=== PATIENT | female | born 1965 | race African-American/Black ===

== ENCOUNTER 2016-07-24 10:32 | Emergency (ER) | payer MEDICARE ==
[~2016-07-24] VITALS: Ht 175.3 cm; Wt 87.1 kg
[2016-07-24] MEDS ORDERED: FAMOTIDINE 20 MG/2 ML VIAL IVP ONE (11:15)
[2016-07-24] MEDS ORDERED: DEXAMETHASONE SOD PHOS 20 MG/5 ML VIAL. IV ONE (11:15)
[2016-07-24] MEDS ORDERED: DIPHENHYDRAMINE 50 MG/ML VIAL IVP ONE (11:15)
--- NOTE | 2016-07-24 13:06 | PHYS DOC ---
Past Medical History Past Medical History: CVA, Diabetes-Type II, High Cholesterol, Hypertension Additional Past Medical Histor: DKA Past Surgical History: Oophorectomy Additional Past Surgical Histo: stents to kidneys Alcohol Use: None Drug Use: None Adult General Chief Complaint Chief Complaint: ALLERGIC REACTION HPI HPI Patient a 50 year old female with history of CVA, hypertension, diabetes type II, high cholesterol, who presents today complaining of an allergic reaction. Patient states she has lip swelling and a rash that began after she drank bottled water she purchased at the store but she states had sulfa which she is allergic to. Patient denies any difficulty swallowing, denies any throat or tongue swelling. She states her symptoms have improved since last night. Review of Systems Review of Systems Constitutional: Denies fever or chills [] Eyes: Denies change in visual acuity, redness, or eye pain [] HENT: Lip swelling Respiratory: Denies cough or shortness of breath [] Cardiovascular: No additional information not addressed in HPI [] GI: Denies abdominal pain, nausea, vomiting, bloody stools or diarrhea [] : Denies dysuria or hematuria [] Musculoskeletal: Denies back pain or joint pain [] Integument: rash Neurologic: Denies headache, focal weakness or sensory changes [] Endocrine: Denies polyuria or polydipsia [] Current Medications Current Medications Current Medications Medications (Trade) Dose Ordered Sig/Leanen Start Time Stop Time Status Last Admin Dose Admin Dexamethasone Sodium Phosphate (Decadron) 10 mg 1X ONCE 07/24/16 11:15 07/24/16 11:16 DC 07/24/16 11:38 10 MG Diphenhydramine HCl (Benadryl) 50 mg 1X ONCE 07/24/16 11:15 07/24/16 11:16 DC 07/24/16 11:37 50 MG Famotidine (Pepcid) 20 mg 1X ONCE 07/24/16 11:15 07/24/16 11:16 DC 07/24/16 11:37 20 MG Allergies Allergies Allergies Coded Allergies Type Severity Reaction Last Updated Verified Sulfa (Sulfonamide Antibiotics) Allergy Severe Anaphylaxis 07/24/16 Yes Penicillins Allergy Intermediate 07/24/16 Yes Physical Exam Physical Exam Constitutional: Well developed, well nourished, no acute distress, non-toxic appearance. [] HENT: Normocephalic, atraumatic, bilateral external ears normal, oropharynx moist, no oral exudates, nose normal. [] No swelling noted on exam. Eyes: PERRLA, EOMI, conjunctiva normal, no discharge. [] Neck: Normal range of motion, no tenderness, supple, no stridor. [] Cardiovascular:Heart rate regular rhythm, no murmur [] Lungs & Thorax: Bilateral breath sounds clear to auscultation [] Abdomen: Bowel sounds normal, soft, no tenderness, no masses, no pulsatile masses. [] Skin: no rash noted on exam Back: No tenderness, no CVA tenderness. [] Extremities: No tenderness, no cyanosis, no clubbing, ROM intact, no edema. [] Neurologic: Alert and oriented X 3, normal motor function, normal sensory function, no focal deficits noted. [] Psychologic: Affect normal, judgement normal, mood normal. [] Current Patient Data Vital Signs Vital Signs Date Time Temp Pulse Resp B/P Pulse Ox O2 Delivery O2 Flow Rate FiO2 07/24/16 12:15 96 160/84 98 Room Air 07/24/16 10:37 99.0 20 99.0 EKG EKG [] Radiology/Procedures Radiology/Procedures [] Course & Med Decision Making Course & Med Decision Making Pertinent Labs and Imaging studies reviewed. (See chart for details) Patient is in the ED complaining of lip swelling and a rash that began after she drank bottled water she bought at the store that had sulfa. On physical exam patient does not have any lip swelling. She has no throat or tongue swelling. Patient was given Benadryl, Decadron and Pepcid and discharged on the same. She is to follow-up with her PCP in 1-3. She was provided return precautions and discharged in stable condition. Dragon Disclaimer Dragon Disclaimer This electronic medical record was generated, in whole or in part, using a voice recognition dictation system. Departure Departure Impression: Primary Impression: Allergic reaction Additional Impression: Angioedema Disposition: HOME, SELF-CARE Condition: STABLE Referrals: NO PCP (PCP) Follow-up with your own doctor in 1-3 days Patient Instructions: Angioedema, Rash Additional Instructions: You were seen for an allergic reaction to bottled water. Please take the prescribed medicines as ordered. Come back to the ED at any point symptoms reoccur. Scripts Famotidine (Pepcid)20 Mg [id number] Mg PO DAILY #7 TAB Prov:CARMEN COOLEY APRN 07/24/16 Prednisone 50 Mg Tablet1 Tab PO DAILY #4 TAB Prov:CARMEN COOLEY APRN 07/24/16 Diphenhydramine Hcl (Benadryl)25 Mg Capsule1 Cap PO Q4HRS PRN RASH #30 CAP Ref 1 Prov:CARMEN COOLEY APRN 07/24/16 Problem Qualifiers Primary Impression: Allergic reaction Encounter type: initial encounter Qualified Code: T78.40XA - Allergy, unspecified, initial encounter Additional Impression: Angioedema Encounter type: initial encounter Qualified Code: T78.3XXA - Angioneurotic edema, initial encounter CARMEN COOLEY APRN Jul 24, 2016 13:06
[2016-07-24] MEDS ORDERED: FAMO-63 PO (13:20)
[2016-07-24] MEDS ORDERED: PRED50TA PO (13:20)
[2016-07-24] MEDS ORDERED: DIPH25CA58 PO (13:20)
[2016-07-24 13:40] VITALS: BP 170/90
== END 2016-07-24 13:40 | disposition home or self-care (01) ==
LOC: ER 10:32
DX: T78.40XA Allergy, unspecified, initial encounter (principal); T78.3XXA Angioneurotic edema, initial encounter; E11.9 Type 2 diabetes mellitus without complications; E78.00 Pure hypercholesterolemia, unspecified; I10 Essential (primary) hypertension; Z90.722 Acquired absence of ovaries, bilateral; Z86.73 Personal history of transient ischemic attack (TIA), and cerebral infarction without residual deficits; Z88.0 Allergy status to penicillin; Z88.2 Allergy status to sulfonamides
CPT/HCPCS: 96374; 96375; 99284; J1100; J1200; S0028

== ENCOUNTER 2017-04-17 17:56 | Emergency (ER) | payer MEDICARE ==
[~2017-04-17] VITALS: Ht 175.3 cm; Wt 88.5 kg
[~2017-04-17 17:56] MED LIST: DIPH25CA58 PO; FAMO-63 PO; PRED50TA PO
[2017-04-17 18:29] VITALS: BP 192/119
--- NOTE | 2017-04-17 18:43 | PHYS DOC ---
Past Medical History Past Medical History: CVA, Diabetes-Type II, High Cholesterol, Hypertension Additional Past Medical Histor: DKA Past Surgical History: Oophorectomy Additional Past Surgical Histo: stents to kidneys Alcohol Use: None Drug Use: None Adult General Chief Complaint Chief Complaint: MECHANICAL FALL HPI HPI Patient is a 51 year old female presents to the emergency department stating that she has having right thumb pain and discomfort. Patient is right-hand dominant. Patient has had problems this on the left and is unable to use the left arm. She states that she went to get up out of the chair and fell and injured the thumb area on Friday. She states that she has been placing ice packs on the area to help with the swelling and discomfort. Patient states the swelling has decreased. She has not taken anything for pain and discomfort. She denies any numbness or tingling into the thumb she does have full range of motion of the thumb however she does have increased pain and discomfort with movement. Review of Systems Review of Systems Constitutional: Denies fever or chills [] Eyes: Denies change in visual acuity, redness, or eye pain [] HENT: Denies nasal congestion or sore throat [] Respiratory: Denies cough or shortness of breath [] Cardiovascular: No additional information not addressed in HPI [] GI: Denies abdominal pain, nausea, vomiting, bloody stools or diarrhea [] : Denies dysuria or hematuria [] Musculoskeletal: Denies back pain. Right thumb pain Integument: Denies rash or skin lesions [] Neurologic: Denies headache, focal weakness or sensory changes [] Endocrine: Denies polyuria or polydipsia [] All other systems were reviewed and found to be within normal limits, except as documented in this note. Allergies Allergies Allergies Coded Allergies Type Severity Reaction Last Updated Verified Sulfa (Sulfonamide Antibiotics) Allergy Severe Anaphylaxis 07/24/16 Yes Penicillins Allergy Intermediate 07/24/16 Yes Physical Exam Physical Exam Constitutional: Well developed, well nourished, no acute distress, non-toxic appearance. [] HENT: Normocephalic, atraumatic, bilateral external ears normal, oropharynx moist, no oral exudates, nose normal. [] Eyes: PERRLA, EOMI, conjunctiva normal, no discharge. [] Neck: Normal range of motion, no tenderness, supple, no stridor. [] Cardiovascular:Heart rate regular rhythm, no murmur [] Lungs & Thorax: Bilateral breath sounds clear to auscultation [] Skin: Warm, dry, no erythema, no rash. [] Extremities: Right thumb tenderness noted at the MIP joint, no cyanosis, no clubbing, ROM intact, no edema. Patient with minimal swelling noted Refill brisk less than 2 seconds. Patient does have full range of motion however increased pain is noted with movement. Neurologic: Alert and oriented X 3, normal motor function, normal sensory function, no focal deficits noted. [] Psychologic: Affect normal, judgement normal, mood normal. [] Current Patient Data Vital Signs Vital Signs Date Time Temp Pulse Resp B/P (MAP) Pulse Ox O2 Delivery O2 Flow Rate FiO2 04/17/17 18:29 98.2 82 20 99 Room Air 98.2 EKG EKG [] Radiology/Procedures Radiology/Procedures [] Course & Med Decision Making Course & Med Decision Making Pertinent Labs and Imaging studies reviewed. (See chart for details) Thumb x-rays were negative for any bony abnormalities per Dr. Urban. Patient was placed in a thumb spica splint with recommendations to follow-up with orthopedic within the next week. She was provided with orthopedic name and number. She was also instructed to use ibuprofen 800 mg every 8 hours with food stopped taking he developed upset stomach. Recommended ice packs on 20 minutes off 20 minutes several times a day elevation as much as possible. She is provided with splint care. Patient was provided with discharge instructions óscar regimens and follow-up recommendations. She was provided with signs and symptoms return back to the emergency department. Patient agrees with the instructions mentioned. She'll be discharged home in stable condition. [] Dragon Disclaimer Dragon Disclaimer This electronic medical record was generated, in whole or in part, using a voice recognition dictation system. Departure Departure Impression: Primary Impression: Strain of right thumb Disposition: HOME, SELF-CARE Condition: STABLE Referrals: NO PCP (PCP) SERGIO VELEZ II, MD Patient Instructions: Splint Care, [id number], Thumb Sprain Additional Instructions: Activity as tolerated. Ibuprofen 800 mg every 8 hours with food stopped taking he developed upset stomach. Keep the splint in place and keep it clean and dry. Do not remove the splint a follow-up with orthopedic. Ice packs on 20 minutes off 20 minutes several times a day. Elevation as much as possible. Follow-up with orthopedic within the next week. Return back to the emergency department as needed for signs and symptoms that become worse. ANU FERGUSON APRN Apr 17, 2017 18:43
--- NOTE | 2017-04-18 07:24 | RAD ---
Indication: Fall with pain in the first digit. Time of exam 1813 hours. Multiple views of the right thumb were obtained. The alignment is normal. The phalanges and first metacarpal are intact. No fractures are seen. Impression: No acute bony abnormality is detected.
== END 2017-04-17 19:05 | disposition home or self-care (01) ==
LOC: ER 17:56
DX: S63.601A Unspecified sprain of right thumb, initial encounter (principal); E11.10 Type 2 diabetes mellitus with ketoacidosis without coma; E78.00 Pure hypercholesterolemia, unspecified; I10 Essential (primary) hypertension; Z86.73 Personal history of transient ischemic attack (TIA), and cerebral infarction without residual deficits; Z88.0 Allergy status to penicillin; Z88.2 Allergy status to sulfonamides; W18.39XA Other fall on same level, initial encounter; Y93.89 Activity, other specified; Y99.8 Other external cause status; Y92.89 Other specified places as the place of occurrence of the external cause
CPT/HCPCS: 29125; 73140; 99284-25

== ENCOUNTER → 2017-05-01 | Outpatient (CLI) | payer MEDICARE | END | disposition home or self-care (01) | LOC: KCIC MRI 09:00 | DX: S53.31XD Traumatic rupture of right ulnar collateral ligament, subsequent encounter (principal); S69.91XD Unspecified injury of right wrist, hand and finger(s), subsequent encounter; X58.XXXD Exposure to other specified factors, subsequent encounter | CPT/HCPCS: 73218 ==

== ENCOUNTER 2018-09-30 16:33 | Emergency (ER) | payer MEDICARE ==
[~2018-09-30] VITALS: Ht 175.3 cm; Wt 86.2 kg
--- NOTE | 2018-09-30 17:02 | PHYS DOC ---
Past Medical History Past Medical History: CVA, Diabetes-Type II, High Cholesterol, Hypertension Additional Past Medical Histor: DKA Past Surgical History: Oophorectomy Additional Past Surgical Histo: stents to kidneys Alcohol Use: None Drug Use: None Adult General Chief Complaint Chief Complaint: MECHANICAL FALL HPI HPI Patient is a 52-year-old female who presents to the emergency department for evaluation. She states that she has had a stroke in the past, and was ambulating with the use of her cane. She states that she normally wears a left leg brace to help stabilize her leg due to weakness from the stroke, but she was not wearing it at the time, and she lost her balance and fell to the ground. She states that this was not an unusual occurrence for her, as if she puts too much weight on her left leg, she will fall when the leg kylee. She injured her left ankle, but denies any other pain in her extremities, or any other injuries. She is noted to be extremely hypertensive. She states that she has not taken any medication in several months, she states she had been on lisinopril for her blood pressure, as well as other medications that she is not sure. She had also been taking insulin which she states that she has not been taking. She states that she does occasionally check her blood pressure at home and he was routinely above 200 systolic. She denies any new headache, no vision changes, new numbness or weakness, other than her chronic residual weakness on the left side from her old stroke. She denies any chest pain or shortness of breath. There are no alleviating, or exacerbating factors to her symptoms otherwise. Review of Systems Review of Systems Constitutional: Denies fever or chills [] Eyes: Denies change in visual acuity, redness, or eye pain [] HENT: Denies nasal congestion or sore throat [] Respiratory: Denies cough or shortness of breath [] Cardiovascular: The patient denies any shortness of breath, chest pain, palpitations, or orthopnea [] GI: Denies abdominal pain, nausea, vomiting, bloody stools or diarrhea [] : Denies dysuria or hematuria [] Musculoskeletal: Denies back pain or joint pain , except as noted in the history of present illness.[] Integument: Denies rash or skin lesions [] Neurologic: Denies headache, new focal weakness or sensory changes [] Endocrine: Denies polyuria or polydipsia [] All other systems were reviewed and found to be within normal limits, except as documented in this note. Current Medications Current Medications Current Medications Medications (Trade) Dose Ordered Sig/Leanne Start Time Stop Time Status Last Admin Dose Admin Clonidine HCl (Catapres) 0.2 mg 1X ONCE 09/30/18 17:15 09/30/18 17:16 DC 09/30/18 17:41 0.2 MG Insulin Human Regular (HumuLIN R VIAL) 10 unit 1X ONCE 09/30/18 17:30 09/30/18 17:31 DC 09/30/18 17:54 10 UNIT Morphine Sulfate (Morphine Sulfate) 4 mg 1X ONCE 09/30/18 18:00 09/30/18 18:01 DC 09/30/18 18:08 4 MG Sodium Chloride 1,000 ml @ 1,000 mls/hr 1X ONCE 09/30/18 18:00 09/30/18 18:59 Allergies Allergies Allergies Coded Allergies Type Severity Reaction Last Updated Verified Sulfa (Sulfonamide Antibiotics) Allergy Severe Anaphylaxis 07/24/16 Yes Penicillins Allergy Intermediate 07/24/16 Yes Physical Exam Physical Exam PHYSICAL EXAM: CONSTITUTIONAL: Well developed, well nourished HEAD: normocephalic, atraumatic EENT: PERRL, EOMI. Conjunctivae normal color, sclerae non-icteric; moist mucous membranes. NECK: Supple, non-tender; no meningismus. LUNGS: Lungs CTA, breathing even and unlabored. Normal air movement. HEART: Regular rate and rhythm, no murmur CHEST: No deformity; non-tender ABDOMEN: The abdomen is soft, and non-tender, no masses or bruits. EXTREM: Normal ROM; no deformity, no calf tenderness. Normal pulses palpable in all extremities. There is trace bilateral pedal edema. There is tenderness to palpation to the left ankle, with some swelling along the medial malleolus. There is also mild tenderness to palpation along the fibular head on the left. The remainder of the extremities are atraumatic and nontender. SKIN: No rash; no diaphoresis NEURO: Alert; normal speech and cognition; CN's grossly intact; there is chronic weakness of the left upper and lower extremity from an old stroke, otherwise strength grossly intact without focal deficit. BACK: No CVA TTP. Current Patient Data Vital Signs Vital Signs Date Time Temp Pulse Resp B/P (MAP) Pulse Ox O2 Delivery O2 Flow Rate FiO2 09/30/18 17:41 88 218/110 Lab Values Laboratory Tests Test 09/30/18 16:58 09/30/18 17:20 Glucose (Fingerstick) 455 mg/dL (70-99) H White Blood Count 7.8 x10^3/uL (4.0-11.0) Red Blood Count 4.34 x10^6/uL (3.50-5.40) Hemoglobin 12.4 g/dL (12.0-15.5) Hematocrit 36.9 % (36.0-47.0) Mean Corpuscular Volume 85 fL (79-100) Mean Corpuscular Hemoglobin 29 pg (25-35) Mean Corpuscular Hemoglobin Concent 34 g/dL (31-37) Red Cell Distribution Width 14.4 % (11.5-14.5) Platelet Count 316 x10^3/uL (140-400) Neutrophils (%) (Auto) 75 % (31-73) H Lymphocytes (%) (Auto) 16 % (24-48) L Monocytes (%) (Auto) 7 % (0-9) Eosinophils (%) (Auto) 1 % (0-3) Basophils (%) (Auto) 1 % (0-3) Neutrophils # (Auto) 5.9 x10^3uL (1.8-7.7) Lymphocytes # (Auto) 1.2 x10^3/uL (1.0-4.8) Monocytes # (Auto) 0.5 x10^3/uL (0.0-1.1) Eosinophils # (Auto) 0.1 x10^3/uL (0.0-0.7) Basophils # (Auto) 0.1 x10^3/uL (0.0-0.2) Sodium Level 136 mmol/L (136-145) Potassium Level 4.4 mmol/L (3.5-5.1) Chloride Level 97 mmol/L (98-107) L Carbon Dioxide Level 26 mmol/L (21-32) Anion Gap 13 (6-14) Blood Urea Nitrogen 13 mg/dL (7-20) Creatinine 1.1 mg/dL (0.6-1.0) H Estimated GFR (Cockcroft-Gault) 62.9 Glucose Level 462 mg/dL (70-99) H Calcium Level 9.3 mg/dL (8.5-10.1) Acetone Level Neg (NEG) Laboratory Tests 09/30/18 17:20 Laboratory Tests 09/30/18 17:20 EKG EKG Normal sinus rhythm with a normal rate, normal axis, normal intervals, there are no acute ischemic ST/T changes. Changes suggestive of left ventricular hypertrophy are present.[] Radiology/Procedures Radiology/Procedures [PROCEDURE: TIBIA FIBULA LEFT EXAM: Left tibia and fibula, 2 views; left ankle, 3 views. HISTORY: Fall. COMPARISON: None. FINDINGS: 2 views of the tibia and fibula and 3 views of the ankle are obtained. There is mild medial compartment joint space narrowing and spurring involving the left knee. There is benign sclerosis within the proximal tibial metaphysis. There is a minimally displaced oblique fracture of the distal fibular diaphysis. There is also a minimally displaced fracture of the inferior medial malleolus. No clear posterior malleolar fracture is seen. There is a small plantar spur. There is enthesopathy at the Achilles tendon insertion. There is a small benign osseous excrescence along the anterior talus. There is diffuse ankle soft tissue swelling. There are vascular calcifications. IMPRESSION: 1. Minimally displaced distal fibular metadiaphyseal and inferior medial malleolar fractures. 2. Mild medial compartment predominant osteoarthritis of the left knee. 3. Small plantar spur. ] Course & Med Decision Making Course & Med Decision Making Pertinent Labs and Imaging studies reviewed. (See chart for details) []5:55 PM: The patient's condition remains stable. She is uncertain of the medications that she has been taking. I did review the x-ray and discussed management with Dr. No, orthopedics. He felt that the patient would likely be treated nonoperatively and we agreed that placing the patient in a splint, with limited weightbearing, although weightbearing as needed for balance, was appropriate. The patient states she has plenty of help at home, has access to a wheelchair, and feels that she can get around adequately with the help an assistive devices that she has at home, although she is not a good candidate to use a walker due to paresis of her left upper extremity. She does ambulate with a cane. I discussed the importance of obtaining a PCP, and the patient be given a list of local physicians, and restarted on her blood pressure medication. I also discussed importance of taking her insulin as previously prescribed, and return precautions were discussed in detail. Currently, the patient's blood sugar remains elevated as is her blood pressure. I do believe that she has chronically elevated significant hypertension, untreated, and she is uncertain which medications that she is supposed be taking. I believe it would be more harm than good and acutely lower her blood pressure I will start her on an outpatient regimen of antihypertensive medication. I discussed the importance of close follow-up for this. I will also try and get her blood sugar down and I instructed her to resume taking her insulin, which she can obtain at the pharmacy, at her previously scheduled dose. Care will be turned over to Dr. Montero, pending recheck of the patient's blood pressure and blood sugar, prior to discharge. SPLINT APPLICATION NOTE: A posterior short leg splint was placed on the left lower extremity, with a stirrup, PMS intact post-placed in. ER staff place a splint and inspected post placement. Dragon Disclaimer Dragon Disclaimer This electronic medical record was generated, in whole or in part, using a voice recognition dictation system. Departure Departure Impression: Primary Impression: Ankle fracture Additional Impressions: Hypertension Hyperglycemia Referrals: SERGIO VELEZ II, MD Patient Instructions: Ankle Fracture, Bromocriptine oral tablets (diabetes), Diets for Diabetes, Food Labeling, Hyperglycemia, Hypertension, Type 2 Diabetes Mellitus, Adult Additional Instructions: It is important that you obtain a primary care physician for further management of your blood pressure and diabetes. Please call, using the scheduled resources, to schedule an appointment for further follow-up. Scripts Lisinopril/Hydrochlorothiazide (LISINOPRIL-HCTZ 20-25 MG TAB) 1 Each Tablet 1 TAB PO DAILY, #30 TAB 0 Refills Prov: SEAN JHA MD 09/30/18 Hydrocodone/Apap 5-325 (NORCO 5-325 TABLET) 1 Each Tablet 1 TAB PO Q4-6HRS PRN for PAIN, #15 TAB Prov: SEAN JHA MD 09/30/18 Problem Qualifiers SEAN JHA MD Sep 30, 2018 17:02
[2018-09-30] MEDS ORDERED: cloNIDine HCL 0.1 MG TABLET PO ONE (17:15)
[2018-09-30] MEDS ORDERED: MORPHINE SULFATE 4 MG/ML VIAL. IV ONE ×2 (17:15→18:00)
--- NOTE | 2018-09-30 17:25 | RAD ---
EXAM: Left tibia and fibula, 2 views; left ankle, 3 views. HISTORY: Fall. COMPARISON: None. FINDINGS: 2 views of the tibia and fibula and 3 views of the ankle are obtained. There is mild medial compartment joint space narrowing and spurring involving the left knee. There is benign sclerosis within the proximal tibial metaphysis. There is a minimally displaced oblique fracture of the distal fibular diaphysis. There is also a minimally displaced fracture of the inferior medial malleolus. No clear posterior malleolar fracture is seen. There is a small plantar spur. There is enthesopathy at the Achilles tendon insertion. There is a small benign osseous excrescence along the anterior talus. There is diffuse ankle soft tissue swelling. There are vascular calcifications. IMPRESSION: 1. Minimally displaced distal fibular metadiaphyseal and inferior medial malleolar fractures. 2. Mild medial compartment predominant osteoarthritis of the left knee. 3. Small plantar spur. Electronically signed by: Jana Sandy MD (09/30/2018 5:22 PM) [facility]
[2018-09-30 17:30] LABS: BASO # 0.1 x10^3/uL (0.0-0.2); BASO % 1 % (0-3); EOS # 0.1 x10^3/uL (0.0-0.7); EOS % 1 % (0-3); HEMATOCRIT 36.9 % (36.0-47.0); HEMOGLOBIN 12.4 g/dL (12.0-15.5); LYMPH # 1.2 x10^3/uL (1.0-4.8); LYMPH % 16 % (24-48); MEAN CORPUSCULAR HEMOGLOBIN 29 pg (25-35); MEAN CORPUSCULAR HGB CONC 34 g/dL (31-37); MEAN CORPUSCULAR VOLUME 85 fL (79-100); MONO # 0.5 x10^3/uL (0.0-1.1); MONO % 7 % (0-9); NEUT # 5.9 x10^3uL (1.8-7.7); NEUT % 75 % (31-73); PLATELET COUNT 316 x10^3/uL (140-400); RED BLOOD COUNT 4.34 x10^6/uL (3.50-5.40); RED CELL DISTRIBUTION WIDTH 14.4 % (11.5-14.5); WHITE BLOOD COUNT 7.8 x10^3/uL (4.0-11.0)
[2018-09-30] MEDS ORDERED: INSULIN REGULAR 100 UNIT/ML 3ML VIAL. IV ONE (17:30)
[2018-09-30] MEDS ORDERED: IV NORMAL SALINE 1000ML BAG 1,000 ML IV ONE ×2 (17:30→18:00)
[2018-09-30 17:42] LABS: CALCIUM 9.3 mg/dL (8.5-10.1); CREATININE 1.1 mg/dL (0.6-1.0); GFR 62.9; POTASSIUM 4.4 mmol/L (3.5-5.1)
[2018-09-30] MEDS ORDERED: HYDR-3164 PO (18:14)
[2018-09-30] MEDS ORDERED: LISI1TAB7 PO (18:14)
[2018-09-30 19:30] VITALS: BP 189/93
--- NOTE | 2018-10-01 07:17 | EKG ---
[facility] [address] [place] [address] Test Date: 2018-09-30 Test Time: 17:16:57 Pat Name: CHAZ CAMPBELL Department: Room: Gender: F [employer]: : 1965 Requested By: SEAN JHA Order Number: [id number] Reading MD: Measurements Intervals [place] Rate: 91 P: -5 SC: 140 QRS: 26 QRSD: 80 T: 30 QT: 342 QTc: 422 Interpretive Statements SINUS RHYTHM LEFT ATRIAL ABNORMALITY ABNORMAL ECG RI6.01 No previous ECG available for comparison
== END 2018-09-30 19:43 | disposition home or self-care (01) ==
LOC: ER 16:33
DX: S89.392A Other physeal fracture of lower end of left fibula, initial encounter for closed fracture (principal); S82.52XA Displaced fracture of medial malleolus of left tibia, initial encounter for closed fracture; E11.65 Type 2 diabetes mellitus with hyperglycemia; I10 Essential (primary) hypertension; M17.12 Unilateral primary osteoarthritis, left knee; E78.00 Pure hypercholesterolemia, unspecified; M77.32 Calcaneal spur, left foot; Z79.4 Long term (current) use of insulin; Z86.73 Personal history of transient ischemic attack (TIA), and cerebral infarction without residual deficits; Z88.0 Allergy status to penicillin; Z88.2 Allergy status to sulfonamides; W18.39XA Other fall on same level, initial encounter; Y93.89 Activity, other specified; Y92.89 Other specified places as the place of occurrence of the external cause; Y99.8 Other external cause status
CPT/HCPCS: 29515; 36415; 73590; 73610; 80048; 82010; 82962; 85025; 93005; 96361; 96374; 96375; 99285; J1815; J2270; J7030

== ENCOUNTER 2018-11-12 14:40 | Emergency (ER) | payer MEDICARE ==
[~2018-11-12] VITALS: Ht 175.3 cm; Wt 86.2 kg
[~2018-11-12 14:40] MED LIST changes: +HYDR-3164 PO; +LISI1TAB7 PO
[2018-11-12 14:56] VITALS: BP 225/110
--- NOTE | 2018-11-12 15:27 | PHYS DOC ---
Past Medical History Past Medical History: CVA, Diabetes-Type II, High Cholesterol, Hypertension Additional Past Medical Histor: DKA Past Surgical History: Oophorectomy Additional Past Surgical Histo: stents to kidneys Alcohol Use: None Drug Use: None Adult General Chief Complaint Chief Complaint: ANKLE PROBLEM HPI HPI Patient is a 53 year old female with history of CVA with left-sided weakness, hypertension, high cholesterol, who presents to the ED today complaining of discoloration on the left foot and ankle since she had the temporally cast removed from the left lower extremity. Patient states she fractured her left ankle on September 30, 2018. She states she had a temporary cast on. She was seen at orthopedic doctor on November 16, 2018 and was put on orthopedic boot. She states she has noted increased in discoloration of her foot and ankle. She likely checked. She states her next appointment with orthopedic doctor is in 2 weeks. Patient denies any new injuries. Review of Systems Review of Systems Constitutional: Denies fever or chills [] Musculoskeletal: Reports discoloration on the left ankle and left foot Integument: Denies rash or skin lesions [] Neurologic: Denies headache, focal weakness or sensory changes [] All other systems were reviewed and found to be within normal limits, except as documented in this note. Allergies Allergies Allergies Coded Allergies Type Severity Reaction Last Updated Verified Sulfa (Sulfonamide Antibiotics) Allergy Severe Anaphylaxis 07/24/16 Yes Penicillins Allergy Intermediate 07/24/16 Yes Physical Exam Physical Exam Constitutional: Well developed, well nourished, no acute distress, non-toxic appearance. [] Skin: Warm, dry, no erythema, no rash. [] Back: No tenderness, no CVA tenderness. [] Extremities: Left upper and left lower extremity appeared deformed consistent with history of CVA. Please +2 edema noted on the left foot. There is blackish discoloration on the left medial ankle and the top of the left foot with no open wound. +1 left pedal pulse. Cap refill less than 2 seconds the left toes. Sensation intact to the left lower extremity. Neurologic: Alert and oriented X 3, normal motor function, normal sensory function, no focal deficits noted. [] Psychologic: Affect normal, judgement normal, mood normal. [] Current Patient Data Vital Signs Vital Signs Date Time Temp Pulse Resp B/P (MAP) Pulse Ox O2 Delivery O2 Flow Rate FiO2 7/18/19 14:56 99.0 99 18 225/110 (148) 99 Room Air 99.0 EKG EKG [] Radiology/Procedures Radiology/Procedures []PROCEDURE: VENOUS LOWER EXTREMITY LEFT Ultrasound venous Doppler INDICATION:Left lower extremity swelling and discoloration. Fracture of the ankle one month ago. TECHNIQUE: Grayscale, color Doppler and spectral waveform ultrasound images of the left lower extremity deep veins obtained. COMPARISON: None FINDINGS: The interrogated deep veins are compressible and demonstrate evidence of blood flow with normal respiratory variation and response to augmentation. Suboptimal visualization of calf veins due to edema. Enlarged left groin lymph node measuring 2.3 x 2.0 x 0.7 cm likely reactive. IMPRESSION: No sonographic evidence of acute DVT of the left lower extremity deep veins. Electronically signed by: Cristopher Morrow DO (11/12/2018 3:56 PM) [facility] DICTATED and SIGNED BY: CRISTOPHER MORROW DO DATE: 11/12/18 1556 Course & Med Decision Making Course & Med Decision Making Pertinent Labs and Imaging studies reviewed. (See chart for details) This is a 53-year-old female patient presented to the ED today complaining of left foot and left medial ankle discoloration, patient fractured her left ankle September 30 2018, was in a temporary splint which was removed October 17 and she started wearing the orthopedic shoe. She states that discoloration begun when she was in the temporary splint. She just wants it checked out because her next appointment with orthopedic doctor will be in 2 weeks. She has no new injuries. Venous Doppler of the left lower extremity is negative for any acute findings. The discolored area does not appear infected, there is no open wound, I recommended padding the orthopedic shoe to avoid putting pressure on the affected areas. Patient to be discharged to home. Encouraged to ice and elevate the extremity. Follow-up with orthopedic doctor in 2 weeks as scheduled. Dragon Disclaimer Dragon Disclaimer This electronic medical record was generated, in whole or in part, using a voice recognition dictation system. Departure Departure Impression: Primary Impression: Edema, lower extremity Disposition: HOME, SELF-CARE Condition: STABLE Referrals: NO PCP (PCP) Follow-up with orthopedic doctor in 1-2 Patient Instructions: Edema, [id number] Additional Instructions: You were evaluated in the emergency room for left foot and left ankle discoloration. Try to ice and elevate the extremity whenever you can. You can a lso wear compression stockings which will help reduce swelling on you feet. Your can pad your orthopedic shoe to avoid putting pressure on the affected areas. Follow-up with your orthopedic doctor in the course of next week or the following week as scheduled. CARMEN COOLEY APRN Nov 12, 2018 15:27
--- NOTE | 2018-11-12 15:59 | RAD ---
Ultrasound venous Doppler INDICATION:Left lower extremity swelling and discoloration. Fracture of the ankle one month ago. TECHNIQUE: Grayscale, color Doppler and spectral waveform ultrasound images of the left lower extremity deep veins obtained. COMPARISON: None FINDINGS: The interrogated deep veins are compressible and demonstrate evidence of blood flow with normal respiratory variation and response to augmentation. Suboptimal visualization of calf veins due to edema. Enlarged left groin lymph node measuring 2.3 x 2.0 x 0.7 cm likely reactive. IMPRESSION: No sonographic evidence of acute DVT of the left lower extremity deep veins. Electronically signed by: Cristopher Welsh DO (11/12/2018 3:56 PM) [facility]
== END 2018-11-12 16:27 | disposition home or self-care (01) ==
LOC: ER 14:40
DX: R60.0 Localized edema (principal); I10 Essential (primary) hypertension; E78.00 Pure hypercholesterolemia, unspecified; E11.9 Type 2 diabetes mellitus without complications; Z86.73 Personal history of transient ischemic attack (TIA), and cerebral infarction without residual deficits; Z88.0 Allergy status to penicillin; Z88.2 Allergy status to sulfonamides
CPT/HCPCS: 93971; 99284-25

== ENCOUNTER 2019-01-03 12:15 | Emergency (ER) | payer MEDICARE ==
[~2019-01-03] VITALS: Ht 175.3 cm; Wt 86.2 kg
[~2019-01-03 12:15] MED LIST changes: +LISI1TAB20 PO; -LISI1TAB7 PO
--- NOTE | 2019-01-03 12:43 | PHYS DOC ---
Past Medical History Past Medical History: CVA, Diabetes-Type II, High Cholesterol, Hypertension Additional Past Medical Histor: DKA Past Surgical History: Oophorectomy Additional Past Surgical Histo: stents to kidneys Alcohol Use: None Drug Use: None Adult General Chief Complaint Chief Complaint: LOWEREXTREMITY INJURY HPI HPI patient is a 53-year-old female, with a past history of hypertension, diabetes, stroke with resultant left hemiparesis, and gait difficulty uses a cane to ambulate, who presents to the emergency department for evaluation. She states that she fell about 2 weeks ago, and injured her left ribs. She states that she fell again last night, and injured her left leg, in the posterior calf area. She is having pain in this area. She states that her left knee seems to give out at times, due to weakness from the stroke. She is unable to use a walker secondary to paresis of her left arm. She denies any headache or neck pain, head injury, shortness of breath, chest pain other than her rib pain, abdominal pain, dizziness or lightheadedness. Movement and palpation of the affected area seems to worsen the patient's symptoms. There are no alleviating factors to her symptoms. Review of Systems Review of Systems Constitutional: Denies fever or chills [] Eyes: Denies change in visual acuity, redness, or eye pain [] HENT: Denies nasal congestion or sore throat [] Respiratory: Denies cough or shortness of breath [] Cardiovascular: The patient denies any shortness of breath, chest pain, palpitations, or orthopnea [] GI: Denies abdominal pain, nausea, vomiting, bloody stools or diarrhea [] : Denies dysuria or hematuria [] Musculoskeletal: Denies back pain or joint pain [] Integument: Denies rash or skin lesions [] Neurologic: Denies headache, new focal weakness or sensory changes [] Endocrine: Denies polyuria or polydipsia [] All other systems were reviewed and found to be within normal limits, except as documented in this note. Current Medications Current Medications Current Medications Medications (Trade) Dose Ordered Sig/Leanne Start Time Stop Time Status Last Admin Dose Admin Acetaminophen/ Codeine Phosphate (Tylenol #3) 1 tab 1X ONCE 01/03/19 12:45 01/03/19 12:46 DC 01/03/19 12:52 1 TAB Clonidine HCl (Catapres) 0.1 mg 1X ONCE 01/03/19 12:45 01/03/19 12:46 DC 01/03/19 12:52 0.1 MG Allergies Allergies Allergies Coded Allergies Type Severity Reaction Last Updated Verified Sulfa (Sulfonamide Antibiotics) Allergy Severe Anaphylaxis 07/24/16 Yes Penicillins Allergy Intermediate 07/24/16 Yes Physical Exam Physical Exam PHYSICAL EXAM: CONSTITUTIONAL: Well developed, well nourished HEAD: normocephalic, atraumaticThere is full, painless range of motion of the cervical spine, without any focal bony midline tenderness to palpation. EENT: PERRL, EOMI. Conjunctivae normal color, sclerae non-icteric; moist mucous membranes. NECK: Supple, non-tender; no meningismus. LUNGS: Lungs CTA, breathing even and unlabored. Normal air movement. HEART: Regular rate and rhythm, no murmur CHEST: No deformity; there is mild left-sided chest wall tenderness to palpation, the remainder of the chest is non-tender ABDOMEN: The abdomen is soft, and non-tender, no masses or bruits. EXTREM: There are contractures of the left upper and lower extremity, otherwise the extremities exhibit Normal ROM; no deformity, there is mild left-sided calf tenderness. Normal pulses palpable in all extremities. There is mild left-sided pedal edema. SKIN: No rash; no diaphoresis NEURO: Alert; normal speech and cognition; CN's grossly intact; there is left- sided hemiparesis, otherwise strength grossly intact without focal deficit. BACK: No CVA TTP. Current Patient Data Vital Signs Vital Signs Date Time Temp Pulse Resp B/P (MAP) Pulse Ox O2 Delivery O2 Flow Rate FiO2 01/03/19 12:52 94 213/110 01/03/19 12:52 16 01/03/19 12:21 97.8 96 Room Air 97.8 EKG EKG [] Radiology/Procedures Radiology/Procedures [PROCEDURE: VENOUS LOWER EXTREMITY LEFT Left lower extremity venous duplex study January 03, 2019 Clinical History: Left leg swelling. Technique: Using a combination of real time ultrasound imaging and color-flow and pulse Doppler imaging techniques along with graded compression and augmentation, duplex evaluation of the deep venous system of the the left lower extremity was performed. Multiple images were obtained. Findings: There is no sonographic evidence of deep venous thrombosis involving the visualized deep venous structures of the left lower extremity. Impression: Negative study. ] PROCEDURE: RIBS LEFT AND PA CHEST Left rib series to include an AP chest radiograph 01/03/2019 CLINICAL HISTORY: Fall with left rib pain. An AP digital radiograph of the chest was obtained. 2 AP and 2 oblique digital radiographs of the left ribs were obtained. The cardiac silhouette is mildly enlarged. Atherosclerotic calcification of the thoracic aorta is seen. The thoracic aorta is mildly tortuous. No acute pulmonary infiltrate is seen. No pleural effusion or pneumothorax is noted. Degenerative changes are seen involving the thoracic spine and both shoulders. The osseous structures are grossly intact. No left-sided rib fracture is seen. IMPRESSION: No left-sided rib fracture is seen. PROCEDURE: TIBIA FIBULA LEFT AP and lateral left tibia and fibula radiographs 01/03/2019 CLINICAL HISTORY: Fall with left lower leg pain. AP and lateral digital radiographs left tibia and fibula were obtained. Comparison study is dated 09/30/2018. Old fractures of the distal diaphysis of the left fibula and medial malleolus of the left ankle are again seen. There is evidence of callus formation surrounding the distal left fibular fracture consistent with interval healing. No acute fracture or dislocation of the left tibia or fibula is seen. IMPRESSION: No acute fracture or dislocation is seen. PROCEDURE: ANKLE LEFT 3V Three-view left ankle radiographs 01/03/2019 CLINICAL HISTORY: Fall with injury to the left ankle. AP, lateral and oblique digital radiographs left ankle were obtained. A healing fracture of the distal diaphysis of the left fibula is seen near the lateral malleolus of left ankle. A fracture of the inferior aspect of the medial malleolus is again noted. No acute fracture is seen. Soft tissue swelling surrounds the medial and lateral malleolus of left ankle. Moderate enthesophyte formation seen involving the posterior left calcaneus. IMPRESSION: No acute fracture is seen. Course & Med Decision Making Course & Med Decision Making Pertinent Imaging studies reviewed. (See chart for details) []3:00 PM:Patient remains stable. I discussed test results, the need for close follow-up, and return precautions. Discussed fall precautions at home. Dragon Disclaimer Dragon Disclaimer This electronic medical record was generated, in whole or in part, using a voice recognition dictation system. Departure Departure Impression: Primary Impression: Contusion of rib on left side Additional Impression: Contusion of left leg Disposition: HOME, SELF-CARE Condition: STABLE Patient Instructions: Contusion, Fall Prevention and Home Safety Additional Instructions: Follow-up with primary care provider, using the resources provided. Return to medical care for any new or worsening symptoms, development of increasing pain, dizziness, or lightheadedness. Always use your cane, and use additional family assistance to help with ambulation if needed. Problem Qualifiers SEAN JHA MD Jan 03, 2019 12:43
[2019-01-03] MEDS ORDERED: cloNIDine HCL 0.1 MG TABLET PO ONE (12:45)
[2019-01-03] MEDS ORDERED: ACETAMINOPHEN/CODEINE 300/30MG TABLET. PO ONE (12:45)
--- NOTE | 2019-01-03 14:26 | RAD ---
Three-view left ankle radiographs 01/03/2019 CLINICAL HISTORY: Fall with injury to the left ankle. AP, lateral and oblique digital radiographs left ankle were obtained. A healing fracture of the distal diaphysis of the left fibula is seen near the lateral malleolus of left ankle. A fracture of the inferior aspect of the medial malleolus is again noted. No acute fracture is seen. Soft tissue swelling surrounds the medial and lateral malleolus of left ankle. Moderate enthesophyte formation seen involving the posterior left calcaneus. IMPRESSION: No acute fracture is seen. Electronically signed by: Rigo Kirkpatrick MD (01/03/2019 2:23 PM) [facility]
--- NOTE | 2019-01-03 14:27 | RAD ---
Left lower extremity venous duplex study January 03, 2019 Clinical History: Left leg swelling. Technique: Using a combination of real time ultrasound imaging and color-flow and pulse Doppler imaging techniques along with graded compression and augmentation, duplex evaluation of the deep venous system of the the left lower extremity was performed. Multiple images were obtained. Findings: There is no sonographic evidence of deep venous thrombosis involving the visualized deep venous structures of the left lower extremity. Impression: Negative study. Electronically signed by: Rigo Kirkpatrick MD (01/03/2019 2:24 PM) [facility]
--- NOTE | 2019-01-03 14:32 | RAD ---
Left rib series to include an AP chest radiograph 01/03/2019 CLINICAL HISTORY: Fall with left rib pain. An AP digital radiograph of the chest was obtained. 2 AP and 2 oblique digital radiographs of the left ribs were obtained. The cardiac silhouette is mildly enlarged. Atherosclerotic calcification of the thoracic aorta is seen. The thoracic aorta is mildly tortuous. No acute pulmonary infiltrate is seen. No pleural effusion or pneumothorax is noted. Degenerative changes are seen involving the thoracic spine and both shoulders. The osseous structures are grossly intact. No left-sided rib fracture is seen. IMPRESSION: No left-sided rib fracture is seen. Electronically signed by: Rigo Kirkpatrick MD (01/03/2019 2:29 PM) [facility]
--- NOTE | 2019-01-03 14:33 | RAD ---
AP and lateral left tibia and fibula radiographs 01/03/2019 CLINICAL HISTORY: Fall with left lower leg pain. AP and lateral digital radiographs left tibia and fibula were obtained. Comparison study is dated 09/30/2018. Old fractures of the distal diaphysis of the left fibula and medial malleolus of the left ankle are again seen. There is evidence of callus formation surrounding the distal left fibular fracture consistent with interval healing. No acute fracture or dislocation of the left tibia or fibula is seen. IMPRESSION: No acute fracture or dislocation is seen. Electronically signed by: Rigo Kirkpatrick MD (01/03/2019 2:30 PM) [facility]
[2019-01-03 15:15] VITALS: BP 182/95
== END 2019-01-03 15:25 | disposition home or self-care (01) ==
LOC: ER 12:15
DX: S20.212A Contusion of left front wall of thorax, initial encounter (principal); S80.12XA Contusion of left lower leg, initial encounter; R42 Dizziness and giddiness; R10.9 Unspecified abdominal pain; E11.9 Type 2 diabetes mellitus without complications; E78.00 Pure hypercholesterolemia, unspecified; I10 Essential (primary) hypertension; Z86.73 Personal history of transient ischemic attack (TIA), and cerebral infarction without residual deficits; Z88.0 Allergy status to penicillin; Z88.2 Allergy status to sulfonamides; W18.39XA Other fall on same level, initial encounter; Y93.89 Activity, other specified; Y92.89 Other specified places as the place of occurrence of the external cause; Y99.8 Other external cause status
CPT/HCPCS: 71101; 73590; 73610; 93971; 99284

== ENCOUNTER 2019-04-26 11:58 | Inpatient (IN) | payer MEDICARE ==
[~2019-04-26] VITALS: Ht 175.3 cm; Wt 86.2 kg
[2019-04-26] MEDS ORDERED: MORPHINE SULFATE 4 MG/ML VIAL. IV/SQ PRN (13:45)
[2019-04-26] MEDS ORDERED: VANCOMYCIN 2 GM in IV NORMAL SALINE 500ML BAG 500 ML IV ONE (13:45)
[2019-04-26] MEDS ORDERED: LABETALOL 20 MG/4 ML DISP.SYRIN. IVP ONE (13:45)
[2019-04-26] MEDS ORDERED: VANCOMYCIN PER PHARMACY MC ONE (13:45)
[2019-04-26] MEDS ORDERED: DIPHTH,PERTUSS(ACELL),TET TOX 0.5 ML DISP.SYRIN. VAX IM ONE (13:45)
[2019-04-26 14:08] LABS: BILIRUBIN,URINE NEGATIVE (NEG); CLARITY,URINE CLEAR; COLOR,URINE YELLOW; NITRITE,URINE NEGATIVE (NEG); PH,URINE 7.5; PROTEIN,URINE >=300 mg/dL (NEG-TRACE)
[2019-04-26] MEDS: IV NORMAL SALINE 1000ML BAG 1,000 ML IV SCH (14:08)
[2019-04-26 14:21] LABS: BACTERIA,URINE FEW /HPF (0-FEW); HYALINE CASTS, URINE OCCASIONAL /HPF; SQUAMOUS EPITHELIAL CELL,UR MANY /LPF
[2019-04-26 14:26] LABS: BASO % 0 % (0-3); EOS # 0.1 x10^3/uL (0.0-0.7); EOS % 2 % (0-3); HEMOGLOBIN 11.5 g/dL (12.0-15.5); LYMPH # 2.3 x10^3/uL (1.0-4.8); LYMPH % 28 % (24-48); MEAN CORPUSCULAR HEMOGLOBIN 28 pg (25-35); MEAN CORPUSCULAR HGB CONC 34 g/dL (31-37); MEAN CORPUSCULAR VOLUME 84 fL (79-100); MONO # 0.6 x10^3/uL (0.0-1.1); MONO % 7 % (0-9); NEUT # 5.2 x10^3/uL (1.8-7.7); NEUT % 64 % (31-73); PLATELET COUNT 436 x10^3/uL (140-400); RED BLOOD COUNT 4.04 x10^6/uL (3.50-5.40); RED CELL DISTRIBUTION WIDTH 14.5 % (11.5-14.5); WHITE BLOOD COUNT 8.2 x10^3/uL (4.0-11.0)
[2019-04-26 14:36] LABS: PROTHROMBIN TIME PATIENT 12.2 SEC (11.7-14.0)
[2019-04-26 14:46] LABS: CALCIUM 9.5 mg/dL (8.5-10.1); CREATININE 1.1 mg/dL (0.6-1.0); GFR 62.6
[2019-04-26 14:52] LABS: ALBUMIN 3.2 g/dL (3.4-5.0); ALBUMIN/GLOBULIN RATIO 0.7 (1.0-1.7); TOTAL BILIRUBIN 0.4 mg/dL (0.2-1.0)
[2019-04-26] MEDS ORDERED: ONDANSETRON PF 4 MG/2 ML VIAL. IV PRN (17:15)
[2019-04-26] MEDS ORDERED: MORPHINE SULFATE 2 MG/ML VIAL. IV PRN (17:15)
[2019-04-26] MEDS ORDERED: HUM100VI4 SUBCUT (17:47)
[2019-04-26] MEDS ORDERED: LISI40TA2 PO (17:47)
[2019-04-26] MEDS ORDERED: HUM100VI4 SQ (17:47)
--- NOTE | 2019-04-26 18:48 | PHYS DOC ---
Past Medical History Past Medical History: CVA, Diabetes-Type II, High Cholesterol, Hypertension Additional Past Medical Histor: DKA (CARMEN COOLEY APRN) Past Surgical History: Oophorectomy Additional Past Surgical Histo: stents to kidneys (CARMEN COOLEY APRN) Alcohol Use: None Drug Use: None (CARMEN COOLEY APRN) Adult General Chief Complaint Chief Complaint: ABSCESS HPI HPI Patient is a 53 year old female with hx of CVA, HTN, DMII, high cholesterol who presents with with complaints of an abscess on the left inner thigh that she's had for 2 weeks but opened up and started draining greenish discharge yesterday. Patient denies any fever. Patient is also complaining of dizziness, she states she has history of hypertension and has not taken her blood pressure medications for 3 days because she has been caring for this Abscess. (CARMEN COOELY APRN) Review of Systems Review of Systems Constitutional: Denies fever or chills [] Eyes: Denies change in visual acuity, redness, or eye pain [] HENT: Denies nasal congestion or sore throat [] Respiratory: Denies cough or shortness of breath [] Cardiovascular: No additional information not addressed in HPI [] GI: Denies abdominal pain, nausea, vomiting, bloody stools or diarrhea [] : Denies dysuria or hematuria [] Musculoskeletal: Denies back pain or joint pain [] Integument: reports left inner leg abscess Neurologic: reports dizziness.Denies headache, focal weakness or sensory changes [] All other systems were reviewed and found to be within normal limits, except as documented in this note. (CARMEN COOLEY APRN) Current Medications Current Medications Current Medications Medications (Trade) Dose Ordered Sig/Leanne Start Time Stop Time Status Last Admin Dose Admin Diphtheria/ Tetanus/Acell Pertussis (Boostrix) 0.5 ml ONCE ONCE 04/26/19 13:45 04/26/19 13:46 DC 04/26/19 13:45 0.5 ML Labetalol HCl (Normodyne Iv Push) 10 mg 1X ONCE 04/26/19 13:45 04/26/19 13:46 DC 04/26/19 14:06 10 MG Levofloxacin/ Dextrose 100 ml @ 100 mls/hr 1X ONCE 04/26/19 13:45 04/26/19 14:44 DC 04/26/19 13:45 100 MLS/HR Morphine Sulfate (Morphine Sulfate) 4 mg PRN Q15MIN PRN 04/26/19 13:45 04/27/19 13:44 Sodium Chloride 1,000 ml @ 1,920 mls/hr Q32M 04/26/19 13:36 04/26/19 14:36 DC 04/26/19 14:08 1,920 MLS/HR Vancomycin HCl (Vanco Per Pharmacy) 1 each 1X ONCE 04/26/19 13:45 04/26/19 13:46 DC Vancomycin HCl 2 gm/Sodium Chloride 500 ml @ 250 mls/hr 1X ONCE 04/26/19 13:45 04/26/19 15:44 DC 04/26/19 14:08 250 MLS/HR (MADIHA MONTILLA DO) Allergies Allergies Allergies Coded Allergies Type Severity Reaction Last Updated Verified Sulfa (Sulfonamide Antibiotics) Allergy Severe Anaphylaxis 07/24/16 Yes Penicillins Allergy Intermediate 07/24/16 Yes (MADIHA MONTILLA DO) Physical Exam Physical Exam Constitutional: Well developed, well nourished, no acute distress, non-toxic appearance. [] HENT: Normocephalic, atraumatic, bilateral external ears normal, oropharynx moist, no oral exudates, nose normal. [] Eyes: PERRLA, EOMI, conjunctiva normal, no discharge. [] Neck: Normal range of motion, no tenderness, supple, no stridor. [] Cardiovascular:Heart rate regular rhythm, no murmur [] Lungs & Thorax: Bilateral breath sounds clear to auscultation [] Abdomen: Bowel sounds normal, soft, no tenderness, no masses, no pulsatile masses. [] Skin: left inner thigh with an open wound approximately 6 x 3 cm, the wound has yellowish drainage. There is surrounding trace cellulitis. Back: No tenderness, no CVA tenderness. [] Extremities: No tenderness, no cyanosis, no clubbing, ROM intact, no edema. [] Neurologic: Alert and oriented X 3, normal motor function, normal sensory function, no focal deficits noted. cranial nerves II through XII intact Psychologic: Affect normal, judgement normal, mood normal. [] (CARMEN COOLEY APRN) Current Patient Data Vital Signs Vital Signs Date Time Temp Pulse Resp B/P (MAP) Pulse Ox O2 Delivery O2 Flow Rate FiO2 04/26/19 15:06 80 17 237/98 (144) 98 Room Air 04/26/19 13:04 98.0 98.0 (MADIHA MONTILLA DO) Lab Values Laboratory Tests Test 04/26/19 13:05 04/26/19 14:10 Urine Collection Type Void Urine Color Yellow Urine Clarity Clear Urine pH 7.5 Urine Specific [place] 1.015 Urine Protein >=300 mg/dL (NEG-TRACE) Urine Glucose (UA) >=1000 mg/dL (NEG) Urine Ketones (Stick) Negative mg/dL (NEG) Urine Blood Small (NEG) Urine Nitrite Negative (NEG) Urine Bilirubin Negative (NEG) Urine Urobilinogen Dipstick 1.0 mg/dL (0.2 mg/dL) Urine Leukocyte Esterase Trace (NEG) Urine RBC 3-5 /HPF (0-2) Urine WBC 11-20 /HPF (0-4) Urine Squamous Epithelial Cells Many /LPF Urine Bacteria Few /HPF (0-FEW) Urine Hyaline Casts Occasional /HPF White Blood Count 8.2 x10^3/uL (4.0-11.0) Red Blood Count 4.04 x10^6/uL (3.50-5.40) Hemoglobin 11.5 g/dL (12.0-15.5) L Hematocrit 34.0 % (36.0-47.0) L Mean Corpuscular Volume 84 fL (79-100) Mean Corpuscular Hemoglobin 28 pg (25-35) Mean Corpuscular Hemoglobin Concent 34 g/dL (31-37) Red Cell Distribution Width 14.5 % (11.5-14.5) Platelet Count 436 x10^3/uL (140-400) H Neutrophils (%) (Auto) 64 % (31-73) Lymphocytes (%) (Auto) 28 % (24-48) Monocytes (%) (Auto) 7 % (0-9) Eosinophils (%) (Auto) 2 % (0-3) Basophils (%) (Auto) 0 % (0-3) Neutrophils # (Auto) 5.2 x10^3/uL (1.8-7.7) Lymphocytes # (Auto) 2.3 x10^3/uL (1.0-4.8) Monocytes # (Auto) 0.6 x10^3/uL (0.0-1.1) Eosinophils # (Auto) 0.1 x10^3/uL (0.0-0.7) Basophils # (Auto) 0.0 x10^3/uL (0.0-0.2) Erythrocyte Sedimentation Rate 90 (0-25) H Prothrombin Time 12.2 SEC (11.7-14.0) Prothrombin Time INR 0.9 (0.8-1.1) Activated Partial Thromboplast Time 27 SEC (24-38) Sodium Level 140 mmol/L (136-145) Potassium Level 4.0 mmol/L (3.5-5.1) Chloride Level 101 mmol/L (98-107) Carbon Dioxide Level 31 mmol/L (21-32) Anion Gap 8 (6-14) Blood Urea Nitrogen 15 mg/dL (7-20) Creatinine 1.1 mg/dL (0.6-1.0) H Estimated GFR (Cockcroft-Gault) 62.6 BUN/Creatinine Ratio 14 (6-20) Glucose Level 305 mg/dL (70-99) H Lactic Acid Level 1.0 mmol/L (0.4-2.0) Calcium Level 9.5 mg/dL (8.5-10.1) Total Bilirubin 0.4 mg/dL (0.2-1.0) Aspartate Amino Transferase (AST) 13 U/L (15-37) L Alanine Aminotransferase (ALT) 13 U/L (14-59) L Alkaline Phosphatase 83 U/L (46-116) C-Reactive Protein, Quantitative 25.2 mg/L (0-3.3) H Total Protein 8.0 g/dL (6.4-8.2) Albumin 3.2 g/dL (3.4-5.0) L Albumin/Globulin Ratio 0.7 (1.0-1.7) L Laboratory Tests 04/26/19 14:10 Laboratory Tests 04/26/19 14:10 (MADIHA MONTILLA DO) EKG EKG [] (CARMEN COOLEY APRN) Radiology/Procedures Radiology/Procedures [] (CARMEN COOLEY APRN) Course & Med Decision Making Course & Med Decision Making Pertinent Labs and Imaging studies reviewed. (See chart for details) This is a 53-year-old female patient presenting to the ED today with an abscess with cellulitis on the left inner thigh, the abscess was opened up and is draining. Patient is also complaining of high blood pressure and dizziness. She has not taken her blood pressure medicines for 3 days. Vitals on arrival to the ED temperature 98.0, heart rate 95, blood pressure 249/120. Given labetalol IV. CBC with normal WBC, CMP with glucose of 305, anion gap is normal sedimentation rate is 90, CRP is 25.2. Patient was started on IV antibiotics in the ED, wound care consult was also done. BP prior to admission was 180/104. Consulted with Dr. Flood who accepted patient for admission (CARMEN COOLEY APRN) Dragon Disclaimer Dragon Disclaimer This electronic medical record was generated, in whole or in part, using a voice recognition dictation system. (CARMEN COOLEY APRN) Departure Departure Impression: Primary Impression: Cellulitis and abscess of lower extremity Additional Impression: Accelerated hypertension Disposition: ADMITTED INPATIENT Condition: STABLE Referrals: NO PCP (PCP) Attending Signature Attending Signature I have reviewed the PA/HEAD START DIRECTOR's note and plan of care. I was available for consultation as needed during the patient's visit in the emergency department. I agree with the clinical impression, plan, and disposition. (MADIHA MONTILLA DO) Problem Qualifiers CARMEN COOLEY APRN Apr 26, 2019 18:48 MADIHA MONTILLA DO Apr 27, 2019 06:28
--- NOTE | 2019-04-26 19:03 | PDOC1 ---
History and Physical Date of Admission: Date of Admission DATE: 04/26/19 TIME: 19:00 Chief Complaint: Problems: (1) Angioedema (2) Allergic reaction (3) Strain of right thumb (4) Edema, lower extremity (5) Accelerated hypertension (6) Cellulitis and abscess of lower extremity Chief Complain: Leg abscess History of Present Illness: HPI: Patient is a 53 year old female with hx of CVA, HTN, DMII, high cholesterol who presents with with complaints of an abscess on the left inner thigh that she's had for 2 weeks but opened up and started draining greenish discharge yesterday. Patient denies any fever. Patient is also complaining of dizziness, she states she has history of hypertension and has not taken her blood pressure medications for 3 days because she has been caring for this Abscess. She rates her pain at 7 out of 10 She has associated anxiety about this I discussed case with ER physician We are going to admit the patient and Consult infectious disease and general surgery Past Medical/Surgical History: PMH/PSH: Past Medical History: CVA, Diabetes-Type II, High Cholesterol, Hypertension Additional Past Medical Histor: DKA Past Surgical History: Oophorectomy Additional Past Surgical Histo: stents to kidneys Alcohol Use: None Drug Use: None Allergies: Allergies: Coded Allergies: Sulfa (Sulfonamide Antibiotics) (Verified Allergy, Severe, Anaphylaxis, 07/24/16) Penicillins (Verified Allergy, Intermediate, 07/24/16) Family History: Family History: Hypertension Social History: Social Hisoty: She does not drink smoke or take drugs Current Medications: Current Medications Current Medications Sodium Chloride 1,000 ml @ 1,920 mls/hr Q32M IV Last administered on 04/26/19at 14:08; Start 04/26/19 at 13:36; Stop 04/26/19 at 14:36; Status DC Vancomycin HCl (Vanco Per Pharmacy) 1 each 1X ONCE [facility] ; Start 04/26/19 at 13:45; Stop 04/26/19 at 13:46; Status DC Morphine Sulfate (Morphine Sulfate) 4 mg PRN Q15MIN PRN IV/SQ PAIN GREATER THAN 3/10; Start 04/26/19 at 13:45; Stop 04/27/19 at 13:44 Levofloxacin/ Dextrose 100 ml @ 100 mls/hr 1X ONCE IV Last administered on 04/26/19at 13:45; Start 04/26/19 at 13:45; Stop 04/26/19 at 14:44; Status DC Diphtheria/ Tetanus/Acell Pertussis (Boostrix) 0.5 ml ONCE ONCE VAX IM Last administered on 04/26/19at 13:45; Start 04/26/19 at 13:45; Stop 04/26/19 at 13:46; Status DC Labetalol HCl (Normodyne Iv Push) 10 mg 1X ONCE IVP Last administered on 04/26/19at 14:06; Start 04/26/19 at 13:45; Stop 04/26/19 at 13:46; Status DC Vancomycin HCl 2 gm/Sodium Chloride 500 ml @ 250 mls/hr 1X ONCE IV Last administered on 04/26/19at 14:08; Start 04/26/19 at 13:45; Stop 04/26/19 at 15:44; Status DC Ondansetron HCl (Zofran) 4 mg PRN Q8HRS PRN IV NAUSEA/VOMITING; Start 04/26/19 at 17:15; Stop 04/27/19 at 17:14 Morphine Sulfate (Morphine Sulfate) 2 mg PRN Q2HR PRN IV PAIN; Start 04/26/19 at 17:15; Stop 04/27/19 at 17:14 Hydralazine HCl (Apresoline Inj) 10 mg PRN Q4HRS PRN IVP HYPERTENSION; Start 04/26/19 at 17:15 Active Scripts Active Reported Lisinopril 40 Mg Tablet 40 Mg PO DAILY Relion Novolin 70-30 Vial (Hum Insulin Nph/Reg Insulin Hm) 100 Unit/1 Ml Vial 3 Unit SQ [id number] Relion Novolin 70-30 Vial (Hum Insulin Nph/Reg Insulin Hm) 100 Unit/1 Ml Vial 8 Unit SUBCUT [id number] ROS: Review of Systems Review of System REVIEW OF SYSTEMS: GENERAL: Denies weakness SKIN: No bruising, hair changes or rashes. EYES: No blurred, double or loss of vision. NOSE AND THROAT: No history of nosebleeds, hoarseness or sore throat. HEART: No history of palpitations, chest pain or shortness of breath on exertion. LUNGS: Denies cough, hemoptysis, wheezing or shortness of breath. GASTROINTESTINAL: Denies changes in appetite, nausea, vomiting, diarrhea or constipation. GENITOURINARY: Complains of some perineal pain from her leg abscess NEUROLOGIC: Denies history of numbness, tingling, tremor or weakness. PSYCHIATRIC: No history of panic, anxiety or depression. ENDOCRINE: No history of heat or cold intolerance, polyuria or polydipsia. EXTREMITIES: Complains of leg abscess Physical Exam: Vital Signs: Vital Signs Date Time Temp Pulse Resp B/P (MAP) Pulse Ox O2 Delivery O2 Flow Rate FiO2 04/26/19 18:17 Room Air 04/26/19 17:07 76 18 185/104 (131) 99 04/26/19 13:04 98.0 98.0 Physcial Exam: GEN: No apparent distress. Alert and oriented HEENT: Normal cephalic, atraumatic, external auditory canals are patent EYES: Extraocular muscles are intact, pupil are equally round and reactive to light and accommodation MUSCULOSKELETAL: Well developed , well nourished, good range of motion ENDOCRINE: Ny thyromegaly was palpated LYMPHATICS: No cervical chain or axillary nodes were noted HEMATOPOIETIC: No bruising NECK: Supple, no JVD, no thyromegaly was noted LUNGS: Clear to auscultation in all lung mejia without rhonchi or wheezing HEART: RRR, S!, S2 present. Peripheral pulses intact, no obvious murmurs noted ABDOMEN: Soft, nontender. Positive bowel sounds, no organomegaly, normal bowel sounds EXTREMITIES: She has a leg abscess please see the pictures NEUROLOGIC: Normal speech and tone. A&O x 3, moves all extremities, no obvious focal deficits PSYCHIATRIC: Normal affect, normal mood. Stable SKIN: No ulcerations or rashes, good skin turgor, no jaundice VASCULAR: Good capillary refill, neurovascular bundle appears to be intact Labs: Labs: Laboratory Tests Test 04/26/19 13:05 04/26/19 14:10 Urine Collection Type Void Urine Color Yellow Urine Clarity Clear Urine pH 7.5 Urine Specific [place] 1.015 Urine Protein >=300 mg/dL (NEG-TRACE) Urine Glucose (UA) >=1000 mg/dL (NEG) Urine Ketones (Stick) Negative mg/dL (NEG) Urine Blood Small (NEG) Urine Nitrite Negative (NEG) Urine Bilirubin Negative (NEG) Urine Urobilinogen Dipstick 1.0 mg/dL (0.2 mg/dL) Urine Leukocyte Esterase Trace (NEG) Urine RBC 3-5 /HPF (0-2) Urine WBC 11-20 /HPF (0-4) Urine Squamous Epithelial Cells Many /LPF Urine Bacteria Few /HPF (0-FEW) Urine Hyaline Casts Occasional /HPF White Blood Count 8.2 x10^3/uL (4.0-11.0) Red Blood Count 4.04 x10^6/uL (3.50-5.40) Hemoglobin 11.5 g/dL (12.0-15.5) Hematocrit 34.0 % (36.0-47.0) Mean Corpuscular Volume 84 fL (79-100) Mean Corpuscular Hemoglobin 28 pg (25-35) Mean Corpuscular Hemoglobin Concent 34 g/dL (31-37) Red Cell Distribution Width 14.5 % (11.5-14.5) Platelet Count 436 x10^3/uL (140-400) Neutrophils (%) (Auto) 64 % (31-73) Lymphocytes (%) (Auto) 28 % (24-48) Monocytes (%) (Auto) 7 % (0-9) Eosinophils (%) (Auto) 2 % (0-3) Basophils (%) (Auto) 0 % (0-3) Neutrophils # (Auto) 5.2 x10^3/uL (1.8-7.7) Lymphocytes # (Auto) 2.3 x10^3/uL (1.0-4.8) Monocytes # (Auto) 0.6 x10^3/uL (0.0-1.1) Eosinophils # (Auto) 0.1 x10^3/uL (0.0-0.7) Basophils # (Auto) 0.0 x10^3/uL (0.0-0.2) Erythrocyte Sedimentation Rate 90 (0-25) Prothrombin Time 12.2 SEC (11.7-14.0) Prothromb Time International Ratio 0.9 (0.8-1.1) Activated Partial Thromboplast Time 27 SEC (24-38) Sodium Level 140 mmol/L (136-145) Potassium Level 4.0 mmol/L (3.5-5.1) Chloride Level 101 mmol/L (98-107) Carbon Dioxide Level 31 mmol/L (21-32) Anion Gap 8 (6-14) Blood Urea Nitrogen 15 mg/dL (7-20) Creatinine 1.1 mg/dL (0.6-1.0) Estimated GFR (Cockcroft-Gault) 62.6 BUN/Creatinine Ratio 14 (6-20) Glucose Level 305 mg/dL (70-99) Lactic Acid Level 1.0 mmol/L (0.4-2.0) Calcium Level 9.5 mg/dL (8.5-10.1) Total Bilirubin 0.4 mg/dL (0.2-1.0) Aspartate Amino Transf (AST/SGOT) 13 U/L (15-37) Alanine Aminotransferase (ALT/SGPT) 13 U/L (14-59) Alkaline Phosphatase 83 U/L (46-116) C-Reactive Protein, Quantitative 25.2 mg/L (0-3.3) Total Protein 8.0 g/dL (6.4-8.2) Albumin 3.2 g/dL (3.4-5.0) Albumin/Globulin Ratio 0.7 (1.0-1.7) Laboratory Tests Test 04/26/19 13:05 04/26/19 14:10 Urine Collection Type Void Urine Color Yellow Urine Clarity Clear Urine pH 7.5 Urine Specific [place] 1.015 Urine Protein >=300 mg/dL (NEG-TRACE) Urine Glucose (UA) >=1000 mg/dL (NEG) Urine Ketones (Stick) Negative mg/dL (NEG) Urine Blood Small (NEG) Urine Nitrite Negative (NEG) Urine Bilirubin Negative (NEG) Urine Urobilinogen Dipstick 1.0 mg/dL (0.2 mg/dL) Urine Leukocyte Esterase Trace (NEG) Urine RBC 3-5 /HPF (0-2) Urine WBC 11-20 /HPF (0-4) Urine Squamous Epithelial Cells Many /LPF Urine Bacteria Few /HPF (0-FEW) Urine Hyaline Casts Occasional /HPF White Blood Count 8.2 x10^3/uL (4.0-11.0) Red Blood Count 4.04 x10^6/uL (3.50-5.40) Hemoglobin 11.5 g/dL (12.0-15.5) Hematocrit 34.0 % (36.0-47.0) Mean Corpuscular Volume 84 fL (79-100) Mean Corpuscular Hemoglobin 28 pg (25-35) Mean Corpuscular Hemoglobin Concent 34 g/dL (31-37) Red Cell Distribution Width 14.5 % (11.5-14.5) Platelet Count 436 x10^3/uL (140-400) Neutrophils (%) (Auto) 64 % (31-73) Lymphocytes (%) (Auto) 28 % (24-48) Monocytes (%) (Auto) 7 % (0-9) Eosinophils (%) (Auto) 2 % (0-3) Basophils (%) (Auto) 0 % (0-3) Neutrophils # (Auto) 5.2 x10^3/uL (1.8-7.7) Lymphocytes # (Auto) 2.3 x10^3/uL (1.0-4.8) Monocytes # (Auto) 0.6 x10^3/uL (0.0-1.1) Eosinophils # (Auto) 0.1 x10^3/uL (0.0-0.7) Basophils # (Auto) 0.0 x10^3/uL (0.0-0.2) Erythrocyte Sedimentation Rate 90 (0-25) Prothrombin Time 12.2 SEC (11.7-14.0) Prothromb Time International Ratio 0.9 (0.8-1.1) Activated Partial Thromboplast Time 27 SEC (24-38) Sodium Level 140 mmol/L (136-145) Potassium Level 4.0 mmol/L (3.5-5.1) Chloride Level 101 mmol/L (98-107) Carbon Dioxide Level 31 mmol/L (21-32) Anion Gap 8 (6-14) Blood Urea Nitrogen 15 mg/dL (7-20) Creatinine 1.1 mg/dL (0.6-1.0) Estimated GFR (Cockcroft-Gault) 62.6 BUN/Creatinine Ratio 14 (6-20) Glucose Level 305 mg/dL (70-99) Lactic Acid Level 1.0 mmol/L (0.4-2.0) Calcium Level 9.5 mg/dL (8.5-10.1) Total Bilirubin 0.4 mg/dL (0.2-1.0) Aspartate Amino Transf (AST/SGOT) 13 U/L (15-37) Alanine Aminotransferase (ALT/SGPT) 13 U/L (14-59) Alkaline Phosphatase 83 U/L (46-116) C-Reactive Protein, Quantitative 25.2 mg/L (0-3.3) Total Protein 8.0 g/dL (6.4-8.2) Albumin 3.2 g/dL (3.4-5.0) Albumin/Globulin Ratio 0.7 (1.0-1.7) Assessment/Plan Assessment/Plan Leg/thigh abscess Plan IV antibiotics Consult infectious disease Consult wound skilled nursing meds PT OT DVT prophylaxis Full code JARRETT CARRION III DO Apr 26, 2019 19:03
[2019-04-26 19:35] VITALS: BP 207/92
[2019-04-26] MEDS: hydrALAZINE 20 MG/ML VIAL. IVP PRN ×2 (19:45→23:04)
[2019-04-26 23:43] VITALS: BP 161/98
[2019-04-27 03:57] VITALS: BP 153/102
[2019-04-27 04:40] LABS: BASO % 1 % (0-3); EOS # 0.1 x10^3/uL (0.0-0.7); EOS % 2 % (0-3); HEMATOCRIT 29.5 % (36.0-47.0); LYMPH # 1.4 x10^3/uL (1.0-4.8); LYMPH % 22 % (24-48); MEAN CORPUSCULAR HEMOGLOBIN 29 pg (25-35); MEAN CORPUSCULAR HGB CONC 34 g/dL (31-37); MEAN CORPUSCULAR VOLUME 84 fL (79-100); MONO # 0.6 x10^3/uL (0.0-1.1); MONO % 9 % (0-9); NEUT # 4.4 x10^3/uL (1.8-7.7); NEUT % 67 % (31-73); PLATELET COUNT 361 x10^3/uL (140-400); RED BLOOD COUNT 3.52 x10^6/uL (3.50-5.40); RED CELL DISTRIBUTION WIDTH 14.8 % (11.5-14.5); WHITE BLOOD COUNT 6.6 x10^3/uL (4.0-11.0)
[2019-04-27 05:02] LABS: CALCIUM 8.6 mg/dL (8.5-10.1); CREATININE 1.1 mg/dL (0.6-1.0); GFR 62.6; POTASSIUM 3.6 mmol/L (3.5-5.1)
[2019-04-27 07:00] VITALS: BP 183/111
[2019-04-27] MEDS: INSULIN NPH/REG INSULIN 70/30 300 UNITS/3 ML INSULN.PEN. SQ SCH ×2 (08:22→17:14)
[2019-04-27] MEDS: LISINOPRIL 20 MG TABLET PO SCH (08:40)
--- NOTE | 2019-04-27 09:21 | PDOC2 ---
FLAKITA OLVERA MANAGING EDITOR 04/27/19 0921: CONSULT Date of Consult Date of Consult DATE: 04/27/19 TIME: 09:17 Reason for Consult Reason for Consult: abscess Referring Physician Referring Physician: ER Identification/Chief Complaint Chief Complaint thigh abscess Source Source: Chart review, Patient History of Present Illness Reason for Visit: A week of thigh abscess, reports had drainage but has since stopped. No skin i ssues in past. She does have a DM history Past Medical History Cardiovascular: HTN, Hyperlipidemia Endocrine: Diabetes Past Surgical History Past Surgical History: No pertinent history Family History Family History: Other (noncontributory to current illness ) Social History No ALCOHOL: none Drugs: None Lives: with Family Current Problem List Problem List Problems Medical Problems: (1) Accelerated hypertension Status: Acute (2) Cellulitis and abscess of lower extremity Status: Acute Current Medications Current Medications Current Medications Sodium Chloride 1,000 ml @ 1,920 mls/hr Q32M IV Last administered on 04/26/19at 14:08; Start 04/26/19 at 13:36; Stop 04/26/19 at 14:36; Status DC Vancomycin HCl (Vanco Per Pharmacy) 1 each 1X ONCE MC ; Start 04/26/19 at 13:45; Stop 04/26/19 at 13:46; Status DC Morphine Sulfate (Morphine Sulfate) 4 mg PRN Q15MIN PRN IV/SQ PAIN GREATER THAN 3/10; Start 04/26/19 at 13:45; Stop 04/27/19 at 13:44 Levofloxacin/ Dextrose 100 ml @ 100 mls/hr 1X ONCE IV Last administered on 04/26/19at 13:45; Start 04/26/19 at 13:45; Stop 04/26/19 at 14:44; Status DC Diphtheria/ Tetanus/Acell Pertussis (Boostrix) 0.5 ml ONCE ONCE VAX IM Last administered on 04/26/19at 13:45; Start 04/26/19 at 13:45; Stop 04/26/19 at 13:46; Status DC Labetalol HCl (Normodyne Iv Push) 10 mg 1X ONCE IVP Last administered on 04/26/19at 14:06; Start 04/26/19 at 13:45; Stop 04/26/19 at 13:46; Status DC Vancomycin HCl 2 gm/Sodium Chloride 500 ml @ 250 mls/hr 1X ONCE IV Last administered on 04/26/19at 14:08; Start 04/26/19 at 13:45; Stop 04/26/19 at 15:44; Status DC Ondansetron HCl (Zofran) 4 mg PRN Q8HRS PRN IV NAUSEA/VOMITING; Start 04/26/19 at 17:15; Stop 04/27/19 at 17:14 Morphine Sulfate (Morphine Sulfate) 2 mg PRN Q2HR PRN IV PAIN; Start 04/26/19 at 17:15; Stop 04/27/19 at 17:14 Hydralazine HCl (Apresoline Inj) 10 mg PRN Q4HRS PRN IVP HYPERTENSION Last administered on 04/26/19at 23:04; Start 04/26/19 at 17:15 Insulin Human Isoph/Insulin Regular (HumuLIN 70/30) 3 units DAILYWSUP SQ ; Start 04/27/19 at 17:00; Stop 04/27/19 at 07:00; Status DC Insulin Human Isoph/Insulin Regular (HumuLIN 70/30) 8 units DAILYWBKFT SQ Last administered on 04/27/19at 08:22; Start 04/27/19 at 08:00 Lisinopril (Prinivil) 40 mg DAILY PO Last administered on 04/27/19at 08:40; Start 04/27/19 at 09:00 Insulin Human Isoph/Insulin Regular (HumuLIN 70/30) 4 units DAILYWSUP SQ ; Start 04/27/19 at 17:00 Active Scripts Active Reported Lisinopril 40 Mg Tablet 40 Mg PO DAILY Relion Novolin 70-30 Vial (Hum Insulin Nph/Reg Insulin Hm) 100 Unit/1 Ml Vial 4 Unit SQ DAILYWSUP Relion Novolin 70-30 Vial (Hum Insulin Nph/Reg Insulin Hm) 100 Unit/1 Ml Vial 8 Unit SUBCUT DAILYWBKFT Allergies Allergies: Coded Allergies: Sulfa (Sulfonamide Antibiotics) (Verified Allergy, Severe, Anaphylaxis, ) Penicillins (Verified Allergy, Intermediate, 07/24/16) ROS General: No: Chills, Other (fevers ) PSYCHOLOGICAL ROS: No: Anxiety, Depression Eyes: No Blurry vision, No Double vision HEENT: No: Heacaches, Sore Throat Hematological and Lymphatic: No: Bleeding Problems, Blood Clots Respiratory: No: Cough, Shortness of breath Cardiovascular: No Chest Pain, No Palpitations Gastrointestinal: No Nausea, No Abdominal Pain Genitourinary: No Dysuria, No Hematuria Musculoskeletal: No Joint Pain, No Muscle Pain Neurological: No Impaired Coord/balance, No Numbness/Tingling Skin: Yes Other (see hpi) Physical Exam General: Alert, Oriented X3, Cooperative, No acute distress HEENT: Atraumatic, PERRLA Lungs: Clear to auscultation, Normal air movement Heart: Regular rate, Normal S1, Normal S2 Abdomen: Soft, No tenderness Extremities: No clubbing, No cyanosis Skin: Other (left perineal area--no induration, no erythema, open wound with sloughing tissue) Neuro: Normal gait, Normal speech Psych/Mental Status: Mental status NL, Mood NL MUSCULOSKELETAL: No deformity, No swelling Vitals VITALS Vital Signs Date Time Temp Pulse Resp B/P (MAP) Pulse Ox O2 Delivery O2 Flow Rate FiO2 04/27/19 08:40 82 183/111 04/27/19 08:00 Room Air 04/27/19 07:00 98.5 20 97 98.5 Labs Labs Laboratory Tests Test 04/26/19 13:05 04/26/19 14:10 04/26/19 20:41 04/27/19 03:50 Urine Collection Type Void Urine Color Yellow Urine Clarity Clear Urine pH 7.5 Urine Specific [place] 1.015 Urine Protein >=300 mg/dL (NEG-TRACE) Urine Glucose (UA) >=1000 mg/dL (NEG) Urine Ketones (Stick) Negative mg/dL (NEG) Urine Blood Small (NEG) Urine Nitrite Negative (NEG) Urine Bilirubin Negative (NEG) Urine Urobilinogen Dipstick 1.0 mg/dL (0.2 mg/dL) Urine Leukocyte Esterase Trace (NEG) Urine RBC 3-5 /HPF (0-2) Urine WBC 11-20 /HPF (0-4) Urine Squamous Epithelial Cells Many /LPF Urine Bacteria Few /HPF (0-FEW) Urine Hyaline Casts Occasional /HPF White Blood Count 8.2 x10^3/uL (4.0-11.0) 6.6 x10^3/uL (4.0-11.0) Red Blood Count 4.04 x10^6/uL (3.50-5.40) 3.52 x10^6/uL (3.50-5.40) Hemoglobin 11.5 g/dL (12.0-15.5) 10.0 g/dL (12.0-15.5) Hematocrit 34.0 % (36.0-47.0) 29.5 % (36.0-47.0) Mean Corpuscular Volume 84 fL (79-100) 84 fL (79-100) Mean Corpuscular Hemoglobin 28 pg (25-35) 29 pg (25-35) Mean Corpuscular Hemoglobin Concent 34 g/dL (31-37) 34 g/dL (31-37) Red Cell Distribution Width 14.5 % (11.5-14.5) 14.8 % (11.5-14.5) Platelet Count 436 x10^3/uL (140-400) 361 x10^3/uL (140-400) Neutrophils (%) (Auto) 64 % (31-73) 67 % (31-73) Lymphocytes (%) (Auto) 28 % (24-48) 22 % (24-48) Monocytes (%) (Auto) 7 % (0-9) 9 % (0-9) Eosinophils (%) (Auto) 2 % (0-3) 2 % (0-3) Basophils (%) (Auto) 0 % (0-3) 1 % (0-3) Neutrophils # (Auto) 5.2 x10^3/uL (1.8-7.7) 4.4 x10^3/uL (1.8-7.7) Lymphocytes # (Auto) 2.3 x10^3/uL (1.0-4.8) 1.4 x10^3/uL (1.0-4.8) Monocytes # (Auto) 0.6 x10^3/uL (0.0-1.1) 0.6 x10^3/uL (0.0-1.1) Eosinophils # (Auto) 0.1 x10^3/uL (0.0-0.7) 0.1 x10^3/uL (0.0-0.7) Basophils # (Auto) 0.0 x10^3/uL (0.0-0.2) 0.0 x10^3/uL (0.0-0.2) Erythrocyte Sedimentation Rate 90 (0-25) Prothrombin Time 12.2 SEC (11.7-14.0) Prothromb Time International Ratio 0.9 (0.8-1.1) Activated Partial Thromboplast Time 27 SEC (24-38) Sodium Level 140 mmol/L (136-145) 142 mmol/L (136-145) Potassium Level 4.0 mmol/L (3.5-5.1) 3.6 mmol/L (3.5-5.1) Chloride Level 101 mmol/L (98-107) 106 mmol/L (98-107) Carbon Dioxide Level 31 mmol/L (21-32) 26 mmol/L (21-32) Anion Gap 8 (6-14) 10 (6-14) Blood Urea Nitrogen 15 mg/dL (7-20) 11 mg/dL (7-20) Creatinine 1.1 mg/dL (0.6-1.0) 1.1 mg/dL (0.6-1.0) Estimated GFR (Cockcroft-Gault) 62.6 62.6 BUN/Creatinine Ratio 14 (6-20) Glucose Level 305 mg/dL (70-99) 287 mg/dL (70-99) Lactic Acid Level 1.0 mmol/L (0.4-2.0) Calcium Level 9.5 mg/dL (8.5-10.1) 8.6 mg/dL (8.5-10.1) Total Bilirubin 0.4 mg/dL (0.2-1.0) Aspartate Amino Transf (AST/SGOT) 13 U/L (15-37) Alanine Aminotransferase (ALT/SGPT) 13 U/L (14-59) Alkaline Phosphatase 83 U/L (46-116) C-Reactive Protein, Quantitative 25.2 mg/L (0-3.3) Total Protein 8.0 g/dL (6.4-8.2) Albumin 3.2 g/dL (3.4-5.0) Albumin/Globulin Ratio 0.7 (1.0-1.7) Glucose (Fingerstick) 216 mg/dL (70-99) Test 04/27/19 07:31 Glucose (Fingerstick) 204 mg/dL (70-99) Laboratory Tests Test 04/26/19 13:05 04/26/19 14:10 04/26/19 20:41 04/27/19 03:50 Urine Collection Type Void Urine Color Yellow Urine Clarity Clear Urine pH 7.5 Urine Specific [place] 1.015 Urine Protein >=300 mg/dL (NEG-TRACE) Urine Glucose (UA) >=1000 mg/dL (NEG) Urine Ketones (Stick) Negative mg/dL (NEG) Urine Blood Small (NEG) Urine Nitrite Negative (NEG) Urine Bilirubin Negative (NEG) Urine Urobilinogen Dipstick 1.0 mg/dL (0.2 mg/dL) Urine Leukocyte Esterase Trace (NEG) Urine RBC 3-5 /HPF (0-2) Urine WBC 11-20 /HPF (0-4) Urine Squamous Epithelial Cells Many /LPF Urine Bacteria Few /HPF (0-FEW) Urine Hyaline Casts Occasional /HPF White Blood Count 8.2 x10^3/uL (4.0-11.0) 6.6 x10^3/uL (4.0-11.0) Red Blood Count 4.04 x10^6/uL (3.50-5.40) 3.52 x10^6/uL (3.50-5.40) Hemoglobin 11.5 g/dL (12.0-15.5) 10.0 g/dL (12.0-15.5) Hematocrit 34.0 % (36.0-47.0) 29.5 % (36.0-47.0) Mean Corpuscular Volume 84 fL (79-100) 84 fL (79-100) Mean Corpuscular Hemoglobin 28 pg (25-35) 29 pg (25-35) Mean Corpuscular Hemoglobin Concent 34 g/dL (31-37) 34 g/dL (31-37) Red Cell Distribution Width 14.5 % (11.5-14.5) 14.8 % (11.5-14.5) Platelet Count 436 x10^3/uL (140-400) 361 x10^3/uL (140-400) Neutrophils (%) (Auto) 64 % (31-73) 67 % (31-73) Lymphocytes (%) (Auto) 28 % (24-48) 22 % (24-48) Monocytes (%) (Auto) 7 % (0-9) 9 % (0-9) Eosinophils (%) (Auto) 2 % (0-3) 2 % (0-3) Basophils (%) (Auto) 0 % (0-3) 1 % (0-3) Neutrophils # (Auto) 5.2 x10^3/uL (1.8-7.7) 4.4 x10^3/uL (1.8-7.7) Lymphocytes # (Auto) 2.3 x10^3/uL (1.0-4.8) 1.4 x10^3/uL (1.0-4.8) Monocytes # (Auto) 0.6 x10^3/uL (0.0-1.1) 0.6 x10^3/uL (0.0-1.1) Eosinophils # (Auto) 0.1 x10^3/uL (0.0-0.7) 0.1 x10^3/uL (0.0-0.7) Basophils # (Auto) 0.0 x10^3/uL (0.0-0.2) 0.0 x10^3/uL (0.0-0.2) Erythrocyte Sedimentation Rate 90 (0-25) Prothrombin Time 12.2 SEC (11.7-14.0) Prothromb Time International Ratio 0.9 (0.8-1.1) Activated Partial Thromboplast Time 27 SEC (24-38) Sodium Level 140 mmol/L (136-145) 142 mmol/L (136-145) Potassium Level 4.0 mmol/L (3.5-5.1) 3.6 mmol/L (3.5-5.1) Chloride Level 101 mmol/L (98-107) 106 mmol/L (98-107) Carbon Dioxide Level 31 mmol/L (21-32) 26 mmol/L (21-32) Anion Gap 8 (6-14) 10 (6-14) Blood Urea Nitrogen 15 mg/dL (7-20) 11 mg/dL (7-20) Creatinine 1.1 mg/dL (0.6-1.0) 1.1 mg/dL (0.6-1.0) Estimated GFR (Cockcroft-Gault) 62.6 62.6 BUN/Creatinine Ratio 14 (6-20) Glucose Level 305 mg/dL (70-99) 287 mg/dL (70-99) Lactic Acid Level 1.0 mmol/L (0.4-2.0) Calcium Level 9.5 mg/dL (8.5-10.1) 8.6 mg/dL (8.5-10.1) Total Bilirubin 0.4 mg/dL (0.2-1.0) Aspartate Amino Transf (AST/SGOT) 13 U/L (15-37) Alanine Aminotransferase (ALT/SGPT) 13 U/L (14-59) Alkaline Phosphatase 83 U/L (46-116) C-Reactive Protein, Quantitative 25.2 mg/L (0-3.3) Total Protein 8.0 g/dL (6.4-8.2) Albumin 3.2 g/dL (3.4-5.0) Albumin/Globulin Ratio 0.7 (1.0-1.7) Glucose (Fingerstick) 216 mg/dL (70-99) Test 04/27/19 07:31 Glucose (Fingerstick) 204 mg/dL (70-99) Assessment/Plan Assessment/Plan open wound perineal area--no fluctuance, however no imaging will review with Dr Harvey wound care HARRISON Camilo MD 04/27/19 1050: CONSULT Assessment/Plan Assessment/Plan pt seen, interviewed and examined with her RN present wound with some superficial necrotic tissue, no fluctuance will ask C RN to assess may need surgical debridement at some point will follow Thank you for consult FLAKITA OLVERA APRN Apr 27, 2019 09:21 HARRISON HARVEY MD Apr 27, 2019 10:50
[2019-04-27] MEDS: amLODIPine BESYLATE 10 MG TABLET PO SCH (10:16)
[2019-04-27] MEDS ORDERED: FUROSEMIDE 40 MG TABLET. PO ONE (10:30)
[2019-04-27 11:00] VITALS: BP 164/83
[2019-04-27] MEDS ORDERED: FUROSEMIDE 40 MG/4 ML VIAL. IVP ONE (11:00)
--- NOTE | 2019-04-27 13:08 | NUR ---
Wound Care: Patient seen per wound care consult. See wound assessment. Patient has abscess to the left inner thigh. Wound cleansed and assessed. Dr. Moran to possibly take patient to surgery within the next day or two. Recommendations for honey alginate to help debride the wound until surgery, cover with ABD pad and tape. No other wounds noted upon complete head to toe assessment. Dressing change instructions left in room as well as extra honey alginate. Will follow patient regarding wound care. Bed lowered and call light in reach.
--- NOTE | 2019-04-27 13:30 | PDOC ---
[employer] PROGRESS NOTE Chief Complaint Chief Complaint Left Thigh Abscess HTN, uncontrolled CVA Diabetes-Type II High Cholesterol DKA History of Present Illness History of Present Illness 04/27/19 Pt seen and examined Pt was walking with PT DW pt WILSON RN Reviewed pt's chart Vitals/I&O Vitals/I&O: Vital Signs Date Time Temp Pulse Resp B/P (MAP) Pulse Ox O2 Delivery O2 Flow Rate FiO2 04/27/19 11:00 98.6 92 16 164/83 (110) 97 Room Air 98.6 I & O 04/26/19 04/26/19 04/27/19 15:00 23:00 07:00 Intake Total 2420 ml 0 ml 240 ml Balance 2420 ml 0 ml 240 ml Physical Exam General: Alert, Oriented X3, Cooperative, No acute distress Heart: Regular rate, Normal S1, Normal S2 Lungs: Clear Abdomen: Soft, No tenderness Extremities: No clubbing, No cyanosis Skin: Other (left perineal area--no induration, no erythema, open wound with sl oughing tissue) Labs Labs: Laboratory Tests Test 04/26/19 14:10 04/26/19 20:41 04/27/19 03:50 04/27/19 07:31 White Blood Count 8.2 x10^3/uL (4.0-11.0) 6.6 x10^3/uL (4.0-11.0) Red Blood Count 4.04 x10^6/uL (3.50-5.40) 3.52 x10^6/uL (3.50-5.40) Hemoglobin 11.5 g/dL (12.0-15.5) 10.0 g/dL (12.0-15.5) Hematocrit 34.0 % (36.0-47.0) 29.5 % (36.0-47.0) Mean Corpuscular Volume 84 fL (79-100) 84 fL (79-100) Mean Corpuscular Hemoglobin 28 pg (25-35) 29 pg (25-35) Mean Corpuscular Hemoglobin Concent 34 g/dL (31-37) 34 g/dL (31-37) Red Cell Distribution Width 14.5 % (11.5-14.5) 14.8 % (11.5-14.5) Platelet Count 436 x10^3/uL (140-400) 361 x10^3/uL (140-400) Neutrophils (%) (Auto) 64 % (31-73) 67 % (31-73) Lymphocytes (%) (Auto) 28 % (24-48) 22 % (24-48) Monocytes (%) (Auto) 7 % (0-9) 9 % (0-9) Eosinophils (%) (Auto) 2 % (0-3) 2 % (0-3) Basophils (%) (Auto) 0 % (0-3) 1 % (0-3) Neutrophils # (Auto) 5.2 x10^3/uL (1.8-7.7) 4.4 x10^3/uL (1.8-7.7) Lymphocytes # (Auto) 2.3 x10^3/uL (1.0-4.8) 1.4 x10^3/uL (1.0-4.8) Monocytes # (Auto) 0.6 x10^3/uL (0.0-1.1) 0.6 x10^3/uL (0.0-1.1) Eosinophils # (Auto) 0.1 x10^3/uL (0.0-0.7) 0.1 x10^3/uL (0.0-0.7) Basophils # (Auto) 0.0 x10^3/uL (0.0-0.2) 0.0 x10^3/uL (0.0-0.2) Erythrocyte Sedimentation Rate 90 (0-25) Prothrombin Time 12.2 SEC (11.7-14.0) Prothromb Time International Ratio 0.9 (0.8-1.1) Activated Partial Thromboplast Time 27 SEC (24-38) Sodium Level 140 mmol/L (136-145) 142 mmol/L (136-145) Potassium Level 4.0 mmol/L (3.5-5.1) 3.6 mmol/L (3.5-5.1) Chloride Level 101 mmol/L (98-107) 106 mmol/L (98-107) Carbon Dioxide Level 31 mmol/L (21-32) 26 mmol/L (21-32) Anion Gap 8 (6-14) 10 (6-14) Blood Urea Nitrogen 15 mg/dL (7-20) 11 mg/dL (7-20) Creatinine 1.1 mg/dL (0.6-1.0) 1.1 mg/dL (0.6-1.0) Estimated GFR (Cockcroft-Gault) 62.6 62.6 BUN/Creatinine Ratio 14 (6-20) Glucose Level 305 mg/dL (70-99) 287 mg/dL (70-99) Lactic Acid Level 1.0 mmol/L (0.4-2.0) Calcium Level 9.5 mg/dL (8.5-10.1) 8.6 mg/dL (8.5-10.1) Total Bilirubin 0.4 mg/dL (0.2-1.0) Aspartate Amino Transf (AST/SGOT) 13 U/L (15-37) Alanine Aminotransferase (ALT/SGPT) 13 U/L (14-59) Alkaline Phosphatase 83 U/L (46-116) C-Reactive Protein, Quantitative 25.2 mg/L (0-3.3) Total Protein 8.0 g/dL (6.4-8.2) Albumin 3.2 g/dL (3.4-5.0) Albumin/Globulin Ratio 0.7 (1.0-1.7) Glucose (Fingerstick) 216 mg/dL (70-99) 204 mg/dL (70-99) Test 04/27/19 11:20 Glucose (Fingerstick) 149 mg/dL (70-99) Review of Systems Review of Systems: No c/o headaches No c/o CP Assessment and Plan Assessmemt and Plan Problems Medical Problems: (1) Accelerated hypertension Status: Acute (2) Cellulitis and abscess of lower extremity Status: Acute Assessment Left Thigh Abscess HTN, uncontrolled CVA Diabetes-Type II High Cholesterol DKA Plan Monitor and control BP Wound Care IV Abx DVT Prophylaxis PT/OT Labs Home meds Full code Await surgical input Comment Review of Relevant I have reviewed the following items hortencia (where applicable) has been applied. Medications: Current Medications Medications (Trade) Dose Ordered Sig/Leanne Route PRN Reason Start Time Stop Time Status Last Admin Dose Admin Sodium Chloride 1,000 ml @ 1,920 mls/hr Q32M IV 04/26/19 13:36 04/26/19 14:36 DC 04/26/19 14:08 Levofloxacin/ Dextrose 100 ml @ 100 mls/hr 1X ONCE IV 04/26/19 13:45 04/26/19 14:44 DC 04/26/19 13:45 Diphtheria/ Tetanus/Acell Pertussis (Boostrix) 0.5 ml ONCE ONCE VAX IM 04/26/19 13:45 04/26/19 13:46 DC 04/26/19 13:45 Labetalol HCl (Normodyne Iv Push) 10 mg 1X ONCE IVP 04/26/19 13:45 04/26/19 13:46 DC 04/26/19 14:06 Vancomycin HCl 2 gm/Sodium Chloride 500 ml @ 250 mls/hr 1X ONCE IV 04/26/19 13:45 04/26/19 15:44 DC 04/26/19 14:08 Hydralazine HCl (Apresoline Inj) 10 mg PRN Q4HRS PRN IVP HYPERTENSION 04/26/19 17:15 04/26/19 23:04 Insulin Human Isoph/Insulin Regular (HumuLIN 70/30) 8 units DAILYWBKFT SQ 04/27/19 08:00 04/27/19 08:22 Lisinopril (Prinivil) 40 mg DAILY PO 04/27/19 09:00 04/27/19 08:40 Amlodipine Besylate (Norvasc) 10 mg DAILY PO 04/27/19 10:00 04/27/19 10:16 Furosemide (Lasix) 40 mg 1X ONCE IVP 04/27/19 11:00 04/27/19 11:01 DC 04/27/19 10:53 JARRETT CARRION III DO Apr 27, 2019 13:30
[2019-04-27] MEDS: LINEZOLID 600 MG TABLET PO SCH ×2 (14:21→20:28)
[2019-04-27] MEDS: MEROPENEM 500 MG in IV NORMAL SALINE 50ML 50 ML IV SCH ×2 (14:21→22:19)
[2019-04-27 15:00] VITALS: BP 184/91
[2019-04-27] MEDS: hydrALAZINE 20 MG/ML VIAL. IVP PRN (15:18)
[2019-04-27] MEDS ORDERED: INSULIN NPH/REG INSULIN 70/30 300 UNITS/3 ML INSULN.PEN. SQ SCH (17:00)
[2019-04-27 19:45] VITALS: BP 152/73
[2019-04-27] MEDS ORDERED: ONDANSETRON PF 4 MG/2 ML VIAL. IVP PRN (20:00)
[2019-04-27] MEDS: LACTOBACILLUS RHAMNOSUS GG 1 CAPSULE. PO SCH (20:28)
[2019-04-27 23:26] VITALS: BP 145/78
--- NOTE | 2019-04-28 01:40 | CONS ---
DATE OF CONSULTATION: 04/27/2019 REFERRING PHYSICIAN: Dr. Flood. REASON FOR CONSULTATION: Perineal abscess. HISTORY OF PRESENT ILLNESS: A 53-year-old female with history of diabetes, poorly controlled; history of CVA with left-sided weakness, hypertension and hyperlipidemia, presented with complaints of swelling in the left inner thigh, which started on 04/19/2019. She subsequently had it with yellowish green drainage on the . She denied any fevers. She has poorly-controlled diabetes. She is noncompliant with taking her medication. She does not have a primary care physician. She usually goes to , but does not follow up with her regular PCP there. She was given a dose of vancomycin and clindamycin. She did not undergo any imaging. ID consult has been requested for antibiotic management. Today, the patient continues to have drainage from the left perineal lesion and also has pain. She denies any fevers, chills, nausea, vomiting, diarrhea, abdominal pain. PAST MEDICAL HISTORY: Diabetes, history of CVA with left-sided weakness, hypertension, hyperlipidemia, noncompliance. PAST SURGICAL HISTORY: Oophorectomy, stent to the kidneys. SOCIAL HISTORY: Denies smoking, ETOH, or illicit drug use. ALLERGIES: PENICILLIN CAUSING HIVES; HAS TAKEN AMOXICILLIN; SULFA WITH HIVES. FAMILY HISTORY: As per HPI. CURRENT MEDICATIONS: Vancomycin and clindamycin. Other medications reviewed in medication list. REVIEW OF SYSTEMS: Negative except for above in HPI. PHYSICAL EXAMINATION: VITAL SIGNS: Temperature 98.6, pulse 92, respiratory rate 16, blood pressure 164/83, oxygen saturation 97% on room air. GENERAL: Alert and oriented x 3, ambulant female, uses a cane in no acute distress. HEENT: Anicteric, no thrush. Oral mucosa moist. NECK: Supple, no JVD. LUNGS: Clear bilaterally. HEART: S1, S2. No gallops or murmurs. ABDOMEN: Soft, nontender, no rebound, no guarding. EXTREMITIES: No edema, no cyanosis. CENTRAL NERVOUS SYSTEMS: Contracture of the left upper extremity with weakness; right-sided, no decrease in range of motion. GROIN: Left perineal wound present with some drainage. No fluctuance, tenderness present. No surrounding erythema or redness noted. No induration noted. It appears that there may have been a couple of lesions, which have dehisced together. PSYCHIATRIC: Cooperative, appropriate mood and affect. LABORATORY DATA: WBC 6.6, hemoglobin 10.0, hematocrit 29.5, platelets 361. Sodium 142, potassium 3.6, chloride 106, bicarbonate 26, BUN 11, creatinine 1.1. Sugars: Glucose 287. C-reactive protein 25.2. ESR 90. UA: Greater than 1000 glucose, trace leukocyte esterase, wbc's 11-20. IMAGING: None. IMPRESSION: 1. Left perineal abscess, 2. DM poorly controlled 3. Pyuria. 4. History of cerebrovascular accident. 5. HISTORY OF ALLERGIES TO PENICILLIN, HAS TOLERATED AMOXICILLIN. RECOMMENDATIONS: 1. We will start the patient on meropenem and linezolid. 2. Monitor closely. 3. Follow up cultures and lab. 4. Continue wound management per wound team. 5. Continue supportive care. 6. Optimal diabetes control. Thank you for consulting Infectious Disease to participate in this patient's care. If you have any questions, do not hesitate to contact me. ADELINA ROJAS MD DR: LEO/braden JOB#: [id number] / [id number] HELADIO
[2019-04-28 03:42] VITALS: BP 167/81
[2019-04-28] MEDS: MEROPENEM 500 MG in IV NORMAL SALINE 50ML 50 ML IV SCH ×3 (06:12→21:25)
[2019-04-28 07:00] VITALS: BP 163/104
--- NOTE | 2019-04-28 07:35 | PDOC ---
SURGICAL PROGRESS NOTE Subjective no new complaints [facility] RN came by yesterday Vital Signs Vital Signs Date Time Temp Pulse Resp B/P (MAP) Pulse Ox O2 Delivery O2 Flow Rate FiO2 04/28/19 03:42 98.8 76 18 167/81 (109) 97 Room Air 98.8 I&O Intake and Output 04/28/19 07:00 Intake Total 1380 ml Balance 1380 ml Intake Oral 1280 ml IV Total 100 ml # Voids 5 PATIENT HAS A ROJAS: No General: Alert, No acute distress Labs Laboratory Tests Test 04/26/19 13:05 04/26/19 14:10 04/26/19 20:41 04/27/19 03:50 Urine Collection Type Void Urine Color Yellow Urine Clarity Clear Urine pH 7.5 Urine Specific [place] 1.015 Urine Protein >=300 mg/dL (NEG-TRACE) Urine Glucose (UA) >=1000 mg/dL (NEG) Urine Ketones (Stick) Negative mg/dL (NEG) Urine Blood Small (NEG) Urine Nitrite Negative (NEG) Urine Bilirubin Negative (NEG) Urine Urobilinogen Dipstick 1.0 mg/dL (0.2 mg/dL) Urine Leukocyte Esterase Trace (NEG) Urine RBC 3-5 /HPF (0-2) Urine WBC 11-20 /HPF (0-4) Urine Squamous Epithelial Cells Many /LPF Urine Bacteria Few /HPF (0-FEW) Urine Hyaline Casts Occasional /HPF White Blood Count 8.2 x10^3/uL (4.0-11.0) 6.6 x10^3/uL (4.0-11.0) Red Blood Count 4.04 x10^6/uL (3.50-5.40) 3.52 x10^6/uL (3.50-5.40) Hemoglobin 11.5 g/dL (12.0-15.5) 10.0 g/dL (12.0-15.5) Hematocrit 34.0 % (36.0-47.0) 29.5 % (36.0-47.0) Mean Corpuscular Volume 84 fL (79-100) 84 fL (79-100) Mean Corpuscular Hemoglobin 28 pg (25-35) 29 pg (25-35) Mean Corpuscular Hemoglobin Concent 34 g/dL (31-37) 34 g/dL (31-37) Red Cell Distribution Width 14.5 % (11.5-14.5) 14.8 % (11.5-14.5) Platelet Count 436 x10^3/uL (140-400) 361 x10^3/uL (140-400) Neutrophils (%) (Auto) 64 % (31-73) 67 % (31-73) Lymphocytes (%) (Auto) 28 % (24-48) 22 % (24-48) Monocytes (%) (Auto) 7 % (0-9) 9 % (0-9) Eosinophils (%) (Auto) 2 % (0-3) 2 % (0-3) Basophils (%) (Auto) 0 % (0-3) 1 % (0-3) Neutrophils # (Auto) 5.2 x10^3/uL (1.8-7.7) 4.4 x10^3/uL (1.8-7.7) Lymphocytes # (Auto) 2.3 x10^3/uL (1.0-4.8) 1.4 x10^3/uL (1.0-4.8) Monocytes # (Auto) 0.6 x10^3/uL (0.0-1.1) 0.6 x10^3/uL (0.0-1.1) Eosinophils # (Auto) 0.1 x10^3/uL (0.0-0.7) 0.1 x10^3/uL (0.0-0.7) Basophils # (Auto) 0.0 x10^3/uL (0.0-0.2) 0.0 x10^3/uL (0.0-0.2) Erythrocyte Sedimentation Rate 90 (0-25) Prothrombin Time 12.2 SEC (11.7-14.0) Prothromb Time International Ratio 0.9 (0.8-1.1) Activated Partial Thromboplast Time 27 SEC (24-38) Sodium Level 140 mmol/L (136-145) 142 mmol/L (136-145) Potassium Level 4.0 mmol/L (3.5-5.1) 3.6 mmol/L (3.5-5.1) Chloride Level 101 mmol/L (98-107) 106 mmol/L (98-107) Carbon Dioxide Level 31 mmol/L (21-32) 26 mmol/L (21-32) Anion Gap 8 (6-14) 10 (6-14) Blood Urea Nitrogen 15 mg/dL (7-20) 11 mg/dL (7-20) Creatinine 1.1 mg/dL (0.6-1.0) 1.1 mg/dL (0.6-1.0) Estimated GFR (Cockcroft-Gault) 62.6 62.6 BUN/Creatinine Ratio 14 (6-20) Glucose Level 305 mg/dL (70-99) 287 mg/dL (70-99) Lactic Acid Level 1.0 mmol/L (0.4-2.0) Calcium Level 9.5 mg/dL (8.5-10.1) 8.6 mg/dL (8.5-10.1) Total Bilirubin 0.4 mg/dL (0.2-1.0) Aspartate Amino Transf (AST/SGOT) 13 U/L (15-37) Alanine Aminotransferase (ALT/SGPT) 13 U/L (14-59) Alkaline Phosphatase 83 U/L (46-116) C-Reactive Protein, Quantitative 25.2 mg/L (0-3.3) Total Protein 8.0 g/dL (6.4-8.2) Albumin 3.2 g/dL (3.4-5.0) Albumin/Globulin Ratio 0.7 (1.0-1.7) Glucose (Fingerstick) 216 mg/dL (70-99) CA 125 Antigen 11.8 U/mL (0.0-38.1) Test 04/27/19 07:31 04/27/19 11:20 04/27/19 16:24 04/27/19 20:33 Glucose (Fingerstick) 204 mg/dL (70-99) 149 mg/dL (70-99) 166 mg/dL (70-99) 146 mg/dL (70-99) Laboratory Tests Test 04/27/19 11:20 04/27/19 16:24 04/27/19 20:33 Glucose (Fingerstick) 149 mg/dL (70-99) 166 mg/dL (70-99) 146 mg/dL (70-99) Problem List Problems Medical Problems: (1) Accelerated hypertension Status: Acute (2) Cellulitis and abscess of lower extremity Status: Acute Assessment/Plan ulcerated lesion left perineum wound care follow for possible debridement, biopsy HARRISON HARVEY MD Apr 28, 2019 07:35
[2019-04-28 08:37] LABS: CALCIUM 9.4 mg/dL (8.5-10.1); CREATININE 1.1 mg/dL (0.6-1.0); GFR 62.6; POTASSIUM 3.9 mmol/L (3.5-5.1)
[2019-04-28] MEDS: amLODIPine BESYLATE 10 MG TABLET PO SCH (08:59)
[2019-04-28] MEDS: LACTOBACILLUS RHAMNOSUS GG 1 CAPSULE. PO SCH ×2 (08:59→19:50)
[2019-04-28] MEDS: LINEZOLID 600 MG TABLET PO SCH ×2 (08:59→19:50)
[2019-04-28] MEDS: LISINOPRIL 20 MG TABLET PO SCH (09:00)
[2019-04-28] MEDS: INSULIN NPH/REG INSULIN 70/30 300 UNITS/3 ML INSULN.PEN. SQ SCH ×2 (09:08→17:23)
[2019-04-28 11:00] VITALS: BP 115/79
--- NOTE | 2019-04-28 11:48 | PDOC ---
[employer] PROGRESS NOTE Chief Complaint Chief Complaint Left Thigh Abscess HTN, uncontrolled CVA Diabetes-Type II High Cholesterol DKA History of Present Illness History of Present Illness 04/28/19 Pt seen and examined Pt was sitting up in her chair DW pt Reviewed pt's chart 04/27/19 Pt seen and examined Pt was walking with PT DW pt WILSON RN Reviewed pt's chart Vitals/I&O Vitals/I&O: Vital Signs Date Time Temp Pulse Resp B/P (MAP) Pulse Ox O2 Delivery O2 Flow Rate FiO2 04/28/19 11:00 98.4 88 18 115/79 (91) 98 Room Air 98.4 I & O 04/27/19 04/27/19 04/28/19 15:00 23:00 07:00 Intake Total 480 ml 700 ml 200 ml Balance 480 ml 700 ml 200 ml Physical Exam General: Alert, No acute distress Heart: Regular rate, Normal S1, Normal S2 Lungs: Clear Abdomen: Soft, No tenderness Extremities: No clubbing, No cyanosis Skin: Other (left perineal area--no induration, no erythema, open wound with sloughing tissue) Labs Labs: Laboratory Tests Test 04/27/19 16:24 04/27/19 20:33 04/28/19 07:45 04/28/19 08:10 Glucose (Fingerstick) 166 mg/dL (70-99) 146 mg/dL (70-99) 133 mg/dL (70-99) Sodium Level 143 mmol/L (136-145) Potassium Level 3.9 mmol/L (3.5-5.1) Chloride Level 104 mmol/L (98-107) Carbon Dioxide Level 27 mmol/L (21-32) Anion Gap 12 (6-14) Blood Urea Nitrogen 11 mg/dL (7-20) Creatinine 1.1 mg/dL (0.6-1.0) Estimated GFR (Cockcroft-Gault) 62.6 Glucose Level 133 mg/dL (70-99) Calcium Level 9.4 mg/dL (8.5-10.1) Test 04/28/19 11:38 Glucose (Fingerstick) 178 mg/dL (70-99) Review of Systems Review of Systems: No c/o dizziness No c/o CP Assessment and Plan Assessmemt and Plan Problems Medical Problems: (1) Accelerated hypertension Status: Acute (2) Cellulitis and abscess of lower extremity Status: Acute Assessment Left Thigh Abscess HTN, uncontrolled CVA Diabetes-Type II High Cholesterol DKA Plan Monitor and control BP Wound Care IV Abx DVT Prophylaxis PT/OT Labs Home meds Full code Await possible debridement and biopsy Comment Review of Relevant I have reviewed the following items hortencia (where applicable) has been applied. Medications: Current Medications Medications (Trade) Dose Ordered Sig/Leanne Route PRN Reason Start Time Stop Time Status Last Admin Dose Admin Insulin Human Isoph/Insulin Regular (HumuLIN 70/30) 4 units DAILYWSUP SQ 04/27/19 17:00 04/27/19 17:14 Meropenem 500 mg/ Sodium Chloride 50 ml @ 100 mls/hr Q8HRS IV 04/27/19 15:00 04/28/19 06:12 Linezolid (Zyvox) 600 mg BID PO 04/27/19 15:00 04/28/19 08:59 Lactobacillus Rhamnosus (Culturelle) 1 cap BID PO 04/27/19 21:00 04/28/19 08:59 JARRETT CARRION III DO Apr 28, 2019 11:48
--- NOTE | 2019-04-28 13:42 | PDOC ---
Infectious Disease Note Subjective: Subjective pt says feels little better dressing does not stay in place Vital Signs: Vital Signs Vital Signs Date Time Temp Pulse Resp B/P (MAP) Pulse Ox O2 Delivery O2 Flow Rate FiO2 04/28/19 11:00 98.4 88 18 115/79 (91) 98 Room Air 98.4 Physical Exam: PHYSICAL EXAM GENERAL: Alert and oriented x 3, ambulant female, uses a cane in no acute distress. HEENT: Anicteric, no thrush. Oral mucosa moist. NECK: Supple, no JVD. LUNGS: Clear bilaterally. HEART: S1, S2. No gallops or murmurs. ABDOMEN: Soft, nontender, no rebound, no guarding. EXTREMITIES: No edema, no cyanosis. CENTRAL NERVOUS SYSTEMS: Contracture of the left upper extremity with weakness; right-sided, no decrease in range of motion. GROIN: Left perineal wound present with some drainage. No fluctuance, tenderness present. No surrounding erythema or redness noted. No induration noted. It appears that there may have been a couple of lesions, which have dehisced together. PSYCHIATRIC: Cooperative, appropriate mood and affect. Medications: Inpatient Meds: Current Medications Medications (Trade) Dose Ordered Sig/Leanne Start Time Stop Time Status Last Admin Dose Admin Amlodipine Besylate (Norvasc) 10 mg DAILY 04/27/19 10:00 04/28/19 08:59 10 MG Diphtheria/ Tetanus/Acell Pertussis (Boostrix) 0.5 ml ONCE ONCE 04/26/19 13:45 04/26/19 13:46 DC 04/26/19 13:45 0.5 ML Furosemide (Lasix) 40 mg 1X ONCE 04/27/19 11:00 04/27/19 11:01 DC 04/27/19 10:53 40 MG Hydralazine HCl (Apresoline Inj) 10 mg PRN Q4HRS PRN 04/26/19 17:15 04/27/19 15:18 10 MG Insulin Human Isoph/Insulin Regular (HumuLIN 70/30) 4 units DAILYWSUP 04/27/19 17:00 04/27/19 17:14 4 UNITS Labetalol HCl (Normodyne Iv Push) 10 mg 1X ONCE 04/26/19 13:45 04/26/19 13:46 DC 04/26/19 14:06 10 MG Lactobacillus Rhamnosus (Culturelle) 1 cap BID 04/27/19 21:00 04/28/19 08:59 1 CAP Levofloxacin/ Dextrose 100 ml @ 100 mls/hr 1X ONCE 04/26/19 13:45 04/26/19 14:44 DC 04/26/19 13:45 100 MLS/HR Linezolid (Zyvox) 600 mg BID 04/27/19 15:00 04/28/19 08:59 600 MG Lisinopril (Prinivil) 40 mg DAILY 04/27/19 09:00 04/28/19 09:00 40 MG Meropenem 500 mg/ Sodium Chloride 50 ml @ 100 mls/hr Q8HRS 04/27/19 15:00 04/28/19 06:12 100 MLS/HR Morphine Sulfate (Morphine Sulfate) 2 mg PRN Q2HR PRN 04/26/19 17:15 04/27/19 17:14 DC Ondansetron HCl (Zofran) 4 mg PRN Q6HRS PRN 04/27/19 20:00 Sodium Chloride 1,000 ml @ 1,920 mls/hr Q32M 04/26/19 13:36 04/26/19 14:36 DC 04/26/19 14:08 1,920 MLS/HR Vancomycin HCl (Vanco Per Pharmacy) 1 each 1X ONCE 04/26/19 13:45 04/26/19 13:46 DC Vancomycin HCl 2 gm/Sodium Chloride 500 ml @ 250 mls/hr 1X ONCE 04/26/19 13:45 04/26/19 15:44 DC 04/26/19 14:08 250 MLS/HR Labs: Lab Laboratory Tests Test 04/27/19 16:24 04/27/19 20:33 04/28/19 07:45 04/28/19 08:10 Glucose (Fingerstick) 166 mg/dL (70-99) 146 mg/dL (70-99) 133 mg/dL (70-99) Sodium Level 143 mmol/L (136-145) Potassium Level 3.9 mmol/L (3.5-5.1) Chloride Level 104 mmol/L (98-107) Carbon Dioxide Level 27 mmol/L (21-32) Anion Gap 12 (6-14) Blood Urea Nitrogen 11 mg/dL (7-20) Creatinine 1.1 mg/dL (0.6-1.0) Estimated GFR (Cockcroft-Gault) 62.6 Glucose Level 133 mg/dL (70-99) Calcium Level 9.4 mg/dL (8.5-10.1) Test 04/28/19 11:38 Glucose (Fingerstick) 178 mg/dL (70-99) Objective: Assessment: 1. Left perineal abscess, 2. DM poorly controlled 3. Pyuria. 4. History of cerebrovascular accident. 5. HISTORY OF ALLERGIES TO PENICILLIN, HAS TOLERATED AMOXICILLIN. Plan: Plan of Care cont meropenem and linezolid.tolerating it well Follow up cultures and lab. Continue wound management per wound team. Optimal diabetes control. D/W ADELINA CHEN MD Apr 28, 2019 13:42
[2019-04-28 15:00] VITALS: BP 126/70
[2019-04-28 19:42] VITALS: BP 130/71
[2019-04-28 23:55] VITALS: BP 153/79
[2019-04-29 03:25] VITALS: BP 171/70
[2019-04-29] MEDS: MEROPENEM 500 MG in IV NORMAL SALINE 50ML 50 ML IV SCH ×2 (04:53→14:00)
[2019-04-29] MEDS: hydrALAZINE 20 MG/ML VIAL. IVP PRN (05:00)
[2019-04-29 07:00] VITALS: BP 170/77
[2019-04-29] MEDS: INSULIN NPH/REG INSULIN 70/30 300 UNITS/3 ML INSULN.PEN. SQ SCH (08:00)
--- NOTE | 2019-04-29 08:56 | PDOC ---
FLAKITA OLVERA [employer] 04/29/19 0856: SURGICAL PROGRESS NOTE Subjective asking about going home wound feels better Vital Signs Vital Signs Date Time Temp Pulse Resp B/P (MAP) Pulse Ox O2 Delivery O2 Flow Rate FiO2 04/29/19 05:00 78 171/79 04/29/19 03:25 98.9 18 96 Room Air 98.9 I&O Intake and Output 04/29/19 07:00 Intake Total 950 ml Balance 950 ml Intake Oral 950 ml # Voids 4 General: Alert, Cooperative Extremities: Other (still with necrotic tissue over wound, appears to be sluffing off some) Labs Laboratory Tests Test 04/27/19 11:20 04/27/19 16:24 04/27/19 20:33 04/28/19 07:45 Glucose (Fingerstick) 149 mg/dL (70-99) 166 mg/dL (70-99) 146 mg/dL (70-99) Sodium Level 143 mmol/L (136-145) Potassium Level 3.9 mmol/L (3.5-5.1) Chloride Level 104 mmol/L (98-107) Carbon Dioxide Level 27 mmol/L (21-32) Anion Gap 12 (6-14) Blood Urea Nitrogen 11 mg/dL (7-20) Creatinine 1.1 mg/dL (0.6-1.0) Estimated GFR (Cockcroft-Gault) 62.6 Glucose Level 133 mg/dL (70-99) Calcium Level 9.4 mg/dL (8.5-10.1) Test 04/28/19 08:10 04/28/19 11:38 04/28/19 17:12 04/28/19 20:44 Glucose (Fingerstick) 133 mg/dL (70-99) 178 mg/dL (70-99) 242 mg/dL (70-99) 287 mg/dL (70-99) Test 04/29/19 08:04 Glucose (Fingerstick) 170 mg/dL (70-99) Laboratory Tests Test 04/28/19 11:38 04/28/19 17:12 04/28/19 20:44 04/29/19 08:04 Glucose (Fingerstick) 178 mg/dL (70-99) 242 mg/dL (70-99) 287 mg/dL (70-99) 170 mg/dL (70-99) Problem List Problems Medical Problems: (1) Accelerated hypertension Status: Acute (2) Cellulitis and abscess of lower extremity Status: Acute Assessment/Plan continue wound care some sluffing of tissue on wound HARRISON HARVEY MD 04/29/19 1231: SURGICAL PROGRESS NOTE Assessment/Plan pt seen ID present agree with plan for dismissal and wound care Ms Polo can f/u with our office if needed Thank you FLAKITA OLVERA APRN Apr 29, 2019 08:56 HARRISON HARVEY MD Apr 29, 2019 12:31
--- NOTE | 2019-04-29 09:21 | NUR ---
SW following pt for dc planning. Chart reviewed. Pt lives at home, PT/OT recommends home with assistance, Cane. ID following. SW will be available as needed.
[2019-04-29] MEDS: amLODIPine BESYLATE 10 MG TABLET PO SCH (09:40)
[2019-04-29] MEDS: LACTOBACILLUS RHAMNOSUS GG 1 CAPSULE. PO SCH (09:40)
[2019-04-29] MEDS: LINEZOLID 600 MG TABLET PO SCH (09:40)
[2019-04-29] MEDS: LISINOPRIL 20 MG TABLET PO SCH (09:41)
[2019-04-29 11:00] VITALS: BP 146/80
--- NOTE | 2019-04-29 11:50 | PDOC ---
Infectious Disease Note Subjective: Subjective pt says feels better wants to go home no f/c/n/v/d/abdo pain/gu symptoms Vital Signs: Vital Signs Vital Signs Date Time Temp Pulse Resp B/P (MAP) Pulse Ox O2 Delivery O2 Flow Rate FiO2 04/29/19 11:00 98.7 79 12 146/80 (102) 98 Room Air 98.7 Physical Exam: PHYSICAL EXAM GENERAL: Alert and oriented x 3, ambulant female, uses a cane in no acute distress. HEENT: Anicteric, no thrush. Oral mucosa moist. NECK: Supple, no JVD. LUNGS: Clear bilaterally. HEART: S1, S2. No gallops or murmurs. ABDOMEN: Soft, nontender, no rebound, no guarding. EXTREMITIES: No edema, no cyanosis. CENTRAL NERVOUS SYSTEMS: Contracture of the left upper extremity with weakness; right-sided, no decrease in range of motion. GROIN: Left perineal wound improved, no drainage, No fluctuance/ tenderness . No surrounding erythema or redness noted. No induration noted. It appears that there may have been a couple of lesions, which have dehisced together. PSYCHIATRIC: Cooperative, appropriate mood and affect. Medications: Inpatient Meds: Current Medications Medications (Trade) Dose Ordered Sig/Leanne Start Time Stop Time Status Last Admin Dose Admin Amlodipine Besylate (Norvasc) 10 mg DAILY 04/27/19 10:00 04/29/19 09:40 10 MG Diphtheria/ Tetanus/Acell Pertussis (Boostrix) 0.5 ml ONCE ONCE 04/26/19 13:45 04/26/19 13:46 DC 04/26/19 13:45 0.5 ML Furosemide (Lasix) 40 mg 1X ONCE 04/27/19 11:00 04/27/19 11:01 DC 04/27/19 10:53 40 MG Hydralazine HCl (Apresoline Inj) 10 mg PRN Q4HRS PRN 04/26/19 17:15 04/29/19 05:00 10 MG Insulin Human Isoph/Insulin Regular (HumuLIN 70/30) 4 units DAILYWSUP 04/27/19 17:00 04/28/19 17:23 4 UNITS Labetalol HCl (Normodyne Iv Push) 10 mg 1X ONCE 04/26/19 13:45 04/26/19 13:46 DC 04/26/19 14:06 10 MG Lactobacillus Rhamnosus (Culturelle) 1 cap BID 04/27/19 21:00 04/29/19 09:40 1 CAP Levofloxacin/ Dextrose 100 ml @ 100 mls/hr 1X ONCE 04/26/19 13:45 04/26/19 14:44 DC 04/26/19 13:45 100 MLS/HR Linezolid (Zyvox) 600 mg BID 04/27/19 15:00 04/29/19 09:40 600 MG Lisinopril (Prinivil) 40 mg DAILY 04/27/19 09:00 04/29/19 09:41 40 MG Meropenem 500 mg/ Sodium Chloride 50 ml @ 100 mls/hr Q8HRS 04/27/19 15:00 04/29/19 04:53 100 MLS/HR Morphine Sulfate (Morphine Sulfate) 2 mg PRN Q2HR PRN 04/26/19 17:15 04/27/19 17:14 DC Ondansetron HCl (Zofran) 4 mg PRN Q6HRS PRN 04/27/19 20:00 Sodium Chloride 1,000 ml @ 1,920 mls/hr Q32M 04/26/19 13:36 04/26/19 14:36 DC 04/26/19 14:08 1,920 MLS/HR Vancomycin HCl (Vanco Per Pharmacy) 1 each 1X ONCE 04/26/19 13:45 04/26/19 13:46 DC Vancomycin HCl 2 gm/Sodium Chloride 500 ml @ 250 mls/hr 1X ONCE 04/26/19 13:45 04/26/19 15:44 DC 04/26/19 14:08 250 MLS/HR Labs: Lab Laboratory Tests Test 04/28/19 17:12 04/28/19 20:44 04/29/19 08:04 04/29/19 11:09 Glucose (Fingerstick) 242 mg/dL (70-99) 287 mg/dL (70-99) 170 mg/dL (70-99) 193 mg/dL (70-99) Objective: Assessment: 1. Left perineal abscess, 2. DM poorly controlled 3. Pyuria. 4. History of cerebrovascular accident. 5. HISTORY OF ALLERGIES TO PENICILLIN, HAS TOLERATED AMOXICILLIN. Plan: Plan of Care pt is eager for dc home today dc meropenem and linezolid. will send on linezolid and cefdinir Continue wound management per wound team. Optimal diabetes control. D/W ADELINA CHEN MD Apr 29, 2019 11:50
--- NOTE | 2019-04-29 12:28 | PDOC ---
[employer] PROGRESS NOTE Chief Complaint Chief Complaint Left Thigh Abscess, resolving HTN, uncontrolled CVA Diabetes-Type II High Cholesterol DKA History of Present Illness History of Present Illness 04/29/19 Pt seen and examined Pt was sitting in her chair Pt expressed desire to go home DW RN Reviewed pt's chart 04/28/19 Pt seen and examined Pt was sitting up in her chair DW pt Reviewed pt's chart 04/27/19 Pt seen and examined Pt was walking with PT WILSON pt WILSON RN Reviewed pt's chart Vitals/I&O Vitals/I&O: Vital Signs Date Time Temp Pulse Resp B/P (MAP) Pulse Ox O2 Delivery O2 Flow Rate FiO2 04/29/19 11:00 98.7 79 12 146/80 (102) 98 Room Air 98.7 I & O 04/28/19 04/28/19 04/29/19 15:00 23:00 07:00 Intake Total 400 ml 500 ml 50 ml Balance 400 ml 500 ml 50 ml Physical Exam Physical Exam: General: Alert, Cooperative Heart: Regular rate, Normal S1, Normal S2 Lungs: Clear Abdomen: Soft, No tenderness Extremities: Other (still with necrotic tissue over wound, appears to be sluffing off some) Skin: Other (left perineal area--no induration, no erythema, open wound with sloughing tissue) Labs Labs: Laboratory Tests Test 04/28/19 17:12 04/28/19 20:44 04/29/19 08:04 04/29/19 11:09 Glucose (Fingerstick) 242 mg/dL (70-99) 287 mg/dL (70-99) 170 mg/dL (70-99) 193 mg/dL (70-99) Review of Systems Review of Systems: No c/o headache No c/o N/V/D Assessment and Plan Assessmemt and Plan Problems Medical Problems: (1) Accelerated hypertension Status: Acute (2) Cellulitis and abscess of lower extremity Status: Acute Assessment Left Thigh Abscess, resolving HTN, uncontrolled CVA Diabetes-Type II High Cholesterol DKA Plan Monitor and control BP Wound Care IV Abx DVT Prophylaxis PT/OT Labs Home meds Full code Probable d/c home on Abx Continue wound care as outpt Comment Review of Relevant I have reviewed the following items hortencia (where applicable) has been applied. JARRETT CARRION III DO Apr 29, 2019 12:27
[2019-04-29] MEDS ORDERED: CEFD300C PO (12:39)
[2019-04-29] MEDS ORDERED: LINE600T12 PO (12:41)
--- NOTE | 2019-04-29 15:50 | NUR ---
Pt discharged home with family. Discharge teaching completed. Pt verbalized understanding.
== END 2019-04-29 15:50 | disposition home or self-care (01) | DRG 602 ==
LOC: ER 11:58 → 6 SOUTH 16:00
PROVIDERS: ADMIT Internal Medicine; ATTEND Internal Medicine
DX: L02.215 Cutaneous abscess of perineum (principal); E11.10 Type 2 diabetes mellitus with ketoacidosis without coma; I69.354 Hemiplegia and hemiparesis following cerebral infarction affecting left non-dominant side; L02.416 Cutaneous abscess of left lower limb; L03.119 Cellulitis of unspecified part of limb; E78.00 Pure hypercholesterolemia, unspecified; E78.5 Hyperlipidemia, unspecified; F41.9 Anxiety disorder, unspecified; I10 Essential (primary) hypertension; Z82.49 Family history of ischemic heart disease and other diseases of the circulatory system; Z88.0 Allergy status to penicillin; Z91.19 Patient's noncompliance with other medical treatment and regimen; Y92.89 Other specified places as the place of occurrence of the external cause; Z88.2 Allergy status to sulfonamides
CPT/HCPCS: 36415; 80048; 80053; 81001; 82962; 83605; 84145; 85025; 85610; 85651; 85730; 86140; 86304; 87040; 90471; 90715; J0360; J1815; J1940; J1956; J2185; J3370; J3490; J7030; J7040; 97530; 97535; G0378

== ENCOUNTER 2019-09-27 16:54 | Inpatient (IN) | payer MEDICARE ==
[~2019-09-27] VITALS: Ht 175.3 cm; Wt 95.8 kg
[~2019-09-27 16:54] MED LIST changes: +CEFD300C PO; +HUM100VI4 SQ; +HUM100VI4 SUBCUT; +LINE600T12 PO; +LISI40TA2 PO
[2019-09-27] MEDS ORDERED: ACETAMINOPHEN 500 MG TABLET PO ONE (18:30)
[2019-09-27] MEDS ORDERED: IV NORMAL SALINE 1000ML BAG 1,000 ML IV ONE (18:30)
[2019-09-27 18:33] LABS: BASO % 0 % (0-3); EOS % 0 % (0-3); HEMATOCRIT 30.6 % (36.0-47.0); HEMOGLOBIN 10.3 g/dL (12.0-15.5); LYMPH # 1.9 x10^3/uL (1.0-4.8); LYMPH % 15 % (24-48); MEAN CORPUSCULAR HEMOGLOBIN 28 pg (25-35); MEAN CORPUSCULAR HGB CONC 34 g/dL (31-37); MEAN CORPUSCULAR VOLUME 83 fL (79-100); MONO # 0.9 x10^3/uL (0.0-1.1); MONO % 7 % (0-9); NEUT % 78 % (31-73); PLATELET COUNT 468 x10^3/uL (140-400); RED CELL DISTRIBUTION WIDTH 14.3 % (11.5-14.5); WHITE BLOOD COUNT 12.8 x10^3/uL (4.0-11.0)
[2019-09-27 18:41] LABS: CALCIUM 9.2 mg/dL (8.5-10.1); CREATININE 1.6 mg/dL (0.6-1.0); GFR 40.6; POTASSIUM 3.5 mmol/L (3.5-5.1)
[2019-09-27 18:45] LABS: PROTHROMBIN TIME PATIENT 13.5 SEC (11.7-14.0)
[2019-09-27] MEDS ORDERED: cloNIDine HCL 0.1 MG TABLET PO ONE (18:45)
[2019-09-27 18:47] LABS: ALBUMIN 2.8 g/dL (3.4-5.0); ALBUMIN/GLOBULIN RATIO 0.6 (1.0-1.7); TOTAL BILIRUBIN 0.7 mg/dL (0.2-1.0); TOTAL PROTEIN 7.8 g/dL (6.4-8.2)
--- NOTE | 2019-09-27 18:52 | PHYS DOC ---
Past Medical History Past Medical History: CVA, Diabetes-Type II, High Cholesterol, Hypertension Additional Past Medical Histor: DKA Past Surgical History: Oophorectomy Additional Past Surgical Histo: stents to kidneys Smoking Status: Never Smoker Alcohol Use: None Drug Use: None General Adult EDM: Chief Complaint: OTHER COMPLAINTS HPI: HPI: Patient is a 53 year old female who presents with states 2 weeks she noticed a sore on the bottom of the fourth toe and she stated that it hurt but did not really bother her. She states now the toe has turned black and she is having swelling and some pain in the foot. She states she does have neuropathy in her feet bilaterally from her diabetes. She denies injury. Patient is febrile upon arrival. She has a left fourth toe that is black in color with a purulent drainage sore to the inner part bottom of the toe and bottom part of the toe. There is no ulceration. Review of Systems: Review of Systems: Constitutional: fever or chills. [] Integument: Denies rash. Left foot wound, left toe black [] Heart Score: Risk Factors: Risk Factors: DM, Current or recent (<one month) smoker, HTN, HLP, family history of CAD, obesity. Risk Scores: Score 0 - 3: 2.5% MACE over next 6 weeks - Discharge Home Score 4 - 6: 20.3% MACE over next 6 weeks - Admit for Clinical Observation Score 7 - 10: 72.7% MACE over next 6 weeks - Early Invasive Strategies Current Medications: Current Medications Medications (Trade) Dose Ordered Sig/[facility] Start Time Stop Time Status Last Admin Dose Admin Acetaminophen (Tylenol) 1,000 mg 1X ONCE 09/27/19 18:30 09/27/19 18:37 DC Clonidine HCl (Catapres) 0.1 mg 1X ONCE 09/27/19 18:45 09/27/19 18:46 Sodium Chloride 1,000 ml @ 1,000 mls/hr 1X ONCE 09/27/19 18:30 09/27/19 19:29 Allergies: Allergies: Allergies Coded Allergies Type Severity Reaction Last Updated Verified Sulfa (Sulfonamide Antibiotics) Allergy Severe Anaphylaxis 07/24/16 Yes Penicillins Allergy Intermediate 07/24/16 Yes Physical Exam: PE: Constitutional: Well developed, well nourished, no acute distress, non-toxic appearance. [] HENT: Normocephalic, atraumatic, bilateral external ears normal, oropharynx moist, no oral exudates, nose normal. [] Eyes: PERRLA, EOMI, conjunctiva normal, no discharge. [] Neck: Normal range of motion, no tenderness, supple, no stridor. [] Cardiovascular:Heart rate regular rhythm, no murmur [] Lungs & Thorax: Bilateral breath sounds clear to auscultation [] Abdomen: Bowel sounds normal, soft, no tenderness, no masses, no pulsatile masses. [] Skin: Warm, dry, no erythema, no rash. Left fourth toe black with wound draining purulent fluid [] Back: No tenderness, no CVA tenderness. [] Extremities: No tenderness, no cyanosis, no clubbing, ROM intact, no edema. [] Neurologic: Alert and oriented X 3, normal motor function, normal sensory function, no focal deficits noted. [] Psychologic: Affect normal, judgement normal, mood normal. [] Current Patient Data: Labs: Laboratory Tests Test 09/27/19 17:37 White Blood Count 12.8 x10^3/uL (4.0-11.0) H Red Blood Count 3.70 x10^6/uL (3.50-5.40) Hemoglobin 10.3 g/dL (12.0-15.5) L Hematocrit 30.6 % (36.0-47.0) L Mean Corpuscular Volume 83 fL (79-100) Mean Corpuscular Hemoglobin 28 pg (25-35) Mean Corpuscular Hemoglobin Concent 34 g/dL (31-37) Red Cell Distribution Width 14.3 % (11.5-14.5) Platelet Count 468 x10^3/uL (140-400) H Neutrophils (%) (Auto) 78 % (31-73) H Lymphocytes (%) (Auto) 15 % (24-48) L Monocytes (%) (Auto) 7 % (0-9) Eosinophils (%) (Auto) 0 % (0-3) Basophils (%) (Auto) 0 % (0-3) Neutrophils # (Auto) 10.0 x10^3/uL (1.8-7.7) H Lymphocytes # (Auto) 1.9 x10^3/uL (1.0-4.8) Monocytes # (Auto) 0.9 x10^3/uL (0.0-1.1) Eosinophils # (Auto) 0.0 x10^3/uL (0.0-0.7) Basophils # (Auto) 0.0 x10^3/uL (0.0-0.2) Sodium Level 137 mmol/L (136-145) Potassium Level 3.5 mmol/L (3.5-5.1) Chloride Level 99 mmol/L (98-107) Carbon Dioxide Level 27 mmol/L (21-32) Anion Gap 11 (6-14) Blood Urea Nitrogen 15 mg/dL (7-20) Creatinine 1.6 mg/dL (0.6-1.0) H Estimated GFR (Cockcroft-Gault) 40.6 BUN/Creatinine Ratio 9 (6-20) Glucose Level 241 mg/dL (70-99) H Calcium Level 9.2 mg/dL (8.5-10.1) Total Bilirubin Pending Aspartate Amino Transferase (AST) Pending Alanine Aminotransferase (ALT) Pending Alkaline Phosphatase Pending Total Protein Pending Albumin Pending Albumin/Globulin Ratio Pending Laboratory Tests 09/27/19 17:37 Laboratory Tests 09/27/19 17:37 Vital Signs: Vital Signs Date Time Temp Pulse Resp B/P (MAP) Pulse Ox O2 Delivery O2 Flow Rate FiO2 09/27/19 17:12 101.5 97 12 226/101 (142) 99 Room Air 101.5 EKG: EKG: [] Radiology/Procedures: Radiology/Procedures: [] Impression: [facility] [address] [place], [place] [id number] IMAGING REPORT Signed PATIENT: CHAZ CAMPBELL ACCOUNT: [id number] : 1965 LOCATION: ER AGE: 53 SEX: F EXAM STATUS: REG ER ORD. PHYSICIAN: ANU CARRILLO APRN REASON: SWELLING PROCEDURE: VENOUS LOWER EXTREMITY LEFT Left Lower Extremity Venous Doppler Ultrasound History: Reason: SWELLING / Spl. Instructions: / History: Comparison: None Procedure: Color flow, duplex, spectral analysis and 2D images are obtained with and without compression in the area of the common femoral vein, superficial femoral vein - femoral vein junction, main femoral vein (superficial femoral vein) and popliteal vein. Veins of the proximal calf are also imaged. Findings: There is normal duplex flow, color flow and compressibility of all visualized vein segments. No evidence of deep venous thrombus is present. There is soft tissue edema seen in the lower leg. There are reactive lymph nodes seen in the left groin. Impression: No evidence of DVT. Electronically signed by: James Bianchi III, MD (09/27/2019 7:19 PM) [id number] DICTATED and SIGNED BY: JAMES BIANCHI III, MD DATE: 09/27/191918 [address] [address] IMAGING REPORT Signed PATIENT: CHAZ CAMPBELL ACCOUNT: [id number] : 1965 LOCATION: ER AGE: 53 SEX: F EXAM STATUS: REG ER ORD. PHYSICIAN: ANU CARRILLO APRN REASON: FEVER PROCEDURE: PORTABLE CHEST 1V Exam: Chest one view INDICATION: Fever TECHNIQUE: Frontal view of the chest Comparisons: None FINDINGS: The cardiomediastinal silhouette and pulmonary vessels are within normal limits. The lung and pleural spaces are clear. IMPRESSION: No acute cardiopulmonary process. Electronically signed by: Mady Keyes MD (09/27/2019 8:29 PM) [id number] DICTATED and SIGNED BY: MADY KEYES MD DATE: 09/27/192028 [address] [address] IMAGING REPORT Signed PATIENT: CHAZ CAMPBELL ACCOUNT: [id number] : 1965 LOCATION: ER AGE: 53 SEX: F EXAM STATUS: REG ER ORD. PHYSICIAN: ANU CARRILLO APRN REASON: WOUND, SWELLING PROCEDURE: FOOT LEFT 3V Exam: Left foot 3 views INDICATION: Wound TECHNIQUE: Frontal, lateral and oblique views of the left foot Comparisons: None FINDINGS: Soft tissue swelling overlying the dorsum of the midfoot. Diffuse osteopenia. No acute fractures. Joint spaces are well-maintained. IMPRESSION: Soft tissue swelling overlying the dorsum of the midfoot without underlying osseous abnormality or radiopaque foreign body identified. Electronically signed by: Mady Keyes MD (09/27/2019 8:34 PM) [id number] DICTATED and SIGNED BY: MADY KEYES MD DATE: 09/27/192033 Course & Med Decision Making: Course & Med Decision Making Pertinent Labs and Imaging studies reviewed. (See chart for details) I have sent a culture of the area that is draining purulent fluid. Pedal pulses present. The foot has 2+ pitting edema. Skin is pink warm and dry. Patient denies the extremity going cold or changing colors. When patient is up and walking she has pain but currently when she is sitting in bed she rates her pain at a 0 out of 10. Patient has a history of high cholesterol, hypertension, CVA, diabetes type 2, DKA, kidney stents. I have spoken to Dr. Martinez concerning this patient and admission. I have ordered vancomycin. Ultrasound shows no DVT. White blood cell count is 12.8. [] Dragon Disclaimer: Sanju Disclaimer: This electronic medical record was generated, in whole or in part, using a voice recognition dictation system. Departure Departure Impression: Primary Impression: Diabetic foot infection Disposition: ADMITTED INPATIENT Admitting Physician: BO Condition: STABLE Referrals: NO PCP (PCP) ANU CARRILLO APRN Sep 27, 2019 18:52
--- NOTE | 2019-09-27 19:22 | RAD ---
Left Lower Extremity Venous Doppler Ultrasound History: Reason: SWELLING / Spl. Instructions: / History: Comparison: None Procedure: Color flow, duplex, spectral analysis and 2D images are obtained with and without compression in the area of the common femoral vein, superficial femoral vein - femoral vein junction, main femoral vein (superficial femoral vein) and popliteal vein. Veins of the proximal calf are also imaged. Findings: There is normal duplex flow, color flow and compressibility of all visualized vein segments. No evidence of deep venous thrombus is present. There is soft tissue edema seen in the lower leg. There are reactive lymph nodes seen in the left groin. Impression: No evidence of DVT. Electronically signed by: Ilya Beard III, MD (09/27/2019 7:19 PM) [id number]
[2019-09-27] MEDS ORDERED: VANCOMYCIN 1GM IVPB FOR OMNI 250 ML IV ONE (20:30)
--- NOTE | 2019-09-27 20:31 | RAD ---
Exam: Chest one view INDICATION: Fever TECHNIQUE: Frontal view of the chest Comparisons: None FINDINGS: The cardiomediastinal silhouette and pulmonary vessels are within normal limits. The lung and pleural spaces are clear. IMPRESSION: No acute cardiopulmonary process. Electronically signed by: Mady Hernandez MD (09/27/2019 8:29 PM) [id number]
[2019-09-27 20:32] LABS: BILIRUBIN,URINE NEGATIVE (NEG); CLARITY,URINE TURBID; COLOR,URINE AMBER; NITRITE,URINE NEGATIVE (NEG); PH,URINE 5.5 (<5.0-8.0); PROTEIN,URINE >=300 mg/dL (NEG-TRACE)
--- NOTE | 2019-09-27 20:37 | RAD ---
Exam: Left foot 3 views INDICATION: Wound TECHNIQUE: Frontal, lateral and oblique views of the left foot Comparisons: None FINDINGS: Soft tissue swelling overlying the dorsum of the midfoot. Diffuse osteopenia. No acute fractures. Joint spaces are well-maintained. IMPRESSION: Soft tissue swelling overlying the dorsum of the midfoot without underlying osseous abnormality or radiopaque foreign body identified. Electronically signed by: Mady Hernandez MD (09/27/2019 8:34 PM) [id number]
[2019-09-27 20:38] LABS: BACTERIA,URINE MODERATE /HPF (0-FEW); RBC,URINE OCC /HPF (0-2); SQUAMOUS EPITHELIAL CELL,UR MOD /LPF; WBC,URINE TNTC /HPF (0-4)
[2019-09-27 20:39] LABS: GRANULAR CASTS,URINE FEW /HPF; HYALINE CASTS, URINE MODERATE /HPF; WAXY CASTS,URINE OCCASIONAL /HPF
[2019-09-27] MEDS ORDERED: fentaNYL PF VIAL 100 MCG/2 ML VIAL IV PRN (20:45)
[2019-09-27] MEDS ORDERED: ONDANSETRON PF 4 MG/2 ML VIAL. IV PRN (20:45)
[2019-09-27] MEDS ORDERED: ACETAMINOPHEN 325 MG TABLET. PO PRN (20:45)
[2019-09-27 22:25] VITALS: BP 176/66
--- NOTE | 2019-09-27 22:30 | NUR ---
pt admitted from ER via bed with admission diagnosis of diabetic foot infection patient alert and oriented left foot swollen 4th toes black pedal pulses palpable denies pain at this time patient home meds stated stop taking it prior to covid situation
[2019-09-28] VITALS (11 sets, daily range): BP systolic 154–285; BP diastolic 77–141
--- NOTE | 2019-09-28 00:10 | NUR ---
Dr Martinez returned paged read patient home meds with order to continue the following meds lisinopril 40 mg po daily can give dose now, Relion,Novolin 70/30 unit 8 unit sub q daily with breakfast ,relion,Novolin 70/30 4 unit at supper informed of patient Bp as 176/66 and Blood sugar as 174
[2019-09-28] MEDS: LISINOPRIL 20 MG TABLET PO SCH ×2 (00:53→08:07)
[2019-09-28] MEDS: INSULIN NPH/REG INSULIN 70/30 300 UNITS/3 ML INSULN.PEN. SQ SCH ×2 (08:00→17:00)
--- NOTE | 2019-09-28 09:43 | PDOC ---
Infectious Disease Note Vital Sign Vital Signs Vital Signs Date Time Temp Pulse Resp B/P (MAP) Pulse Ox O2 Delivery O2 Flow Rate FiO2 09/28/19 08:07 79 205/93 09/28/19 07:00 98.5 16 94 Room Air 98.5 Labs Lab Laboratory Tests Test 09/27/19 17:37 09/27/19 17:39 09/27/19 20:26 09/27/19 23:00 White Blood Count 12.8 x10^3/uL (4.0-11.0) Red Blood Count 3.70 x10^6/uL (3.50-5.40) Hemoglobin 10.3 g/dL (12.0-15.5) Hematocrit 30.6 % (36.0-47.0) Mean Corpuscular Volume 83 fL (79-100) Mean Corpuscular Hemoglobin 28 pg (25-35) Mean Corpuscular Hemoglobin Concent 34 g/dL (31-37) Red Cell Distribution Width 14.3 % (11.5-14.5) Platelet Count 468 x10^3/uL (140-400) Neutrophils (%) (Auto) 78 % (31-73) Lymphocytes (%) (Auto) 15 % (24-48) Monocytes (%) (Auto) 7 % (0-9) Eosinophils (%) (Auto) 0 % (0-3) Basophils (%) (Auto) 0 % (0-3) Neutrophils # (Auto) 10.0 x10^3/uL (1.8-7.7) Lymphocytes # (Auto) 1.9 x10^3/uL (1.0-4.8) Monocytes # (Auto) 0.9 x10^3/uL (0.0-1.1) Eosinophils # (Auto) 0.0 x10^3/uL (0.0-0.7) Basophils # (Auto) 0.0 x10^3/uL (0.0-0.2) Prothrombin Time 13.5 SEC (11.7-14.0) Prothromb Time International Ratio 1.1 (0.8-1.1) Sodium Level 137 mmol/L (136-145) Potassium Level 3.5 mmol/L (3.5-5.1) Chloride Level 99 mmol/L (98-107) Carbon Dioxide Level 27 mmol/L (21-32) Anion Gap 11 (6-14) Blood Urea Nitrogen 15 mg/dL (7-20) Creatinine 1.6 mg/dL (0.6-1.0) Estimated GFR (Cockcroft-Gault) 40.6 BUN/Creatinine Ratio 9 (6-20) Glucose Level 241 mg/dL (70-99) Calcium Level 9.2 mg/dL (8.5-10.1) Total Bilirubin 0.7 mg/dL (0.2-1.0) Aspartate Amino Transf (AST/SGOT) 12 U/L (15-37) Alanine Aminotransferase (ALT/SGPT) 11 U/L (14-59) Alkaline Phosphatase 82 U/L (46-116) Total Protein 7.8 g/dL (6.4-8.2) Albumin 2.8 g/dL (3.4-5.0) Albumin/Globulin Ratio 0.6 (1.0-1.7) Lactic Acid Level 1.0 mmol/L (0.4-2.0) Urine Collection Type Unknown Urine Color Dayna Urine Clarity Turbid Urine pH 5.5 (<5.0-8.0) Urine Specific [place] 1.025 (1.000-1.030) Urine Protein >=300 mg/dL (NEG-TRACE) Urine Glucose (UA) 100 mg/dL (NEG) Urine Ketones (Stick) Negative mg/dL (NEG) Urine Blood Negative (NEG) Urine Nitrite Negative (NEG) Urine Bilirubin Negative (NEG) Urine Urobilinogen Dipstick 1.0 mg/dL (0.2 mg/dL) Urine Leukocyte Esterase Moderate (NEG) Urine RBC Occ /HPF (0-2) Urine WBC Tntc /HPF (0-4) Urine Squamous Epithelial Cells Mod /LPF Urine Transitional Epithelial Cells Few /LPF Urine Renal Epithelial Cells Few /LPF Urine Bacteria Moderate /HPF (0-FEW) Urine Hyaline Casts Moderate /HPF Urine Granular Casts Few /HPF Urine Waxy Casts Occasional /HPF Urine Mucus Mod /LPF Glucose (Fingerstick) 174 mg/dL (70-99) Test 09/28/19 07:17 Glucose (Fingerstick) 174 mg/dL (70-99) Objective Assessment pt seen, consult dictated Plan Plan of Care / STEFF ROJAS MD Sep 28, 2019 09:43
--- NOTE | 2019-09-28 10:10 | NUR ---
SW following. Discussed with RN and Dr. Sweeney. Pt from home with family, room air. Dr. Sweeney consulting vascular as believes pt will need toe amputation. SW will continue to follow.
--- NOTE | 2019-09-28 10:20 | CONS ---
DATE OF CONSULTATION: 09/28/2019 REQUESTING PHYSICIAN: Dr. Martinez. REASON FOR CONSULTATION: Diabetic foot infection. HISTORY OF PRESENT ILLNESS: This is a 53-year-old -[place] female with diabetes, hypertension and CVA in the past, who presented with about 3 or 4 weeks history of left foot and fourth toe infection and she says she started having some nausea, vomiting, chills and then 2 days ago, the toe turned black. The patient has been otherwise feeling okay. Denies any abdominal pain, chest pain, shortness of breath, headache or visual symptoms. PAST MEDICAL HISTORY: Positive for diabetes mellitus, history of CVA, left-sided weakness, hypertension, hyperlipidemia. She has had oophorectomy and stenting in the kidney done. SOCIAL HISTORY: Negative for smoking, alcohol or illicit drug use. ALLERGIES: PENICILLIN CAUSING HIVES AND SULFA CAUSES THROAT SWELLING SHE SAYS. CURRENT MEDICATIONS: The patient is on vancomycin. REVIEW OF SYSTEMS: As per HPI, all other systems reviewed and are negative. PHYSICAL EXAMINATION: GENERAL: Alert and oriented female, not in any distress. VITAL SIGNS: Stable. She did have 101.5 T-max. HEENT: Both pupils are round and reacting. No conjunctival lesion. No lesion in the mouth. NECK: Supple, no JVP, no lymphadenopathy. LUNGS: Clear. HEART: S1, S2 regular. ABDOMEN: Benign. EXTREMITIES: Right lower extremity is unremarkable. Left lower extremity has gangrene of the left fourth toe and so there is maceration and drainage from the web between the 3rd and the 4th and 4th and the 5th toes. There is also redness and induration of the proximal dorsal foot and the plantar area has an infection. NEUROLOGIC: The patient is alert, oriented. No focal neurologic deficit. Because of the swelling dorsalis pedis in that foot is not able to palpate LABORATORY DATA: White count is 12.8. BUN and creatinine is 15 and 1.6. Liver functions are normal. Lactic acid is normal. IMAGING STUDIES: Chest x-ray unremarkable. Foot x-ray unremarkable for any osseous changes. IMPRESSION: 1. Left fourth toe gangrene. 2. Left fourth toe and diabetic foot infection. 3. Fever. 4. Leukocytosis. 5. History of cerebrovascular accident. 6. Hypertension. RECOMMENDATIONS: We will discontinue vancomycin secondary to the higher creatinine. We will use daptomycin and add meropenem. Supportive care. The patient unfortunately is going to lose fourth toe for sure. Thank you very much, Dr. Martinez, for giving me the opportunity to participate in this patient's care. STEFF ROJAS MD DR: AUNDREA/braden JOB#: [id number] / [id number]
--- NOTE | 2019-09-28 10:43 | PDOC1 ---
History and Physical Date of Admission Date of Admission DATE: 09/28/19 TIME: 10:43 Identification/Chief Complaint Chief Complaint seen in ER WITH Gangrene of left 4th toe, fever53 year old female who presents with states 2 weeks she noticed a sore on the bottom of the fourth toe and she stated that it hurt but did not bother her. now the toe has turned black and she is having swelling and some pain in the foot. /// does have neuropathy in her feet bilaterally from her diabetes. She has a left fourth toe that is black in color with a purulent drainage Past Medical History Past Medical History Past Medical History Past Medical History Past Medical History: CVA, Diabetes-Type II, High Cholesterol, Hypertension Additional Past Medical Histor: DKA Past Surgical History: Oophorectomy Additional Past Surgical Histo: stents to kidneys Smoking Status: Never Smoker Alcohol Use: None Drug Use: None PAST MEDICAL HISTORY: Positive for diabetes mellitus, history of CVA, left-sided weakness, hypertension, hyperlipidemia. She has had oophorectomy and stenting in the kidney done. SOCIAL HISTORY: Negative for smoking, alcohol or illicit drug use. ALLERGIES: PENICILLIN CAUSING HIVES AND SULFA CAUSES THROAT SWELLING FHX HTN Cardiovascular: HTN, Hyperlipidemia Infectious disease: No pertinent hx Endocrine: Diabetes Past Surgical History Past Surgical History: No pertinent history Family History Family History: Hypertension, Other Social History Smoke: No ALCOHOL: none Drugs: None Current Problem List Problem List Problems Medical Problems: (1) Diabetic foot infection Status: Acute Current Medications Current Medications Current Medications Sodium Chloride 1,000 ml @ 1,000 mls/hr 1X ONCE IV Last administered on 09/27/19at 19:25; Start 09/27/19 at 18:30; Stop 09/27/19 at 19:29; Status DC Acetaminophen (Tylenol) 1,000 mg 1X ONCE PO Last administered on 09/27/19at 19:25; Start 09/27/19 at 18:30; Stop 09/27/19 at 18:37; Status DC Clonidine HCl (Catapres) 0.1 mg 1X ONCE PO Last administered on 09/27/19at 1 9:26; Start 09/27/19 at 18:45; Stop 09/27/19 at 18:46; Status DC Vancomycin HCl 250 ml @ 250 mls/hr 1X ONCE IV Last administered on 09/27/19at 20:56; Start 09/27/19 at 20:30; Stop 09/27/19 at 21:29; Status DC Ondansetron HCl (Zofran) 4 mg PRN Q8HRS PRN IV NAUSEA/VOMITING; Start 09/27/19 at 20:45; Stop 09/28/19 at 20:44 Fentanyl Citrate (Fentanyl 2ml Vial) 50 mcg PRN Q1HR PRN IV PAIN; Start 09/27/19 at 20:45; Stop 09/28/19 at 20:44 Acetaminophen (Tylenol) 650 mg PRN Q4HRS PRN PO FEVER > 100.3'F; Start 09/27/19 at 20:45; Stop 09/28/19 at 20:44 Lisinopril (Prinivil) 40 mg DAILY PO Last administered on 09/28/19at 08:07; Start 09/28/19 at 00:30 Insulin Human Isoph/Insulin Regular (HumuLIN 70/30) 4 units DAILYWSUP SQ ; Start 09/28/19 at 17:00 Insulin Human Isoph/Insulin Regular (HumuLIN 70/30) 8 units DAILYWBKFT SQ ; Start 09/28/19 at 08:00 Daptomycin 490 mg/ Sodium Chloride 50 ml @ 100 mls/hr Q24H IV ; Start 09/28/19 at 11:00 Meropenem 500 mg/ Sodium Chloride 50 ml @ 100 mls/hr Q8HRS IV ; Start 09/28/19 at 11:00 Active Scripts Active Reported Zyvox (Linezolid) 600 Mg Tablet 600 Mg PO BID 7 Days Cefdinir 300 Mg Capsule 1 Cap PO BID 7 Days Lisinopril 40 Mg Tablet 40 Mg PO DAILY Relion Novolin 70-30 Vial (Hum Insulin Nph/Reg Insulin Hm) 100 Unit/1 Ml Vial 4 Unit SQ DAILYWSUP Relion Novolin 70-30 Vial (Hum Insulin Nph/Reg Insulin Hm) 100 Unit/1 Ml Vial 8 Unit SUBCUT DAILYWBKFT Allergies Allergies: Coded Allergies: Sulfa (Sulfonamide Antibiotics) (Verified Allergy, Severe, Anaphylaxis, 07/24/16) Penicillins (Verified Allergy, Intermediate, 07/24/16) ROS Review of System Constitutional: fever// chills. [] Integument: Denies rash. Left foot wound, left toe black [] 14 pt ros otherwise neg PSYCHOLOGICAL ROS: No: Anxiety, Behavioral Disorder, Concentration difficultie, Decreased libido, Depression, Disorientation, Hallucinations, Hostility, Irritablity, Memory difficulties, Mood Swings, Obsessive thoughts, Physical abuse, Sexual abuse, Sleep disturbances, Suicidal ideation, Other Eyes: No Blurry vision, No Decreased vision, No Double vision, No Dry eyes, No Excessive tearing, No Eye Pain, No Itchy Eyes, No Loss of vision, No Photophobia, No Scotomata, No Uses contacts, No Uses glasses, No Other HEENT: No: Heacaches, Visual Changes, Hearing change, Nasal congestion, Nasal discharge, Oral lesions, Sinus pain, Sore Throat, Epistaxis, Sneezing, Snoring, Tinnitus, Vertigo, Vocal changes, Other ALLERGY AND IMMUNOLOGY: YES: Hives; No: Insect Bite Sensitivity, Itchy/Watery Eyes, Nasal Congestion, Post Nasal Drip, Seasonal Allergies, Other Hematological and Lymphatic: No: Bleeding Problems, Blood Clots, Blood Transfusions, Brusing, Night Sweats, Pallor, Swollen Lymph Nodes, Other ENDOCRINE: No: Breast Changes, Galactorrhea, Hair Pattern Changes, Hot Flashes, Malaise/lethargy, Mood Swings, Palpitations, Polydipsia/polyuria, Skin Changes, Temperature Intolerance, Unexpected Weight Changes, Other Respiratory: No: Cough, Hemoptysis, Orthopnea, Pleuritic Pain, Shortness of breath, SOB with excertion, Sputum Changes, Stridor, Tachypnea, Wheezing, Other Cardiovascular: No Chest Pain, No Palpitations, No Orthopnea, No Paroxysmal Noc. Dyspnea, No Edema, No Lt Headedness, No Other Gastrointestinal: No Nausea, No Vomiting, No Abdominal Pain, No Diarrhea, No Constipation, No Melena, No Hematochezia, No Other Musculoskeletal: Yes Gait Disturbance, Yes Joint Pain, Yes Joint Stiffness, Yes Joint Swelling, Yes Pain In: (LEFT FOOT) Neurological: Yes Gait Disturbance; No Behavorial Changes, No Bowel/Bladder ControlChng, No Confusion, No Dizziness, No Headaches, No Impaired Coord/balance, No Memory Loss, No Numbness/Tingling, No Seizures, No Speech Problems, No Tremors, No Visual Changes, No Weakness, No Other Skin: Yes Skin Lesion Changes Physical Exam Physical Exam Constitutional: Well developed, well nourished, no acute distress, non-toxic appearance. [] HENT: Normocephalic, atraumatic, bilateral external ears normal, oropharynx moist, no oral exudates, nose normal. [] Eyes: PERRLA, EOMI, conjunctiva normal, no discharge. [] Neck: Normal range of motion, no tenderness, supple, no stridor. [] Cardiovascular:Heart rate regular rhythm, no murmur [] Lungs & Thorax: Bilateral breath sounds clear to auscultation [] Abdomen: Bowel sounds normal, soft, no tenderness, no masses, no pulsatile masses. [] Skin: Warm, dry, no erythema, no rash. Left fourth toe black with wound draining purulent fluid [] Back: No tenderness, no CVA tenderness. [] Extremities: gangrene left 4th toe [] Neurologic: Alert and oriented X 3, normal motor function, normal sensory function, no focal deficits noted. [] Psychologic: Affect normal, judgment normal, mood normal. [] General: Alert, Oriented X3, Cooperative, No acute distress HEENT: Atraumatic, EOMI, Mucous membr. moist/pink Heart: RRR Breasts: Not examined Abdomen: Normal bowel sounds, Soft, No tenderness Rectal Exam: not examined PELVIC: Examination not indicated Neuro: Normal speech, Cranial nerves 3-12 NL Psych/Mental Status: Mental status NL, Mood NL Vitals Vitals Vital Signs Date Time Temp Pulse Resp B/P (MAP) Pulse Ox O2 Delivery O2 Flow Rate FiO2 09/28/19 08:07 79 205/93 09/28/19 08:00 Room Air 09/28/19 07:00 98.5 16 94 98.5 Labs Labs Laboratory Tests Test 09/27/19 17:37 09/27/19 17:39 09/27/19 20:26 09/27/19 23:00 White Blood Count 12.8 x10^3/uL (4.0-11.0) Red Blood Count 3.70 x10^6/uL (3.50-5.40) Hemoglobin 10.3 g/dL (12.0-15.5) Hematocrit 30.6 % (36.0-47.0) Mean Corpuscular Volume 83 fL (79-100) Mean Corpuscular Hemoglobin 28 pg (25-35) Mean Corpuscular Hemoglobin Concent 34 g/dL (31-37) Red Cell Distribution Width 14.3 % (11.5-14.5) Platelet Count 468 x10^3/uL (140-400) Neutrophils (%) (Auto) 78 % (31-73) Lymphocytes (%) (Auto) 15 % (24-48) Monocytes (%) (Auto) 7 % (0-9) Eosinophils (%) (Auto) 0 % (0-3) Basophils (%) (Auto) 0 % (0-3) Neutrophils # (Auto) 10.0 x10^3/uL (1.8-7.7) Lymphocytes # (Auto) 1.9 x10^3/uL (1.0-4.8) Monocytes # (Auto) 0.9 x10^3/uL (0.0-1.1) Eosinophils # (Auto) 0.0 x10^3/uL (0.0-0.7) Basophils # (Auto) 0.0 x10^3/uL (0.0-0.2) Prothrombin Time 13.5 SEC (11.7-14.0) Prothromb Time International Ratio 1.1 (0.8-1.1) Sodium Level 137 mmol/L (136-145) Potassium Level 3.5 mmol/L (3.5-5.1) Chloride Level 99 mmol/L (98-107) Carbon Dioxide Level 27 mmol/L (21-32) Anion Gap 11 (6-14) Blood Urea Nitrogen 15 mg/dL (7-20) Creatinine 1.6 mg/dL (0.6-1.0) Estimated GFR (Cockcroft-Gault) 40.6 BUN/Creatinine Ratio 9 (6-20) Glucose Level 241 mg/dL (70-99) Calcium Level 9.2 mg/dL (8.5-10.1) Total Bilirubin 0.7 mg/dL (0.2-1.0) Aspartate Amino Transf (AST/SGOT) 12 U/L (15-37) Alanine Aminotransferase (ALT/SGPT) 11 U/L (14-59) Alkaline Phosphatase 82 U/L (46-116) Total Protein 7.8 g/dL (6.4-8.2) Albumin 2.8 g/dL (3.4-5.0) Albumin/Globulin Ratio 0.6 (1.0-1.7) Lactic Acid Level 1.0 mmol/L (0.4-2.0) Urine Collection Type Unknown Urine Color Dayna Urine Clarity Turbid Urine pH 5.5 (<5.0-8.0) Urine Specific [place] 1.025 (1.000-1.030) Urine Protein >=300 mg/dL (NEG-TRACE) Urine Glucose (UA) 100 mg/dL (NEG) Urine Ketones (Stick) Negative mg/dL (NEG) Urine Blood Negative (NEG) Urine Nitrite Negative (NEG) Urine Bilirubin Negative (NEG) Urine Urobilinogen Dipstick 1.0 mg/dL (0.2 mg/dL) Urine Leukocyte Esterase Moderate (NEG) Urine RBC Occ /HPF (0-2) Urine WBC Tntc /HPF (0-4) Urine Squamous Epithelial Cells Mod /LPF Urine Transitional Epithelial Cells Few /LPF Urine Renal Epithelial Cells Few /LPF Urine Bacteria Moderate /HPF (0-FEW) Urine Hyaline Casts Moderate /HPF Urine Granular Casts Few /HPF Urine Waxy Casts Occasional /HPF Urine Mucus Mod /LPF Glucose (Fingerstick) 174 mg/dL (70-99) Test 09/28/19 07:17 Glucose (Fingerstick) 174 mg/dL (70-99) Laboratory Tests Test 09/27/19 17:37 09/27/19 17:39 09/27/19 20:26 09/27/19 23:00 White Blood Count 12.8 x10^3/uL (4.0-11.0) Red Blood Count 3.70 x10^6/uL (3.50-5.40) Hemoglobin 10.3 g/dL (12.0-15.5) Hematocrit 30.6 % (36.0-47.0) Mean Corpuscular Volume 83 fL (79-100) Mean Corpuscular Hemoglobin 28 pg (25-35) Mean Corpuscular Hemoglobin Concent 34 g/dL (31-37) Red Cell Distribution Width 14.3 % (11.5-14.5) Platelet Count 468 x10^3/uL (140-400) Neutrophils (%) (Auto) 78 % (31-73) Lymphocytes (%) (Auto) 15 % (24-48) Monocytes (%) (Auto) 7 % (0-9) Eosinophils (%) (Auto) 0 % (0-3) Basophils (%) (Auto) 0 % (0-3) Neutrophils # (Auto) 10.0 x10^3/uL (1.8-7.7) Lymphocytes # (Auto) 1.9 x10^3/uL (1.0-4.8) Monocytes # (Auto) 0.9 x10^3/uL (0.0-1.1) Eosinophils # (Auto) 0.0 x10^3/uL (0.0-0.7) Basophils # (Auto) 0.0 x10^3/uL (0.0-0.2) Prothrombin Time 13.5 SEC (11.7-14.0) Prothromb Time International Ratio 1.1 (0.8-1.1) Sodium Level 137 mmol/L (136-145) Potassium Level 3.5 mmol/L (3.5-5.1) Chloride Level 99 mmol/L (98-107) Carbon Dioxide Level 27 mmol/L (21-32) Anion Gap 11 (6-14) Blood Urea Nitrogen 15 mg/dL (7-20) Creatinine 1.6 mg/dL (0.6-1.0) Estimated GFR (Cockcroft-Gault) 40.6 BUN/Creatinine Ratio 9 (6-20) Glucose Level 241 mg/dL (70-99) Calcium Level 9.2 mg/dL (8.5-10.1) Total Bilirubin 0.7 mg/dL (0.2-1.0) Aspartate Amino Transf (AST/SGOT) 12 U/L (15-37) Alanine Aminotransferase (ALT/SGPT) 11 U/L (14-59) Alkaline Phosphatase 82 U/L (46-116) Total Protein 7.8 g/dL (6.4-8.2) Albumin 2.8 g/dL (3.4-5.0) Albumin/Globulin Ratio 0.6 (1.0-1.7) Lactic Acid Level 1.0 mmol/L (0.4-2.0) Urine Collection Type Unknown Urine Color Dayna Urine Clarity Turbid Urine pH 5.5 (<5.0-8.0) Urine Specific [place] 1.025 (1.000-1.030) Urine Protein >=300 mg/dL (NEG-TRACE) Urine Glucose (UA) 100 mg/dL (NEG) Urine Ketones (Stick) Negative mg/dL (NEG) Urine Blood Negative (NEG) Urine Nitrite Negative (NEG) Urine Bilirubin Negative (NEG) Urine Urobilinogen Dipstick 1.0 mg/dL (0.2 mg/dL) Urine Leukocyte Esterase Moderate (NEG) Urine RBC Occ /HPF (0-2) Urine WBC Tntc /HPF (0-4) Urine Squamous Epithelial Cells Mod /LPF Urine Transitional Epithelial Cells Few /LPF Urine Renal Epithelial Cells Few /LPF Urine Bacteria Moderate /HPF (0-FEW) Urine Hyaline Casts Moderate /HPF Urine Granular Casts Few /HPF Urine Waxy Casts Occasional /HPF Urine Mucus Mod /LPF Glucose (Fingerstick) 174 mg/dL (70-99) Test 09/28/19 07:17 Glucose (Fingerstick) 174 mg/dL (70-99) Images Images STATUS: ADM INORD. PHYSICIAN: MARIA LUISA SANTOS MD REASON: severe PVD; Diabetic PROCEDURE: ARTERIAL STUDY LOWER EXT BI Bilateral lower extremity arterial duplex ultrasound 09/28/2019 INDICATION: Severe peripheral vascular disease. History of diabetes. COMPARISON STUDY: None available. Discussion: Ultrasound evaluation of the major arteries of the bilateral lower extremities was performed including color Doppler imaging spectral analysis. FINDINGS: Diffuse atherosclerotic vascular disease and vascular calcification is seen throughout the bilateral lower extremities. On the right relatively normal waveform morphology is seen throughout the lower extremity without focal elevations in velocity suggestive of hemodynamically significant stenoses. Mild elevation of the velocities are seen proximally which are felt to be nonspecific. No major vessel occlusion is seen on the right. On the left, the common femoral artery and profunda artery are patent. There is occlusion of the mid left superficial femoral artery stenosis distal to what appears to be a high-grade stenosis with a focal velocity of 504 cm/s. There is reconstitution of the popliteal artery, though there is calcification in visual narrowing, with focal elevation velocity 260 cm/s. All 3 tibial vessels demonstrate weak monophasic flow. Results pedis artery demonstrate weak monophasic flow. IMPRESSION: 1. Occlusion of the left superficial femoral artery with reconstitution at the level of the left popliteal artery, where there appears to be hemodynamically significant stenosis. 2. Diffuse atherosclerotic vascular disease throughout the bilateral lower extremities. 3. No definitive focal hemodynamically significant stenosis is seen on the right Electronically signed by: Greg Stinson MD (09/28/2019 12:21 PM) [id number] DICTATED and SIGNED BY: GREG STINSON MD DATE: 09/28/19 1221 Exam: Chest one view INDICATION: Fever TECHNIQUE: Frontal view of the chest Comparisons: None FINDINGS: The cardiomediastinal silhouette and pulmonary vessels are within normal limits. The lung and pleural spaces are clear. IMPRESSION: No acute cardiopulmonary process. Electronically signed by: Mady Keyes MD (09/27/2019 8:29 PM) [id number] DICTATED and SIGNED BY: MADY KEYES MD Left Lower Extremity Venous Doppler Ultrasound History: Reason: SWELLING / Spl. Instructions: / History: Comparison: None Procedure: Color flow, duplex, spectral analysis and 2D images are obtained with and without compression in the area of the common femoral vein, superficial femoral vein - femoral vein junction, main femoral vein (superficial femoral vein) and popliteal vein. Veins of the proximal calf are also imaged. Findings: There is normal duplex flow, color flow and compressibility of all visualized vein segments. No evidence of deep venous thrombus is present. There is soft tissue edema seen in the lower leg. There are reactive lymph nodes seen in the left groin. Impression: No evidence of DVT. Electronically signed by: James Bianchi III, MD (09/27/2019 7:19 PM) [id number] DICTATED and SIGNED BY: JAMES BIANCHI III, MD DATE: 09/27/191918 Exam: Left foot 3 views INDICATION: Wound TECHNIQUE: Frontal, lateral and oblique views of the left foot Comparisons: None FINDINGS: Soft tissue swelling overlying the dorsum of the midfoot. Diffuse osteopenia. No acute fractures. Joint spaces are well-maintained. IMPRESSION: Soft tissue swelling overlying the dorsum of the midfoot without underlying osseous abnormality or radiopaque foreign body identified. Electronically signed by: Mady Keyes MD (09/27/2019 8:34 PM) [id number] DICTATED and SIGNED BY: MADY KEYES MD DATE: 09/27/192033 VTE Prophylaxis Ordered VTE Prophylaxis Devices: Contraindicated VTE Pharmacological Prophylaxi: Yes Assessment/Plan Assessment/Plan IMPRESSION: Diabetic toe with gangrene Soft tissue swelling overlying the dorsum of the midfoot without underlying osseous abnormality or radiopaque foreign body identified.ON PLAIN X-RAY hypertension, HX stroke, diabetes, hyperlipidemia, history of diabetic ketoacidosis. ZURDO fever Normocytic anemia sepsis glucose control needed PVD Occlusion of the left superficial femoral artery with reconstitution at the level of the left popliteal artery, where there appears to be hemodynamically significant stenosis. plan admit emperic iv antibiotics // daptomycin and meropenem. ID consult vascular surgery consult arterial doppler both legs Nephrology consult dvt prophylaxis blood cult FE PANEL home meds HGB A1C 78 min pt exam, chart review, > 50% of time spent with exam, chart review, pt care coordination Justicifation of Admission Dx: Justifications for Admission: Justification of Admission Dx: Yes Sepsis: Failure of Out Pt Tx Cellulitis: Cellulitis Diabetic Urgency: Diabetic Urgency MARIA LUISA SANTOS MD Sep 28, 2019 10:43
[2019-09-28] MEDS ORDERED: DOCUSATE SODIUM 100 MG CAPSULE. PO PRN (11:00)
[2019-09-28] MEDS ORDERED: cloNIDine HCL 0.1 MG TABLET PO PRN (11:00)
[2019-09-28] MEDS ORDERED: 0.9 % SODIUM CHLORIDE 10 ML DISP.SYRIN. IV PRN (11:00)
[2019-09-28] MEDS ORDERED: MAG HYDROX/ALUMINUM HYD/SIMETH 30 ML ORAL.SUSP PO PRN (11:00)
[2019-09-28] MEDS ORDERED: ACETAMINOPHEN 325 MG TABLET. PO PRN (11:00)
[2019-09-28] MEDS ORDERED: SODIUM PHOSPHATES 19/7GM 133 ML ENEMA. PR PRN (11:00)
[2019-09-28] MEDS ORDERED: HYDROmorphone 2 MG/ML VIAL IV PRN (11:00)
[2019-09-28] MEDS ORDERED: guaiFENesin ORAL 200 MG/10 ML LIQUID. PO PRN (11:00)
[2019-09-28] MEDS: IV NORMAL SALINE 1000ML BAG 1,000 ML IV SCH ×2 (11:39→19:00)
[2019-09-28] MEDS: MEROPENEM 500 MG in IV NORMAL SALINE 50ML 50 ML IV SCH ×2 (11:39→20:04)
[2019-09-28] MEDS: ENOXAPARIN 40 MG/0.4 ML SYRINGE. SQ SCH (12:00)
--- NOTE | 2019-09-28 12:24 | RAD ---
Bilateral lower extremity arterial duplex ultrasound 09/28/2019 INDICATION: Severe peripheral vascular disease. History of diabetes. COMPARISON STUDY: None available. Discussion: Ultrasound evaluation of the major arteries of the bilateral lower extremities was performed including color Doppler imaging spectral analysis. FINDINGS: Diffuse atherosclerotic vascular disease and vascular calcification is seen throughout the bilateral lower extremities. On the right relatively normal waveform morphology is seen throughout the lower extremity without focal elevations in velocity suggestive of hemodynamically significant stenoses. Mild elevation of the velocities are seen proximally which are felt to be nonspecific. No major vessel occlusion is seen on the right. On the left, the common femoral artery and profunda artery are patent. There is occlusion of the mid left superficial femoral artery stenosis distal to what appears to be a high-grade stenosis with a focal velocity of 504 cm/s. There is reconstitution of the popliteal artery, though there is calcification in visual narrowing, with focal elevation velocity 260 cm/s. All 3 tibial vessels demonstrate weak monophasic flow. Results pedis artery demonstrate weak monophasic flow. IMPRESSION: 1. Occlusion of the left superficial femoral artery with reconstitution at the level of the left popliteal artery, where there appears to be hemodynamically significant stenosis. 2. Diffuse atherosclerotic vascular disease throughout the bilateral lower extremities. 3. No definitive focal hemodynamically significant stenosis is seen on the right Electronically signed by: Greg Thomas MD (09/28/2019 12:21 PM) [id number]
--- NOTE | 2019-09-28 12:37 | PDOC2 ---
CONSULT Date of Consult Date of Consult DATE: 09/28/19 TIME: 12:22 Reason for Consult Reason for Consult: ZURDO Referring Physician Referring Physician: Dr. Martinez Source Source: Chart review, Patient History of Present Illness Reason for Visit: Pt 53-year-old -[place] female with diabetes, hypertension and CVA in the past, who presented with about 3 or 4 weeks history of left foot and fourth toe infection and she says she started having some nausea, vomiting x1 , chills. She noted approx 2 days ago that the the toe turned black. Denies any abdominal pain, chest pain, shortness of breath . No urinary complaints - denies symptoms of UTI She doesnt have PCP, has been out of BP meds for many months. Last seen at [facility] back . States her BP has been always been in 200's . Denies NSAID's, No CP, Visual symptoms. . Hx Of Nephrolithisis 8 yrs back with STent placement Past Medical History Cardiovascular: HTN, Hyperlipidemia Infectious disease: No pertinent hx Endocrine: Diabetes Past Surgical History Past Surgical History: No pertinent history Family History Family History Non contributory Family History: Hypertension, Other Social History No ALCOHOL: none Drugs: None Lives: with Family Current Problem List Problem List Problems Medical Problems: (1) Diabetic foot infection Status: Acute Current Medications Current Medications Current Medications Sodium Chloride 1,000 ml @ 1,000 mls/hr 1X ONCE IV Last administered on 09/27/19at 19:25; Start 09/27/19 at 18:30; Stop 09/27/19 at 19:29; Status DC Acetaminophen (Tylenol) 1,000 mg 1X ONCE PO Last administered on 09/27/19at 19:25; Start 09/27/19 at 18:30; Stop 09/27/19 at 18:37; Status DC Clonidine HCl (Catapres) 0.1 mg 1X ONCE PO Last administered on 09/27/19at 19:26; Start 09/27/19 at 18:45; Stop 09/27/19 at 18:46; Status DC Vancomycin HCl 250 ml @ 250 mls/hr 1X ONCE IV Last administered on 09/27/19at 20:56; Start 09/27/19 at 20:30; Stop 09/27/19 at 21:29; Status DC Ondansetron HCl (Zofran) 4 mg PRN Q8HRS PRN IV NAUSEA/VOMITING; Start 09/27/19 at 20:45; Stop 09/28/19 at 20:44 Fentanyl Citrate (Fentanyl 2ml Vial) 50 mcg PRN Q1HR PRN IV PAIN; Start 09/27/19 at 20:45; Stop 09/28/19 at 20:44 Acetaminophen (Tylenol) 650 mg PRN Q4HRS PRN PO FEVER > 100.3'F; Start 09/27/19 at 20:45; Stop 09/28/19 at 20:44 Lisinopril (Prinivil) 40 mg DAILY PO Last administered on 09/28/19at 08:07; Start 09/28/19 at 00:30 Insulin Human Isoph/Insulin Regular (HumuLIN 70/30) 4 units DAILYWSUP SQ ; Start 09/28/19 at 17:00 Insulin Human Isoph/Insulin Regular (HumuLIN 70/30) 8 units DAILYWBKFT SQ ; Start 09/28/19 at 08:00 Daptomycin 490 mg/ Sodium Chloride 50 ml @ 100 mls/hr Q24H IV ; Start 09/28/19 at 11:00 Meropenem 500 mg/ Sodium Chloride 50 ml @ 100 mls/hr Q8HRS IV Last administered on 09/28/19at 11:39; Start 09/28/19 at 11:00 Sodium Chloride (Normal Saline Flush) 3 ml QSHIFT PRN IV AFTER MEDS AND BLOOD DRAWS; Start 09/28/19 at 11:00 Sodium Chloride 1,000 ml @ 100 mls/hr Q10H IV Last administered on 09/28/19at 11:39; Start 09/28/19 at 10:58 Ondansetron HCl (Zofran) 4 mg PRN Q4HRS PRN IV NAUSEA/VOMITING; Start 09/28/19 at 11:00 Acetaminophen (Tylenol) 650 mg PRN Q4HRS PRN PO TEMP OVER 100.4F OR MILD PAIN; Start 09/28/19 at 11:00 Al Hydroxide/Mg Hydroxide (Mylanta Plus Xs) 30 ml PRN DAILY PRN PO HEARTBURN / GAS; Start 09/28/19 at 11:00 Clonidine HCl (Catapres) 0.1 mg PRN Q6HRS PRN PO SBP>160 OR DBP>90; Start 09/28/19 at 11:00 Sodium Monofluorophosphate (Fleet Adult) 133 ml PRN DAILY PRN [place] CONSTIPATION; Start 09/28/19 at 11:00 Docusate Sodium (Colace) 100 mg PRN BID PRN PO HARD STOOLS; Start 09/28/19 at 11:00 Albuterol Sulfate (Ventolin Neb Soln) 2.5 mg PRN Q4HRS PRN NEB SHORTNESS OF BREATH; Start 09/28/19 at 11:00 Guaifenesin (Robitussin) 200 mg PRN Q4HRS PRN PO COUGH; Start 09/28/19 at 11:00 Lorazepam (Ativan) 0.5 mg PRN Q4HRS PRN PO ANXIETY / AGITATION; Start 09/28/19 at 11:00 Hydromorphone HCl (Dilaudid) 0.5 mg PRN Q2HRS PRN IV SEVERE PAIN 7-10; Start 09/28/19 at 11:00 Enoxaparin Sodium (Lovenox 40mg Syringe) 40 mg Q24H SQ ; Start 09/28/19 at 12:00 Active Scripts Active Reported Zyvox (Linezolid) 600 Mg Tablet 600 Mg PO BID 7 Days Cefdinir 300 Mg Capsule 1 Cap PO BID 7 Days Lisinopril 40 Mg Tablet 40 Mg PO DAILY Relion Novolin 70-30 Vial (Hum Insulin Nph/Reg Insulin Hm) 100 Unit/1 Ml Vial 4 Unit SQ DAILYWSUP Relion Novolin 70-30 Vial (Hum Insulin Nph/Reg Insulin Hm) 100 Unit/1 Ml Vial 8 Unit SUBCUT DAILYWBKFT Allergies Allergies: Coded Allergies: Sulfa (Sulfonamide Antibiotics) (Verified Allergy, Severe, Anaphylaxis, 07/24/16) Penicillins (Verified Allergy, Intermediate, 07/24/16) ROS Review of System Per HPI Physical Exam Physical Exam GENERAL: NAD HEENT: OM moist NECK: Supple LUNGS: Clear.Non labored HEART: S1, S2 regular. ABDOMEN: soft, NT EXTREMITIES: No LE edema , gangrene left fourth toe NEURO: Grossly normal DERM No rash, gangrene as above No Broussard, No CVA or SP tenderness Vital Signs Vital Signs Date Time Temp Pulse Resp B/P (MAP) Pulse Ox O2 Delivery O2 Flow Rate FiO2 09/28/19 11:31 96 Room Air 09/28/19 11:00 98.4 85 16 210/94 (132) 98.4 Assessment & Plan ZURDO on CKD - ATN 2/2 /Infection / UTI /Vomiting Currently on Lisinopril , if worsening renal function, avoid PURVI-I/ARB Monitor , No labs this am Supportive care Renal US, ,LIAM prophylaxis with IV NS 1ml/Kg 12 hr before and 12 hr after the procedure (if scheduled for angiogram ) , Daily BMP Discussed with Pt Risks of Contrast UTI - UA cw UTI per primary/ID CKD stage 2 - baseline Cr 1.1 per [facility] records Suspect sec to HTNsive and Diabetic Nephrosclerosis Left fourth toe gangrene/ diabetic foot infection/ Fever/Leukocytosis. Vascular and ID History of cerebrovascular accident. Hypertension - BP Uncontrolled , Pt has been out of meds for many months Doesnt have PCP, last seen at long time back , reports BP always in 200's Ordered Renal Doppler Hx Of nephrolithisis x1 - approx 8 yrs back , required Intervention with Stents Anemia Labs Labs Laboratory Tests Test 09/27/19 17:37 09/27/19 17:39 09/27/19 20:26 09/27/19 23:00 White Blood Count 12.8 x10^3/uL (4.0-11.0) Red Blood Count 3.70 x10^6/uL (3.50-5.40) Hemoglobin 10.3 g/dL (12.0-15.5) Hematocrit 30.6 % (36.0-47.0) Mean Corpuscular Volume 83 fL (79-100) Mean Corpuscular Hemoglobin 28 pg (25-35) Mean Corpuscular Hemoglobin Concent 34 g/dL (31-37) Red Cell Distribution Width 14.3 % (11.5-14.5) Platelet Count 468 x10^3/uL (140-400) Neutrophils (%) (Auto) 78 % (31-73) Lymphocytes (%) (Auto) 15 % (24-48) Monocytes (%) (Auto) 7 % (0-9) Eosinophils (%) (Auto) 0 % (0-3) Basophils (%) (Auto) 0 % (0-3) Neutrophils # (Auto) 10.0 x10^3/uL (1.8-7.7) Lymphocytes # (Auto) 1.9 x10^3/uL (1.0-4.8) Monocytes # (Auto) 0.9 x10^3/uL (0.0-1.1) Eosinophils # (Auto) 0.0 x10^3/uL (0.0-0.7) Basophils # (Auto) 0.0 x10^3/uL (0.0-0.2) Prothrombin Time 13.5 SEC (11.7-14.0) Prothromb Time International Ratio 1.1 (0.8-1.1) Sodium Level 137 mmol/L (136-145) Potassium Level 3.5 mmol/L (3.5-5.1) Chloride Level 99 mmol/L (98-107) Carbon Dioxide Level 27 mmol/L (21-32) Anion Gap 11 (6-14) Blood Urea Nitrogen 15 mg/dL (7-20) Creatinine 1.6 mg/dL (0.6-1.0) Estimated GFR (Cockcroft-Gault) 40.6 BUN/Creatinine Ratio 9 (6-20) Glucose Level 241 mg/dL (70-99) Calcium Level 9.2 mg/dL (8.5-10.1) Total Bilirubin 0.7 mg/dL (0.2-1.0) Aspartate Amino Transf (AST/SGOT) 12 U/L (15-37) Alanine Aminotransferase (ALT/SGPT) 11 U/L (14-59) Alkaline Phosphatase 82 U/L (46-116) Total Protein 7.8 g/dL (6.4-8.2) Albumin 2.8 g/dL (3.4-5.0) Albumin/Globulin Ratio 0.6 (1.0-1.7) Lactic Acid Level 1.0 mmol/L (0.4-2.0) Urine Collection Type Unknown Urine Color Dayna Urine Clarity Turbid Urine pH 5.5 (<5.0-8.0) Urine Specific [place] 1.025 (1.000-1.030) Urine Protein >=300 mg/dL (NEG-TRACE) Urine Glucose (UA) 100 mg/dL (NEG) Urine Ketones (Stick) Negative mg/dL (NEG) Urine Blood Negative (NEG) Urine Nitrite Negative (NEG) Urine Bilirubin Negative (NEG) Urine Urobilinogen Dipstick 1.0 mg/dL (0.2 mg/dL) Urine Leukocyte Esterase Moderate (NEG) Urine RBC Occ /HPF (0-2) Urine WBC Tntc /HPF (0-4) Urine Squamous Epithelial Cells Mod /LPF Urine Transitional Epithelial Cells Few /LPF Urine Renal Epithelial Cells Few /LPF Urine Bacteria Moderate /HPF (0-FEW) Urine Hyaline Casts Moderate /HPF Urine Granular Casts Few /HPF Urine Waxy Casts Occasional /HPF Urine Mucus Mod /LPF Glucose (Fingerstick) 174 mg/dL (70-99) Test 09/28/19 07:17 09/28/19 11:40 09/28/19 11:50 Glucose (Fingerstick) 174 mg/dL (70-99) 135 mg/dL (70-99) Iron Level 12 ug/dL (50-170) Total Iron Binding Capacity 158 ug/dL (250-450) Iron Saturation 8 % (15-34) Laboratory Tests Test 09/27/19 17:37 09/27/19 17:39 09/27/19 20:26 09/27/19 23:00 White Blood Count 12.8 x10^3/uL (4.0-11.0) Red Blood Count 3.70 x10^6/uL (3.50-5.40) Hemoglobin 10.3 g/dL (12.0-15.5) Hematocrit 30.6 % (36.0-47.0) Mean Corpuscular Volume 83 fL (79-100) Mean Corpuscular Hemoglobin 28 pg (25-35) Mean Corpuscular Hemoglobin Concent 34 g/dL (31-37) Red Cell Distribution Width 14.3 % (11.5-14.5) Platelet Count 468 x10^3/uL (140-400) Neutrophils (%) (Auto) 78 % (31-73) Lymphocytes (%) (Auto) 15 % (24-48) Monocytes (%) (Auto) 7 % (0-9) Eosinophils (%) (Auto) 0 % (0-3) Basophils (%) (Auto) 0 % (0-3) Neutrophils # (Auto) 10.0 x10^3/uL (1.8-7.7) Lymphocytes # (Auto) 1.9 x10^3/uL (1.0-4.8) Monocytes # (Auto) 0.9 x10^3/uL (0.0-1.1) Eosinophils # (Auto) 0.0 x10^3/uL (0.0-0.7) Basophils # (Auto) 0.0 x10^3/uL (0.0-0.2) Prothrombin Time 13.5 SEC (11.7-14.0) Prothromb Time International Ratio 1.1 (0.8-1.1) Sodium Level 137 mmol/L (136-145) Potassium Level 3.5 mmol/L (3.5-5.1) Chloride Level 99 mmol/L (98-107) Carbon Dioxide Level 27 mmol/L (21-32) Anion Gap 11 (6-14) Blood Urea Nitrogen 15 mg/dL (7-20) Creatinine 1.6 mg/dL (0.6-1.0) Estimated GFR (Cockcroft-Gault) 40.6 BUN/Creatinine Ratio 9 (6-20) Glucose Level 241 mg/dL (70-99) Calcium Level 9.2 mg/dL (8.5-10.1) Total Bilirubin 0.7 mg/dL (0.2-1.0) Aspartate Amino Transf (AST/SGOT) 12 U/L (15-37) Alanine Aminotransferase (ALT/SGPT) 11 U/L (14-59) Alkaline Phosphatase 82 U/L (46-116) Total Protein 7.8 g/dL (6.4-8.2) Albumin 2.8 g/dL (3.4-5.0) Albumin/Globulin Ratio 0.6 (1.0-1.7) Lactic Acid Level 1.0 mmol/L (0.4-2.0) Urine Collection Type Unknown Urine Color Dayna Urine Clarity Turbid Urine pH 5.5 (<5.0-8.0) Urine Specific [place] 1.025 (1.000-1.030) Urine Protein >=300 mg/dL (NEG-TRACE) Urine Glucose (UA) 100 mg/dL (NEG) Urine Ketones (Stick) Negative mg/dL (NEG) Urine Blood Negative (NEG) Urine Nitrite Negative (NEG) Urine Bilirubin Negative (NEG) Urine Urobilinogen Dipstick 1.0 mg/dL (0.2 mg/dL) Urine Leukocyte Esterase Moderate (NEG) Urine RBC Occ /HPF (0-2) Urine WBC Tntc /HPF (0-4) Urine Squamous Epithelial Cells Mod /LPF Urine Transitional Epithelial Cells Few /LPF Urine Renal Epithelial Cells Few /LPF Urine Bacteria Moderate /HPF (0-FEW) Urine Hyaline Casts Moderate /HPF Urine Granular Casts Few /HPF Urine Waxy Casts Occasional /HPF Urine Mucus Mod /LPF Glucose (Fingerstick) 174 mg/dL (70-99) Test 09/28/19 07:17 09/28/19 11:40 09/28/19 11:50 Glucose (Fingerstick) 174 mg/dL (70-99) 135 mg/dL (70-99) Iron Level 12 ug/dL (50-170) Total Iron Binding Capacity 158 ug/dL (250-450) Iron Saturation 8 % (15-34) Review All relevant outside records, renal labs, imaging studies, telemetry/EKG's were reviewed. MADHURI FERNANDEZ MD Sep 28, 2019 12:36
[2019-09-28] MEDS ORDERED: IV NORMAL SALINE 500ML BAG 500 ML IV ONE (12:45)
[2019-09-28] MEDS: DAPTOmycin (GENERIC) IVPB 490 MG in IV NORMAL SALINE 50ML 50 ML IV SCH (12:47)
--- NOTE | 2019-09-28 12:56 | PDOC2 ---
CONSULT Date of Consult Date of Consult DATE: 09/28/19 TIME: 12:34 Reason for Consult Reason for Consult: Diabetic foot infection, left. Referring Physician Referring Physician: Dr. Sweeney Identification/Chief Complaint Chief Complaint Left 4th toe infection Source Source: Chart review, Patient History of Present Illness Reason for Visit: This is a 53-year-old -[place] female with diabetes, hypertension and CVA in the past, who presented with about 3 or 4 weeks history of left foot and fourth toe infection and she says she started having some nausea, vomiting, and chills 2 days ago and that is when her toe turned black. The patient was seen and examined with Dr. Roberts. 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 She has some renal insufficiency with creatinine of 1.6. She continues to be hypertensive with her most recent SBP 200s. Intravenous antibiotics have been initiated and Infectious Disease has been consulted. Past Medical History Cardiovascular: HTN, Hyperlipidemia Infectious disease: No pertinent hx Endocrine: Diabetes Past Surgical History Past Surgical History: Other (oopherectomy and ureteral stent placement) Family History Family History: Hypertension, Other Social History No ALCOHOL: none Drugs: None Lives: with Family Current Problem List Problem List Problems Medical Problems: (1) Diabetic foot infection Status: Acute Current Medications Current Medications Current Medications Sodium Chloride 1,000 ml @ 1,000 mls/hr 1X ONCE IV Last administered on 09/27/19at 19:25; Start 09/27/19 at 18:30; Stop 09/27/19 at 19:29; Status DC Acetaminophen (Tylenol) 1,000 mg 1X ONCE PO Last administered on 09/27/19at 19:25; Start 09/27/19 at 18:30; Stop 09/27/19 at 18:37; Status DC Clonidine HCl (Catapres) 0.1 mg 1X ONCE PO Last administered on 09/27/19at 19:26; Start 09/27/19 at 18:45; Stop 09/27/19 at 18:46; Status DC Vancomycin HCl 250 ml @ 250 mls/hr 1X ONCE IV Last administered on 09/27/19at 20:56; Start 09/27/19 at 20:30; Stop 09/27/19 at 21:29; Status DC Ondansetron HCl (Zofran) 4 mg PRN Q8HRS PRN IV NAUSEA/VOMITING; Start 09/27/19 at 20:45; Stop 09/28/19 at 20:44 Fentanyl Citrate (Fentanyl 2ml Vial) 50 mcg PRN Q1HR PRN IV PAIN; Start 09/27/19 at 20:45; Stop 09/28/19 at 20:44 Acetaminophen (Tylenol) 650 mg PRN Q4HRS PRN PO FEVER > 100.3'F; Start 09/27/19 at 20:45; Stop 09/28/19 at 20:44 Lisinopril (Prinivil) 40 mg DAILY PO Last administered on 09/28/19at 08:07; Start 09/28/19 at 00:30 Insulin Human Isoph/Insulin Regular (HumuLIN 70/30) 4 units DAILYWSUP SQ ; Start 09/28/19 at 17:00 Insulin Human Isoph/Insulin Regular (HumuLIN 70/30) 8 units DAILYWBKFT SQ ; Start 09/28/19 at 08:00 Daptomycin 490 mg/ Sodium Chloride 50 ml @ 100 mls/hr Q24H IV ; Start 09/28/19 at 11:00 Meropenem 500 mg/ Sodium Chloride 50 ml @ 100 mls/hr Q8HRS IV Last administered on 09/28/19at 11:39; Start 09/28/19 at 11:00 Sodium Chloride (Normal Saline Flush) 3 ml QSHIFT PRN IV AFTER MEDS AND BLOOD DRAWS; Start 09/28/19 at 11:00 Sodium Chloride 1,000 ml @ 100 mls/hr Q10H IV Last administered on 09/28/19at 11:39; Start 09/28/19 at 10:58 Ondansetron HCl (Zofran) 4 mg PRN Q4HRS PRN IV NAUSEA/VOMITING; Start 09/28/19 at 11:00 Acetaminophen (Tylenol) 650 mg PRN Q4HRS PRN PO TEMP OVER 100.4F OR MILD PAIN; Start 09/28/19 at 11:00 Al Hydroxide/Mg Hydroxide (Mylanta Plus Xs) 30 ml PRN DAILY PRN PO HEARTBURN / GAS; Start 09/28/19 at 11:00 Clonidine HCl (Catapres) 0.1 mg PRN Q6HRS PRN PO SBP>160 OR DBP>90; Start 09/28/19 at 11:00 Sodium Monofluorophosphate (Fleet Adult) 133 ml PRN DAILY PRN PA CONSTIPATION; Start 09/28/19 at 11:00 Docusate Sodium (Colace) 100 mg PRN BID PRN PO HARD STOOLS; Start 09/28/19 at 11:00 Albuterol Sulfate (Ventolin Neb Soln) 2.5 mg PRN Q4HRS PRN NEB SHORTNESS OF BREATH; Start 09/28/19 at 11:00 Guaifenesin (Robitussin) 200 mg PRN Q4HRS PRN PO COUGH; Start 09/28/19 at 11:00 Lorazepam (Ativan) 0.5 mg PRN Q4HRS PRN PO ANXIETY / AGITATION; Start 09/28/19 at 11:00 Hydromorphone HCl (Dilaudid) 0.5 mg PRN Q2HRS PRN IV SEVERE PAIN 7-10; Start 09/28/19 at 11:00 Enoxaparin Sodium (Lovenox 40mg Syringe) 40 mg Q24H SQ ; Start 09/28/19 at 12:00 Active Scripts Active Reported Zyvox (Linezolid) 600 Mg Tablet 600 Mg PO BID 7 Days Cefdinir 300 Mg Capsule 1 Cap PO BID 7 Days Lisinopril 40 Mg Tablet 40 Mg PO DAILY Relion Novolin 70-30 Vial (Hum Insulin Nph/Reg Insulin Hm) 100 Unit/1 Ml Vial 4 Unit SQ DAILYWSUP Relion Novolin 70-30 Vial (Hum Insulin Nph/Reg Insulin Hm) 100 Unit/1 Ml Vial 8 Unit SUBCUT DAILYWBKFT Allergies Allergies: Coded Allergies: Sulfa (Sulfonamide Antibiotics) (Verified Allergy, Severe, Anaphylaxis, 07/24/16) Penicillins (Verified Allergy, Intermediate, 07/24/16) ROS Review of System General: As per HPI HEENT: Denies blurred vision, sore throat Cardiovascular: Denies chest pain, palpitation Respiratory: Denies shortness of air, cough Gastrointestinal: As per HPI Neurological: As per HPI Musculoskeletal: As per HPI Skin: As per HPI Physical Exam Physical Exam Gen.: Alert and oriented 3. Cardiac: Heart rate regular. Lungs: Non-labored respirations. Abdomen: Obese, soft, nontender, nondistended, no palpable masses. Extremities: Distal pulses with doppler signal present, unable to palpate pulses. Skin: Right foot warm, dry. Left foot with erythema and swelling, 4th toe with gangrene, moisture between 3,4th and 4,5th webspaces. Neurological: Left leg paralysis. Vitals VITALS Vital Signs Date Time Temp Pulse Resp B/P (MAP) Pulse Ox O2 Delivery O2 Flow Rate FiO2 09/28/19 11:31 96 Room Air 09/28/19 11:00 98.4 85 16 210/94 (132) 98.4 Labs Labs Laboratory Tests Test 09/27/19 17:37 09/27/19 17:39 09/27/19 20:26 09/27/19 23:00 White Blood Count 12.8 x10^3/uL (4.0-11.0) Red Blood Count 3.70 x10^6/uL (3.50-5.40) Hemoglobin 10.3 g/dL (12.0-15.5) Hematocrit 30.6 % (36.0-47.0) Mean Corpuscular Volume 83 fL (79-100) Mean Corpuscular Hemoglobin 28 pg (25-35) Mean Corpuscular Hemoglobin Concent 34 g/dL (31-37) Red Cell Distribution Width 14.3 % (11.5-14.5) Platelet Count 468 x10^3/uL (140-400) Neutrophils (%) (Auto) 78 % (31-73) Lymphocytes (%) (Auto) 15 % (24-48) Monocytes (%) (Auto) 7 % (0-9) Eosinophils (%) (Auto) 0 % (0-3) Basophils (%) (Auto) 0 % (0-3) Neutrophils # (Auto) 10.0 x10^3/uL (1.8-7.7) Lymphocytes # (Auto) 1.9 x10^3/uL (1.0-4.8) Monocytes # (Auto) 0.9 x10^3/uL (0.0-1.1) Eosinophils # (Auto) 0.0 x10^3/uL (0.0-0.7) Basophils # (Auto) 0.0 x10^3/uL (0.0-0.2) Prothrombin Time 13.5 SEC (11.7-14.0) Prothromb Time International Ratio 1.1 (0.8-1.1) Sodium Level 137 mmol/L (136-145) Potassium Level 3.5 mmol/L (3.5-5.1) Chloride Level 99 mmol/L (98-107) Carbon Dioxide Level 27 mmol/L (21-32) Anion Gap 11 (6-14) Blood Urea Nitrogen 15 mg/dL (7-20) Creatinine 1.6 mg/dL (0.6-1.0) Estimated GFR (Cockcroft-Gault) 40.6 BUN/Creatinine Ratio 9 (6-20) Glucose Level 241 mg/dL (70-99) Calcium Level 9.2 mg/dL (8.5-10.1) Total Bilirubin 0.7 mg/dL (0.2-1.0) Aspartate Amino Transf (AST/SGOT) 12 U/L (15-37) Alanine Aminotransferase (ALT/SGPT) 11 U/L (14-59) Alkaline Phosphatase 82 U/L (46-116) Total Protein 7.8 g/dL (6.4-8.2) Albumin 2.8 g/dL (3.4-5.0) Albumin/Globulin Ratio 0.6 (1.0-1.7) Lactic Acid Level 1.0 mmol/L (0.4-2.0) Urine Collection Type Unknown Urine Color Dayna Urine Clarity Turbid Urine pH 5.5 (<5.0-8.0) Urine Specific [place] 1.025 (1.000-1.030) Urine Protein >=300 mg/dL (NEG-TRACE) Urine Glucose (UA) 100 mg/dL (NEG) Urine Ketones (Stick) Negative mg/dL (NEG) Urine Blood Negative (NEG) Urine Nitrite Negative (NEG) Urine Bilirubin Negative (NEG) Urine Urobilinogen Dipstick 1.0 mg/dL (0.2 mg/dL) Urine Leukocyte Esterase Moderate (NEG) Urine RBC Occ /HPF (0-2) Urine WBC Tntc /HPF (0-4) Urine Squamous Epithelial Cells Mod /LPF Urine Transitional Epithelial Cells Few /LPF Urine Renal Epithelial Cells Few /LPF Urine Bacteria Moderate /HPF (0-FEW) Urine Hyaline Casts Moderate /HPF Urine Granular Casts Few /HPF Urine Waxy Casts Occasional /HPF Urine Mucus Mod /LPF Glucose (Fingerstick) 174 mg/dL (70-99) Test 09/28/19 07:17 09/28/19 11:40 09/28/19 11:50 Glucose (Fingerstick) 174 mg/dL (70-99) 135 mg/dL (70-99) Iron Level 12 ug/dL (50-170) Total Iron Binding Capacity 158 ug/dL (250-450) Iron Saturation 8 % (15-34) Laboratory Tests Test 09/27/19 17:37 09/27/19 17:39 09/27/19 20:26 09/27/19 23:00 White Blood Count 12.8 x10^3/uL (4.0-11.0) Red Blood Count 3.70 x10^6/uL (3.50-5.40) Hemoglobin 10.3 g/dL (12.0-15.5) Hematocrit 30.6 % (36.0-47.0) Mean Corpuscular Volume 83 fL (79-100) Mean Corpuscular Hemoglobin 28 pg (25-35) Mean Corpuscular Hemoglobin Concent 34 g/dL (31-37) Red Cell Distribution Width 14.3 % (11.5-14.5) Platelet Count 468 x10^3/uL (140-400) Neutrophils (%) (Auto) 78 % (31-73) Lymphocytes (%) (Auto) 15 % (24-48) Monocytes (%) (Auto) 7 % (0-9) Eosinophils (%) (Auto) 0 % (0-3) Basophils (%) (Auto) 0 % (0-3) Neutrophils # (Auto) 10.0 x10^3/uL (1.8-7.7) Lymphocytes # (Auto) 1.9 x10^3/uL (1.0-4.8) Monocytes # (Auto) 0.9 x10^3/uL (0.0-1.1) Eosinophils # (Auto) 0.0 x10^3/uL (0.0-0.7) Basophils # (Auto) 0.0 x10^3/uL (0.0-0.2) Prothrombin Time 13.5 SEC (11.7-14.0) Prothromb Time International Ratio 1.1 (0.8-1.1) Sodium Level 137 mmol/L (136-145) Potassium Level 3.5 mmol/L (3.5-5.1) Chloride Level 99 mmol/L (98-107) Carbon Dioxide Level 27 mmol/L (21-32) Anion Gap 11 (6-14) Blood Urea Nitrogen 15 mg/dL (7-20) Creatinine 1.6 mg/dL (0.6-1.0) Estimated GFR (Cockcroft-Gault) 40.6 BUN/Creatinine Ratio 9 (6-20) Glucose Level 241 mg/dL (70-99) Calcium Level 9.2 mg/dL (8.5-10.1) Total Bilirubin 0.7 mg/dL (0.2-1.0) Aspartate Amino Transf (AST/SGOT) 12 U/L (15-37) Alanine Aminotransferase (ALT/SGPT) 11 U/L (14-59) Alkaline Phosphatase 82 U/L (46-116) Total Protein 7.8 g/dL (6.4-8.2) Albumin 2.8 g/dL (3.4-5.0) Albumin/Globulin Ratio 0.6 (1.0-1.7) Lactic Acid Level 1.0 mmol/L (0.4-2.0) Urine Collection Type Unknown Urine Color Dayna Urine Clarity Turbid Urine pH 5.5 (<5.0-8.0) Urine Specific [place] 1.025 (1.000-1.030) Urine Protein >=300 mg/dL (NEG-TRACE) Urine Glucose (UA) 100 mg/dL (NEG) Urine Ketones (Stick) Negative mg/dL (NEG) Urine Blood Negative (NEG) Urine Nitrite Negative (NEG) Urine Bilirubin Negative (NEG) Urine Urobilinogen Dipstick 1.0 mg/dL (0.2 mg/dL) Urine Leukocyte Esterase Moderate (NEG) Urine RBC Occ /HPF (0-2) Urine WBC Tntc /HPF (0-4) Urine Squamous Epithelial Cells Mod /LPF Urine Transitional Epithelial Cells Few /LPF Urine Renal Epithelial Cells Few /LPF Urine Bacteria Moderate /HPF (0-FEW) Urine Hyaline Casts Moderate /HPF Urine Granular Casts Few /HPF Urine Waxy Casts Occasional /HPF Urine Mucus Mod /LPF Glucose (Fingerstick) 174 mg/dL (70-99) Test 09/28/19 07:17 09/28/19 11:40 09/28/19 11:50 Glucose (Fingerstick) 174 mg/dL (70-99) 135 mg/dL (70-99) Iron Level 12 ug/dL (50-170) Total Iron Binding Capacity 158 ug/dL (250-450) Iron Saturation 8 % (15-34) Assessment/Plan Assessment/Plan 53 year old female with diabetic 4th toe infection with gangrene. The patient would benefit from left 4th toe amputation. Arterial ultrasound reviewed and by physical examination the patient has limited arterial flow to her left foot. Would recommend angiogram with possible intervention prior to any surgical intervention. Recommend prehydration prior to angiogram. Continue antibiotics per Infectious Disease. Aggressive diabetes and hypertensive management. The patient would benefit from Aspirin and Statin therapy. Will attempt to schedule patient for angiogram later today if scheduling permits, patient will remain NPO. If unable to perform today will schedule in the near future. ETHAN LAZAR APRN Sep 28, 2019 12:56
[2019-09-28] MEDS ORDERED: hydrALAZINE 20 MG/ML VIAL. IVP ONE (14:15)
--- NOTE | 2019-09-28 14:49 | NUR ---
Wound Care Wound care will followup after surgery if wound is left open
[2019-09-28] MEDS: METOPROLOL TARTRATE 5 MG/5 ML VIAL. IVP PRN ×2 (16:36→23:11)
--- NOTE | 2019-09-28 16:53 | RAD ---
Bilateral Renal Ultrasound, Renal Doppler: History: Uncontrolled hypertension. Technique: Sonographic examination of the kidneys was performed and multiple static images were obtained. Color Doppler and arterial spectral analysis was applied as well for a renal ultrasound and renal artery ultrasound duplex examination. Renal Ultrasound: Findings: Right Kidney: The right kidney appears normal without hydronephrosis and measures 8.2 cm in length. There is a 1.3 x 0.9 cm parapelvic cyst in the upper pole. Left Kidney: The left kidney appears normal without hydronephrosis and measures 13.5 cm in length. Urinary Bladder: The urinary bladder appears within normal limits. Impression: No hydronephrosis. Renal Artery Ultrasound Duplex Examination: Findings: There is normal arterial waveform morphology. There is a peak systolic velocity of 269 cm/s in the proximal right renal artery. Impression: Probable greater than 50 percent stenosis of the proximal right renal artery. Electronically signed by: Ilya Beard III, MD (09/28/2019 4:50 PM) [id number]
--- NOTE | 2019-09-28 18:09 | RAD ---
Upper extremity arterial duplex Doppler examination with spectral analysis bilaterally HISTORY: Right blood pressure worse than left Sonographic examination of the subclavian arteries and vertebral arteries were obtained and multiple static images were obtained. In addition color Doppler was applied as well as arterial waveform spectral analysis FINDINGS: There is normal antegrade low resistance waveform morphology in the vertebral arteries bilaterally. There is normal triphasic waveform in the right subclavian artery. There is monophasic flow within the left subclavian artery. IMPRESSION: 1. Monophasic flow in the left subclavian artery suggests greater than 50 percent proximal left subclavian artery stenosis. 2. No evidence of subclavian steal. Electronically signed by: Ilya Beard III, MD (09/28/2019 6:06 PM) [id number]
[2019-09-29] VITALS (7 sets, daily range): BP systolic 153–200; BP diastolic 79–92
[2019-09-29] MEDS: IV NORMAL SALINE 1000ML BAG 1,000 ML IV SCH ×2 (01:35→12:36)
[2019-09-29 03:08] LABS: HEMOGLOBIN A1C 10.4 % (4.8-5.6)
[2019-09-29 04:23] LABS: BASO % 0 % (0-3); EOS % 0 % (0-3); HEMATOCRIT 26.1 % (36.0-47.0); HEMOGLOBIN 8.6 g/dL (12.0-15.5); LYMPH # 1.5 x10^3/uL (1.0-4.8); LYMPH % 8 % (24-48); MEAN CORPUSCULAR HEMOGLOBIN 27 pg (25-35); MEAN CORPUSCULAR HGB CONC 33 g/dL (31-37); MEAN CORPUSCULAR VOLUME 82 fL (79-100); MONO # 0.8 x10^3/uL (0.0-1.1); MONO % 4 % (0-9); NEUT # 16.5 x10^3/uL (1.8-7.7); NEUT % 88 % (31-73); PLATELET COUNT 418 x10^3/uL (140-400); RED BLOOD COUNT 3.19 x10^6/uL (3.50-5.40); RED CELL DISTRIBUTION WIDTH 14.3 % (11.5-14.5); WHITE BLOOD COUNT 18.8 x10^3/uL (4.0-11.0)
[2019-09-29 04:51] LABS: ALBUMIN/GLOBULIN RATIO 0.5 (1.0-1.7); CALCIUM 8.2 mg/dL (8.5-10.1); CREATININE 1.5 mg/dL (0.6-1.0); GFR 43.8; PHOSPHORUS 4.9 mg/dL (2.6-4.7); POTASSIUM 3.7 mmol/L (3.5-5.1); TOTAL BILIRUBIN 0.5 mg/dL (0.2-1.0); TOTAL PROTEIN 6.2 g/dL (6.4-8.2)
[2019-09-29] MEDS: MEROPENEM 500 MG in IV NORMAL SALINE 50ML 50 ML IV SCH ×3 (05:06→21:26)
--- NOTE | 2019-09-29 07:53 | PDOC ---
Infectious Disease Note Subjective Subjective Patient is feeling good denies any complaints ROS ROS No nausea vomiting diarrhea chest pain shortness of breath abdominal pain Vital Sign Vital Signs Vital Signs Date Time Temp Pulse Resp B/P (MAP) Pulse Ox O2 Delivery O2 Flow Rate FiO2 09/29/19 07:00 97.9 80 18 177/83 (114) 99 Room Air 97.9 Physical Exam PHYSICAL EXAM GENERAL: Alert and oriented female, not in any distress. VITAL SIGNS: Stable. She did have 101.5 T-max. HEENT: Both pupils are round and reacting. No conjunctival lesion. No lesion in the mouth. NECK: Supple, no JVP, no lymphadenopathy. LUNGS: Clear. HEART: S1, S2 regular. ABDOMEN: Benign. EXTREMITIES: Right lower extremity is unremarkable. Left lower extremity has gangrene of the left fourth toe and so there is maceration and drainage from the web between the 3rd and the 4th and 4th and the 5th toes. There is also redness and induration of the proximal dorsal foot and the plantar area has an infection. NEUROLOGIC: The patient is alert, oriented. No focal neurologic deficit. Because of the swelling dorsalis pedis in that foot is not able to palpate Labs Lab Laboratory Tests Test 09/28/19 11:40 09/28/19 11:50 09/28/19 12:20 09/28/19 15:40 Hemoglobin A1c 10.4 % (4.8-5.6) Iron Level 12 ug/dL (50-170) Total Iron Binding Capacity 158 ug/dL (250-450) Iron Saturation 8 % (15-34) Creatine Kinase 68 U/L (26-192) Glucose (Fingerstick) 135 mg/dL (70-99) Coronavirus (COVID-19)(PCR) Negative (NEGATIVE) Lactic Acid Level 1.6 mmol/L (0.4-2.0) Test 09/28/19 16:58 09/28/19 20:21 09/29/19 03:15 Glucose (Fingerstick) 161 mg/dL (70-99) 190 mg/dL (70-99) White Blood Count 18.8 x10^3/uL (4.0-11.0) Red Blood Count 3.19 x10^6/uL (3.50-5.40) Hemoglobin 8.6 g/dL (12.0-15.5) Hematocrit 26.1 % (36.0-47.0) Mean Corpuscular Volume 82 fL (79-100) Mean Corpuscular Hemoglobin 27 pg (25-35) Mean Corpuscular Hemoglobin Concent 33 g/dL (31-37) Red Cell Distribution Width 14.3 % (11.5-14.5) Platelet Count 418 x10^3/uL (140-400) Neutrophils (%) (Auto) 88 % (31-73) Lymphocytes (%) (Auto) 8 % (24-48) Monocytes (%) (Auto) 4 % (0-9) Eosinophils (%) (Auto) 0 % (0-3) Basophils (%) (Auto) 0 % (0-3) Neutrophils # (Auto) 16.5 x10^3/uL (1.8-7.7) Lymphocytes # (Auto) 1.5 x10^3/uL (1.0-4.8) Monocytes # (Auto) 0.8 x10^3/uL (0.0-1.1) Eosinophils # (Auto) 0.0 x10^3/uL (0.0-0.7) Basophils # (Auto) 0.0 x10^3/uL (0.0-0.2) Sodium Level 141 mmol/L (136-145) Potassium Level 3.7 mmol/L (3.5-5.1) Chloride Level 104 mmol/L (98-107) Carbon Dioxide Level 21 mmol/L (21-32) Anion Gap 16 (6-14) Blood Urea Nitrogen 16 mg/dL (7-20) Creatinine 1.5 mg/dL (0.6-1.0) Estimated GFR (Cockcroft-Gault) 43.8 BUN/Creatinine Ratio 11 (6-20) Glucose Level 151 mg/dL (70-99) Calcium Level 8.2 mg/dL (8.5-10.1) Phosphorus Level 4.9 mg/dL (2.6-4.7) Total Bilirubin 0.5 mg/dL (0.2-1.0) Aspartate Amino Transf (AST/SGOT) 20 U/L (15-37) Alanine Aminotransferase (ALT/SGPT) 11 U/L (14-59) Alkaline Phosphatase 96 U/L (46-116) Total Protein 6.2 g/dL (6.4-8.2) Albumin 2.0 g/dL (3.4-5.0) Albumin/Globulin Ratio 0.5 (1.0-1.7) Micro Microbiology 09/27/19 Gram Stain - Final, Resulted 09/27/19 Aerobic and Anaerobic Culture, Resulted Pending Objective Assessment IMPRESSION: 1. Left fourth toe gangrene. 2. Left fourth toe and diabetic foot infection. 3. Fever. 4. Leukocytosis. 5. History of cerebrovascular accident. 6. Hypertension. Plan Plan of Care Continue antibiotics. Patient is supposed to have surgery today. STEFF ROJAS MD Sep 29, 2019 07:53
[2019-09-29] MEDS: INSULIN NPH/REG INSULIN 70/30 300 UNITS/3 ML INSULN.PEN. SQ SCH ×2 (08:00→17:00)
[2019-09-29 08:01] LABS: % BANDS 1 % (0-9); % LYMPHS 10 % (24-48); % MONOS 1 % (0-10); % SEGS 88 % (35-66)
[2019-09-29 08:02] LABS: PLT ESTIMATE ADEQUATE (ADEQUATE)
[2019-09-29] MEDS: LISINOPRIL 20 MG TABLET PO SCH (08:38)
--- NOTE | 2019-09-29 09:04 | PDOC ---
SUBJECTIVE ROS States she feels dizzy when she takes BP meds. She feels better when her BP are in 200's. This am she was feeling somewhat dizzy as her BP in 170's OBJECTIVE Vital Signs Vital Signs Date Time Temp Pulse Resp B/P (MAP) Pulse Ox O2 Delivery O2 Flow Rate FiO2 09/29/19 08:38 80 177/83 09/29/19 07:00 97.9 18 99 Room Air 97.9 I & 0 Intake and Output0 09/29/19 07:00 Intake Total 1780 ml Output Total 300 ml Balance 1480 ml Intake Oral 480 ml IV Total 1300 ml Output Urine Total 300 ml Stool Total 0 ml # Voids 1 # Bowel Movements 1 PHYSICAL EXAM Physical Exam GENERAL: NAD HEENT: OM moist NECK: Supple LUNGS: Clear.Non labored HEART: S1, S2 regular. ABDOMEN: soft, NT EXTREMITIES: No LE edema , gangrene left fourth toe NEURO: Grossly normal DERM No rash, gangrene as above No Broussard, No CVA or SP tenderness DIAGNOSIS/ASSESSMENT Assessment & Plan ZURDO on CKD - ATN 2/2 /Infection / UTI /Vomiting Currently on Lisinopril , renal function stable , Renal US unremarkable Recommendations for LIAM prophylaxis noted in Initial Renal consult Supportive care , Strict I/O, avoid nephrotoxins , Daily BMP UTI - UA cw UTI per primary/ID CKD stage 2 - baseline Cr 1.1 per [facility] records Suspect sec to HTNsive and Diabetic Nephrosclerosis Left fourth toe gangrene/ diabetic foot infection/ Fever/Leukocytosis. Per Vascular patient would benefit from left 4th toe amputation and recommend angiogram History of cerebrovascular accident. Hypertension - BP Uncontrolled , Pt has been out of meds for many months Doesnt have PCP, last seen at long time back , reports BP always in 200's Renal Doppler reviewed Hx Of nephrolithisis x1 - approx 8 yrs back , required Intervention with Stents Anemia- Hgb stable COMMENT/RELEVANT DATA Meds Current Medications Medications (Trade) Dose Ordered Sig/Leanne Start Time Stop Time Status Last Admin Dose Admin Acetaminophen (Tylenol) 650 mg PRN Q4HRS PRN 09/28/19 11:00 Al Hydroxide/Mg Hydroxide (Mylanta Plus Xs) 30 ml PRN DAILY PRN 09/28/19 11:00 Albuterol Sulfate (Ventolin Neb Soln) 2.5 mg PRN Q4HRS PRN 09/28/19 11:00 Clonidine HCl (Catapres) 0.1 mg PRN Q6HRS PRN 09/28/19 11:00 Daptomycin 490 mg/ Sodium Chloride 50 ml @ 100 mls/hr Q24H 09/28/19 11:00 09/28/19 12:47 100 MLS/HR Docusate Sodium (Colace) 100 mg PRN BID PRN 09/28/19 11:00 Enoxaparin Sodium (Lovenox 40mg Syringe) 40 mg Q24H 09/28/19 12:00 Fentanyl Citrate (Fentanyl 2ml Vial) 50 mcg PRN Q1HR PRN 09/27/19 20:45 09/28/19 20:44 DC Guaifenesin (Robitussin) 200 mg PRN Q4HRS PRN 09/28/19 11:00 Hydralazine HCl (Apresoline Inj) 10 mg PRN Q4HRS PRN 09/28/19 16:15 Hydromorphone HCl (Dilaudid) 0.5 mg PRN Q2HRS PRN 09/28/19 11:00 Insulin Human Isoph/Insulin Regular (HumuLIN 70/30) 8 units DAILYWBKFT 09/28/19 08:00 Lisinopril (Prinivil) 40 mg DAILY 09/28/19 00:30 09/29/19 08:38 40 MG Lorazepam (Ativan) 0.5 mg PRN Q4HRS PRN 09/28/19 11:00 Meropenem 500 mg/ Sodium Chloride 50 ml @ 100 mls/hr Q8HRS 09/28/19 11:00 09/29/19 05:06 100 MLS/HR Metoprolol Tartrate (Lopressor Vial) 5 mg PRN Q6HRS PRN 09/28/19 16:15 09/28/19 23:11 5 MG Ondansetron HCl (Zofran) 4 mg PRN Q4HRS PRN 09/28/19 11:00 Sodium Monofluorophosphate (Fleet Adult) 133 ml PRN DAILY PRN 09/28/19 11:00 Sodium Chloride 500 ml @ 500 mls/hr 1X ONCE 09/28/19 12:45 09/28/19 13:44 DC 09/28/19 13:11 500 MLS/HR Sodium Chloride (Normal Saline Flush) 3 ml QSHIFT PRN 09/28/19 11:00 Vancomycin HCl 250 ml @ 250 mls/hr 1X ONCE 09/27/19 20:30 09/27/19 21:29 DC 09/27/19 20:56 250 MLS/HR Lab Laboratory Tests Test 09/28/19 11:40 09/28/19 11:50 09/28/19 12:20 09/28/19 15:40 Hemoglobin A1c 10.4 % (4.8-5.6) Iron Level 12 ug/dL (50-170) Total Iron Binding Capacity 158 ug/dL (250-450) Iron Saturation 8 % (15-34) Creatine Kinase 68 U/L (26-192) Glucose (Fingerstick) 135 mg/dL (70-99) Coronavirus (COVID-19)(PCR) Negative (NEGATIVE) Lactic Acid Level 1.6 mmol/L (0.4-2.0) Test 09/28/19 16:58 09/28/19 20:21 09/29/19 03:15 09/29/19 07:53 Glucose (Fingerstick) 161 mg/dL (70-99) 190 mg/dL (70-99) 108 mg/dL (70-99) White Blood Count 18.8 x10^3/uL (4.0-11.0) Red Blood Count 3.19 x10^6/uL (3.50-5.40) Hemoglobin 8.6 g/dL (12.0-15.5) Hematocrit 26.1 % (36.0-47.0) Mean Corpuscular Volume 82 fL (79-100) Mean Corpuscular Hemoglobin 27 pg (25-35) Mean Corpuscular Hemoglobin Concent 33 g/dL (31-37) Red Cell Distribution Width 14.3 % (11.5-14.5) Platelet Count 418 x10^3/uL (140-400) Neutrophils (%) (Auto) 88 % (31-73) Lymphocytes (%) (Auto) 8 % (24-48) Monocytes (%) (Auto) 4 % (0-9) Eosinophils (%) (Auto) 0 % (0-3) Basophils (%) (Auto) 0 % (0-3) Neutrophils # (Auto) 16.5 x10^3/uL (1.8-7.7) Lymphocytes # (Auto) 1.5 x10^3/uL (1.0-4.8) Monocytes # (Auto) 0.8 x10^3/uL (0.0-1.1) Eosinophils # (Auto) 0.0 x10^3/uL (0.0-0.7) Basophils # (Auto) 0.0 x10^3/uL (0.0-0.2) Segmented Neutrophils % 88 % (35-66) Band Neutrophils % 1 % (0-9) Lymphocytes % 10 % (24-48) Monocytes % 1 % (0-10) Platelet Estimate Adequate (ADEQUATE) Sodium Level 141 mmol/L (136-145) Potassium Level 3.7 mmol/L (3.5-5.1) Chloride Level 104 mmol/L (98-107) Carbon Dioxide Level 21 mmol/L (21-32) Anion Gap 16 (6-14) Blood Urea Nitrogen 16 mg/dL (7-20) Creatinine 1.5 mg/dL (0.6-1.0) Estimated GFR (Cockcroft-Gault) 43.8 BUN/Creatinine Ratio 11 (6-20) Glucose Level 151 mg/dL (70-99) Calcium Level 8.2 mg/dL (8.5-10.1) Phosphorus Level 4.9 mg/dL (2.6-4.7) Total Bilirubin 0.5 mg/dL (0.2-1.0) Aspartate Amino Transf (AST/SGOT) 20 U/L (15-37) Alanine Aminotransferase (ALT/SGPT) 11 U/L (14-59) Alkaline Phosphatase 96 U/L (46-116) Total Protein 6.2 g/dL (6.4-8.2) Albumin 2.0 g/dL (3.4-5.0) Albumin/Globulin Ratio 0.5 (1.0-1.7) Results All relevant outside records, renal labs, imaging studies, telemetry/EKG's were reviewed. Justicifation of Admission Dx: Justifications for Admission: Justification of Admission Dx: Yes Sepsis: Failure of Out Pt Tx Cellulitis: Cellulitis MADHURI FERNANDEZ MD Sep 29, 2019 09:04
--- NOTE | 2019-09-29 09:26 | PDOC ---
PROGRESS NOTES History of Present Illness History of Present Illness VTE Prophylaxis Ordered VTE Prophylaxis Devices: Contraindicated VTE Pharmacological Prophylaxi: Yes Assessment/Plan Assessment/Plan IMPRESSION: Diabetic toe with gangrene Soft tissue swelling overlying the dorsum of the midfoot without underlying osseous abnormality or radiopaque foreign body identified.ON PLA[facility] X-RAY hypertension, HX stroke, diabetes, hyperlipidemia, history of diabetic ketoacidosis. ZURDO fever Normocytic anemia sepsis glucose control needed PVD Occlusion of the left superficial femoral artery with reconstitution at the level of the left popliteal artery, where there appears to be hemodynamically significant stenosis. Monophasic flow in the left subclavian artery suggests greater than 50 percent proximal left subclavian artery stenosis. No evidence of subclavian steal. plan admit emperic iv antibiotics // daptomycin and meropenem. ID consult vascular surgery consult arterial doppler both legs Nephrology consult dvt prophylaxis blood cult FE PANEL home meds HGB A1C 39 min pt exam, chart review, > 50% of time spent with exam, chart review, pt care coordination Justicifation of Admission Dx: Justicifation of Admission Dx: Justifications for Admission: Justification of Admission Dx: Yes Sepsis: Failure of Out Pt Tx Cellulitis: Cellulitis Diabetic Urgency: Diabetic Urgency Vitals Vitals Vital Signs Date Time Temp Pulse Resp B/P (MAP) Pulse Ox O2 Delivery O2 Flow Rate FiO2 09/29/19 08:38 80 177/83 09/29/19 07:00 97.9 18 99 Room Air 97.9 Physical Exam Physical Exam GENERAL: Alert and oriented female, not in any distress. VITAL SIGNS: Stable. She did have 101.5 T-max. HEENT: Both pupils are round and reacting. No conjunctival lesion. No lesion in the mouth. NECK: Supple, no JVP, no lymphadenopathy. LUNGS: Clear. HEART: S1, S2 regular. ABDOMEN: Benign. EXTREMITIES: Right lower extremity is unremarkable. Left lower extremity has gangrene of the left fourth toe and so there is maceration and drainage from the web between the 3rd and the 4th and 4th and the 5th toes. There is also redness and induration of the proximal dorsal foot and the plantar area has an infection. NEUROLOGIC: The patient is alert, oriented. No focal neurologic deficit. Because of the swelling dorsalis pedis in that foot is not able to palpate General: Alert, Oriented X3, Cooperative, No acute distress Lungs: Clear Abdomen: Normal bowel sounds, Soft, No tenderness Labs LABS Upper extremity arterial duplex Doppler examination with spectral analysis bilaterally HISTORY: Right blood pressure worse than left Sonographic examination of the subclavian arteries and vertebral arteries were obtained and multiple static images were obtained. In addition color Doppler was applied as well as arterial waveform spectral analysis FINDINGS: There is normal antegrade low resistance waveform morphology in the vertebral arteries bilaterally. There is normal triphasic waveform in the right subclavian artery. There is monophasic flow within the left subclavian artery. IMPRESSION: 1. Monophasic flow in the left subclavian artery suggests greater than 50 percent proximal left subclavian artery stenosis. 2. No evidence of subclavian steal. Electronically signed by: James Beard III, MD (09/28/2019 6:06 PM) [id number] DICTATED and SIGNED BY: JAMES BEARD III, MD DATE: 09/28/19 180 Laboratory Tests Test 09/28/19 11:40 09/28/19 11:50 09/28/19 12:20 09/28/19 15:40 Hemoglobin A1c 10.4 % (4.8-5.6) Iron Level 12 ug/dL (50-170) Total Iron Binding Capacity 158 ug/dL (250-450) Iron Saturation 8 % (15-34) Creatine Kinase 68 U/L (26-192) Glucose (Fingerstick) 135 mg/dL (70-99) Coronavirus (COVID-19)(PCR) Negative (NEGATIVE) Lactic Acid Level 1.6 mmol/L (0.4-2.0) Test 09/28/19 16:58 09/28/19 20:21 09/29/19 03:15 09/29/19 07:53 Glucose (Fingerstick) 161 mg/dL (70-99) 190 mg/dL (70-99) 108 mg/dL (70-99) White Blood Count 18.8 x10^3/uL (4.0-11.0) Red Blood Count 3.19 x10^6/uL (3.50-5.40) Hemoglobin 8.6 g/dL (12.0-15.5) Hematocrit 26.1 % (36.0-47.0) Mean Corpuscular Volume 82 fL (79-100) Mean Corpuscular Hemoglobin 27 pg (25-35) Mean Corpuscular Hemoglobin Concent 33 g/dL (31-37) Red Cell Distribution Width 14.3 % (11.5-14.5) Platelet Count 418 x10^3/uL (140-400) Neutrophils (%) (Auto) 88 % (31-73) Lymphocytes (%) (Auto) 8 % (24-48) Monocytes (%) (Auto) 4 % (0-9) Eosinophils (%) (Auto) 0 % (0-3) Basophils (%) (Auto) 0 % (0-3) Neutrophils # (Auto) 16.5 x10^3/uL (1.8-7.7) Lymphocytes # (Auto) 1.5 x10^3/uL (1.0-4.8) Monocytes # (Auto) 0.8 x10^3/uL (0.0-1.1) Eosinophils # (Auto) 0.0 x10^3/uL (0.0-0.7) Basophils # (Auto) 0.0 x10^3/uL (0.0-0.2) Segmented Neutrophils % 88 % (35-66) Band Neutrophils % 1 % (0-9) Lymphocytes % 10 % (24-48) Monocytes % 1 % (0-10) Platelet Estimate Adequate (ADEQUATE) Sodium Level 141 mmol/L (136-145) Potassium Level 3.7 mmol/L (3.5-5.1) Chloride Level 104 mmol/L (98-107) Carbon Dioxide Level 21 mmol/L (21-32) Anion Gap 16 (6-14) Blood Urea Nitrogen 16 mg/dL (7-20) Creatinine 1.5 mg/dL (0.6-1.0) Estimated GFR (Cockcroft-Gault) 43.8 BUN/Creatinine Ratio 11 (6-20) Glucose Level 151 mg/dL (70-99) Calcium Level 8.2 mg/dL (8.5-10.1) Phosphorus Level 4.9 mg/dL (2.6-4.7) Total Bilirubin 0.5 mg/dL (0.2-1.0) Aspartate Amino Transf (AST/SGOT) 20 U/L (15-37) Alanine Aminotransferase (ALT/SGPT) 11 U/L (14-59) Alkaline Phosphatase 96 U/L (46-116) Total Protein 6.2 g/dL (6.4-8.2) Albumin 2.0 g/dL (3.4-5.0) Albumin/Globulin Ratio 0.5 (1.0-1.7) Assessment and Plan Assessmemt and Plan Problems Medical Problems: (1) Diabetic foot infection Status: Acute Comment Review of Relevant I have reviewed the following items hortencia (where applicable) has been applied. Labs Laboratory Tests Test 09/27/19 17:37 09/27/19 17:39 09/27/19 20:26 09/27/19 23:00 White Blood Count 12.8 x10^3/uL (4.0-11.0) Red Blood Count 3.70 x10^6/uL (3.50-5.40) Hemoglobin 10.3 g/dL (12.0-15.5) Hematocrit 30.6 % (36.0-47.0) Mean Corpuscular Volume 83 fL (79-100) Mean Corpuscular Hemoglobin 28 pg (25-35) Mean Corpuscular Hemoglobin Concent 34 g/dL (31-37) Red Cell Distribution Width 14.3 % (11.5-14.5) Platelet Count 468 x10^3/uL (140-400) Neutrophils (%) (Auto) 78 % (31-73) Lymphocytes (%) (Auto) 15 % (24-48) Monocytes (%) (Auto) 7 % (0-9) Eosinophils (%) (Auto) 0 % (0-3) Basophils (%) (Auto) 0 % (0-3) Neutrophils # (Auto) 10.0 x10^3/uL (1.8-7.7) Lymphocytes # (Auto) 1.9 x10^3/uL (1.0-4.8) Monocytes # (Auto) 0.9 x10^3/uL (0.0-1.1) Eosinophils # (Auto) 0.0 x10^3/uL (0.0-0.7) Basophils # (Auto) 0.0 x10^3/uL (0.0-0.2) Prothrombin Time 13.5 SEC (11.7-14.0) Prothromb Time International Ratio 1.1 (0.8-1.1) Sodium Level 137 mmol/L (136-145) Potassium Level 3.5 mmol/L (3.5-5.1) Chloride Level 99 mmol/L (98-107) Carbon Dioxide Level 27 mmol/L (21-32) Anion Gap 11 (6-14) Blood Urea Nitrogen 15 mg/dL (7-20) Creatinine 1.6 mg/dL (0.6-1.0) Estimated GFR (Cockcroft-Gault) 40.6 BUN/Creatinine Ratio 9 (6-20) Glucose Level 241 mg/dL (70-99) Calcium Level 9.2 mg/dL (8.5-10.1) Total Bilirubin 0.7 mg/dL (0.2-1.0) Aspartate Amino Transf (AST/SGOT) 12 U/L (15-37) Alanine Aminotransferase (ALT/SGPT) 11 U/L (14-59) Alkaline Phosphatase 82 U/L (46-116) Total Protein 7.8 g/dL (6.4-8.2) Albumin 2.8 g/dL (3.4-5.0) Albumin/Globulin Ratio 0.6 (1.0-1.7) Lactic Acid Level 1.0 mmol/L (0.4-2.0) Urine Collection Type Unknown Urine Color Dayna Urine Clarity Turbid Urine pH 5.5 (<5.0-8.0) Urine Specific [place] 1.025 (1.000-1.030) Urine Protein >=300 mg/dL (NEG-TRACE) Urine Glucose (UA) 100 mg/dL (NEG) Urine Ketones (Stick) Negative mg/dL (NEG) Urine Blood Negative (NEG) Urine Nitrite Negative (NEG) Urine Bilirubin Negative (NEG) Urine Urobilinogen Dipstick 1.0 mg/dL (0.2 mg/dL) Urine Leukocyte Esterase Moderate (NEG) Urine RBC Occ /HPF (0-2) Urine WBC Tntc /HPF (0-4) Urine Squamous Epithelial Cells Mod /LPF Urine Transitional Epithelial Cells Few /LPF Urine Renal Epithelial Cells Few /LPF Urine Bacteria Moderate /HPF (0-FEW) Urine Hyaline Casts Moderate /HPF Urine Granular Casts Few /HPF Urine Waxy Casts Occasional /HPF Urine Mucus Mod /LPF Glucose (Fingerstick) 174 mg/dL (70-99) Test 09/28/19 07:17 6/2/20 11:40 09/28/19 11:50 09/28/19 12:20 Glucose (Fingerstick) 174 mg/dL (70-99) 135 mg/dL (70-99) Hemoglobin A1c 10.4 % (4.8-5.6) Iron Level 12 ug/dL (50-170) Total Iron Binding Capacity 158 ug/dL (250-450) Iron Saturation 8 % (15-34) Creatine Kinase 68 U/L (26-192) Coronavirus (COVID-19)(PCR) Negative (NEGATIVE) Test 09/28/19 15:40 09/28/19 16:58 09/28/19 20:21 09/29/19 03:15 Lactic Acid Level 1.6 mmol/L (0.4-2.0) Glucose (Fingerstick) 161 mg/dL (70-99) 190 mg/dL (70-99) White Blood Count 18.8 x10^3/uL (4.0-11.0) Red Blood Count 3.19 x10^6/uL (3.50-5.40) Hemoglobin 8.6 g/dL (12.0-15.5) Hematocrit 26.1 % (36.0-47.0) Mean Corpuscular Volume 82 fL (79-100) Mean Corpuscular Hemoglobin 27 pg (25-35) Mean Corpuscular Hemoglobin Concent 33 g/dL (31-37) Red Cell Distribution Width 14.3 % (11.5-14.5) Platelet Count 418 x10^3/uL (140-400) Neutrophils (%) (Auto) 88 % (31-73) Lymphocytes (%) (Auto) 8 % (24-48) Monocytes (%) (Auto) 4 % (0-9) Eosinophils (%) (Auto) 0 % (0-3) Basophils (%) (Auto) 0 % (0-3) Neutrophils # (Auto) 16.5 x10^3/uL (1.8-7.7) Lymphocytes # (Auto) 1.5 x10^3/uL (1.0-4.8) Monocytes # (Auto) 0.8 x10^3/uL (0.0-1.1) Eosinophils # (Auto) 0.0 x10^3/uL (0.0-0.7) Basophils # (Auto) 0.0 x10^3/uL (0.0-0.2) Segmented Neutrophils % 88 % (35-66) Band Neutrophils % 1 % (0-9) Lymphocytes % 10 % (24-48) Monocytes % 1 % (0-10) Platelet Estimate Adequate (ADEQUATE) Sodium Level 141 mmol/L (136-145) Potassium Level 3.7 mmol/L (3.5-5.1) Chloride Level 104 mmol/L (98-107) Carbon Dioxide Level 21 mmol/L (21-32) Anion Gap 16 (6-14) Blood Urea Nitrogen 16 mg/dL (7-20) Creatinine 1.5 mg/dL (0.6-1.0) Estimated GFR (Cockcroft-Gault) 43.8 BUN/Creatinine Ratio 11 (6-20) Glucose Level 151 mg/dL (70-99) Calcium Level 8.2 mg/dL (8.5-10.1) Phosphorus Level 4.9 mg/dL (2.6-4.7) Total Bilirubin 0.5 mg/dL (0.2-1.0) Aspartate Amino Transf (AST/SGOT) 20 U/L (15-37) Alanine Aminotransferase (ALT/SGPT) 11 U/L (14-59) Alkaline Phosphatase 96 U/L (46-116) Total Protein 6.2 g/dL (6.4-8.2) Albumin 2.0 g/dL (3.4-5.0) Albumin/Globulin Ratio 0.5 (1.0-1.7) Test 09/29/19 07:53 Glucose (Fingerstick) 108 mg/dL (70-99) Laboratory Tests Test 09/28/19 11:40 09/28/19 11:50 09/28/19 12:20 09/28/19 15:40 Hemoglobin A1c 10.4 % (4.8-5.6) Iron Level 12 ug/dL (50-170) Total Iron Binding Capacity 158 ug/dL (250-450) Iron Saturation 8 % (15-34) Creatine Kinase 68 U/L (26-192) Glucose (Fingerstick) 135 mg/dL (70-99) Coronavirus (COVID-19)(PCR) Negative (NEGATIVE) Lactic Acid Level 1.6 mmol/L (0.4-2.0) Test 09/28/19 16:58 09/28/19 20:21 09/29/19 03:15 09/29/19 07:53 Glucose (Fingerstick) 161 mg/dL (70-99) 190 mg/dL (70-99) 108 mg/dL (70-99) White Blood Count 18.8 x10^3/uL (4.0-11.0) Red Blood Count 3.19 x10^6/uL (3.50-5.40) Hemoglobin 8.6 g/dL (12.0-15.5) Hematocrit 26.1 % (36.0-47.0) Mean Corpuscular Volume 82 fL (79-100) Mean Corpuscular Hemoglobin 27 pg (25-35) Mean Corpuscular Hemoglobin Concent 33 g/dL (31-37) Red Cell Distribution Width 14.3 % (11.5-14.5) Platelet Count 418 x10^3/uL (140-400) Neutrophils (%) (Auto) 88 % (31-73) Lymphocytes (%) (Auto) 8 % (24-48) Monocytes (%) (Auto) 4 % (0-9) Eosinophils (%) (Auto) 0 % (0-3) Basophils (%) (Auto) 0 % (0-3) Neutrophils # (Auto) 16.5 x10^3/uL (1.8-7.7) Lymphocytes # (Auto) 1.5 x10^3/uL (1.0-4.8) Monocytes # (Auto) 0.8 x10^3/uL (0.0-1.1) Eosinophils # (Auto) 0.0 x10^3/uL (0.0-0.7) Basophils # (Auto) 0.0 x10^3/uL (0.0-0.2) Segmented Neutrophils % 88 % (35-66) Band Neutrophils % 1 % (0-9) Lymphocytes % 10 % (24-48) Monocytes % 1 % (0-10) Platelet Estimate Adequate (ADEQUATE) Sodium Level 141 mmol/L (136-145) Potassium Level 3.7 mmol/L (3.5-5.1) Chloride Level 104 mmol/L (98-107) Carbon Dioxide Level 21 mmol/L (21-32) Anion Gap 16 (6-14) Blood Urea Nitrogen 16 mg/dL (7-20) Creatinine 1.5 mg/dL (0.6-1.0) Estimated GFR (Cockcroft-Gault) 43.8 BUN/Creatinine Ratio 11 (6-20) Glucose Level 151 mg/dL (70-99) Calcium Level 8.2 mg/dL (8.5-10.1) Phosphorus Level 4.9 mg/dL (2.6-4.7) Total Bilirubin 0.5 mg/dL (0.2-1.0) Aspartate Amino Transf (AST/SGOT) 20 U/L (15-37) Alanine Aminotransferase (ALT/SGPT) 11 U/L (14-59) Alkaline Phosphatase 96 U/L (46-116) Total Protein 6.2 g/dL (6.4-8.2) Albumin 2.0 g/dL (3.4-5.0) Albumin/Globulin Ratio 0.5 (1.0-1.7) Microbiology 09/27/19 Gram Stain - Final, Resulted 09/27/19 Aerobic and Anaerobic Culture, Resulted Pending Medications Current Medications Sodium Chloride 1,000 ml @ 1,000 mls/hr 1X ONCE IV Last administered on 09/27/19at 19:25; Start 09/27/19 at 18:30; Stop 09/27/19 at 19:29; Status DC Acetaminophen (Tylenol) 1,000 mg 1X ONCE PO Last administered on 09/27/19at 19:25; Start 09/27/19 at 18:30; Stop 09/27/19 at 18:37; Status DC Clonidine HCl (Catapres) 0.1 mg 1X ONCE PO Last administered on 09/27/19at 19 :26; Start 09/27/19 at 18:45; Stop 09/27/19 at 18:46; Status DC Vancomycin HCl 250 ml @ 250 mls/hr 1X ONCE IV Last administered on 09/27/19at 20:56; Start 09/27/19 at 20:30; Stop 09/27/19 at 21:29; Status DC Ondansetron HCl (Zofran) 4 mg PRN Q8HRS PRN IV NAUSEA/VOMITING; Start 09/27/19 at 20:45; Stop 09/28/19 at 13:59; Status DC Fentanyl Citrate (Fentanyl 2ml Vial) 50 mcg PRN Q1HR PRN IV PAIN; Start 09/27/19 at 20:45; Stop 09/28/19 at 20:44; Status DC Acetaminophen (Tylenol) 650 mg PRN Q4HRS PRN PO FEVER > 100.3'F; Start 09/27/19 at 20:45; Stop 09/28/19 at 13:58; Status DC Lisinopril (Prinivil) 40 mg DAILY PO Last administered on 09/29/19at 08:38; Start 09/28/19 at 00:30 Insulin Human Isoph/Insulin Regular (HumuLIN 70/30) 4 units DAILYWSUP SQ ; Start 09/28/19 at 17:00 Insulin Human Isoph/Insulin Regular (HumuLIN 70/30) 8 units DAILYWBKFT SQ ; Start 09/28/19 at 08:00 Daptomycin 490 mg/ Sodium Chloride 50 ml @ 100 mls/hr Q24H IV Last administered on 09/28/19at 12:47; Start 09/28/19 at 11:00 Meropenem 500 mg/ Sodium Chloride 50 ml @ 100 mls/hr Q8HRS IV Last administered on 09/29/19at 05:06; Start 09/28/19 at 11:00 Sodium Chloride (Normal Saline Flush) 3 ml QSHIFT PRN IV AFTER MEDS AND BLOOD DRAWS; Start 09/28/19 at 11:00 Sodium Chloride 1,000 ml @ 100 mls/hr Q10H IV Last administered on 09/29/19at 01:35; Start 09/28/19 at 10:58 Ondansetron HCl (Zofran) 4 mg PRN Q4HRS PRN IV NAUSEA/VOMITING; Start 09/28/19 at 11:00 Acetaminophen (Tylenol) 650 mg PRN Q4HRS PRN PO TEMP OVER 100.4F OR MILD PAIN; Start 09/28/19 at 11:00 Al Hydroxide/Mg Hydroxide (Mylanta Plus Xs) 30 ml PRN DAILY PRN PO HEARTBURN / GAS; Start 09/28/19 at 11:00 Clonidine HCl (Catapres) 0.1 mg PRN Q6HRS PRN PO SBP>160 OR DBP>90; Start 09/28/19 at 11:00 Sodium Monofluorophosphate (Fleet Adult) 133 ml PRN DAILY PRN MS CONSTIPATION; Start 09/28/19 at 11:00 Docusate Sodium (Colace) 100 mg PRN BID PRN PO HARD STOOLS; Start 09/28/19 at 11:00 Albuterol Sulfate (Ventolin Neb Soln) 2.5 mg PRN Q4HRS PRN NEB SHORTNESS OF BREATH; Start 09/28/19 at 11:00 Guaifenesin (Robitussin) 200 mg PRN Q4HRS PRN PO COUGH; Start 09/28/19 at 11:00 Lorazepam (Ativan) 0.5 mg PRN Q4HRS PRN PO ANXIETY / AGITATION; Start 09/28/19 at 11:00 Hydromorphone HCl (Dilaudid) 0.5 mg PRN Q2HRS PRN IV SEVERE PAIN 7-10; Start 09/28/19 at 11:00 Enoxaparin Sodium (Lovenox 40mg Syringe) 40 mg Q24H SQ ; Start 09/28/19 at 12:00 Sodium Chloride 500 ml @ 500 mls/hr 1X ONCE IV Last administered on 09/28/19at 13:11; Start 09/28/19 at 12:45; Stop 09/28/19 at 13:44; Status DC Hydralazine HCl (Apresoline Inj) 10 mg 1X ONCE IVP Last administered on 09/28/19at 14:17; Start 09/28/19 at 14:15; Stop 09/28/19 at 14:16; Status DC Hydralazine HCl (Apresoline Inj) 10 mg PRN Q4HRS PRN IVP HYPERTENSION, 2nd choice; Start 09/28/19 at 16:15 Metoprolol Tartrate (Lopressor Vial) 5 mg PRN Q6HRS PRN IVP HYPERTENSION, 1st choice Last administered on 09/28/19at 23:11; Start 09/28/19 at 16:15 Active Scripts Active Reported Zyvox (Linezolid) 600 Mg Tablet 600 Mg PO BID 7 Days Cefdinir 300 Mg Capsule 1 Cap PO BID 7 Days Lisinopril 40 Mg Tablet 40 Mg PO DAILY Relion Novolin 70-30 Vial (Hum Insulin Nph/Reg Insulin Hm) 100 Unit/1 Ml Vial 4 Unit SQ DAILYWSUP Relion Novolin 70-30 Vial (Hum Insulin Nph/Reg Insulin Hm) 100 Unit/1 Ml Vial 8 Unit SUBCUT DAILYWBKFT Vitals/I & O Vital Sign - Last 24 Hours 09/28/19 09/28/19 09/28/19 09/28/19 11:00 11:31 14:05 14:17 Temp 98.4 99.9 101.0 98.4 99.9 101.0 Pulse 85 139 139 Resp 16 24 22 B/P (MAP) 210/94 (132) 283/141 (188) 273/125 (174) Pulse Ox 97 96 97 O2 Delivery Room Air Room Air Room Air Room Air 09/28/19 09/28/19 09/28/19 09/28/19 14:17 14:25 14:45 15:15 Temp 102.7 100.5 101.5 102.7 100.5 101.5 Pulse 139 130 118 116 Resp 20 18 B/P (MAP) 273/105 285/125 (178) 235/97 (143) 207/126 (153) Pulse Ox 97 97 96 O2 Delivery Room Air Room Air Nasal Cannula 09/28/19 09/28/19 09/28/19 09/28/19 16:36 19:25 19:40 23:05 Temp 98.5 98.3 98.5 98.3 Pulse 111 103 87 Resp 18 18 B/P (MAP) 187/95 154/87 (109) 163/77 (105) Pulse Ox 97 97 O2 Delivery Room Air Room Air Room Air 09/28/19 09/29/19 09/29/19 09/29/19 23:11 03:35 07:00 08:38 Temp 98.4 97.9 98.4 97.9 Pulse 85 74 80 80 Resp 18 18 B/P (MAP) 163/77 163/79 (107) 177/83 (114) 177/83 Pulse Ox 98 99 O2 Delivery Room Air Room Air Intake and Output 09/28/19 09/28/19 09/29/19 15:00 23:00 07:00 Intake Total 170 ml 1610 ml Output Total 0 ml 300 ml Balance 170 ml 1310 ml MARIA LUISA SANTOS MD Sep 29, 2019 09:26
[2019-09-29] MEDS: hydrALAZINE 20 MG/ML VIAL. IVP PRN (11:05)
[2019-09-29] MEDS: DAPTOmycin (GENERIC) IVPB 490 MG in IV NORMAL SALINE 50ML 50 ML IV SCH (11:06)
[2019-09-29] MEDS: ENOXAPARIN 40 MG/0.4 ML SYRINGE. SQ SCH (12:00)
--- NOTE | 2019-09-29 13:18 | NUR ---
SS following for discharge planning. SS reviewed pt chart and discussed with pt RN. Pt transferred from . Pt is from home and is currently on room air. Pt on IV Daptomycin and IV Meropenem. Pt has wound care. Pt NPO and scheduled for toe amputation either today or tomorrow pending surgeries availability. SS will continue to follow for discharge planning.
--- NOTE | 2019-09-29 15:29 | PDOC ---
PROGRESS NOTES Subjective Subjective Patient seen and examined in room. Complains of left 4th toe pain. Objective Objective Vital Signs Date Time Temp Pulse Resp B/P (MAP) Pulse Ox O2 Delivery O2 Flow Rate FiO2 09/29/19 14:58 98.3 88 18 199/92 (127) 97 Room Air 98.3 Intake and Output 09/29/19 07:00 Intake Total 1780 ml Output Total 300 ml Balance 1480 ml Intake Oral 480 ml IV Total 1300 ml Output Urine Total 300 ml Stool Total 0 ml # Voids 1 # Bowel Movements 1 Physical Exam Physical Exam Awake and alert HRR Non-labored respirations Left 4th toe with dry gangrene, moisture between 3,4th and 4,5th webspaces unable to appreciate distal pulses Assessment Assessment Problems Medical Problems: (1) Diabetic foot infection Status: Acute Plan Plan of Care Diabetic foot ulcer, left 4th toe gangrene Leukocytosis Renal Insufficiency Recommend AARO, due to scheduling this will be done in IR, discussed with Nurse. Will make additional recommendations pending angiogram results. Patient will eventually need left 4th toe amputation. Comment Review of Relevant I have reviewed the following items hortencia (where applicable) has been applied. Labs Laboratory Tests Test 09/27/19 17:37 09/27/19 17:39 09/27/19 20:26 09/27/19 23:00 White Blood Count 12.8 x10^3/uL (4.0-11.0) Red Blood Count 3.70 x10^6/uL (3.50-5.40) Hemoglobin 10.3 g/dL (12.0-15.5) Hematocrit 30.6 % (36.0-47.0) Mean Corpuscular Volume 83 fL (79-100) Mean Corpuscular Hemoglobin 28 pg (25-35) Mean Corpuscular Hemoglobin Concent 34 g/dL (31-37) Red Cell Distribution Width 14.3 % (11.5-14.5) Platelet Count 468 x10^3/uL (140-400) Neutrophils (%) (Auto) 78 % (31-73) Lymphocytes (%) (Auto) 15 % (24-48) Monocytes (%) (Auto) 7 % (0-9) Eosinophils (%) (Auto) 0 % (0-3) Basophils (%) (Auto) 0 % (0-3) Neutrophils # (Auto) 10.0 x10^3/uL (1.8-7.7) Lymphocytes # (Auto) 1.9 x10^3/uL (1.0-4.8) Monocytes # (Auto) 0.9 x10^3/uL (0.0-1.1) Eosinophils # (Auto) 0.0 x10^3/uL (0.0-0.7) Basophils # (Auto) 0.0 x10^3/uL (0.0-0.2) Prothrombin Time 13.5 SEC (11.7-14.0) Prothromb Time International Ratio 1.1 (0.8-1.1) Sodium Level 137 mmol/L (136-145) Potassium Level 3.5 mmol/L (3.5-5.1) Chloride Level 99 mmol/L (98-107) Carbon Dioxide Level 27 mmol/L (21-32) Anion Gap 11 (6-14) Blood Urea Nitrogen 15 mg/dL (7-20) Creatinine 1.6 mg/dL (0.6-1.0) Estimated GFR (Cockcroft-Gault) 40.6 BUN/Creatinine Ratio 9 (6-20) Glucose Level 241 mg/dL (70-99) Calcium Level 9.2 mg/dL (8.5-10.1) Total Bilirubin 0.7 mg/dL (0.2-1.0) Aspartate Amino Transf (AST/SGOT) 12 U/L (15-37) Alanine Aminotransferase (ALT/SGPT) 11 U/L (14-59) Alkaline Phosphatase 82 U/L (46-116) Total Protein 7.8 g/dL (6.4-8.2) Albumin 2.8 g/dL (3.4-5.0) Albumin/Globulin Ratio 0.6 (1.0-1.7) Lactic Acid Level 1.0 mmol/L (0.4-2.0) Urine Collection Type Unknown Urine Color Dayna Urine Clarity Turbid Urine pH 5.5 (<5.0-8.0) Urine Specific [place] 1.025 (1.000-1.030) Urine Protein >=300 mg/dL (NEG-TRACE) Urine Glucose (UA) 100 mg/dL (NEG) Urine Ketones (Stick) Negative mg/dL (NEG) Urine Blood Negative (NEG) Urine Nitrite Negative (NEG) Urine Bilirubin Negative (NEG) Urine Urobilinogen Dipstick 1.0 mg/dL (0.2 mg/dL) Urine Leukocyte Esterase Moderate (NEG) Urine RBC Occ /HPF (0-2) Urine WBC Tntc /HPF (0-4) Urine Squamous Epithelial Cells Mod /LPF Urine Transitional Epithelial Cells Few /LPF Urine Renal Epithelial Cells Few /LPF Urine Bacteria Moderate /HPF (0-FEW) Urine Hyaline Casts Moderate /HPF Urine Granular Casts Few /HPF Urine Waxy Casts Occasional /HPF Urine Mucus Mod /LPF Glucose (Fingerstick) 174 mg/dL (70-99) Test 09/28/19 07:17 09/28/19 11:40 09/28/19 11:50 09/28/19 12:20 Glucose (Fingerstick) 174 mg/dL (70-99) 135 mg/dL (70-99) Hemoglobin A1c 10.4 % (4.8-5.6) Iron Level 12 ug/dL (50-170) Total Iron Binding Capacity 158 ug/dL (250-450) Iron Saturation 8 % (15-34) Creatine Kinase 68 U/L (26-192) Coronavirus (COVID-19)(PCR) Negative (NEGATIVE) Test 09/28/19 15:40 09/28/19 16:58 09/28/19 20:21 09/29/19 03:15 Lactic Acid Level 1.6 mmol/L (0.4-2.0) Glucose (Fingerstick) 161 mg/dL (70-99) 190 mg/dL (70-99) White Blood Count 18.8 x10^3/uL (4.0-11.0) Red Blood Count 3.19 x10^6/uL (3.50-5.40) Hemoglobin 8.6 g/dL (12.0-15.5) Hematocrit 26.1 % (36.0-47.0) Mean Corpuscular Volume 82 fL (79-100) Mean Corpuscular Hemoglobin 27 pg (25-35) Mean Corpuscular Hemoglobin Concent 33 g/dL (31-37) Red Cell Distribution Width 14.3 % (11.5-14.5) Platelet Count 418 x10^3/uL (140-400) Neutrophils (%) (Auto) 88 % (31-73) Lymphocytes (%) (Auto) 8 % (24-48) Monocytes (%) (Auto) 4 % (0-9) Eosinophils (%) (Auto) 0 % (0-3) Basophils (%) (Auto) 0 % (0-3) Neutrophils # (Auto) 16.5 x10^3/uL (1.8-7.7) Lymphocytes # (Auto) 1.5 x10^3/uL (1.0-4.8) Monocytes # (Auto) 0.8 x10^3/uL (0.0-1.1) Eosinophils # (Auto) 0.0 x10^3/uL (0.0-0.7) Basophils # (Auto) 0.0 x10^3/uL (0.0-0.2) Segmented Neutrophils % 88 % (35-66) Band Neutrophils % 1 % (0-9) Lymphocytes % 10 % (24-48) Monocytes % 1 % (0-10) Platelet Estimate Adequate (ADEQUATE) Sodium Level 141 mmol/L (136-145) Potassium Level 3.7 mmol/L (3.5-5.1) Chloride Level 104 mmol/L (98-107) Carbon Dioxide Level 21 mmol/L (21-32) Anion Gap 16 (6-14) Blood Urea Nitrogen 16 mg/dL (7-20) Creatinine 1.5 mg/dL (0.6-1.0) Estimated GFR (Cockcroft-Gault) 43.8 BUN/Creatinine Ratio 11 (6-20) Glucose Level 151 mg/dL (70-99) Calcium Level 8.2 mg/dL (8.5-10.1) Phosphorus Level 4.9 mg/dL (2.6-4.7) Total Bilirubin 0.5 mg/dL (0.2-1.0) Aspartate Amino Transf (AST/SGOT) 20 U/L (15-37) Alanine Aminotransferase (ALT/SGPT) 11 U/L (14-59) Alkaline Phosphatase 96 U/L (46-116) Total Protein 6.2 g/dL (6.4-8.2) Albumin 2.0 g/dL (3.4-5.0) Albumin/Globulin Ratio 0.5 (1.0-1.7) Test 09/29/19 07:53 09/29/19 11:09 Glucose (Fingerstick) 108 mg/dL (70-99) 101 mg/dL (70-99) Laboratory Tests Test 09/28/19 15:40 09/28/19 16:58 09/28/19 20:21 09/29/19 03:15 Lactic Acid Level 1.6 mmol/L (0.4-2.0) Glucose (Fingerstick) 161 mg/dL (70-99) 190 mg/dL (70-99) White Blood Count 18.8 x10^3/uL (4.0-11.0) Red Blood Count 3.19 x10^6/uL (3.50-5.40) Hemoglobin 8.6 g/dL (12.0-15.5) Hematocrit 26.1 % (36.0-47.0) Mean Corpuscular Volume 82 fL (79-100) Mean Corpuscular Hemoglobin 27 pg (25-35) Mean Corpuscular Hemoglobin Concent 33 g/dL (31-37) Red Cell Distribution Width 14.3 % (11.5-14.5) Platelet Count 418 x10^3/uL (140-400) Neutrophils (%) (Auto) 88 % (31-73) Lymphocytes (%) (Auto) 8 % (24-48) Monocytes (%) (Auto) 4 % (0-9) Eosinophils (%) (Auto) 0 % (0-3) Basophils (%) (Auto) 0 % (0-3) Neutrophils # (Auto) 16.5 x10^3/uL (1.8-7.7) Lymphocytes # (Auto) 1.5 x10^3/uL (1.0-4.8) Monocytes # (Auto) 0.8 x10^3/uL (0.0-1.1) Eosinophils # (Auto) 0.0 x10^3/uL (0.0-0.7) Basophils # (Auto) 0.0 x10^3/uL (0.0-0.2) Segmented Neutrophils % 88 % (35-66) Band Neutrophils % 1 % (0-9) Lymphocytes % 10 % (24-48) Monocytes % 1 % (0-10) Platelet Estimate Adequate (ADEQUATE) Sodium Level 141 mmol/L (136-145) Potassium Level 3.7 mmol/L (3.5-5.1) Chloride Level 104 mmol/L (98-107) Carbon Dioxide Level 21 mmol/L (21-32) Anion Gap 16 (6-14) Blood Urea Nitrogen 16 mg/dL (7-20) Creatinine 1.5 mg/dL (0.6-1.0) Estimated GFR (Cockcroft-Gault) 43.8 BUN/Creatinine Ratio 11 (6-20) Glucose Level 151 mg/dL (70-99) Calcium Level 8.2 mg/dL (8.5-10.1) Phosphorus Level 4.9 mg/dL (2.6-4.7) Total Bilirubin 0.5 mg/dL (0.2-1.0) Aspartate Amino Transf (AST/SGOT) 20 U/L (15-37) Alanine Aminotransferase (ALT/SGPT) 11 U/L (14-59) Alkaline Phosphatase 96 U/L (46-116) Total Protein 6.2 g/dL (6.4-8.2) Albumin 2.0 g/dL (3.4-5.0) Albumin/Globulin Ratio 0.5 (1.0-1.7) Test 09/29/19 07:53 09/29/19 11:09 Glucose (Fingerstick) 108 mg/dL (70-99) 101 mg/dL (70-99) Microbiology 09/27/19 Urine Culture - Final, Complete 09/27/19 Gram Stain - Final, Resulted 09/27/19 Aerobic and Anaerobic Culture - Preliminary, Resulted Medications Current Medications Sodium Chloride 1,000 ml @ 1,000 mls/hr 1X ONCE IV Last administered on 09/27/19at 19:25; Start 09/27/19 at 18:30; Stop 09/27/19 at 19:29; Status DC Acetaminophen (Tylenol) 1,000 mg 1X ONCE PO Last administered on 09/27/19at 19:25; Start 09/27/19 at 18:30; Stop 09/27/19 at 18:37; Status DC Clonidine HCl (Catapres) 0.1 mg 1X ONCE PO Last administered on 09/27/19at 19:26; Start 09/27/19 at 18:45; Stop 09/27/19 at 18:46; Status DC Vancomycin HCl 250 ml @ 250 mls/hr 1X ONCE IV Last administered on 09/27/19at 20:56; Start 09/27/19 at 20:30; Stop 09/27/19 at 21:29; Status DC Ondansetron HCl (Zofran) 4 mg PRN Q8HRS PRN IV NAUSEA/VOMITING; Start 09/27/19 at 20:45; Stop 09/28/19 at 13:59; Status DC Fentanyl Citrate (Fentanyl 2ml Vial) 50 mcg PRN Q1HR PRN IV PAIN; Start 09/27/19 at 20:45; Stop 09/28/19 at 20:44; Status DC Acetaminophen (Tylenol) 650 mg PRN Q4HRS PRN PO FEVER > 100.3'F; Start 09/27/19 at 20:45; Stop 09/28/19 at 13:58; Status DC Lisinopril (Prinivil) 40 mg DAILY PO Last administered on 09/29/19at 08:38; Start 09/28/19 at 00:30 Insulin Human Isoph/Insulin Regular (HumuLIN 70/30) 4 units DAILYWSUP SQ ; Start 09/28/19 at 17:00 Insulin Human Isoph/Insulin Regular (HumuLIN 70/30) 8 units DAILYWBKFT SQ ; Start 09/28/19 at 08:00 Daptomycin 490 mg/ Sodium Chloride 50 ml @ 100 mls/hr Q24H IV Last administered on 09/29/19at 11:06; Start 09/28/19 at 11:00 Meropenem 500 mg/ Sodium Chloride 50 ml @ 100 mls/hr Q8HRS IV Last administered on 09/29/19at 13:54; Start 09/28/19 at 11:00 Sodium Chloride (Normal Saline Flush) 3 ml QSHIFT PRN IV AFTER MEDS AND BLOOD DRAWS; Start 09/28/19 at 11:00 Sodium Chloride 1,000 ml @ 100 mls/hr Q10H IV Last administered on 09/29/19at 12:36; Start 09/28/19 at 10:58 Ondansetron HCl (Zofran) 4 mg PRN Q4HRS PRN IV NAUSEA/VOMITING; Start 09/28/19 at 11:00 Acetaminophen (Tylenol) 650 mg PRN Q4HRS PRN PO TEMP OVER 100.4F OR MILD PAIN; Start 09/28/19 at 11:00 Al Hydroxide/Mg Hydroxide (Mylanta Plus Xs) 30 ml PRN DAILY PRN PO HEARTBURN / GAS; Start 09/28/19 at 11:00 Clonidine HCl (Catapres) 0.1 mg PRN Q6HRS PRN PO SBP>160 OR DBP>90; Start 09/28/19 at 11:00 Sodium Monofluorophosphate (Fleet Adult) 133 ml PRN DAILY PRN [place] CONSTIPATION; Start 09/28/19 at 11:00 Docusate Sodium (Colace) 100 mg PRN BID PRN PO HARD STOOLS; Start 09/28/19 at 11:00 Albuterol Sulfate (Ventolin Neb Soln) 2.5 mg PRN Q4HRS PRN NEB SHORTNESS OF BREATH; Start 09/28/19 at 11:00 Guaifenesin (Robitussin) 200 mg PRN Q4HRS PRN PO COUGH; Start 09/28/19 at 11:00 Lorazepam (Ativan) 0.5 mg PRN Q4HRS PRN PO ANXIETY / AGITATION; Start 09/28/19 at 11:00 Hydromorphone HCl (Dilaudid) 0.5 mg PRN Q2HRS PRN IV SEVERE PAIN 7-10; Start 09/28/19 at 11:00 Enoxaparin Sodium (Lovenox 40mg Syringe) 40 mg Q24H SQ ; Start 09/28/19 at 12:00 Sodium Chloride 500 ml @ 500 mls/hr 1X ONCE IV Last administered on 09/28/19at 13:11; Start 09/28/19 at 12:45; Stop 09/28/19 at 13:44; Status DC Hydralazine HCl (Apresoline Inj) 10 mg 1X ONCE IVP Last administered on 09/28/19at 14:17; Start 09/28/19 at 14:15; Stop 09/28/19 at 14:16; Status DC Hydralazine HCl (Apresoline Inj) 10 mg PRN Q4HRS PRN IVP HYPERTENSION, 2nd choice Last administered on 09/29/19at 11:05; Start 09/28/19 at 16:15 Metoprolol Tartrate (Lopressor Vial) 5 mg PRN Q6HRS PRN IVP HYPERTENSION, 1st choice Last administered on 09/28/19at 23:11; Start 09/28/19 at 16:15 Lactobacillus Rhamnosus (Culturelle) 1 cap BID PO ; Start 09/29/19 at 21:00 Atorvastatin Calcium (Lipitor) 40 mg QHS PO ; Start 09/29/19 at 21:00 Active Scripts Active Reported Zyvox (Linezolid) 600 Mg Tablet 600 Mg PO BID 7 Days Cefdinir 300 Mg Capsule 1 Cap PO BID 7 Days Lisinopril 40 Mg Tablet 40 Mg PO DAILY Relion Novolin 70-30 Vial (Hum Insulin Nph/Reg Insulin Hm) 100 Unit/1 Ml Vial 4 Unit SQ DAILYWSUP Relion Novolin 70-30 Vial (Hum Insulin Nph/Reg Insulin Hm) 100 Unit/1 Ml Vial 8 Unit SUBCUT DAILYWBKFT Vitals/I & O Vital Sign - Last 24 Hours 09/28/19 09/28/19 09/28/19 09/28/19 16:36 19:25 19:40 23:05 Temp 98.5 98.3 98.5 98.3 Pulse 111 103 87 Resp 18 18 B/P (MAP) 187/95 154/87 (109) 163/77 (105) Pulse Ox 97 97 O2 Delivery Room Air Room Air Room Air 09/28/19 09/29/19 09/29/19 09/29/19 23:11 03:35 07:00 07:50 Temp 98.4 97.9 98.4 97.9 Pulse 85 74 80 Resp 18 18 B/P (MAP) 163/77 163/79 (107) 177/83 (114) Pulse Ox 98 99 O2 Delivery Room Air Room Air Room Air 09/29/19 09/29/19 09/29/19 09/29/19 08:38 10:44 11:05 14:58 Temp 98.3 98.3 98.3 98.3 Pulse 80 80 85 88 Resp 18 18 B/P (MAP) 177/83 200/89 (126) 192/87 199/92 (127) Pulse Ox 98 97 O2 Delivery Room Air Room Air Intake and Output 09/28/19 09/28/19 09/29/19 15:00 23:00 07:00 Intake Total 170 ml 1610 ml Output Total 0 ml 300 ml Balance 170 ml 1310 ml Justicifation of Admission Dx: Justifications for Admission: Justification of Admission Dx: Yes Sepsis: Failure of Out Pt Tx Cellulitis: Cellulitis ETHAN LAZAR APRN Sep 29, 2019 15:29
[2019-09-29] MEDS: LACTOBACILLUS RHAMNOSUS GG 1 CAPSULE. PO SCH (21:26)
[2019-09-29] MEDS: ATORVASTATIN CALCIUM 40 MG TABLET. PO SCH (21:26)
[2019-09-30] VITALS (11 sets, daily range): BP systolic 139–202; BP diastolic 71–102
[2019-09-30] MEDS: IV NORMAL SALINE 1000ML BAG 1,000 ML IV SCH ×2 (02:49→18:05)
[2019-09-30 04:42] LABS: CALCIUM 8.2 mg/dL (8.5-10.1); CREATININE 1.2 mg/dL (0.6-1.0); GFR 56.6; POTASSIUM 3.3 mmol/L (3.5-5.1)
[2019-09-30] MEDS: MEROPENEM 500 MG in IV NORMAL SALINE 50ML 50 ML IV SCH ×3 (05:51→21:52)
--- NOTE | 2019-09-30 07:52 | PDOC ---
Infectious Disease Note Subjective Subjective Patient is feeling good denies any complaints ROS ROS No nausea vomiting diarrhea or fever Vital Sign Vital Signs Vital Signs Date Time Temp Pulse Resp B/P (MAP) Pulse Ox O2 Delivery O2 Flow Rate FiO2 09/30/19 07:00 99.1 93 18 173/96 (121) 96 Room Air 99.1 Physical Exam PHYSICAL EXAM GENERAL: Alert and oriented female, not in any distress. VITAL SIGNS: Stable. She did have 101.5 T-max. HEENT: Both pupils are round and reacting. No conjunctival lesion. No lesion in the mouth. NECK: Supple, no JVP, no lymphadenopathy. LUNGS: Clear. HEART: S1, S2 regular. ABDOMEN: Benign. EXTREMITIES: Right lower extremity is unremarkable. Left lower extremity has gangrene of the left fourth toe and so there is maceration and drainage from the web between the 3rd and the 4th and 4th and the 5th toes. There is also redness and induration of the proximal dorsal foot and the plantar area has an infection. NEUROLOGIC: The patient is alert, oriented. No focal neurologic deficit. Because of the swelling dorsalis pedis in that foot is not able to palpate Labs Lab Laboratory Tests Test 09/29/19 07:53 09/29/19 11:09 09/29/19 16:35 09/29/19 20:21 Glucose (Fingerstick) 108 mg/dL (70-99) 101 mg/dL (70-99) 73 mg/dL (70-99) 158 mg/dL (70-99) Test 09/30/19 03:45 09/30/19 07:26 Sodium Level 141 mmol/L (136-145) Potassium Level 3.3 mmol/L (3.5-5.1) Chloride Level 106 mmol/L (98-107) Carbon Dioxide Level 25 mmol/L (21-32) Anion Gap 10 (6-14) Blood Urea Nitrogen 15 mg/dL (7-20) Creatinine 1.2 mg/dL (0.6-1.0) Estimated GFR (Cockcroft-Gault) 56.6 Glucose Level 122 mg/dL (70-99) Calcium Level 8.2 mg/dL (8.5-10.1) Glucose (Fingerstick) 112 mg/dL (70-99) Micro Microbiology 09/27/19 Gram Stain - Final, Resulted 09/27/19 Aerobic and Anaerobic Culture, Resulted Pending Objective Assessment IMPRESSION: 1. Left fourth toe gangrene. 2. Left fourth toe and diabetic foot infection. 3. Fever. 4. Leukocytosis. 5. History of cerebrovascular accident. 6. Hypertension. Plan Plan of Care Continue antibiotics. Angiogram is planned for today STEFF ROJAS MD Sep 30, 2019 07:52
[2019-09-30] MEDS: INSULIN NPH/REG INSULIN 70/30 300 UNITS/3 ML INSULN.PEN. SQ SCH ×2 (08:00→17:00)
[2019-09-30] MEDS: LACTOBACILLUS RHAMNOSUS GG 1 CAPSULE. PO SCH ×2 (08:26→21:51)
[2019-09-30] MEDS: LISINOPRIL 20 MG TABLET PO SCH (08:26)
[2019-09-30] MEDS: DAPTOmycin (GENERIC) IVPB 490 MG in IV NORMAL SALINE 50ML 50 ML IV SCH (09:58)
--- NOTE | 2019-09-30 10:20 | PDOC ---
SUBJECTIVE ROS No complaints this am OBJECTIVE Vital Signs Vital Signs Date Time Temp Pulse Resp B/P (MAP) Pulse Ox O2 Delivery O2 Flow Rate FiO2 09/30/19 08:26 91 09/30/19 07:00 99.1 18 173/96 (121) 96 Room Air 99.1 I & 0 Intake and Output 09/30/19 07:00 Intake Total 290 ml Output Total 750 ml Balance -460 ml Intake Oral 290 ml Output Urine Total 750 ml # Voids 1 PHYSICAL EXAM Physical Exam GENERAL: NAD HEENT: OM moist NECK: Supple LUNGS: Clear.Non labored HEART: S1, S2 regular. ABDOMEN: soft, NT EXTREMITIES: No LE edema , gangrene left fourth toe NEURO: Grossly normal DERM No rash, gangrene as above No Broussard, No CVA or SP tenderness DIAGNOSIS/ASSESSMENT Assessment & Plan ZURDO on CKD - ATN 2/2 /Infection / UTI /Vomiting Currently on Lisinopril , renal function improving , Renal US unremarkable Recommendations for LIAM prophylaxis noted in Initial Renal consult Supportive care , Strict I/O, avoid nephrotoxins , Daily BMP UTI - UA cw UTI per primary/ID CKD stage 2 - baseline Cr 1.1 per [facility] records Suspect sec to HTNsive and Diabetic Nephrosclerosis Left fourth toe gangrene/ diabetic foot infection/ Fever/Leukocytosis. Per Vascular patient would benefit from left 4th toe amputation and recommend angiogram - pending History of cerebrovascular accident. Hypertension - BP very high at presentation, have not been takin meds at home for monnths or > 1 year Doesnt have PCP, last seen at long time back , reports BP always in 200's Renal Doppler reviewed, No indication of intervention, tolerating PURVI-I , antihypertensives for BP management Hx Of nephrolithisis x1 - approx 8 yrs back , required Intervention with Stents Anemia- w/u per primary COMMENT/RELEVANT DATA Meds Current Medications Medications (Trade) Dose Ordered Sig/Leanne Start Time Stop Time Status Last Admin Dose Admin Acetaminophen (Tylenol) 650 mg PRN Q4HRS PRN 09/28/19 11:00 Al Hydroxide/Mg Hydroxide (Mylanta Plus Xs) 30 ml PRN DAILY PRN 09/28/19 11:00 Albuterol Sulfate (Ventolin Neb Soln) 2.5 mg PRN Q4HRS PRN 09/28/19 11:00 Atorvastatin Calcium (Lipitor) 40 mg QHS 6/3/20 21:00 09/29/19 21:26 40 MG Clonidine HCl (Catapres) 0.1 mg PRN Q6HRS PRN 09/28/19 11:00 Daptomycin 490 mg/ Sodium Chloride 50 ml @ 100 mls/hr Q24H 09/28/19 11:00 09/30/19 09:58 100 MLS/HR Docusate Sodium (Colace) 100 mg PRN BID PRN 09/28/19 11:00 Enoxaparin Sodium (Lovenox 40mg Syringe) 40 mg Q24H 09/28/19 12:00 Fentanyl Citrate (Fentanyl 2ml Vial) 50 mcg PRN Q1HR PRN 09/27/19 20:45 09/28/19 20:44 DC Guaifenesin (Robitussin) 200 mg PRN Q4HRS PRN 09/28/19 11:00 Hydralazine HCl (Apresoline Inj) 10 mg PRN Q4HRS PRN 09/28/19 16:15 09/29/19 11:05 10 MG Hydromorphone HCl (Dilaudid) 0.5 mg PRN Q2HRS PRN 09/28/19 11:00 Insulin Human Isoph/Insulin Regular (HumuLIN 70/30) 8 units DAILYWBKFT 09/28/19 08:00 Lactobacillus Rhamnosus (Culturelle) 1 cap BID 09/29/19 21:00 09/30/19 08:26 1 CAP Lisinopril (Prinivil) 40 mg DAILY 09/28/19 00:30 09/30/19 08:26 40 MG Lorazepam (Ativan) 0.5 mg PRN Q4HRS PRN 09/28/19 11:00 Meropenem 500 mg/ Sodium Chloride 50 ml @ 100 mls/hr Q8HRS 09/28/19 11:00 09/30/19 05:51 100 MLS/HR Metoprolol Tartrate (Lopressor Vial) 5 mg PRN Q6HRS PRN 09/28/19 16:15 09/28/19 23:11 5 MG Ondansetron HCl (Zofran) 4 mg PRN Q4HRS PRN 09/28/19 11:00 Sodium Monofluorophosphate (Fleet Adult) 133 ml PRN DAILY PRN 09/28/19 11:00 Sodium Chloride 500 ml @ 500 mls/hr 1X ONCE 09/28/19 12:45 09/28/19 13:44 DC 09/28/19 13:11 500 MLS/HR Sodium Chloride (Normal Saline Flush) 3 ml QSHIFT PRN 09/28/19 11:00 Vancomycin HCl 250 ml @ 250 mls/hr 1X ONCE 09/27/19 20:30 09/27/19 21:29 DC 09/27/19 20:56 250 MLS/HR Lab Laboratory Tests Test 09/29/19 11:09 09/29/19 16:35 09/29/19 20:21 09/30/19 03:45 Glucose (Fingerstick) 101 mg/dL (70-99) 73 mg/dL (70-99) 158 mg/dL (70-99) Sodium Level 141 mmol/L (136-145) Potassium Level 3.3 mmol/L (3.5-5.1) Chloride Level 106 mmol/L (98-107) Carbon Dioxide Level 25 mmol/L (21-32) Anion Gap 10 (6-14) Blood Urea Nitrogen 15 mg/dL (7-20) Creatinine 1.2 mg/dL (0.6-1.0) Estimated GFR (Cockcroft-Gault) 56.6 Glucose Level 122 mg/dL (70-99) Calcium Level 8.2 mg/dL (8.5-10.1) Test 09/30/19 07:26 Glucose (Fingerstick) 112 mg/dL (70-99) Results All relevant outside records, renal labs, imaging studies, telemetry/EKG's were reviewed. Justicifation of Admission Dx: Justifications for Admission: Justification of Admission Dx: Yes Sepsis: Failure of Out Pt Tx Cellulitis: Cellulitis MADHURI FERNANDEZ MD Sep 30, 2019 10:20
--- NOTE | 2019-09-30 10:25 | PDOC ---
[employer] PROGRESS NOTE Chief Complaint Chief Complaint Diabetic toe with gangrene (is going to need an amputation) Diabetes Hypertension Anxiety Depression Soft tissue swelling overlying the dorsum of the midfoot without underlying osseous abnormality or radiopaque foreign body identified.ON PLAIN X-RAY hypertension, HX stroke, diabetes, hyperlipidemia, history of diabetic ketoacidosis. ZURDO fever Normocytic anemia sepsis glucose control needed PVD Occlusion of the left superficial femoral artery with reconstitution at the level of the left popliteal artery, where there appears to be hemodynamically significant stenosis. Monophasic flow in the left subclavian artery suggests greater than 50 percent proximal left subclavian artery stenosis. No evidence of subclavian steal. History of Present Illness History of Present Illness 09/30/2019 Patient seen and examined Chart reviewed Discussed with RN Vitals/I&O Vitals/I&O: Vital Signs Date Time Temp Pulse Resp B/P (MAP) Pulse Ox O2 Delivery O2 Flow Rate FiO2 09/30/19 08:26 91 09/30/19 07:00 99.1 18 173/96 (121) 96 Room Air 99.1 I & O 09/29/19 09/29/19 09/30/19 15:00 23:00 07:00 Intake Total 290 ml 0 ml Output Total 750 ml Balance 290 ml -750 ml Physical Exam Physical Exam: GENERAL: Alert and oriented female, not in any distress. VITAL SIGNS: Stable. She did have 101.5 T-max. HEENT: Both pupils are round and reacting. No conjunctival lesion. No lesion in the mouth. NECK: Supple, no JVP, no lymphadenopathy. LUNGS: Clear. HEART: S1, S2 regular. ABDOMEN: Benign. EXTREMITIES: Right lower extremity is unremarkable. Left lower extremity has gangrene of the left fourth toe and so there is maceration and drainage from the web between the 3rd and the 4th and 4th and the 5th toes. There is also redness and induration of the proximal dorsal foot and the plantar area has an infection. NEUROLOGIC: The patient is alert, oriented. No focal neurologic deficit. Because of the swelling dorsalis pedis in that foot is not able to palpate General: Alert, Oriented X3, Cooperative, No acute distress Lungs: Clear Abdomen: Normal bowel sounds, Soft, No tenderness Labs Labs: Laboratory Tests Test 09/29/19 11:09 09/29/19 16:35 09/29/19 20:21 09/30/19 03:45 Glucose (Fingerstick) 101 mg/dL (70-99) 73 mg/dL (70-99) 158 mg/dL (70-99) Sodium Level 141 mmol/L (136-145) Potassium Level 3.3 mmol/L (3.5-5.1) Chloride Level 106 mmol/L (98-107) Carbon Dioxide Level 25 mmol/L (21-32) Anion Gap 10 (6-14) Blood Urea Nitrogen 15 mg/dL (7-20) Creatinine 1.2 mg/dL (0.6-1.0) Estimated GFR (Cockcroft-Gault) 56.6 Glucose Level 122 mg/dL (70-99) Calcium Level 8.2 mg/dL (8.5-10.1) Test 09/30/19 07:26 Glucose (Fingerstick) 112 mg/dL (70-99) Assessment and Plan Assessmemt and Plan Problems Medical Problems: (1) Diabetic foot infection Status: Acute Diabetic toe with gangrene (is going to need an amputation) Diabetes Hypertension Anxiety Depression Soft tissue swelling overlying the dorsum of the midfoot without underlying osseous abnormality or radiopaque foreign body identified.ON PLAIN X-RAY hypertension, HX stroke, diabetes, hyperlipidemia, history of diabetic ketoacidosis. ZURDO fever Normocytic anemia sepsis glucose control needed PVD Occlusion of the left superficial femoral artery with reconstitution at the level of the left popliteal artery, where there appears to be hemodynamically significant stenosis. Monophasic flow in the left subclavian artery suggests greater than 50 percent proximal left subclavian artery stenosis. No evidence of subclavian steal. Plan Going for angiography with possible intervention today Then the plan is to go for toe amputation For now IV antibiotics and wound long term meds DVT prophylaxis Full code Appreciate subspecialist input Comment Review of Relevant I have reviewed the following items hortencia (where applicable) has been applied. Medications: Current Medications Medications (Trade) Dose Ordered Sig/Leanne Route PRN Reason Start Time Stop Time Status Last Admin Dose Admin Lactobacillus Rhamnosus (Culturelle) 1 cap BID PO 09/29/19 21:00 09/30/19 08:26 Atorvastatin Calcium (Lipitor) 40 mg QHS PO 09/29/19 21:00 09/29/19 21:26 Justicifation of Admission Dx: Justifications for Admission: Justification of Admission Dx: Yes Sepsis: Failure of Out Pt Tx Cellulitis: Cellulitis JARRETT CARRION III DO Sep 30, 2019 10:25
[2019-09-30] MEDS: METOPROLOL TARTRATE 5 MG/5 ML VIAL. IVP PRN (11:28)
[2019-09-30] MEDS: ONDANSETRON PF 4 MG/2 ML VIAL. IV PRN (11:38)
[2019-09-30] MEDS: ENOXAPARIN 40 MG/0.4 ML SYRINGE. SQ SCH (12:00)
[2019-09-30] MEDS ORDERED: POTASSIUM CHLORIDE 20 MEQ TABLET.ER. PO ONE ×2 (12:30→22:00)
--- NOTE | 2019-09-30 12:30 | NUR ---
SS following up with discharge planning. SS reviewed pt chart and discussed with pt RN. Pt is currently on room air. Pt having run off today and tentative toe amputation on 10/01/2019. Pt is on IV Daptomycin and Meropenem. SS will continue to follow for discharge planning.
--- NOTE | 2019-09-30 13:12 | PDOC ---
PROGRESS NOTES Subjective Subjective Patient seen in room with Dr. Riddle. Awaiting Angio, no complaints. Objective Objective Vital Signs Date Time Temp Pulse Resp B/P (MAP) Pulse Ox O2 Delivery O2 Flow Rate FiO2 09/30/19 12:13 105 168/102 (124) 09/30/19 10:42 98.9 18 97 Room Air 98.9 Intake and Output 09/30/19 07:00 Intake Total 290 ml Output Total 750 ml Balance -460 ml Intake Oral 290 ml Output Urine Total 750 ml # Voids 1 Physical Exam Physical Exam Awake and alert HRR Non-labored respirations Right foot warm, pink. Left foot warm, mild erythema, gangrene 4th toe, moisture with maceration/ulceration webspace 5th toe, moisture with skin maceration 3rd toe. Assessment Assessment Problems Medical Problems: (1) Diabetic foot infection Status: Acute Plan Plan of Care Diabetic foot ulcer, left 4th toe gangrene with 5th toe ulceration. Leukocytosis Renal Insufficiency-management per Nephrology Recommend AARO, due to scheduling this will be done in IR, discussed with Nurse. Will make additional recommendations pending angiogram results. Will plan for left 4 and 5th toe amputation, possible 3rd toe amputation tentatively tomorrow. Discussed plan of care with the patient. Abx per ID Continue statin therapy Comment Review of Relevant I have reviewed the following items hortencia (where applicable) has been applied. Labs Laboratory Tests Test 09/28/19 15:40 09/28/19 16:58 09/28/19 20:21 09/29/19 03:15 Lactic Acid Level 1.6 mmol/L (0.4-2.0) Glucose (Fingerstick) 161 mg/dL (70-99) 190 mg/dL (70-99) White Blood Count 18.8 x10^3/uL (4.0-11.0) Red Blood Count 3.19 x10^6/uL (3.50-5.40) Hemoglobin 8.6 g/dL (12.0-15.5) Hematocrit 26.1 % (36.0-47.0) Mean Corpuscular Volume 82 fL (79-100) Mean Corpuscular Hemoglobin 27 pg (25-35) Mean Corpuscular Hemoglobin Concent 33 g/dL (31-37) Red Cell Distribution Width 14.3 % (11.5-14.5) Platelet Count 418 x10^3/uL (140-400) Neutrophils (%) (Auto) 88 % (31-73) Lymphocytes (%) (Auto) 8 % (24-48) Monocytes (%) (Auto) 4 % (0-9) Eosinophils (%) (Auto) 0 % (0-3) Basophils (%) (Auto) 0 % (0-3) Neutrophils # (Auto) 16.5 x10^3/uL (1.8-7.7) Lymphocytes # (Auto) 1.5 x10^3/uL (1.0-4.8) Monocytes # (Auto) 0.8 x10^3/uL (0.0-1.1) Eosinophils # (Auto) 0.0 x10^3/uL (0.0-0.7) Basophils # (Auto) 0.0 x10^3/uL (0.0-0.2) Segmented Neutrophils % 88 % (35-66) Band Neutrophils % 1 % (0-9) Lymphocytes % 10 % (24-48) Monocytes % 1 % (0-10) Platelet Estimate Adequate (ADEQUATE) Sodium Level 141 mmol/L (136-145) Potassium Level 3.7 mmol/L (3.5-5.1) Chloride Level 104 mmol/L (98-107) Carbon Dioxide Level 21 mmol/L (21-32) Anion Gap 16 (6-14) Blood Urea Nitrogen 16 mg/dL (7-20) Creatinine 1.5 mg/dL (0.6-1.0) Estimated GFR (Cockcroft-Gault) 43.8 BUN/Creatinine Ratio 11 (6-20) Glucose Level 151 mg/dL (70-99) Calcium Level 8.2 mg/dL (8.5-10.1) Phosphorus Level 4.9 mg/dL (2.6-4.7) Total Bilirubin 0.5 mg/dL (0.2-1.0) Aspartate Amino Transf (AST/SGOT) 20 U/L (15-37) Alanine Aminotransferase (ALT/SGPT) 11 U/L (14-59) Alkaline Phosphatase 96 U/L (46-116) Total Protein 6.2 g/dL (6.4-8.2) Albumin 2.0 g/dL (3.4-5.0) Albumin/Globulin Ratio 0.5 (1.0-1.7) Test 09/29/19 07:53 09/29/19 11:09 09/29/19 16:35 09/29/19 20:21 Glucose (Fingerstick) 108 mg/dL (70-99) 101 mg/dL (70-99) 73 mg/dL (70-99) 158 mg/dL (70-99) Test 09/30/19 03:45 09/30/19 07:26 09/30/19 11:10 Sodium Level 141 mmol/L (136-145) Potassium Level 3.3 mmol/L (3.5-5.1) Chloride Level 106 mmol/L (98-107) Carbon Dioxide Level 25 mmol/L (21-32) Anion Gap 10 (6-14) Blood Urea Nitrogen 15 mg/dL (7-20) Creatinine 1.2 mg/dL (0.6-1.0) Estimated GFR (Cockcroft-Gault) 56.6 Glucose Level 122 mg/dL (70-99) Calcium Level 8.2 mg/dL (8.5-10.1) Glucose (Fingerstick) 112 mg/dL (70-99) 114 mg/dL (70-99) Laboratory Tests Test 09/29/19 16:35 09/29/19 20:21 09/30/19 03:45 09/30/19 07:26 Glucose (Fingerstick) 73 mg/dL (70-99) 158 mg/dL (70-99) 112 mg/dL (70-99) Sodium Level 141 mmol/L (136-145) Potassium Level 3.3 mmol/L (3.5-5.1) Chloride Level 106 mmol/L (98-107) Carbon Dioxide Level 25 mmol/L (21-32) Anion Gap 10 (6-14) Blood Urea Nitrogen 15 mg/dL (7-20) Creatinine 1.2 mg/dL (0.6-1.0) Estimated GFR (Cockcroft-Gault) 56.6 Glucose Level 122 mg/dL (70-99) Calcium Level 8.2 mg/dL (8.5-10.1) Test 09/30/19 11:10 Glucose (Fingerstick) 114 mg/dL (70-99) Microbiology 09/27/19 Urine Culture - Final, Complete 09/27/19 Gram Stain - Final, Resulted 09/27/19 Aerobic and Anaerobic Culture - Preliminary, Resulted Medications Current Medications Sodium Chloride 1,000 ml @ 1,000 mls/hr 1X ONCE IV Last administered on 09/27/19at 19:25; Start 09/27/19 at 18:30; Stop 09/27/19 at 19:29; Status DC Acetaminophen (Tylenol) 1,000 mg 1X ONCE PO Last administered on 09/27/19at 19:25; Start 09/27/19 at 18:30; Stop 09/27/19 at 18:37; Status DC Clonidine HCl (Catapres) 0.1 mg 1X ONCE PO Last administered on 09/27/19at 19:26; Start 09/27/19 at 18:45; Stop 09/27/19 at 18:46; Status DC Vancomycin HCl 250 ml @ 250 mls/hr 1X ONCE IV Last administered on 09/27/19at 20:56; Start 09/27/19 at 20:30; Stop 09/27/19 at 21:29; Status DC Ondansetron HCl (Zofran) 4 mg PRN Q8HRS PRN IV NAUSEA/VOMITING; Start 09/27/19 at 20:45; Stop 09/28/19 at 13:59; Status DC Fentanyl Citrate (Fentanyl 2ml Vial) 50 mcg PRN Q1HR PRN IV PAIN; Start 09/27/19 at 20:45; Stop 09/28/19 at 20:44; Status DC Acetaminophen (Tylenol) 650 mg PRN Q4HRS PRN PO FEVER > 100.3'F; Start 09/27/19 at 20:45; Stop 09/28/19 at 13:58; Status DC Lisinopril (Prinivil) 40 mg DAILY PO Last administered on 09/30/19at 08:26; Start 09/28/19 at 00:30 Insulin Human Isoph/Insulin Regular (HumuLIN 70/30) 4 units DAILYWSUP SQ ; Start 09/28/19 at 17:00 Insulin Human Isoph/Insulin Regular (HumuLIN 70/30) 8 units DAILYWBKFT SQ ; Start 09/28/19 at 08:00 Daptomycin 490 mg/ Sodium Chloride 50 ml @ 100 mls/hr Q24H IV Last administered on 09/30/19at 09:58; Start 09/28/19 at 11:00 Meropenem 500 mg/ Sodium Chloride 50 ml @ 100 mls/hr Q8HRS IV Last administered on 09/30/19at 05:51; Start 09/28/19 at 11:00 Sodium Chloride (Normal Saline Flush) 3 ml QSHIFT PRN IV AFTER MEDS AND BLOOD DRAWS; Start 09/28/19 at 11:00 Sodium Chloride 1,000 ml @ 100 mls/hr Q10H IV Last administered on 09/30/19at 02:49; Start 09/28/19 at 10:58 Ondansetron HCl (Zofran) 4 mg PRN Q4HRS PRN IV NAUSEA/VOMITING Last administered on 09/30/19at 11:38; Start 09/28/19 at 11:00 Acetaminophen (Tylenol) 650 mg PRN Q4HRS PRN PO TEMP OVER 100.4F OR MILD PAIN; Start 09/28/19 at 11:00 Al Hydroxide/Mg Hydroxide (Mylanta Plus Xs) 30 ml PRN DAILY PRN PO HEARTBURN / GAS; Start 09/28/19 at 11:00 Clonidine HCl (Catapres) 0.1 mg PRN Q6HRS PRN PO SBP>160 OR DBP>90; Start 09/28/19 at 11:00 Sodium Monofluorophosphate (Fleet Adult) 133 ml PRN DAILY PRN ND CONSTIPATION; Start 09/28/19 at 11:00 Docusate Sodium (Colace) 100 mg PRN BID PRN PO HARD STOOLS; Start 09/28/19 at 11:00 Albuterol Sulfate (Ventolin Neb Soln) 2.5 mg PRN Q4HRS PRN NEB SHORTNESS OF BREATH; Start 09/28/19 at 11:00 Guaifenesin (Robitussin) 200 mg PRN Q4HRS PRN PO COUGH; Start 09/28/19 at 11:00 Lorazepam (Ativan) 0.5 mg PRN Q4HRS PRN PO ANXIETY / AGITATION; Start 09/28/19 at 11:00 Hydromorphone HCl (Dilaudid) 0.5 mg PRN Q2HRS PRN IV SEVERE PAIN 7-10; Start 09/28/19 at 11:00 Enoxaparin Sodium (Lovenox 40mg Syringe) 40 mg Q24H SQ ; Start 09/28/19 at 12:00 Sodium Chloride 500 ml @ 500 mls/hr 1X ONCE IV Last administered on 09/28/19at 13:11; Start 09/28/19 at 12:45; Stop 09/28/19 at 13:44; Status DC Hydralazine HCl (Apresoline Inj) 10 mg 1X ONCE IVP Last administered on 09/28/19at 14:17; Start 09/28/19 at 14:15; Stop 09/28/19 at 14:16; Status DC Hydralazine HCl (Apresoline Inj) 10 mg PRN Q4HRS PRN IVP HYPERTENSION, 2nd choice Last administered on 09/29/19at 11:05; Start 09/28/19 at 16:15 Metoprolol Tartrate (Lopressor Vial) 5 mg PRN Q6HRS PRN IVP HYPERTENSION, 1st choice Last administered on 09/30/19at 11:28; Start 09/28/19 at 16:15 Lactobacillus Rhamnosus (Culturelle) 1 cap BID PO Last administered on 09/30/19at 08:26; Start 09/29/19 at 21:00 Atorvastatin Calcium (Lipitor) 40 mg QHS PO Last administered on 09/29/19at 21:26; Start 09/29/19 at 21:00 Potassium Chloride (Klor-Con) 40 meq 1X ONCE PO ; Start 09/30/19 at 12:30; Stop 09/30/19 at 12:31; Status DC Active Scripts Active Reported Zyvox (Linezolid) 600 Mg Tablet 600 Mg PO BID 7 Days Cefdinir 300 Mg Capsule 1 Cap PO BID 7 Days Lisinopril 40 Mg Tablet 40 Mg PO DAILY Relion Novolin 70-30 Vial (Hum Insulin Nph/Reg Insulin Hm) 100 Unit/1 Ml Vial 4 Unit SQ DAILYWSUP Relion Novolin 70-30 Vial (Hum Insulin Nph/Reg Insulin Hm) 100 Unit/1 Ml Vial 8 Unit SUBCUT DAILYWBKFT Vitals/I & O Vital Sign - Last 24 Hours 09/29/19 09/29/19 09/29/19 09/29/19 14:58 18:30 19:10 20:17 Temp 98.3 98.1 98.3 98.1 Pulse 88 84 88 Resp 18 18 B/P (MAP) 199/92 (127) 153/84 (107) 153/84 (107) Pulse Ox 97 97 O2 Delivery Room Air Room Air Room Air 09/29/19 09/30/19 09/30/19 09/30/19 23:00 03:07 07:00 08:05 Temp 99.1 99.1 99.1 99.1 99.1 99.1 Pulse 85 85 93 Resp 16 16 18 B/P (MAP) 156/83 (107) 189/90 (123) 173/96 (121) Pulse Ox 97 97 96 O2 Delivery Room Air Room Air Room Air Room Air 09/30/19 09/30/19 09/30/19 09/30/19 08:26 10:42 11:28 12:13 Temp 98.9 98.9 Pulse 91 92 135 105 Resp 18 B/P (MAP) 202/94 (130) 168/102 (124) Pulse Ox 97 O2 Delivery Room Air Intake and Output 09/29/19 09/29/19 09/30/19 15:00 23:00 07:00 Intake Total 290 ml 0 ml Output Total 750 ml Balance 290 ml -750 ml Justicifation of Admission Dx: Justifications for Admission: Justification of Admission Dx: Yes Sepsis: Failure of Out Pt Tx Cellulitis: Cellulitis 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
[2019-09-30] MEDS ORDERED: IODIXANOL 320 MG/ML 100 ML VIAL. ONE (13:49)
[2019-09-30] MEDS ORDERED: LIDOCAINE WITH 8.4% SOD BICARB 3 ML DISP.SYRIN. ONE (13:49)
[2019-09-30] MEDS ORDERED: MIDAZOLAM HCL/PF 5 MG/5 ML VIAL. ONE (14:10)
[2019-09-30] MEDS ORDERED: fentaNYL PF VIAL 100 MCG/2 ML VIAL ONE (14:10)
[2019-09-30] MEDS ORDERED: HEPARIN for IV BOLUS 10,000 UNIT/10 ML VIAL. ONE (14:31)
[2019-09-30] MEDS ORDERED: HEPARIN for IV BOLUS 10,000 UNIT/10 ML VIAL. IV ONE (14:45)
[2019-09-30] MEDS ORDERED: fentaNYL PF VIAL 100 MCG/2 ML VIAL IV ONE (14:45)
[2019-09-30] MEDS ORDERED: IODIXANOL 320 MG/ML 100 ML VIAL. IART ONE (14:45)
[2019-09-30] MEDS ORDERED: LIDOCAINE WITH 8.4% SOD BICARB 3 ML DISP.SYRIN. IJ ONE (14:45)
[2019-09-30] MEDS ORDERED: MIDAZOLAM HCL/PF 5 MG/5 ML VIAL. IV ONE (14:45)
[2019-09-30] MEDS: ATORVASTATIN CALCIUM 40 MG TABLET. PO SCH (21:51)
[2019-10-01 03:00] VITALS: BP 149/65
[2019-10-01 04:48] LABS: CALCIUM 7.7 mg/dL (8.5-10.1); CREATININE 1.2 mg/dL (0.6-1.0); GFR 56.6
[2019-10-01] MEDS: IV NORMAL SALINE 1000ML BAG 1,000 ML IV SCH ×3 (05:58→18:05)
[2019-10-01] MEDS: MEROPENEM 500 MG in IV NORMAL SALINE 50ML 50 ML IV SCH ×3 (05:59→21:57)
[2019-10-01 07:00] VITALS: BP 177/93
[2019-10-01] MEDS ORDERED: ONDANSETRON PF 4 MG/2 ML VIAL. IV PRN (07:00)
[2019-10-01] MEDS ORDERED: PROCHLORPERAZINE 10 MG/2 ML VIAL. IV PRN (07:00)
[2019-10-01] MEDS ORDERED: HYDROmorphone 2 MG/ML VIAL IV PRN (07:00)
[2019-10-01] MEDS ORDERED: LIDOCAINE 1% PF 2 ML VIAL. ID PRN (07:00)
[2019-10-01] MEDS ORDERED: MORPHINE SULFATE 2 MG/ML VIAL. IV PRN (07:00)
[2019-10-01] MEDS ORDERED: IV RINGERS,LACTATED 1000ML 1,000 ML IV SCH (07:00)
[2019-10-01] MEDS: INSULIN NPH/REG INSULIN 70/30 300 UNITS/3 ML INSULN.PEN. SQ SCH ×2 (08:00→17:00)
--- NOTE | 2019-10-01 08:20 | RAD ---
10/01/2019 6:09 AM Procedure: 1. Pelvic angiography 2. Left lower extremity angiography 3. 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 Discussion of the risks included, but was not limited to, those that are most frequent and those that are rare but possibly severe or life-threatening, as well as the possibility of unforeseen complications. All elements of maximal sterile barrier technique including the use of a cap, mask, sterile gown, sterile gloves, large sterile sheet, appropriate hand hygiene, and 2% chlorhexidine for cutaneous antisepsis (or acceptable alternative antiseptic per current guidelines) were followed for this procedure. Ultrasound evaluation demonstrates the right common femoral artery be patent. Somewhat high bifurcation of the SFA and profunda artery noted. Common femoral artery was accessed under direct ultrasound guidance using micropuncture technique. Reference ultrasound imaging was saved the medical record. Puncture site was confirmed by angiography. Pelvic angiography demonstrates patent external iliac arteries, and common iliac arteries. Stenoses of distal areas within the bilateral internal iliac arteries noted. The left common femoral artery is patent. There is chronic total occlusion of the mid left superficial femoral artery with reconstitution approximately the level of the adductor canal. The [id number] popliteal artery is mildly irregular but patent. Below the knee popliteal artery is mildly irregular but patent. There is single vessel runoff via the patent anterior tibial artery extending into the dorsalis pedis artery. Peroneal arteries and posterior tibial artery is chronically occluded without significant distal reconstitution. Attempts were made to traverse the chronic superficial femoral artery occlusion. Unfortunately, reentry from the subintimal plane to the intraluminal was not possible, and the dissection plane began to propagate distally with minimal manipulation. Given single vessel runoff, continuous vascular status, decision to stop a antegrade approach was made.. A closure device was deployed. Manual pressure was held. No immediate complication was identified. Total fluoroscopy time: 26 min Dose area product: 117 Gycm2 The procedures performed under conscious sedation including continuous cardiopulmonary monitoring via dedicated sedation nurse. [id number] sedation time: 90 minutes Impression: 1.Chronic total occlusion, left superficial femoral artery. Failed endovascular recanalization. Options include observation, bypass, or attempted retrograde endovascular approach. Options may be limited based on patient comorbidities, and tenuous vascular status. 2. Single vessel runoff via the anterior tibial artery and dorsalis pedis artery. 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
--- NOTE | 2019-10-01 08:22 | PDOC ---
Infectious Disease Note Subjective Subjective Patient is feeling good denies any complaints ROS ROS No nausea vomiting diarrhea Vital Sign Vital Signs Vital Signs Date Time Temp Pulse Resp B/P (MAP) Pulse Ox O2 Delivery O2 Flow Rate FiO2 10/01/19 03:00 97.8 66 18 149/65 (93) 97 97.8 09/30/19 20:13 Room Air 09/30/19 15:43 2.0 Physical Exam PHYSICAL EXAM GENERAL: Alert and oriented female, not in any distress. VITAL SIGNS: Stable. She did have 101.5 T-max. HEENT: Both pupils are round and reacting. No conjunctival lesion. No lesion in the mouth. NECK: Supple, no JVP, no lymphadenopathy. LUNGS: Clear. HEART: S1, S2 regular. ABDOMEN: Benign. EXTREMITIES: Right lower extremity is unremarkable. Left lower extremity has gangrene of the left fourth toe and so there is maceration and drainage from the web between the 3rd and the 4th and 4th and the 5th toes. There is also redness and induration of the proximal dorsal foot and the plantar area has an infection. NEUROLOGIC: The patient is alert, oriented. No focal neurologic deficit. Because of the swelling dorsalis pedis in that foot is not able to palpate Labs Lab Laboratory Tests Test 09/30/19 11:10 09/30/19 16:07 09/30/19 20:51 10/01/19 03:35 Glucose (Fingerstick) 114 mg/dL (70-99) 138 mg/dL (70-99) 114 mg/dL (70-99) Sodium Level 143 mmol/L (136-145) Potassium Level 4.0 mmol/L (3.5-5.1) Chloride Level 109 mmol/L (98-107) Carbon Dioxide Level 22 mmol/L (21-32) Anion Gap 12 (6-14) Blood Urea Nitrogen 13 mg/dL (7-20) Creatinine 1.2 mg/dL (0.6-1.0) Estimated GFR (Cockcroft-Gault) 56.6 Glucose Level 105 mg/dL (70-99) Calcium Level 7.7 mg/dL (8.5-10.1) Test 10/01/19 07:35 Glucose (Fingerstick) 116 mg/dL (70-99) Micro Microbiology 09/27/19 Gram Stain - Final, Resulted 09/27/19 Aerobic and Anaerobic Culture, Resulted Pending Objective Assessment IMPRESSION: 1. Left fourth toe gangrene. 2. Left fourth toe and diabetic foot infection. 3. Fever. 4. Leukocytosis. 5. History of cerebrovascular accident. 6. Hypertension. Plan Plan of Care Continue antibiotics. Surgery today STEFF ROJAS MD Oct 01, 2019 08:22
[2019-10-01] MEDS: LACTOBACILLUS RHAMNOSUS GG 1 CAPSULE. PO SCH ×2 (09:00→20:46)
[2019-10-01] MEDS: DAPTOmycin (GENERIC) IVPB 490 MG in IV NORMAL SALINE 50ML 50 ML IV SCH (10:21)
--- NOTE | 2019-10-01 10:35 | PDOC ---
SUBJECTIVE ROS No complaints this am , going for surgery OBJECTIVE Vital Signs Vital Signs Date Time Temp Pulse Resp B/P (MAP) Pulse Ox O2 Delivery O2 Flow Rate FiO2 10/01/19 10:26 98.5 85 15 195/103 98 Nasal Cannula 2.0 98.5 I & 0 Intake and Output 10/01/19 06:59 Intake Total 650 ml Balance 650 ml Intake Oral 650 ml # Voids 1 # Bowel Movements 1 PHYSICAL EXAM Physical Exam GENERAL: NAD HEENT: OM moist NECK: Supple LUNGS: Clear.Non labored HEART: S1, S2 regular. ABDOMEN: soft, NT EXTREMITIES: No LE edema , gangrene left fourth toe NEURO: Grossly normal DERM No rash, gangrene as above No Broussard, No CVA or SP tenderness DIAGNOSIS/ASSESSMENT Assessment & Plan ZURDO on CKD - ATN 2/2 /Infection / UTI /Vomiting Currently on Lisinopril , renal function improve d 1.2 , Renal US unremarkable Recommendations for LIAM prophylaxis noted in Initial Renal consult Supportive care , Strict I/O, avoid nephrotoxins , Daily BMP UTI - UA cw UTI per primary/ID CKD stage 2 - baseline Cr 1.1 per [facility] records Suspect sec to HTNsive and Diabetic Nephrosclerosis Left fourth toe gangrene - s/p angio ON 09/29 -ATTEMPTED revascularization, 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 Hypertension - BP very high at presentation, have not been takin meds at home for monnths or > 1 year Doesnt have PCP, last seen at long time back , reports BP always in 200's Renal Doppler reviewed, No indication of intervention, tolerating PURVI-I , antihypertensives for BP management Hx Of nephrolithisis x1 - approx 8 yrs back , required Intervention with Stents Anemia- w/u per primary COMMENT/RELEVANT DATA Meds Current Medications Medications (Trade) Dose Ordered Sig/Leanne Start Time Stop Time Status Last Admin Dose Admin Acetaminophen (Tylenol) 650 mg PRN Q4HRS PRN 09/28/19 11:00 Al Hydroxide/Mg Hydroxide (Mylanta Plus Xs) 30 ml PRN DAILY PRN 09/28/19 11:00 Albuterol Sulfate (Ventolin Neb Soln) 2.5 mg PRN Q4HRS PRN 09/28/19 11:00 Atorvastatin Calcium (Lipitor) 40 mg QHS 09/29/19 21:00 09/30/19 21:51 40 MG Cefazolin Sodium 1 gm/Sodium Chloride 500 ml @ 500 mls/hr 1X ONCE 10/01/19 11:00 10/01/19 11:59 Clonidine HCl (Catapres) 0.1 mg PRN Q6HRS PRN 09/28/19 11:00 09/30/19 22:09 0.1 MG Daptomycin 490 mg/ Sodium Chloride 50 ml @ 100 mls/hr Q24H 09/28/19 11:00 10/01/19 10:21 100 MLS/HR Docusate Sodium (Colace) 100 mg PRN BID PRN 09/28/19 11:00 Enoxaparin Sodium (Lovenox 40mg Syringe) 40 mg Q24H 09/28/19 12:00 Fentanyl Citrate (Fentanyl 2ml Vial) 100 mcg 1X ONCE 09/30/19 14:45 09/30/19 14:46 DC 09/30/19 15:33 50 MCG Guaifenesin (Robitussin) 200 mg PRN Q4HRS PRN 09/28/19 11:00 Heparin Sodium (Porcine) (Heparin Sodium) 5,000 unit 1X ONCE 09/30/19 14:45 09/30/19 14:46 DC 09/30/19 15:34 5,000 UNIT Heparin Sodium (Porcine) 5000 unit/Sodium Chloride 505 ml @ 505 mls/hr 1X ONCE 10/01/19 11:00 10/01/19 11:59 Heparin Sodium/ Sodium Chloride (HEPARIN for ARTERIAL LINE FLUSH) 2,000 unit 1X ONCE 09/30/19 14:45 09/30/19 14:46 DC 09/30/19 15:31 2,000 UNIT Hydralazine HCl (Apresoline Inj) 10 mg PRN Q4HRS PRN 09/28/19 16:15 09/29/19 11:05 10 MG Hydromorphone HCl (Dilaudid) 0.5 mg PRN Q10MIN PRN 10/01/19 07:00 10/02/19 06:59 Insulin Human Isoph/Insulin Regular (HumuLIN 70/30) 8 units DAILYWBKFT 09/28/19 08:00 Iodixanol (Visipaque 320) 100 ml 1X ONCE 09/30/19 14:45 09/30/19 14:46 DC 09/30/19 15:31 78 ML Lactobacillus Rhamnosus (Culturelle) 1 cap BID 09/29/19 21:00 09/30/19 21:51 1 CAP Lidocaine HCl (Buffered Lidocaine 1%) 3 ml 1X ONCE 09/30/19 14:45 09/30/19 14:46 DC 09/30/19 15:32 5 ML Lidocaine HCl (Xylocaine-Mpf 1% 2ml Vial) 2 ml PRN 1X PRN 10/01/19 07:00 10/02/19 06:59 Lisinopril (Prinivil) 40 mg DAILY 09/28/19 00:30 09/30/19 08:26 40 MG Lorazepam (Ativan) 0.5 mg PRN Q4HRS PRN 09/28/19 11:00 Meropenem 500 mg/ Sodium Chloride 50 ml @ 100 mls/hr Q8HRS 09/28/19 11:00 10/01/19 05:59 100 MLS/HR Metoprolol Tartrate (Lopressor Vial) 5 mg PRN Q6HRS PRN 09/28/19 16:15 09/30/19 11:28 5 MG Midazolam HCl (Versed) 5 mg 1X ONCE 09/30/19 14:45 09/30/19 14:46 DC 09/30/19 15:32 1.5 MG Morphine Sulfate (Morphine Sulfate) 1 mg PRN Q10MIN PRN 10/01/19 07:00 10/02/19 06:59 Ondansetron HCl (Zofran) 4 mg PRN Q6HRS PRN 10/01/19 07:00 10/02/19 06:59 Potassium Chloride (Klor-Con) 40 meq 1X ONCE 09/30/19 22:00 09/30/19 22:01 DC 09/30/19 22:05 40 MEQ Prochlorperazine Edisylate (Compazine) 5 mg PACU PRN PRN 10/01/19 07:00 10/02/19 06:59 Ringer's Solution 1,000 ml @ 30 mls/hr Q24H 10/01/19 07:00 10/01/19 18:59 10/01/19 10:28 30 MLS/HR Sodium Monofluorophosphate (Fleet Adult) 133 ml PRN DAILY PRN 09/28/19 11:00 Sodium Chloride 500 ml @ 500 mls/hr 1X ONCE 09/28/19 12:45 09/28/19 13:44 DC 09/28/19 13:11 500 MLS/HR Sodium Chloride (Normal Saline Flush) 3 ml QSHIFT PRN 09/28/19 11:00 Vancomycin HCl 250 ml @ 250 mls/hr 1X ONCE 09/27/19 20:30 09/27/19 21:29 DC 09/27/19 20:56 250 MLS/HR Lab Laboratory Tests Test 09/30/19 11:10 09/30/19 16:07 09/30/19 20:51 10/01/19 03:35 Glucose (Fingerstick) 114 mg/dL (70-99) 138 mg/dL (70-99) 114 mg/dL (70-99) Sodium Level 143 mmol/L (136-145) Potassium Level 4.0 mmol/L (3.5-5.1) Chloride Level 109 mmol/L (98-107) Carbon Dioxide Level 22 mmol/L (21-32) Anion Gap 12 (6-14) Blood Urea Nitrogen 13 mg/dL (7-20) Creatinine 1.2 mg/dL (0.6-1.0) Estimated GFR (Cockcroft-Gault) 56.6 Glucose Level 105 mg/dL (70-99) Calcium Level 7.7 mg/dL (8.5-10.1) Test 10/01/19 07:35 10/01/19 10:19 Glucose (Fingerstick) 116 mg/dL (70-99) 96 mg/dL (70-99) Results All relevant outside records, renal labs, imaging studies, telemetry/EKG's were reviewed. Justicifation of Admission Dx: Justifications for Admission: Justification of Admission Dx: Yes Sepsis: Failure of Out Pt Tx Cellulitis: Cellulitis MADHURI FENRANDEZ MD Oct 01, 2019 10:35
[2019-10-01] MEDS ORDERED: HEPARIN SODIUM 5,000 UNIT in IV NORMAL SALINE 500ML BAG 500 ML IRR ONE (11:00)
--- NOTE | 2019-10-01 11:04 | PDOC ---
[facility] PROGRESS NOTE Chief Complaint Chief Complaint Diabetic toe with gangrene (is going to need an amputation) PVD confirmed on angiography yesterday she is going for bypass today Diabetes Hypertension Anxiety Depression Soft tissue swelling overlying the dorsum of the midfoot without underlying osseous abnormality or radiopaque foreign body identified.ON PLAIN X-RAY hypertension, HX stroke, diabetes, hyperlipidemia, history of diabetic ketoacidosis. ZURDO fever Normocytic anemia sepsis glucose control needed PVD Occlusion of the left superficial femoral artery with reconstitution at the level of the left popliteal artery, where there appears to be hemodynamically significant stenosis. Monophasic flow in the left subclavian artery suggests greater than 50 percent proximal left subclavian artery stenosis. No evidence of subclavian steal. History of Present Illness History of Present Illness 10/01/2019 Patient seen and examined Chart reviewed Discussed with RN Patient is going for lower extremity bypass and toe amputation later today 09/30/2019 Patient seen and examined Chart reviewed Discussed with RN Vitals/I&O Vitals/I&O: Vital Signs Date Time Temp Pulse Resp B/P (MAP) Pulse Ox O2 Delivery O2 Flow Rate FiO2 10/01/19 10:26 98.5 85 15 195/103 98 Nasal Cannula 2.0 98.5 I & O 09/30/19 09/30/19 10/01/19 15:00 23:00 07:00 Intake Total 500 ml 150 ml Balance 500 ml 150 ml Physical Exam Physical Exam: GENERAL: Alert and oriented female, not in any distress. VITAL SIGNS: Stable. She did have 101.5 T-max. HEENT: Both pupils are round and reacting. No conjunctival lesion. No lesion in the mouth. NECK: Supple, no JVP, no lymphadenopathy. LUNGS: Clear. HEART: S1, S2 regular. ABDOMEN: Benign. EXTREMITIES: Right lower extremity is unremarkable. Left lower extremity has gangrene of the left fourth toe and so there is maceration and drainage from the web between the 3rd and the 4th and 4th and the 5th toes. There is also redness and induration of the proximal dorsal foot and the plantar area has an infection. NEUROLOGIC: The patient is alert, oriented. No focal neurologic deficit. Because of the swelling dorsalis pedis in that foot is not able to palpate General: Alert, Oriented X3, Cooperative, No acute distress Lungs: Clear Abdomen: Normal bowel sounds, Soft, No tenderness Labs Labs: Laboratory Tests Test 09/30/19 11:10 09/30/19 16:07 09/30/19 20:51 10/01/19 03:35 Glucose (Fingerstick) 114 mg/dL (70-99) 138 mg/dL (70-99) 114 mg/dL (70-99) Sodium Level 143 mmol/L (136-145) Potassium Level 4.0 mmol/L (3.5-5.1) Chloride Level 109 mmol/L (98-107) Carbon Dioxide Level 22 mmol/L (21-32) Anion Gap 12 (6-14) Blood Urea Nitrogen 13 mg/dL (7-20) Creatinine 1.2 mg/dL (0.6-1.0) Estimated GFR (Cockcroft-Gault) 56.6 Glucose Level 105 mg/dL (70-99) Calcium Level 7.7 mg/dL (8.5-10.1) Test 10/01/19 07:35 10/01/19 10:19 Glucose (Fingerstick) 116 mg/dL (70-99) 96 mg/dL (70-99) Assessment and Plan Assessmemt and Plan Problems Medical Problems: (1) Diabetic foot infection Status: Acute Diabetic toe with gangrene (is going to need an amputation) Severe peripheral vascular disease discovered on angiography yesterday (patient is going for surgery today for bypass and toe amputation) Diabetes Hypertension Anxiety Depression Soft tissue swelling overlying the dorsum of the midfoot without underlying osseous abnormality or radiopaque foreign body identified.ON PLAIN X-RAY hypertension, HX stroke, diabetes, hyperlipidemia, history of diabetic ketoacidosis. ZURDO fever Normocytic anemia sepsis Occlusion of the left superficial femoral artery with reconstitution at the level of the left popliteal artery, where there appears to be hemodynamically significant stenosis. Monophasic flow in the left subclavian artery suggests greater than 50 percent proximal left subclavian artery stenosis. No evidence of subclavian steal. Plan Going for lower extremity bypass and toe amputation today For now IV antibiotics and wound USP meds DVT prophylaxis Full code Appreciate subspecialist input Comment Review of Relevant I have reviewed the following items hortencia (where applicable) has been applied. Medications: Current Medications Medications (Trade) Dose Ordered Sig/Leanne Route PRN Reason Start Time Stop Time Status Last Admin Dose Admin Ringer's Solution 1,000 ml @ 30 mls/hr Q24H IV 10/01/19 07:00 10/01/19 18:59 10/01/19 10:28 Heparin Sodium/ Sodium Chloride (HEPARIN for ARTERIAL LINE FLUSH) 1,000 unit 1X ONCE IART 09/30/19 14:45 09/30/19 14:46 DC 09/30/19 15:31 Heparin Sodium/ Sodium Chloride (HEPARIN for ARTERIAL LINE FLUSH) 2,000 unit 1X ONCE IART 09/30/19 14:45 09/30/19 14:46 DC 09/30/19 15:31 Lidocaine HCl (Buffered Lidocaine 1%) 3 ml 1X ONCE IJ 09/30/19 14:45 09/30/19 14:46 DC 09/30/19 15:32 Midazolam HCl (Versed) 5 mg 1X ONCE IV 09/30/19 14:45 09/30/19 14:46 DC 09/30/19 15:32 Fentanyl Citrate (Fentanyl 2ml Vial) 100 mcg 1X ONCE IV 09/30/19 14:45 09/30/19 14:46 DC 09/30/19 15:33 Iodixanol (Visipaque 320) 100 ml 1X ONCE IART 09/30/19 14:45 09/30/19 14:46 DC 09/30/19 15:31 Heparin Sodium (Porcine) (Heparin Sodium) 5,000 unit 1X ONCE IV 09/30/19 14:45 09/30/19 14:46 DC 09/30/19 15:34 Potassium Chloride (Klor-Con) 40 meq 1X ONCE PO 09/30/19 22:00 09/30/19 22:01 DC 09/30/19 22:05 Justicifation of Admission Dx: Justifications for Admission: Justification of Admission Dx: Yes Sepsis: Failure of Out Pt Tx Cellulitis: Cellulitis JARRETT CARRION III DO Oct 01, 2019 11:04
[2019-10-01] MEDS ORDERED: ROCURONIUM 50 MG/5 ML VIAL. ONE (11:07)
[2019-10-01] MEDS ORDERED: PROPOFOL 10 MG/ML (20ML) VIAL. IV ONE ×2 (11:07→13:59)
[2019-10-01] MEDS ORDERED: LIDOCAINE 2% PF 5 ML VIAL. ONE ×2 (11:07→13:59)
[2019-10-01] MEDS ORDERED: DEXAMETHASONE SOD PHOS 4 MG/ML VIAL ONE ×2 (11:07→13:59)
[2019-10-01] MEDS ORDERED: fentaNYL PF VIAL 100 MCG/2 ML VIAL ONE (11:07)
[2019-10-01] MEDS ORDERED: ONDANSETRON PF 4 MG/2 ML VIAL. ONE ×2 (11:07→13:59)
[2019-10-01] MEDS ORDERED: RINGERS LACTATED IV ONE (11:30)
[2019-10-01] MEDS: METOPROLOL TARTRATE 5 MG/5 ML VIAL. IVP PRN ×2 (11:58→23:50)
[2019-10-01] MEDS ORDERED: ACETAMINOPHEN 650 MG SUPP.RECT. PR ONE (12:00)
[2019-10-01] MEDS ORDERED: IOHEXOL 300 MG/ML 50 ML VIAL. ONE (12:07)
[2019-10-01] MEDS ORDERED: SURGICEL FIBRILLAR 1X2 EACH. ONE (12:07)
[2019-10-01] MEDS ORDERED: PROTAMINE 50 MG/5 ML VIAL. IV ONE (12:07)
[2019-10-01 12:19] LABS: HEMATOCRIT 25.1 % (36.0-47.0); HEMOGLOBIN 8.9 g/dL (12.0-15.5)
[2019-10-01] MEDS: hydrALAZINE 20 MG/ML VIAL. IVP PRN ×2 (12:30→19:19)
--- NOTE | 2019-10-01 13:09 | NUR ---
SS following up with discharge planning. SS reviewed pt chart and discussed with pt RN. Pt is currently on room air and IV Daptomycin and Meropenem. Pt is COVID19 negative. Per RN, pt was scheduled for toe amputation today but received call from Candice Interiano stating that due to an emergency surgery may be postponed until 10/04/2019. SS will continue to follow for discharge planning.
[2019-10-01] MEDS: ENOXAPARIN 40 MG/0.4 ML SYRINGE. SQ SCH (14:25)
[2019-10-01] MEDS: LISINOPRIL 20 MG TABLET PO SCH (14:25)
--- NOTE | 2019-10-01 14:25 | PDOC ---
PROGRESS NOTES Subjective Subjective Patient seen and examined in the holding area. Nurse reported patient had fever, tachycardia, and hypertension. Patient given fluid bolus. Currently pulse is 90, systolic blood pressure is 170,patient does not appear to be in distress. Objective Objective Vital Signs Date Time Temp Pulse Resp B/P (MAP) Pulse Ox O2 Delivery O2 Flow Rate FiO2 10/01/19 12:50 95 20 161/72 100 Nasal Cannula 2 10/01/19 11:58 101.6 101.6 Intake and Output 10/01/19 07:00 Intake Total 650 ml Balance 650 ml Intake Oral 650 ml # Voids 1 # Bowel Movements 1 Physical Exam Physical Exam Awake and alert HR 90 non-labored respirations, O2 2L/NC Left foot with dry gangrene fourth toe, maceration with ulceration webspace of third and fourth and fourth and fifth toes. Mild erythema. No purulent drainage, but is malodorous. Limited motor function left foot. Assessment Assessment Problems Medical Problems: (1) Diabetic foot infection Status: Acute Plan Plan of Care 53-year-old female with left fourth toe gangrene, peripheral vascular disease. The patient has limited motor function in her left leg due to CVA. Recent angiogram demonstrated: 1.Chronic total occlusion, left superficial femoral artery. Failed endovascular recanalization. Options include observation, bypass, or attempted retrograde endovascular approach. Options may be limited based on patient comorbidities, and tenuous vascular status. 2. Single vessel runoff via the anterior tibial artery and dorsalis pedis artery. 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 Surgery canceled for today due to surgeon availability. Recommend left femoral- popliteal bypass and fourth and fifth toe amputations possible third toe amputation. We will schedule for early next week. Discussed plan of care and patient's current status with Dr. Riddle, Dr. Sweeney and Dr. Flood. Although she has malodorous gangrenous toes they appear stable at this time. She will need revascularization prior to amputation. Will obtain vein mapping and carotid US. Continue abx per ID Discussed plan of care with the patient Comment Review of Relevant I have reviewed the following items hortencia (where applicable) has been applied. Labs Laboratory Tests Test 09/29/19 16:35 09/29/19 20:21 09/30/19 03:45 09/30/19 07:26 Glucose (Fingerstick) 73 mg/dL (70-99) 158 mg/dL (70-99) 112 mg/dL (70-99) Sodium Level 141 mmol/L (136-145) Potassium Level 3.3 mmol/L (3.5-5.1) Chloride Level 106 mmol/L (98-107) Carbon Dioxide Level 25 mmol/L (21-32) Anion Gap 10 (6-14) Blood Urea Nitrogen 15 mg/dL (7-20) Creatinine 1.2 mg/dL (0.6-1.0) Estimated GFR (Cockcroft-Gault) 56.6 Glucose Level 122 mg/dL (70-99) Calcium Level 8.2 mg/dL (8.5-10.1) Test 09/30/19 11:10 09/30/19 16:07 09/30/19 20:51 10/01/19 03:35 Glucose (Fingerstick) 114 mg/dL (70-99) 138 mg/dL (70-99) 114 mg/dL (70-99) Sodium Level 143 mmol/L (136-145) Potassium Level 4.0 mmol/L (3.5-5.1) Chloride Level 109 mmol/L (98-107) Carbon Dioxide Level 22 mmol/L (21-32) Anion Gap 12 (6-14) Blood Urea Nitrogen 13 mg/dL (7-20) Creatinine 1.2 mg/dL (0.6-1.0) Estimated GFR (Cockcroft-Gault) 56.6 Glucose Level 105 mg/dL (70-99) Calcium Level 7.7 mg/dL (8.5-10.1) Test 10/01/19 07:35 10/01/19 10:19 10/01/19 12:00 10/01/19 13:49 Glucose (Fingerstick) 116 mg/dL (70-99) 96 mg/dL (70-99) 126 mg/dL (70-99) White Blood Count 5.5 x10^3/uL (4.0-11.0) Hemoglobin 8.9 g/dL (12.0-15.5) Hematocrit 25.1 % (36.0-47.0) Laboratory Tests Test 09/30/19 16:07 09/30/19 20:51 10/01/19 03:35 10/01/19 07:35 Glucose (Fingerstick) 138 mg/dL (70-99) 114 mg/dL (70-99) 116 mg/dL (70-99) Sodium Level 143 mmol/L (136-145) Potassium Level 4.0 mmol/L (3.5-5.1) Chloride Level 109 mmol/L (98-107) Carbon Dioxide Level 22 mmol/L (21-32) Anion Gap 12 (6-14) Blood Urea Nitrogen 13 mg/dL (7-20) Creatinine 1.2 mg/dL (0.6-1.0) Estimated GFR (Cockcroft-Gault) 56.6 Glucose Level 105 mg/dL (70-99) Calcium Level 7.7 mg/dL (8.5-10.1) Test 10/01/19 10:19 10/01/19 12:00 10/01/19 13:49 Glucose (Fingerstick) 96 mg/dL (70-99) 126 mg/dL (70-99) White Blood Count 5.5 x10^3/uL (4.0-11.0) Hemoglobin 8.9 g/dL (12.0-15.5) Hematocrit 25.1 % (36.0-47.0) Microbiology 09/27/19 Urine Culture - Final, Complete 09/27/19 Gram Stain - Final, Resulted 09/27/19 Aerobic and Anaerobic Culture - Preliminary, Resulted Medications Current Medications Sodium Chloride 1,000 ml @ 1,000 mls/hr 1X ONCE IV Last administered on 09/27/19at 19:25; Start 09/27/19 at 18:30; Stop 09/27/19 at 19:29; Status DC Acetaminophen (Tylenol) 1,000 mg 1X ONCE PO Last administered on 09/27/19at 19:25; Start 09/27/19 at 18:30; Stop 09/27/19 at 18:37; Status DC Clonidine HCl (Catapres) 0.1 mg 1X ONCE PO Last administered on 09/27/19at 19 :26; Start 09/27/19 at 18:45; Stop 09/27/19 at 18:46; Status DC Vancomycin HCl 250 ml @ 250 mls/hr 1X ONCE IV Last administered on 09/27/19at 20:56; Start 09/27/19 at 20:30; Stop 09/27/19 at 21:29; Status DC Ondansetron HCl (Zofran) 4 mg PRN Q8HRS PRN IV NAUSEA/VOMITING; Start 09/27/19 at 20:45; Stop 09/28/19 at 13:59; Status DC Fentanyl Citrate (Fentanyl 2ml Vial) 50 mcg PRN Q1HR PRN IV PAIN; Start 09/27/19 at 20:45; Stop 09/28/19 at 20:44; Status DC Acetaminophen (Tylenol) 650 mg PRN Q4HRS PRN PO FEVER > 100.3'F; Start 09/27/19 at 20:45; Stop 09/28/19 at 13:58; Status DC Lisinopril (Prinivil) 40 mg DAILY PO Last administered on 09/30/19at 08:26; Start 09/28/19 at 00:30 Insulin Human Isoph/Insulin Regular (HumuLIN 70/30) 4 units DAILYWSUP SQ ; Start 09/28/19 at 17:00 Insulin Human Isoph/Insulin Regular (HumuLIN 70/30) 8 units DAILYWBKFT SQ ; Start 09/28/19 at 08:00 Daptomycin 490 mg/ Sodium Chloride 50 ml @ 100 mls/hr Q24H IV Last administered on 10/01/19at 10:21; Start 09/28/19 at 11:00 Meropenem 500 mg/ Sodium Chloride 50 ml @ 100 mls/hr Q8HRS IV Last administered on 10/01/19at 13:40; Start 09/28/19 at 11:00 Sodium Chloride (Normal Saline Flush) 3 ml QSHIFT PRN IV AFTER MEDS AND BLOOD DRAWS; Start 09/28/19 at 11:00 Sodium Chloride 1,000 ml @ 100 mls/hr Q10H IV Last administered on 10/01/19at 05:58; Start 09/28/19 at 10:58 Ondansetron HCl (Zofran) 4 mg PRN Q4HRS PRN IV NAUSEA/VOMITING Last administered on 09/30/19at 11:38; Start 09/28/19 at 11:00 Acetaminophen (Tylenol) 650 mg PRN Q4HRS PRN PO TEMP OVER 100.4F OR MILD PAIN; Start 09/28/19 at 11:00 Al Hydroxide/Mg Hydroxide (Mylanta Plus Xs) 30 ml PRN DAILY PRN PO HEARTBURN / GAS; Start 09/28/19 at 11:00 Clonidine HCl (Catapres) 0.1 mg PRN Q6HRS PRN PO SBP>160 OR DBP>90 Last administered on 09/30/19at 22:09; Start 09/28/19 at 11:00 Sodium Monofluorophosphate (Fleet Adult) 133 ml PRN DAILY PRN [place] CONSTIPATION; Start 09/28/19 at 11:00 Docusate Sodium (Colace) 100 mg PRN BID PRN PO HARD STOOLS; Start 09/28/19 at 11:00 Albuterol Sulfate (Ventolin Neb Soln) 2.5 mg PRN Q4HRS PRN NEB SHORTNESS OF BREATH; Start 09/28/19 at 11:00 Guaifenesin (Robitussin) 200 mg PRN Q4HRS PRN PO COUGH; Start 09/28/19 at 11:00 Lorazepam (Ativan) 0.5 mg PRN Q4HRS PRN PO ANXIETY / AGITATION; Start 09/28/19 at 11:00 Hydromorphone HCl (Dilaudid) 0.5 mg PRN Q2HRS PRN IV SEVERE PAIN 7-10; Start 09/28/19 at 11:00 Enoxaparin Sodium (Lovenox 40mg Syringe) 40 mg Q24H SQ ; Start 09/28/19 at 12:00 Sodium Chloride 500 ml @ 500 mls/hr 1X ONCE IV Last administered on 09/28/19at 13:11; Start 09/28/19 at 12:45; Stop 09/28/19 at 13:44; Status DC Hydralazine HCl (Apresoline Inj) 10 mg 1X ONCE IVP Last administered on 09/28/19at 14:17; Start 09/28/19 at 14:15; Stop 09/28/19 at 14:16; Status DC Hydralazine HCl (Apresoline Inj) 10 mg PRN Q4HRS PRN IVP HYPERTENSION, 2nd choice Last administered on 10/01/19at 12:30; Start 09/28/19 at 16:15 Metoprolol Tartrate (Lopressor Vial) 5 mg PRN Q6HRS PRN IVP HYPERTENSION, 1st choice Last administered on 10/01/19at 11:58; Start 09/28/19 at 16:15 Lactobacillus Rhamnosus (Culturelle) 1 cap BID PO Last administered on 09/30/19at 21:51; Start 09/29/19 at 21:00 Atorvastatin Calcium (Lipitor) 40 mg QHS PO Last administered on 09/30/19at 21:51; Start 09/29/19 at 21:00 Potassium Chloride (Klor-Con) 40 meq 1X ONCE PO ; Start 09/30/19 at 12:30; Stop 09/30/19 at 12:31; Status Cancel Lidocaine HCl (Buffered Lidocaine 1%) 3 ml STK-MED ONCE .ROUTE ; Start 09/30/19 at 13:49; Stop 09/30/19 at 13:49; Status DC Iodixanol (Visipaque 320) 100 ml STK-MED ONCE .ROUTE ; Start 09/30/19 at 13:49; Stop 09/30/19 at 13:49; Status DC Heparin Sodium/ Sodium Chloride 1,000 ml @ As Directed STK-MED ONCE .ROUTE ; Start 09/30/19 at 13:49; Stop 09/30/19 at 13:49; Status DC Heparin Sodium/ Sodium Chloride 500 ml @ As Directed STK-MED ONCE .ROUTE ; Start 09/30/19 at 13:54; Stop 09/30/19 at 13:55; Status DC Midazolam HCl (Versed) 5 mg STK-MED ONCE .ROUTE ; Start 09/30/19 at 14:10; Stop 09/30/19 at 14:10; Status DC Fentanyl Citrate (Fentanyl 2ml Vial) 100 mcg STK-MED ONCE .ROUTE ; Start 09/30/19 at 14:10; Stop 09/30/19 at 14:10; Status DC Heparin Sodium (Porcine) (Heparin Sodium) 10,000 unit STK-MED ONCE .ROUTE ; Start 09/30/19 at 14:31; Stop 09/30/19 at 14:31; Status DC Ondansetron HCl (Zofran) 4 mg PRN Q6HRS PRN IV NAUSEA/VOMITING; Start 10/01/19 at 07:00; Stop 10/02/19 at 06:59 Morphine Sulfate (Morphine Sulfate) 1 mg PRN Q10MIN PRN IV SEVERE PAIN 7-10; Start 10/01/19 at 07:00; Stop 10/02/19 at 06:59 Ringer's Solution 1,000 ml @ 30 mls/hr Q24H IV Last administered on 10/01/19at 10:28; Start 10/01/19 at 07:00; Stop 10/01/19 at 18:59 Lidocaine HCl (Xylocaine-Mpf 1% 2ml Vial) 2 ml PRN 1X PRN ID PRIOR TO IV START; Start 10/01/19 at 07:00; Stop 10/02/19 at 06:59 Hydromorphone HCl (Dilaudid) 0.5 mg PRN Q10MIN PRN IV SEV PAIN, Second choice; Start 10/01/19 at 07:00; Stop 10/02/19 at 06:59 Prochlorperazine Edisylate (Compazine) 5 mg PACU PRN PRN IV NAUSEA, MRX1; Start 10/01/19 at 07:00; Stop 10/02/19 at 06:59 Heparin Sodium/ Sodium Chloride (HEPARIN for ARTERIAL LINE FLUSH) 1,000 unit 1X ONCE IART Last administered on 09/30/19at 15:31; Start 09/30/19 at 14:45; Stop 09/30/19 at 14:46; Status DC Heparin Sodium/ Sodium Chloride (HEPARIN for ARTERIAL LINE FLUSH) 2,000 unit 1X ONCE IART Last administered on 09/30/19at 15:31; Start 09/30/19 at 14:45; Stop 09/30/19 at 14:46; Status DC Lidocaine HCl (Buffered Lidocaine 1%) 3 ml 1X ONCE IJ Last administered on 09/30/19at 15:32; Start 09/30/19 at 14:45; Stop 09/30/19 at 14:46; Status DC Midazolam HCl (Versed) 5 mg 1X ONCE IV Last administered on 09/30/19at 15:32; Start 09/30/19 at 14:45; Stop 09/30/19 at 14:46; Status DC Fentanyl Citrate (Fentanyl 2ml Vial) 100 mcg 1X ONCE IV Last administered on 09/30/19at 15:33; Start 09/30/19 at 14:45; Stop 09/30/19 at 14:46; Status DC Iodixanol (Visipaque 320) 100 ml 1X ONCE IART Last administered on 09/30/19at 15:31; Start 09/30/19 at 14:45; Stop 09/30/19 at 14:46; Status DC Heparin Sodium (Porcine) (Heparin Sodium) 5,000 unit 1X ONCE IV Last administered on 09/30/19at 15:34; Start 09/30/19 at 14:45; Stop 09/30/19 at 14:46; Status DC Potassium Chloride (Klor-Con) 40 meq 1X ONCE PO Last administered on 09/30/19at 22:05; Start 09/30/19 at 22:00; Stop 09/30/19 at 22:01; Status DC Heparin Sodium (Porcine) 5000 unit/Sodium Chloride 505 ml @ 505 mls/hr 1X ONCE IRR ; Start 10/01/19 at 11:00; Stop 10/01/19 at 11:59; Status DC Cefazolin Sodium 1 gm/Sodium Chloride 500 ml @ 500 mls/hr 1X ONCE IRR ; Start 10/01/19 at 11:00; Stop 10/01/19 at 11:59; Status DC Propofol (Diprivan) 200 mg STK-MED ONCE IV ; Start 10/01/19 at 11:07; Stop 10/01/19 at 11:07; Status DC Dexamethasone Sodium Phosphate (Decadron) 4 mg STK-MED ONCE .ROUTE ; Start 10/01/19 at 11:07; Stop 10/01/19 at 11:07; Status DC Lidocaine HCl (Lidocaine Pf 2% Vial) 5 ml STK-MED ONCE .ROUTE ; Start 10/01/19 at 11:07; Stop 10/01/19 at 11:07; Status DC Ondansetron HCl (Zofran) 4 mg STK-MED ONCE .ROUTE ; Start 10/01/19 at 11:07; Stop 10/01/19 at 11:07; Status DC Rocuronium [place] (Zemuron) 50 mg STK-MED ONCE .ROUTE ; Start 10/01/19 at 11:07; Stop 10/01/19 at 11:07; Status DC Fentanyl Citrate (Fentanyl 2ml Vial) 100 mcg STK-MED ONCE .ROUTE ; Start 10/01/19 at 11:07; Stop 10/01/19 at 11:07; Status DC Acetaminophen (Tylenol Supp) 650 mg 1X ONCE [place] Last administered on 10/01/19at 11:58; Start 10/01/19 at 12:00; Stop 10/01/19 at 12:01; Status DC Iohexol (Omnipaque 300 Mg/ml) 50 ml STK-MED ONCE .ROUTE ; Start 10/01/19 at 12:07; Stop 10/01/19 at 12:07; Status DC Cellulose (Surgicel Fibrillar 1x2) 1 each STK-MED ONCE .ROUTE ; Start 10/01/19 at 12:07; Stop 10/01/19 at 12:08; Status DC Protamine Sulfate (Protamine) 50 mg STK-MED ONCE IV ; Start 10/01/19 at 12:07; Stop 10/01/19 at 12:08; Status DC Ringer's Solution 1,060 ml @ 1,060 mls/hr 1X ONCE IV Last administered on 10/01/19at 11:30; Start 10/01/19 at 11:30; Stop 10/01/19 at 12:56; Status DC Ondansetron HCl (Zofran) 4 mg STK-MED ONCE .ROUTE ; Start 10/01/19 at 13:59; Stop 10/01/19 at 14:00; Status DC Lidocaine HCl (Lidocaine Pf 2% Vial) 5 ml STK-MED ONCE .ROUTE ; Start 10/01/19 at 13:59; Stop 10/01/19 at 14:00; Status DC Dexamethasone Sodium Phosphate (Decadron) 4 mg STK-MED ONCE .ROUTE ; Start 10/01/19 at 13:59; Stop 10/01/19 at 14:00; Status DC Propofol (Diprivan) 200 mg STK-MED ONCE IV ; Start 10/01/19 at 13:59; Stop 10/01/19 at 14:00; Status DC Active Scripts Active Reported Zyvox (Linezolid) 600 Mg Tablet 600 Mg PO BID 7 Days Cefdinir 300 Mg Capsule 1 Cap PO BID 7 Days Lisinopril 40 Mg Tablet 40 Mg PO DAILY Relion Novolin 70-30 Vial (Hum Insulin Nph/Reg Insulin Hm) 100 Unit/1 Ml Vial 4 Unit SQ DAILYWSUP Relion Novolin 70-30 Vial (Hum Insulin Nph/Reg Insulin Hm) 100 Unit/1 Ml Vial 8 Unit SUBCUT DAILYWBKFT Vitals/I & O Vital Sign - Last 24 Hours 09/30/19 09/30/19 09/30/194/20 15:33 15:43 15:59 16:14 Pulse 77 81 77 Resp 18 16 B/P (MAP) 142/83 (102) 147/76 (99) Pulse Ox 99 100 O2 Delivery Nasal Cannula Nasal Cannula O2 Flow Rate 2.0 2.0 09/30/19 09/30/19 09/30/19 09/30/19 16:29 16:59 19:28 20:13 Temp 97.9 97.9 Pulse 80 77 77 B/P (MAP) 146/75 (98) 141/71 (94) 139/74 (95) O2 Delivery Room Air 09/30/19 09/30/19 10/01/19 10/01/19 22:09 23:35 03:00 07:00 Temp 97.6 97.8 98.5 97.6 97.8 98.5 Pulse 79 77 66 85 Resp 17 18 18 B/P (MAP) 178/85 177/85 (115) 149/65 (93) 177/93 (121) Pulse Ox 97 97 98 O2 Delivery Room Air 10/01/19 10/01/19 10/01/19 10/01/19 10:26 11:58 11:58 12:15 Temp 101.7 101.6 101.7 101.6 Pulse 85 136 130 92 Resp 15 20 22 B/P (MAP) 195/103 246/117 225/150 205/96 Pulse Ox 98 95 96 O2 Delivery Nasal Cannula Nasal Cannula Nasal Cannula O2 Flow Rate 2.0 2 2 10/01/19 10/01/19 10/01/19 12:30 12:30 12:50 Pulse 96 91 95 Resp 20 20 B/P (MAP) 187/82 190/87 161/72 Pulse Ox 100 100 O2 Delivery Nasal Cannula Nasal Cannula O2 Flow Rate 2 2 Intake and Output 0 09/30/19 09/30/19 10/01/19 15:00 23:00 07:00 Intake Total 500 ml 150 ml Balance 500 ml 150 ml Justicifation of Admission Dx: Justifications for Admission: Justification of Admission Dx: Yes Sepsis: Failure of Out Pt Tx Cellulitis: Cellulitis 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
[2019-10-01 14:52] VITALS: BP 171/76
--- NOTE | 2019-10-01 14:52 | NUR ---
Wound Care Wound care consult for left 4th toe DFU. Pt 4th toe is black and necrotic with scant drainage between the toes. Placed aquacel ag rope in between toes and wrapped foot in kerlix. No other wounds noted. WC will follow up after amputation surgery on Friday.
[2019-10-01 19:30] VITALS: BP 200/92
[2019-10-01] MEDS: ATORVASTATIN CALCIUM 40 MG TABLET. PO SCH (20:46)
[2019-10-01 23:30] VITALS: BP 205/94
[2019-10-01] MEDS: LORazepam 0.5 MG TABLET PO PRN (23:49)
[2019-10-02 04:15] VITALS: BP 195/97
[2019-10-02] MEDS: hydrALAZINE 20 MG/ML VIAL. IVP PRN ×3 (04:35→23:18)
[2019-10-02] MEDS: IV NORMAL SALINE 1000ML BAG 1,000 ML IV SCH ×2 (04:39→16:54)
[2019-10-02] MEDS: MEROPENEM 500 MG in IV NORMAL SALINE 50ML 50 ML IV SCH ×3 (05:32→21:42)
[2019-10-02] MEDS: ONDANSETRON PF 4 MG/2 ML VIAL. IV PRN ×2 (05:34→12:53)
[2019-10-02 05:52] LABS: CALCIUM 8.1 mg/dL (8.5-10.1); CREATININE 1.3 mg/dL (0.6-1.0); GFR 51.6; POTASSIUM 3.6 mmol/L (3.5-5.1)
[2019-10-02 07:00] VITALS: BP 212/91
--- NOTE | 2019-10-02 07:52 | RAD ---
Lower extremity venous mapping ultrasound HISTORY: Preoperative evaluation prior to bypass surgery. FINDINGS: Right leg: Greater saphenous vein is compressible without thrombosis, diameter at the groin 6 mm, upper thigh diameter 2 mm, mid thigh diameter 2 mm, lower thigh diameter 2 mm, diameter the knee 1 mm, upper calf diameter 1 mm, mid calf diameter 1 mm and lower calf diameter 1 mm. Lesser saphenous vein compressible without thrombosis, diameter at the upper calf 1 mm, mid calf diameter 2 mm, lower calf diameter 1 mm. Left leg: Greater saphenous vein is compressible without thrombosis, diameter at the groin 3 mm, upper thigh diameter 3 mm, mid thigh diameter 2 mm, lower thigh diameter 2 mm, diameter at the knee 2 mm, upper calf diameter 2 mm, mid calf diameter 1 mm, lower calf diameter 2 mm. Lesser saphenous vein compressed without thrombosis, diameter at the upper calf 3 mm, mid calf diameter 3 mm, lower calf diameter 2 mm. There is calf edema noted. IMPRESSION: Saphenous vein mapping as described above. Carotid artery duplex Doppler ultrasound Stenosis calculations for CT, MR, and conventional angiography are based upon measurements of the distal ICA diameter in accordance with the NASCET methodology. Stenosis calculations for carotid ultrasound studies are derived from validated velocity criteria which are known to correlate with the NASCET methodology. HISTORY: Preoperative evaluation. No other clinical history provided. FINDINGS: Right carotid artery demonstrates no plaque or stenosis by color Doppler sonography. Normal carotid waveforms. Internal carotid artery peak systolic velocity 162 cm/s, end-diastolic velocity 59 cm/s, however there is no plaquing or flow limiting stenosis at these areas evident. Distal common carotid peak systolic velocity 119 cm/s. ICA/CCA velocity ratio 1.2. Right vertebral artery antegrade blood flow. Right subclavian artery is unremarkable. Left carotid artery demonstrates minimal subintimal smooth hypoechoic soft plaque without significant luminal stenosis by color Doppler sonography. Normal carotid waveforms. Internal carotid artery peak systolic velocity 143 cm/s, end-diastolic velocity 52 cm/s, however there is no plaquing or flow limiting stenosis at these areas evident. Distal common carotid peak systolic velocity 120 cm/s. ICA/CC velocity ratio 1.0. Left vertebral artery antegrade blood flow. IMPRESSION: Minimal smooth subintimal soft plaque at the left carotid artery. No evidence of bulky soft irregular plaque, significant stenosis or occlusion of the cervical carotid arteries. Both carotid arteries demonstrate diffusely elevated flow velocities which could indicate some hyperdynamic blood flow. Bilateral vertebral artery antegrade blood flow is present. Electronically signed by: Zhang Clancy MD (10/02/2019 7:49 AM) [id number]
[2019-10-02] MEDS: INSULIN NPH/REG INSULIN 70/30 300 UNITS/3 ML INSULN.PEN. SQ SCH ×2 (08:00→17:00)
[2019-10-02] MEDS: LACTOBACILLUS RHAMNOSUS GG 1 CAPSULE. PO SCH ×2 (08:18→21:05)
[2019-10-02] MEDS: LISINOPRIL 20 MG TABLET PO SCH (08:18)
[2019-10-02] MEDS: METOPROLOL TARTRATE 5 MG/5 ML VIAL. IVP PRN (08:19)
--- NOTE | 2019-10-02 09:50 | PDOC ---
Infectious Disease Note Subjective Subjective No further fevers so far in nearly 24 hrs Nauseous, denies vomiting/'diarrhea/constipation Ate pretty good earlier Denies pain ROS ROS as mentioned above Vital Sign Vital Signs Vital Signs Date Time Temp Pulse Resp B/P (MAP) Pulse Ox O2 Delivery O2 Flow Rate FiO2 10/02/19 08:19 83 212/91 10/02/19 07:00 98.1 16 97 Room Air 98.1 10/01/19 19:59 2.0 Physical Exam PHYSICAL EXAM GENERAL: Propped up in bed, alert in NAD HEENT: Oral cavity pink, no lesions seen NECK: Supple LUNGS: Clear. HEART: S1, S2 regular. ABDOMEN: Obese, soft, nontender EXTREMITIES: Right lower extremity is unremarkable. Left lower extremity has gangrene of the left fourth toe and so there is maceration and drainage from the web between the 3rd and the 4th and 4th and the 5th toes. There is also redness and induration of the proximal dorsal foot and the plantar area has an infection. Currently bandaged, did not take down NEUROLOGIC: Alert, oriented. No focal neurologic deficit. PIV ok Labs Lab Laboratory Tests Test 10/01/19 10:19 10/01/19 12:00 10/01/19 13:49 10/01/19 17:40 Glucose (Fingerstick) 96 mg/dL (70-99) 126 mg/dL (70-99) 167 mg/dL (70-99) White Blood Count 5.5 x10^3/uL (4.0-11.0) Hemoglobin 8.9 g/dL (12.0-15.5) Hematocrit 25.1 % (36.0-47.0) Test 10/01/19 21:08 10/02/19 05:15 10/02/19 07:36 Glucose (Fingerstick) 150 mg/dL (70-99) 117 mg/dL (70-99) Sodium Level 141 mmol/L (136-145) Potassium Level 3.6 mmol/L (3.5-5.1) Chloride Level 108 mmol/L (98-107) Carbon Dioxide Level 22 mmol/L (21-32) Anion Gap 11 (6-14) Blood Urea Nitrogen 13 mg/dL (7-20) Creatinine 1.3 mg/dL (0.6-1.0) Estimated GFR (Cockcroft-Gault) 51.6 Glucose Level 116 mg/dL (70-99) Calcium Level 8.1 mg/dL (8.5-10.1) Micro GRAM STAIN Final Final GRAM POSITIVE COCCI:MANY SQUAMOUS EPI CELL:RARE PMN (WBCs):RARE ANAEROBIC-AEROBIC CULTURE Preliminary Preliminary MANY GRAM POSITIVE COCCI on 09/29/19 at 1355 FINAL ID= [STREPTOCOCCUS MITIS/ORALIS] RARE [STAPHYLOCOCCUS AUREUS] on 10/01/19 at 1453 AZITHROMYCIN: S <=2 CEFOXITIN SCREEN: NEG <=4 CEFTAROLINE: S <=0.5 CIPROFLOXACIN: S <=1 CLINDAMYCIN: S 0.5 DAPTOMYCIN: S <=0.5 ERYTHROMYCIN: S <=0.25 GENTAMICIN: S <=4 LEVOFLOXACIN: S <=1 LINEZOLID: S 2 OXACILLIN: S <=0.25 PENICILLIN: JEN 0.5 RIFAMPIN: S <=1 TETRACYCLINE: S <=4 TRIMETH/SULFA: S <=0.5/9.5 VANCOMYCIN: S 1 STAPHYLOCOCCUS AUREUS STREPTOCOCCUS MITIS/ORALIS Unless otherwise specified, Testing Performed by: [address] [address] For Inquires, the Physician may contact the Microbiology URINE CULTURE Final Final 20,000 CFU/ML Normal genitourinary man, not indicative of infection on 09/30/19 at 0946 Objective Assessment Left fourth toe gangrene. s/p angiogram 09/29: chronic total occlusion, left superficial femoral artery, attempted revascularization unsuccessful Left fourth toe and diabetic foot infection: Strep mitis/oralis and staph aureus Fever. Leukocytosis. PCN allergy w/ hives and sulfa w/ throat swelling History of cerebrovascular accident. Hypertension. Plan Plan of Care Dapto and meropenem, 09/27 Monitor for abx toxicities f/u cultures/susceptibilities f/u am labs Await vascular surgery Local wound care as directed D/w nursing Patient seen. Chart reviewed in detail. Case discussed with HOME ENERGY AUDITOR. I agree with above plan.cor-formulated with HOME ENERGY AUDITOR LUIZ CUETO APRN Oct 02, 2019 09:50 SELENE VELAZQUEZ MD Oct 02, 2019 22:49
[2019-10-02 10:34] VITALS: BP 212/97
--- NOTE | 2019-10-02 11:02 | PDOC ---
Provider Note Provider Note Pt seen and examined. Angio and vein map reviewed. She has dry gangrene of the toes, needs revascularization, toe amps, Surgery scheduled yesterday cancelled due to surgeon unavailability due to emergency at outside hospital Will try to add on for Friday if there is surgery time available in the OR, otherwise Friday. Justicifation of Admission Dx: Justifications for Admission: Justification of Admission Dx: Yes Sepsis: Failure of Out Pt Tx Cellulitis: Cellulitis ANURAG SHIN II, MD Oct 02, 2019 11:02
[2019-10-02] MEDS: DAPTOmycin (GENERIC) IVPB 490 MG in IV NORMAL SALINE 50ML 50 ML IV SCH (11:33)
[2019-10-02] MEDS: ENOXAPARIN 40 MG/0.4 ML SYRINGE. SQ SCH (11:33)
--- NOTE | 2019-10-02 11:37 | PDOC ---
Renal-Progress Notes Subjective Notes Notes NO NEW COMPLAINTS History of Present Illness Hx of present illness STABLE Vitals Vitals Vital Signs Date Time Temp Pulse Resp B/P (MAP) Pulse Ox O2 Delivery O2 Flow Rate FiO2 10/02/19 11:33 89 212/97 10/02/19 10:34 98.5 18 97 Room Air 98.5 10/02/19 08:00 2.0 Weight Weight [ ] I.O. Intake and Output Intake and Output 10/02/19 07:00 Intake Total 1570 ml Output Total 160 ml Balance 1410 ml Intake Oral 570 ml IV Total 1000 ml Output Urine Total 0 ml Stool Total 0 ml Emesis 160 ml # Voids 2 Labs Labs Laboratory Tests Test 10/01/19 12:00 10/01/19 13:49 10/01/19 17:40 10/01/19 21:08 White Blood Count 5.5 x10^3/uL (4.0-11.0) Hemoglobin 8.9 g/dL (12.0-15.5) Hematocrit 25.1 % (36.0-47.0) Glucose (Fingerstick) 126 mg/dL (70-99) 167 mg/dL (70-99) 150 mg/dL (70-99) Test 10/02/19 05:15 10/02/19 07:36 Sodium Level 141 mmol/L (136-145) Potassium Level 3.6 mmol/L (3.5-5.1) Chloride Level 108 mmol/L (98-107) Carbon Dioxide Level 22 mmol/L (21-32) Anion Gap 11 (6-14) Blood Urea Nitrogen 13 mg/dL (7-20) Creatinine 1.3 mg/dL (0.6-1.0) Estimated GFR (Cockcroft-Gault) 51.6 Glucose Level 116 mg/dL (70-99) Calcium Level 8.1 mg/dL (8.5-10.1) Glucose (Fingerstick) 117 mg/dL (70-99) Micro Micro Microbiology 09/27/19 Urine Culture - Final, Complete 09/27/19 Gram Stain - Final, Resulted 09/27/19 Aerobic and Anaerobic Culture - Preliminary, Resulted Review of Systems Constitutional: yes: alert Ears/Nose/Throat: Yes: no symptom reported Eyes: Yes: no symptom reported Pulmonary: Yes no symptom reported Cardiovascular: Yes no symptom reported Gastrointestional: Yes: constipation Genitourinary: Yes: no symptom reported Musculoskeletal: Yes: muscle stiffness Skin: Yes no symptom reported Psychiatric/Neurological: Yes: no symptom reported Endocrine: Yes: no symptom reported Physical Exam General Appearance: no apparent distress Skin: warm Heart: S1S2 Abdomen: soft, bowel sounds present Genitourinary: bladder flat Extremities: pulses present, atrophy Neurology: alert, oriented Assessment Assessment IMP ZURDO-RESOLVED CKD STAGE 2-CR OF 1.2 AND STABLE HTN HX PAD HX TOE GANGRENE FOOT INFECTION - LEUCOCYTOSIS PLAN REVASCULARIZATION AND AMP PENDING ANTIBIOTICS ID AND VASCULAR EVAL AND TX WILL FOLLOW DARREN DRAKE MD Oct 02, 2019 11:37
[2019-10-02] MEDS ORDERED: cloNIDine TTS-1 1 PATCH PATCH.TDWK TD SCH (14:00)
--- NOTE | 2019-10-02 14:11 | PDOC ---
GENERAL General: Patient examined chart reviewed today is hospital day 6 for this patient with a history of stroke and resultant dense left hemiparesis, stage III renal failure, longstanding uncontrolled diabetes with an A1c on admission here of 10.4%, severe peripheral vascular disease, and left foot wound now with gangrene in the setting of compromised left lower extremity blood flow. We appreciate subspecialty support. Plan is for revascularization of the left leg and toe amputation early next week. Patient has significant nausea and vomiting. She is quite somnolent today and evaluation and is having a hard time telling me if she tends to have this problem at home. It may be the antibiotics are worsening her nausea. She may also have gastroparesis in the setting of longstanding uncontrolled diabetes. We will add IV Reglan at this point and continue intravenous fluids. Her creatinine on admission has responded nicely to rehydration she is now at 1.3 creatinine. Blood pressures have stayed elevated. We will adjust her medications accordingly. Have added a Catapres patch and low-dose carvedilol which we will increase as she tolerates. We will use hydralazine for as needed needs and continued lisinopril at the maximum dosage. Total time today is 30 minutes with greater than 50% in counseling and coordination of care most of which in discussion with nursing and patient. Problems: (1) Peripheral vascular disease (2) Chronic vomiting (3) Type 2 diabetes mellitus not at goal (4) Diabetic foot infection (5) Cellulitis and abscess of lower extremity VITAL SIGNS Vital Signs/I&O: Vital Signs Date Time Temp Pulse Resp B/P (MAP) Pulse Ox O2 Delivery O2 Flow Rate FiO2 10/02/19 11:33 89 212/97 10/02/19 10:34 98.5 18 97 Room Air 98.5 10/02/19 08:00 2.0 I & O 10/01/19 10/01/19 10/02/19 15:00 23:00 07:00 Intake Total 1000 ml 250 ml 320 ml Output Total 0 ml 160 ml Balance 1000 ml 250 ml 160 ml In general the patient is pleasant sedated at baseline orientation in no acute distress HEENT exam is unremarkable Neck is soft and supple no adenopathy or thyromegaly noted Chest is clear to auscultation Heart S1-S2 normal regular rate and rhythm no murmurs or gallops are noted Abdomen soft nontender nondistended no masses organomegaly noted Extremity exam is notable for dense left hemiparesis after stroke. Left foot wounds are covered with dry and intact bandages ALLERGIES Allergies: Allergies Coded Allergies Type Severity Reaction Last Updated Verified Sulfa (Sulfonamide Antibiotics) Allergy Severe Anaphylaxis 07/24/16 Yes Penicillins Allergy Intermediate 07/24/16 Yes MEDS Medications: Current Medications Medications (Trade) Dose Ordered Sig/Leanne Start Time Stop Time Status Last Admin Dose Admin Acetaminophen (Tylenol Supp) 650 mg 1X ONCE 10/01/19 12:00 10/01/19 12:01 DC 10/01/19 11:58 Acetaminophen (Tylenol) 650 mg PRN Q4HRS PRN 09/28/19 11:00 10/01/19 23:49 Al Hydroxide/Mg Hydroxide (Mylanta Plus Xs) 30 ml PRN DAILY PRN 09/28/19 11:00 Albuterol Sulfate (Ventolin Neb Soln) 2.5 mg PRN Q4HRS PRN 09/28/19 11:00 Atorvastatin Calcium (Lipitor) 40 mg QHS 09/29/19 21:00 10/01/19 20:46 Cefazolin Sodium 1 gm/Sodium Chloride 500 ml @ 500 mls/hr 1X ONCE 10/01/19 11:00 10/01/19 11:59 DC Cellulose (Surgicel Fibrillar 1x2) 1 each STK-MED ONCE 10/01/19 12:07 10/01/19 12:08 DC Clonidine HCl (Catapres) 0.1 mg PRN Q6HRS PRN 09/28/19 11:00 09/30/19 22:09 Daptomycin 490 mg/ Sodium Chloride 50 ml @ 100 mls/hr Q24H 09/28/19 11:00 10/02/19 11:33 Dexamethasone Sodium Phosphate (Decadron) 4 mg STK-MED ONCE 10/01/19 13:59 10/01/19 14:00 DC Docusate Sodium (Colace) 100 mg PRN BID PRN 09/28/19 11:00 Enoxaparin Sodium (Lovenox 40mg Syringe) 40 mg Q24H 09/28/19 12:00 10/02/19 11:33 Fentanyl Citrate (Fentanyl 2ml Vial) 100 mcg STK-MED ONCE 10/01/19 11:07 10/01/19 11:07 DC Guaifenesin (Robitussin) 200 mg PRN Q4HRS PRN 09/28/19 11:00 Heparin Sodium (Porcine) (Heparin Sodium) 5,000 unit 1X ONCE 09/30/19 14:45 09/30/19 14:46 DC 09/30/19 15:34 Heparin Sodium (Porcine) 5000 unit/Sodium Chloride 505 ml @ 505 mls/hr 1X ONCE 10/01/19 11:00 10/01/19 11:59 DC Heparin Sodium/ Sodium Chloride (HEPARIN for ARTERIAL LINE FLUSH) 2,000 unit 1X ONCE 09/30/19 14:45 09/30/19 14:46 DC 09/30/19 15:31 Hydralazine HCl (Apresoline Inj) 10 mg PRN Q4HRS PRN 09/28/19 16:15 10/02/19 11:33 Hydromorphone HCl (Dilaudid) 0.5 mg PRN Q10MIN PRN 10/01/19 07:00 10/02/19 06:59 DC Insulin Human Isoph/Insulin Regular (HumuLIN 70/30) 8 units [id number] 09/28/19 08:00 Iodixanol (Visipaque 320) 100 ml 1X ONCE 09/30/19 14:45 09/30/19 14:46 DC 09/30/19 15:31 Iohexol (Omnipaque 300 Mg/ml) 50 ml STK-MED ONCE 10/01/19 12:07 10/01/19 12:07 DC Lactobacillus Rhamnosus (Culturelle) 1 cap BID 09/29/19 21:00 10/02/19 08:18 Lidocaine HCl (Buffered Lidocaine 1%) 3 ml 1X ONCE 09/30/19 14:45 09/30/19 14:46 DC 09/30/19 15:32 Lidocaine HCl (Lidocaine Pf 2% Vial) 5 ml STK-MED ONCE 10/01/19 13:59 10/01/19 14:00 DC Lidocaine HCl (Xylocaine-Mpf 1% 2ml Vial) 2 ml PRN 1X PRN 10/01/19 07:00 10/02/19 06:59 DC Lisinopril (Prinivil) 40 mg DAILY 09/28/19 00:30 10/02/19 08:18 Lorazepam (Ativan) 0.5 mg PRN Q4HRS PRN 09/28/19 11:00 10/01/19 23:49 Meropenem 500 mg/ Sodium Chloride 50 ml @ 100 mls/hr Q8HRS 09/28/19 11:00 10/02/19 05:32 Metoprolol Tartrate (Lopressor Vial) 5 mg PRN Q6HRS PRN 09/28/19 16:15 10/02/19 08:19 Midazolam HCl (Versed) 5 mg 1X ONCE 09/30/19 14:45 09/30/19 14:46 DC 09/30/19 15:32 Morphine Sulfate (Morphine Sulfate) 1 mg PRN Q10MIN PRN 10/01/19 07:00 10/02/19 06:59 DC Ondansetron HCl (Zofran) 4 mg STK-MED ONCE 10/01/19 13:59 10/01/19 14:00 DC Potassium Chloride (Klor-Con) 40 meq 1X ONCE 09/30/19 22:00 09/30/19 22:01 DC 09/30/19 22:05 Prochlorperazine Edisylate (Compazine) 5 mg PACU PRN PRN 10/01/19 07:00 10/02/19 06:59 DC Propofol (Diprivan) 200 mg STK-MED ONCE 10/01/19 13:59 10/01/19 14:00 DC Protamine Sulfate (Protamine) 50 mg STK-MED ONCE 10/01/19 12:07 10/01/19 12:08 DC Ringer's Solution 1,060 ml @ 1,060 mls/hr 1X ONCE 10/01/19 11:30 10/01/19 12:56 DC 10/01/19 11:30 Rocuronium [place] (Zemuron) 50 mg STK-MED ONCE 10/01/19 11:07 10/01/19 11:07 DC Sodium Monofluorophosphate (Fleet Adult) 133 ml PRN DAILY PRN 09/28/19 11:00 Sodium Chloride 500 ml @ 500 mls/hr 1X ONCE 09/28/19 12:45 09/28/19 13:44 DC 09/28/19 13:11 Sodium Chloride (Normal Saline Flush) 3 ml QSHIFT PRN 09/28/19 11:00 Vancomycin HCl 250 ml @ 250 mls/hr 1X ONCE 09/27/19 20:30 09/27/19 21:29 DC 09/27/19 20:56 LAB Lab: Laboratory Tests Test 10/01/19 17:40 10/01/19 21:08 10/02/19 05:15 10/02/19 07:36 Glucose (Fingerstick) 167 mg/dL (70-99) H 150 mg/dL (70-99) H 117 mg/dL (70-99) H Sodium Level 141 mmol/L (136-145) Potassium Level 3.6 mmol/L (3.5-5.1) Chloride Level 108 mmol/L (98-107) H Carbon Dioxide Level 22 mmol/L (21-32) Anion Gap 11 (6-14) Blood Urea Nitrogen 13 mg/dL (7-20) Creatinine 1.3 mg/dL (0.6-1.0) H Estimated GFR (Cockcroft-Gault) 51.6 Glucose Level 116 mg/dL (70-99) H Calcium Level 8.1 mg/dL (8.5-10.1) L Test 10/02/19 12:03 Glucose (Fingerstick) 148 mg/dL (70-99) H Laboratory Tests 10/02/19 05:15 ASSESSMENT & PLAN A&P Plan as noted above This note was completed using [employer] and there may be errors and inconsistencies due to the nature of real-time dictation. CLIFF VAZQUEZ MD Oct 02, 2019 14:11
[2019-10-02 14:50] VITALS: BP 178/84
[2019-10-02] MEDS: METOCLOPRAMIDE HCL 10 MG/2 ML VIAL. IVP SCH ×2 (16:54→21:05)
[2019-10-02] MEDS: CARVEDILOL 6.25 MG TABLET. PO SCH (16:54)
[2019-10-02 19:40] VITALS: BP 164/74
[2019-10-02] MEDS: LORazepam 0.5 MG TABLET PO PRN (21:04)
[2019-10-02] MEDS: ATORVASTATIN CALCIUM 40 MG TABLET. PO SCH (21:05)
[2019-10-02 23:30] VITALS: BP 196/95
[2019-10-03] VITALS (11 sets, daily range): BP systolic 157–209; BP diastolic 74–95
[2019-10-03] MEDS: IV NORMAL SALINE 1000ML BAG 1,000 ML IV SCH ×3 (02:12→21:35)
[2019-10-03] MEDS: hydrALAZINE 20 MG/ML VIAL. IVP PRN ×2 (03:28→12:31)
[2019-10-03 04:12] LABS: BASO % 0 % (0-3); EOS # 0.1 x10^3/uL (0.0-0.7); EOS % 1 % (0-3); HEMATOCRIT 21.8 % (36.0-47.0); HEMOGLOBIN 7.3 g/dL (12.0-15.5); LYMPH # 1.3 x10^3/uL (1.0-4.8); LYMPH % 10 % (24-48); MEAN CORPUSCULAR HEMOGLOBIN 27 pg (25-35); MEAN CORPUSCULAR HGB CONC 34 g/dL (31-37); MEAN CORPUSCULAR VOLUME 81 fL (79-100); MONO % 8 % (0-9); NEUT # 10.2 x10^3/uL (1.8-7.7); NEUT % 81 % (31-73); PLATELET COUNT 409 x10^3/uL (140-400); RED BLOOD COUNT 2.68 x10^6/uL (3.50-5.40); RED CELL DISTRIBUTION WIDTH 14.2 % (11.5-14.5); WHITE BLOOD COUNT 12.5 x10^3/uL (4.0-11.0)
[2019-10-03 04:43] LABS: ALBUMIN 1.8 g/dL (3.4-5.0); ALBUMIN/GLOBULIN RATIO 0.5 (1.0-1.7); CALCIUM 8.2 mg/dL (8.5-10.1); CREATININE 1.3 mg/dL (0.6-1.0); GFR 51.6; POTASSIUM 3.6 mmol/L (3.5-5.1); TOTAL BILIRUBIN 0.3 mg/dL (0.2-1.0); TOTAL PROTEIN 5.8 g/dL (6.4-8.2)
[2019-10-03] MEDS: MEROPENEM 500 MG in IV NORMAL SALINE 50ML 50 ML IV SCH ×3 (05:29→21:35)
[2019-10-03] MEDS: INSULIN NPH/REG INSULIN 70/30 300 UNITS/3 ML INSULN.PEN. SQ SCH ×2 (08:00→17:00)
[2019-10-03] MEDS: METOCLOPRAMIDE HCL 10 MG/2 ML VIAL. IVP SCH ×4 (08:08→21:35)
[2019-10-03] MEDS: CARVEDILOL 6.25 MG TABLET. PO SCH (08:08)
[2019-10-03] MEDS: ONDANSETRON PF 4 MG/2 ML VIAL. IV PRN (08:08)
[2019-10-03] MEDS: LACTOBACILLUS RHAMNOSUS GG 1 CAPSULE. PO SCH ×2 (08:09→21:34)
[2019-10-03] MEDS: LISINOPRIL 20 MG TABLET PO SCH (08:09)
--- NOTE | 2019-10-03 10:14 | PDOC ---
Infectious Disease Note Subjective Subjective c/o N/V this morning Low-grade fever Tmax 100.0 Denies cramps/diarrhea/constipation/SOA/chills ROS ROS as mentioned above Vital Sign Vital Signs Vital Signs Date Time Temp Pulse Resp B/P (MAP) Pulse Ox O2 Delivery O2 Flow Rate FiO2 10/03/19 08:09 92 200/95 10/03/19 07:34 99.1 16 95 Room Air 99.1 10/02/19 08:00 2.0 Physical Exam PHYSICAL EXAM GENERAL: Propped up in bed, alert in NAD HEENT: Oral cavity pink, no thrush/lesions seen NECK: Supple LUNGS: Clear. HEART: S1, S2 regular. ABDOMEN: Obese, soft, nontender EXTREMITIES: Right lower extremity is unremarkable. Left lower extremity has gangrene of the left fourth toe; maceration and drainage from the web between the 3rd and the 4th and 4th and the 5th toes. + malodor NEUROLOGIC: Alert, oriented. No focal neurologic deficit. PIV ok Labs Lab Laboratory Tests Test 10/02/19 12:03 10/02/19 17:01 10/02/19 20:55 10/03/19 03:55 Glucose (Fingerstick) 148 mg/dL (70-99) 121 mg/dL (70-99) 132 mg/dL (70-99) White Blood Count 12.5 x10^3/uL (4.0-11.0) Red Blood Count 2.68 x10^6/uL (3.50-5.40) Hemoglobin 7.3 g/dL (12.0-15.5) Hematocrit 21.8 % (36.0-47.0) Mean Corpuscular Volume 81 fL (79-100) Mean Corpuscular Hemoglobin 27 pg (25-35) Mean Corpuscular Hemoglobin Concent 34 g/dL (31-37) Red Cell Distribution Width 14.2 % (11.5-14.5) Platelet Count 409 x10^3/uL (140-400) Neutrophils (%) (Auto) 81 % (31-73) Lymphocytes (%) (Auto) 10 % (24-48) Monocytes (%) (Auto) 8 % (0-9) Eosinophils (%) (Auto) 1 % (0-3) Basophils (%) (Auto) 0 % (0-3) Neutrophils # (Auto) 10.2 x10^3/uL (1.8-7.7) Lymphocytes # (Auto) 1.3 x10^3/uL (1.0-4.8) Monocytes # (Auto) 1.0 x10^3/uL (0.0-1.1) Eosinophils # (Auto) 0.1 x10^3/uL (0.0-0.7) Basophils # (Auto) 0.0 x10^3/uL (0.0-0.2) Sodium Level 143 mmol/L (136-145) Potassium Level 3.6 mmol/L (3.5-5.1) Chloride Level 109 mmol/L (98-107) Carbon Dioxide Level 23 mmol/L (21-32) Anion Gap 11 (6-14) Blood Urea Nitrogen 13 mg/dL (7-20) Creatinine 1.3 mg/dL (0.6-1.0) Estimated GFR (Cockcroft-Gault) 51.6 BUN/Creatinine Ratio 10 (6-20) Glucose Level 104 mg/dL (70-99) Calcium Level 8.2 mg/dL (8.5-10.1) Total Bilirubin 0.3 mg/dL (0.2-1.0) Aspartate Amino Transf (AST/SGOT) 19 U/L (15-37) Alanine Aminotransferase (ALT/SGPT) 9 U/L (14-59) Alkaline Phosphatase 72 U/L (46-116) Total Protein 5.8 g/dL (6.4-8.2) Albumin 1.8 g/dL (3.4-5.0) Albumin/Globulin Ratio 0.5 (1.0-1.7) Test 10/03/19 08:27 Glucose (Fingerstick) 121 mg/dL (70-99) Micro GRAM STAIN Final Final GRAM POSITIVE COCCI:MANY SQUAMOUS EPI CELL:RARE PMN (WBCs):RARE ANAEROBIC-AEROBIC CULTURE Preliminary Preliminary MANY GRAM POSITIVE COCCI on 09/29/19 at 1355 FINAL ID= [STREPTOCOCCUS MITIS/ORALIS] RARE [STAPHYLOCOCCUS AUREUS] on 10/01/19 at 1453 AZITHROMYCIN: S <=2 CEFOXITIN SCREEN: NEG <=4 CEFTAROLINE: S <=0.5 CIPROFLOXACIN: S <=1 CLINDAMYCIN: S 0.5 DAPTOMYCIN: S <=0.5 ERYTHROMYCIN: S <=0.25 GENTAMICIN: S <=4 LEVOFLOXACIN: S <=1 LINEZOLID: S 2 OXACILLIN: S <=0.25 PENICILLIN: JEN 0.5 RIFAMPIN: S <=1 TETRACYCLINE: S <=4 TRIMETH/SULFA: S <=0.5/9.5 VANCOMYCIN: S 1 STAPHYLOCOCCUS AUREUS STREPTOCOCCUS MITIS/ORALIS URINE CULTURE Final Final 20,000 CFU/ML Normal genitourinary man, not indicative of infection on 09/30/19 at 0946 Objective Assessment Left fourth toe gangrene. s/p angiogram 09/29: chronic total occlusion, left superficial femoral artery, attempted revascularization unsuccessful Left fourth toe and diabetic foot infection: Strep mitis/oralis and MSSA Fever. Leukocytosis. PCN allergy w/ hives and sulfa w/ throat swelling History of cerebrovascular accident. Hypertension. N/V Plan Plan of Care Dapto and meropenem, 09/27 Monitor for abx toxicities f/u cultures Monior WBC/temp Await vascular surgery, tentatively Friday Local wound care as directed Patient seen. Chart reviewed. Case discussed with CHEMISTRY LABORATORY TECHNICIAN. Agree with above plan/. LUIZ CUETO APRN Oct 03, 2019 10:14 SELENE VELAZQUEZ MD Oct 03, 2019 20:39
[2019-10-03] MEDS: DAPTOmycin (GENERIC) IVPB 490 MG in IV NORMAL SALINE 50ML 50 ML IV SCH (11:10)
--- NOTE | 2019-10-03 12:08 | PDOC ---
Renal-Progress Notes Subjective Notes Notes NO NEW COMPLAINTS History of Present Illness Hx of present illness STABLE Vitals Vitals Vital Signs Date Time Temp Pulse Resp B/P (MAP) Pulse Ox O2 Delivery O2 Flow Rate FiO2 10/03/19 11:14 98.3 89 16 209/93 (131) 96 Room Air 98.3 10/03/19 08:00 2.0 Weight Weight [ ] I.O. Intake and Output Intake and Output 10/03/19 07:00 Intake Total 1200 ml Output Total 0 ml Balance 1200 ml Intake Oral 350 ml IV Total 850 ml Output Urine Total 0 ml # Voids 2 Labs Labs Laboratory Tests Test 10/02/19 17:01 10/02/19 20:55 10/03/19 03:55 10/03/19 08:27 Glucose (Fingerstick) 121 mg/dL (70-99) 132 mg/dL (70-99) 121 mg/dL (70-99) White Blood Count 12.5 x10^3/uL (4.0-11.0) Red Blood Count 2.68 x10^6/uL (3.50-5.40) Hemoglobin 7.3 g/dL (12.0-15.5) Hematocrit 21.8 % (36.0-47.0) Mean Corpuscular Volume 81 fL (79-100) Mean Corpuscular Hemoglobin 27 pg (25-35) Mean Corpuscular Hemoglobin Concent 34 g/dL (31-37) Red Cell Distribution Width 14.2 % (11.5-14.5) Platelet Count 409 x10^3/uL (140-400) Neutrophils (%) (Auto) 81 % (31-73) Lymphocytes (%) (Auto) 10 % (24-48) Monocytes (%) (Auto) 8 % (0-9) Eosinophils (%) (Auto) 1 % (0-3) Basophils (%) (Auto) 0 % (0-3) Neutrophils # (Auto) 10.2 x10^3/uL (1.8-7.7) Lymphocytes # (Auto) 1.3 x10^3/uL (1.0-4.8) Monocytes # (Auto) 1.0 x10^3/uL (0.0-1.1) Eosinophils # (Auto) 0.1 x10^3/uL (0.0-0.7) Basophils # (Auto) 0.0 x10^3/uL (0.0-0.2) Sodium Level 143 mmol/L (136-145) Potassium Level 3.6 mmol/L (3.5-5.1) Chloride Level 109 mmol/L (98-107) Carbon Dioxide Level 23 mmol/L (21-32) Anion Gap 11 (6-14) Blood Urea Nitrogen 13 mg/dL (7-20) Creatinine 1.3 mg/dL (0.6-1.0) Estimated GFR (Cockcroft-Gault) 51.6 BUN/Creatinine Ratio 10 (6-20) Glucose Level 104 mg/dL (70-99) Calcium Level 8.2 mg/dL (8.5-10.1) Total Bilirubin 0.3 mg/dL (0.2-1.0) Aspartate Amino Transf (AST/SGOT) 19 U/L (15-37) Alanine Aminotransferase (ALT/SGPT) 9 U/L (14-59) Alkaline Phosphatase 72 U/L (46-116) Total Protein 5.8 g/dL (6.4-8.2) Albumin 1.8 g/dL (3.4-5.0) Albumin/Globulin Ratio 0.5 (1.0-1.7) Test 10/03/19 11:19 Glucose (Fingerstick) 176 mg/dL (70-99) Micro Micro Microbiology 09/27/19 Urine Culture - Final, Complete 09/27/19 Gram Stain - Final, Resulted 09/27/19 Aerobic and Anaerobic Culture - Preliminary, Resulted 09/27/19 Antimicrobic Susceptibility - Preliminary, Resulted Review of Systems Constitutional: yes: alert Ears/Nose/Throat: Yes: no symptom reported Eyes: Yes: no symptom reported Pulmonary: Yes no symptom reported Cardiovascular: Yes no symptom reported Gastrointestional: Yes: constipation Genitourinary: Yes: no symptom reported Musculoskeletal: Yes: muscle stiffness Skin: Yes no symptom reported Psychiatric/Neurological: Yes: no symptom reported Endocrine: Yes: no symptom reported Physical Exam General Appearance: no apparent distress Skin: warm Heart: S1S2 Abdomen: soft, bowel sounds present Genitourinary: bladder flat Extremities: pulses present, atrophy Neurology: alert, oriented Assessment Assessment IMP ZURDO-RESOLVED CKD STAGE 2-CR OF 1.3 AND STABLE HTN HX PAD HX TOE GANGRENE FOOT INFECTION - LEUCOCYTOSIS PLAN REVASCULARIZATION AND AMP PENDING ANTIBIOTICS ID AND VASCULAR EVAL AND TX WILL FOLLOW DARREN DRAKE MD Oct 03, 2019 12:08
--- NOTE | 2019-10-03 14:24 | PDOC ---
GENERAL General: Patient examined chart reviewed discussed with nursing. Patient is about the same today still severe hypertension and as well continues to be quite na useated. We added Reglan yesterday does not seem to be helping much yet. She has had no obvious bleeding but her hemoglobin is down now at 7.3. Given her vascular surgery planned for early this week we will transfuse her 1 unit of packed red blood cells in preparation for that. We will continue her Lovenox and occult blood check her stools. Patient has not noticed any bleeding nor has nursing. I have increased her carvedilol to 12.5 twice a day and added amlodipine 5 mg daily. She has severe vascular disease and probable subclavian stenosis that is explaining her malignant hypertension. We may need nephrology to help with medication management of her severe hypertension. We appreciate subspecialty support. Continue current management otherwise. Total time today is 30 minutes with greater than 50% in counseling and coordination of care most of which in discussion with patient and nursing Problems: (1) Chronic vomiting (2) Peripheral vascular disease (3) Type 2 diabetes mellitus not at goal (4) Diabetic foot infection (5) Cellulitis and abscess of lower extremity VITAL SIGNS Vital Signs/I&O: Vital Signs Date Time Temp Pulse Resp B/P (MAP) Pulse Ox O2 Delivery O2 Flow Rate FiO2 10/03/19 12:31 89 209/93 10/03/19 11:14 98.3 16 96 Room Air 98.3 10/03/19 08:00 2.0 I & O 10/02/19 10/02/19 10/03/19 15:00 23:00 07:00 Intake Total 50 ml 1150 ml Output Total 0 ml Balance 0 ml 50 ml 1150 ml General patient is pleasant quiet at baseline orientation in no acute distress HEENT exam is unremarkable for acute abnormality Chest is clear to auscultation Heart S1-S2 normal regular rate and rhythm no murmurs or gallops are noted Abdomen soft nontender nondistended no masses organomegaly noted Extremity exam is unremarkable for acute abnormality ALLERGIES Allergies: Allergies Coded Allergies Type Severity Reaction Last Updated Verified Sulfa (Sulfonamide Antibiotics) Allergy Severe Anaphylaxis 07/24/16 Yes Penicillins Allergy Intermediate 07/24/16 Yes MEDS Medications: Current Medications Medications (Trade) Dose Ordered Sig/Leanne Start Time Stop Time Status Last Admin Dose Admin Acetaminophen (Tylenol Supp) 650 mg 1X ONCE 10/01/19 12:00 10/01/19 12:01 DC 10/01/19 11:58 Acetaminophen (Tylenol) 650 mg PRN Q4HRS PRN 09/28/19 11:00 10/01/19 23:49 Al Hydroxide/Mg Hydroxide (Mylanta Plus Xs) 30 ml PRN DAILY PRN 09/28/19 11:00 Albuterol Sulfate (Ventolin Neb Soln) 2.5 mg PRN Q4HRS PRN 09/28/19 11:00 Atorvastatin Calcium (Lipitor) 40 mg QHS 09/29/19 21:00 10/02/19 21:05 Carvedilol (Coreg) 6.25 mg BIDWMEALS 10/02/19 17:00 10/03/19 08:08 Cefazolin Sodium 1 gm/Sodium Chloride 500 ml @ 500 mls/hr 1X ONCE 10/01/19 11:00 10/01/19 11:59 DC Cellulose (Surgicel Fibrillar 1x2) 1 each STK-MED ONCE 10/01/19 12:07 10/01/19 12:08 DC Clonidine HCl (Catapres Tts-1) 1 patch Sa 10/02/19 14:00 10/02/19 14:23 Clonidine HCl (Catapres) 0.1 mg PRN Q6HRS PRN 09/28/19 11:00 10/02/19 13:59 DC 09/30/19 22:09 Daptomycin 490 mg/ Sodium Chloride 50 ml @ 100 mls/hr Q24H 09/28/19 11:00 10/03/19 11:10 Dexamethasone Sodium Phosphate (Decadron) 4 mg STK-MED ONCE 10/01/19 13:59 10/01/19 14:00 DC Docusate Sodium (Colace) 100 mg PRN BID PRN 09/28/19 11:00 Enoxaparin Sodium (Lovenox 40mg Syringe) 40 mg Q24H 09/28/19 12:00 10/02/19 11:33 Fentanyl Citrate (Fentanyl 2ml Vial) 100 mcg STK-MED ONCE 10/01/19 11:07 10/01/19 11:07 DC Guaifenesin (Robitussin) 200 mg PRN Q4HRS PRN 09/28/19 11:00 Heparin Sodium (Porcine) (Heparin Sodium) 5,000 unit 1X ONCE 09/30/19 14:45 09/30/19 14:46 DC 09/30/19 15:34 Heparin Sodium (Porcine) 5000 unit/Sodium Chloride 505 ml @ 505 mls/hr 1X ONCE 10/01/19 11:00 10/01/19 11:59 DC Heparin Sodium/ Sodium Chloride (HEPARIN for ARTERIAL LINE FLUSH) 2,000 unit 1X ONCE 09/30/19 14:45 09/30/19 14:46 DC 09/30/19 15:31 Hydralazine HCl (Apresoline Inj) 10 mg PRN Q4HRS PRN 09/28/19 16:15 10/03/19 12:31 Hydromorphone HCl (Dilaudid) 0.5 mg PRN Q10MIN PRN 10/01/19 07:00 10/02/19 06:59 DC Insulin Human Isoph/Insulin Regular (HumuLIN 70/30) 8 units DAILYWBKFT 09/28/19 08:00 Iodixanol (Visipaque 320) 100 ml 1X ONCE 09/30/19 14:45 09/30/19 14:46 DC 09/30/19 15:31 Iohexol (Omnipaque 300 Mg/ml) 50 ml STK-MED ONCE 10/01/19 12:07 10/01/19 12:07 DC Lactobacillus Rhamnosus (Culturelle) 1 cap BID 09/29/19 21:00 10/03/19 08:09 Lidocaine HCl (Buffered Lidocaine 1%) 3 ml 1X ONCE 09/30/19 14:45 09/30/19 14:46 DC 09/30/19 15:32 Lidocaine HCl (Lidocaine Pf 2% Vial) 5 ml STK-MED ONCE 10/01/19 13:59 10/01/19 14:00 DC Lidocaine HCl (Xylocaine-Mpf 1% 2ml Vial) 2 ml PRN 1X PRN 10/01/19 07:00 10/02/19 06:59 DC Lisinopril (Prinivil) 40 mg DAILY 09/28/19 00:30 10/03/19 08:09 Lorazepam (Ativan) 0.5 mg PRN Q4HRS PRN 09/28/19 11:00 10/02/19 21:04 Meropenem 500 mg/ Sodium Chloride 50 ml @ 100 mls/hr Q8HRS 09/28/19 11:00 10/03/19 13:37 Metoclopramide HCl (Reglan Vial) 10 mg QIDACHS 10/02/19 16:30 10/03/19 11:12 Metoprolol Tartrate (Lopressor Vial) 5 mg PRN Q6HRS PRN 09/28/19 16:15 10/02/19 13:59 DC 10/02/19 08:19 Midazolam HCl (Versed) 5 mg 1X ONCE 09/30/19 14:45 09/30/19 14:46 DC 09/30/19 15:32 Morphine Sulfate (Morphine Sulfate) 1 mg PRN Q10MIN PRN 10/01/19 07:00 10/02/19 06:59 DC Ondansetron HCl (Zofran) 4 mg STK-MED ONCE 10/01/19 13:59 10/01/19 14:00 DC Potassium Chloride (Klor-Con) 40 meq 1X ONCE 09/30/19 22:00 09/30/19 22:01 DC 09/30/19 22:05 Prochlorperazine Edisylate (Compazine) 5 mg PACU PRN PRN 10/01/19 07:00 10/02/19 06:59 DC Propofol (Diprivan) 200 mg STK-MED ONCE 10/01/19 13:59 10/01/19 14:00 DC Protamine Sulfate (Protamine) 50 mg STK-MED ONCE 10/01/19 12:07 10/01/19 12:08 DC Ringer's Solution 1,060 ml @ 1,060 mls/hr 1X ONCE 10/01/19 11:30 10/01/19 12:56 DC 10/01/19 11:30 Rocuronium [place] (Zemuron) 50 mg STK-MED ONCE 10/01/19 11:07 10/01/19 11:07 DC Sodium Monofluorophosphate (Fleet Adult) 133 ml PRN DAILY PRN 09/28/19 11:00 Sodium Chloride 500 ml @ 500 mls/hr 1X ONCE 09/28/19 12:45 09/28/19 13:44 DC 09/28/19 13:11 Sodium Chloride (Normal Saline Flush) 3 ml QSHIFT PRN 09/28/19 11:00 Vancomycin HCl 250 ml @ 250 mls/hr 1X ONCE 09/27/19 20:30 09/27/19 21:29 DC 09/27/19 20:56 Current Medications Medications (Trade) Dose Ordered Sig/Leanne Route PRN Reason Start Time Stop Time Status Last Admin Dose Admin Carvedilol (Coreg) 6.25 mg BIDWMEALS PO 10/02/19 17:00 10/03/19 08:08 Metoclopramide HCl (Reglan Vial) 10 mg QIDACHS IVP 10/02/19 16:30 10/03/19 11:12 LAB Lab: Laboratory Tests Test 10/02/19 17:01 10/02/19 20:55 10/03/19 03:55 10/03/19 08:27 Glucose (Fingerstick) 121 mg/dL (70-99) H 132 mg/dL (70-99) H 121 mg/dL (70-99) H White Blood Count 12.5 x10^3/uL (4.0-11.0) H Red Blood Count 2.68 x10^6/uL (3.50-5.40) L Hemoglobin 7.3 g/dL (12.0-15.5) L Hematocrit 21.8 % (36.0-47.0) L Mean Corpuscular Volume 81 fL (79-100) Mean Corpuscular Hemoglobin 27 pg (25-35) Mean Corpuscular Hemoglobin Concent 34 g/dL (31-37) Red Cell Distribution Width 14.2 % (11.5-14.5) Platelet Count 409 x10^3/uL (140-400) H Neutrophils (%) (Auto) 81 % (31-73) H Lymphocytes (%) (Auto) 10 % (24-48) L Monocytes (%) (Auto) 8 % (0-9) Eosinophils (%) (Auto) 1 % (0-3) Basophils (%) (Auto) 0 % (0-3) Neutrophils # (Auto) 10.2 x10^3/uL (1.8-7.7) H Lymphocytes # (Auto) 1.3 x10^3/uL (1.0-4.8) Monocytes # (Auto) 1.0 x10^3/uL (0.0-1.1) Eosinophils # (Auto) 0.1 x10^3/uL (0.0-0.7) Basophils # (Auto) 0.0 x10^3/uL (0.0-0.2) Sodium Level 143 mmol/L (136-145) Potassium Level 3.6 mmol/L (3.5-5.1) Chloride Level 109 mmol/L (98-107) H Carbon Dioxide Level 23 mmol/L (21-32) Anion Gap 11 (6-14) Blood Urea Nitrogen 13 mg/dL (7-20) Creatinine 1.3 mg/dL (0.6-1.0) H Estimated GFR (Cockcroft-Gault) 51.6 BUN/Creatinine Ratio 10 (6-20) Glucose Level 104 mg/dL (70-99) H Calcium Level 8.2 mg/dL (8.5-10.1) L Total Bilirubin 0.3 mg/dL (0.2-1.0) Aspartate Amino Transferase (AST) 19 U/L (15-37) Alanine Aminotransferase (ALT) 9 U/L (14-59) L Alkaline Phosphatase 72 U/L (46-116) Total Protein 5.8 g/dL (6.4-8.2) L Albumin 1.8 g/dL (3.4-5.0) L Albumin/Globulin Ratio 0.5 (1.0-1.7) L Test 10/03/19 11:19 Glucose (Fingerstick) 176 mg/dL (70-99) H Laboratory Tests 10/03/19 03:55 Laboratory Tests 10/03/19 03:55 ASSESSMENT & PLAN A&P Plan as noted above This note was created using [email or web address] and may have omissions and/or errors due to the nature of real-time voice manager in home. CLIFF VAZQUEZ MD Oct 03, 2019 14:24
[2019-10-03] MEDS: ENOXAPARIN 40 MG/0.4 ML SYRINGE. SQ SCH (14:36)
[2019-10-03] MEDS: amLODIPine BESYLATE 5 MG TABLET PO SCH (14:37)
[2019-10-03] MEDS: CARVEDILOL 12.5 MG TABLET. PO SCH (16:58)
[2019-10-03] MEDS: ATORVASTATIN CALCIUM 40 MG TABLET. PO SCH (21:34)
[2019-10-04 02:30] VITALS: BP 189/87
[2019-10-04] MEDS: MEROPENEM 500 MG in IV NORMAL SALINE 50ML 50 ML IV SCH ×3 (05:01→21:08)
[2019-10-04 05:04] LABS: BASO % 0 % (0-3); EOS # 0.1 x10^3/uL (0.0-0.7); EOS % 1 % (0-3); HEMATOCRIT 25.4 % (36.0-47.0); HEMOGLOBIN 8.7 g/dL (12.0-15.5); LYMPH # 1.4 x10^3/uL (1.0-4.8); LYMPH % 11 % (24-48); MEAN CORPUSCULAR HEMOGLOBIN 28 pg (25-35); MEAN CORPUSCULAR HGB CONC 34 g/dL (31-37); MEAN CORPUSCULAR VOLUME 83 fL (79-100); MONO # 1.1 x10^3/uL (0.0-1.1); MONO % 9 % (0-9); NEUT # 9.9 x10^3/uL (1.8-7.7); NEUT % 79 % (31-73); PLATELET COUNT 411 x10^3/uL (140-400); RED BLOOD COUNT 3.08 x10^6/uL (3.50-5.40); RED CELL DISTRIBUTION WIDTH 14.6 % (11.5-14.5); WHITE BLOOD COUNT 12.6 x10^3/uL (4.0-11.0)
[2019-10-04 05:38] LABS: ALBUMIN 1.9 g/dL (3.4-5.0); ALBUMIN/GLOBULIN RATIO 0.6 (1.0-1.7); CALCIUM 7.9 mg/dL (8.5-10.1); CREATININE 1.3 mg/dL (0.6-1.0); GFR 51.6; POTASSIUM 3.9 mmol/L (3.5-5.1); TOTAL BILIRUBIN 0.5 mg/dL (0.2-1.0); TOTAL PROTEIN 5.1 g/dL (6.4-8.2)
[2019-10-04 07:00] VITALS: BP 209/99
[2019-10-04] MEDS: INSULIN NPH/REG INSULIN 70/30 300 UNITS/3 ML INSULN.PEN. SQ SCH ×2 (08:00→17:00)
[2019-10-04] MEDS: METOCLOPRAMIDE HCL 10 MG/2 ML VIAL. IVP SCH ×4 (08:13→20:30)
[2019-10-04] MEDS: LACTOBACILLUS RHAMNOSUS GG 1 CAPSULE. PO SCH ×2 (08:15→20:30)
[2019-10-04] MEDS: amLODIPine BESYLATE 5 MG TABLET PO SCH (08:15)
[2019-10-04] MEDS: LISINOPRIL 20 MG TABLET PO SCH (08:16)
[2019-10-04] MEDS: CARVEDILOL 12.5 MG TABLET. PO SCH ×2 (08:16→16:27)
--- NOTE | 2019-10-04 08:19 | PDOC ---
Infectious Disease Note Subjective: Subjective Patient feels a little better Tolerated her breakfast well Denies fever, nausea, vomiting, shortness of breath, diarrhea, abdominal pain, rash Vital Signs: Vital Signs Vital Signs Date Time Temp Pulse Resp B/P (MAP) Pulse Ox O2 Delivery O2 Flow Rate FiO2 10/04/19 02:30 98.5 83 18 189/87 (121) 91 Room Air 98.5 10/03/19 08:00 2.0 Physical Exam: PHYSICAL EXAM GENERAL: Propped up in bed, alert in NAD HEENT: Oral cavity pink, no thrush/lesions seen NECK: Supple LUNGS: Clear. HEART: S1, S2 regular. ABDOMEN: Obese, soft, nontender EXTREMITIES: Right lower extremity is unremarkable. Left lower extremity has gangrene of the left fourth toe; maceration and drainage from the web between the 3rd and the 4th and 4th and the 5th toes. + malodor NEUROLOGIC: Alert, oriented. No focal neurologic deficit. PIV ok Medications: Inpatient Meds: Current Medications Medications (Trade) Dose Ordered Sig/Leanne Start Time Stop Time Status Last Admin Dose Admin Acetaminophen (Tylenol Supp) 650 mg 1X ONCE 10/01/19 12:00 10/01/19 12:01 DC 10/01/19 11:58 650 MG Acetaminophen (Tylenol) 650 mg PRN Q4HRS PRN 09/28/19 11:00 10/01/19 23:49 650 MG Al Hydroxide/Mg Hydroxide (Mylanta Plus Xs) 30 ml PRN DAILY PRN 09/28/19 11:00 Albuterol Sulfate (Ventolin Neb Soln) 2.5 mg PRN Q4HRS PRN 09/28/19 11:00 Amlodipine Besylate (Norvasc) 5 mg DAILY 10/03/19 14:15 10/03/19 14:37 5 MG Atorvastatin Calcium (Lipitor) 40 mg QHS 09/29/19 21:00 10/03/19 21:34 40 MG Carvedilol (Coreg) 12.5 mg BIDWMEALS 10/03/19 17:00 10/03/19 16:58 12.5 MG Cefazolin Sodium 1 gm/Sodium Chloride 500 ml @ 500 mls/hr 1X ONCE 10/01/19 11:00 10/01/19 11:59 DC Cellulose (Surgicel Fibrillar 1x2) 1 each STK-MED ONCE 10/01/19 12:07 10/01/19 12:08 DC Clonidine HCl (Catapres Tts-1) 1 patch Sa 10/02/19 14:00 10/02/19 14:23 1 PATCH Clonidine HCl (Catapres) 0.1 mg PRN Q6HRS PRN 09/28/19 11:00 10/02/19 13:59 DC 09/30/19 22:09 0.1 MG Daptomycin 490 mg/ Sodium Chloride 50 ml @ 100 mls/hr Q24H 09/28/19 11:00 10/03/19 11:10 100 MLS/HR Dexamethasone Sodium Phosphate (Decadron) 4 mg STK-MED ONCE 10/01/19 13:59 10/01/19 14:00 DC Docusate Sodium (Colace) 100 mg PRN BID PRN 09/28/19 11:00 Enoxaparin Sodium (Lovenox 40mg Syringe) 40 mg Q24H 09/28/19 12:00 10/03/19 14:36 40 MG Fentanyl Citrate (Fentanyl 2ml Vial) 100 mcg STK-MED ONCE 10/01/19 11:07 10/01/19 11:07 DC Guaifenesin (Robitussin) 200 mg PRN Q4HRS PRN 09/28/19 11:00 Heparin Sodium (Porcine) (Heparin Sodium) 5,000 unit 1X ONCE 09/30/19 14:45 09/30/19 14:46 DC 09/30/19 15:34 5,000 UNIT Heparin Sodium (Porcine) 5000 unit/Sodium Chloride 505 ml @ 505 mls/hr 1X ONCE 10/01/19 11:00 10/01/19 11:59 DC Heparin Sodium/ Sodium Chloride (HEPARIN for ARTERIAL LINE FLUSH) 2,000 unit 1X ONCE 09/30/19 14:45 09/30/19 14:46 DC 09/30/19 15:31 2,000 UNIT Hydralazine HCl (Apresoline Inj) 10 mg PRN Q4HRS PRN 09/28/19 16:15 10/03/19 12:31 10 MG Hydromorphone HCl (Dilaudid) 0.5 mg PRN Q10MIN PRN 10/01/19 07:00 10/02/19 06:59 DC Insulin Human Isoph/Insulin Regular (HumuLIN 70/30) 8 units DAILYWBKFT 09/28/19 08:00 Iodixanol (Visipaque 320) 100 ml 1X ONCE 09/30/19 14:45 09/30/19 14:46 DC 09/30/19 15:31 78 ML Iohexol (Omnipaque 300 Mg/ml) 50 ml STK-MED ONCE 10/01/19 12:07 10/01/19 12:07 DC Lactobacillus Rhamnosus (Culturelle) 1 cap BID 09/29/19 21:00 10/03/19 21:34 1 CAP Lidocaine HCl (Buffered Lidocaine 1%) 3 ml 1X ONCE 09/30/19 14:45 09/30/19 14:46 DC 09/30/19 15:32 5 ML Lidocaine HCl (Lidocaine Pf 2% Vial) 5 ml STK-MED ONCE 10/01/19 13:59 10/01/19 14:00 DC Lidocaine HCl (Xylocaine-Mpf 1% 2ml Vial) 2 ml PRN 1X PRN 10/01/19 07:00 10/02/19 06:59 DC Lisinopril (Prinivil) 40 mg DAILY 09/28/19 00:30 10/03/19 08:09 40 MG Lorazepam (Ativan) 0.5 mg PRN Q4HRS PRN 09/28/19 11:00 10/02/19 21:04 0.5 MG Meropenem 500 mg/ Sodium Chloride 50 ml @ 100 mls/hr Q8HRS 09/28/19 11:00 10/04/19 05:01 100 MLS/HR Metoclopramide HCl (Reglan Vial) 10 mg QIDACHS 10/02/19 16:30 10/03/19 21:35 10 MG Metoprolol Tartrate (Lopressor Vial) 5 mg PRN Q6HRS PRN 09/28/19 16:15 10/02/19 13:59 DC 10/02/19 08:19 5 MG Midazolam HCl (Versed) 5 mg 1X ONCE 09/30/19 14:45 09/30/19 14:46 DC 09/30/19 15:32 1.5 MG Morphine Sulfate (Morphine Sulfate) 1 mg PRN Q10MIN PRN 10/01/19 07:00 6/6/20 06:59 DC Ondansetron HCl (Zofran) 4 mg STK-MED ONCE 10/01/19 13:59 10/01/19 14:00 DC Potassium Chloride (Klor-Con) 40 meq 1X ONCE 09/30/19 22:00 09/30/19 22:01 DC 09/30/19 22:05 40 MEQ Prochlorperazine Edisylate (Compazine) 5 mg PACU PRN PRN 10/01/19 07:00 10/02/19 06:59 DC Propofol (Diprivan) 200 mg STK-MED ONCE 10/01/19 13:59 10/01/19 14:00 DC Protamine Sulfate (Protamine) 50 mg STK-MED ONCE 10/01/19 12:07 10/01/19 12:08 DC Ringer's Solution 1,060 ml @ 1,060 mls/hr 1X ONCE 10/01/19 11:30 10/01/19 12:56 DC 10/01/19 11:30 1,060 MLS/HR Rocuronium [place] (Zemuron) 50 mg STK-MED ONCE 10/01/19 11:07 10/01/19 11:07 DC Sodium Monofluorophosphate (Fleet Adult) 133 ml PRN DAILY PRN 09/28/19 11:00 Sodium Chloride 500 ml @ 500 mls/hr 1X ONCE 09/28/19 12:45 09/28/19 13:44 DC 09/28/19 13:11 500 MLS/HR Sodium Chloride (Normal Saline Flush) 3 ml QSHIFT PRN 09/28/19 11:00 Vancomycin HCl 250 ml @ 250 mls/hr 1X ONCE 09/27/19 20:30 09/27/19 21:29 DC 09/27/19 20:56 250 MLS/HR Labs: Lab Laboratory Tests Test 10/03/19 08:27 10/03/19 11:19 10/03/19 17:28 10/03/19 21:22 Glucose (Fingerstick) 121 mg/dL (70-99) 176 mg/dL (70-99) 161 mg/dL (70-99) 156 mg/dL (70-99) Test 10/04/19 04:11 10/04/19 08:12 White Blood Count 12.6 x10^3/uL (4.0-11.0) Red Blood Count 3.08 x10^6/uL (3.50-5.40) Hemoglobin 8.7 g/dL (12.0-15.5) Hematocrit 25.4 % (36.0-47.0) Mean Corpuscular Volume 83 fL (79-100) Mean Corpuscular Hemoglobin 28 pg (25-35) Mean Corpuscular Hemoglobin Concent 34 g/dL (31-37) Red Cell Distribution Width 14.6 % (11.5-14.5) Platelet Count 411 x10^3/uL (140-400) Neutrophils (%) (Auto) 79 % (31-73) Lymphocytes (%) (Auto) 11 % (24-48) Monocytes (%) (Auto) 9 % (0-9) Eosinophils (%) (Auto) 1 % (0-3) Basophils (%) (Auto) 0 % (0-3) Neutrophils # (Auto) 9.9 x10^3/uL (1.8-7.7) Lymphocytes # (Auto) 1.4 x10^3/uL (1.0-4.8) Monocytes # (Auto) 1.1 x10^3/uL (0.0-1.1) Eosinophils # (Auto) 0.1 x10^3/uL (0.0-0.7) Basophils # (Auto) 0.0 x10^3/uL (0.0-0.2) Sodium Level 143 mmol/L (136-145) Potassium Level 3.9 mmol/L (3.5-5.1) Chloride Level 108 mmol/L (98-107) Carbon Dioxide Level 22 mmol/L (21-32) Anion Gap 13 (6-14) Blood Urea Nitrogen 15 mg/dL (7-20) Creatinine 1.3 mg/dL (0.6-1.0) Estimated GFR (Cockcroft-Gault) 51.6 BUN/Creatinine Ratio 12 (6-20) Glucose Level 117 mg/dL (70-99) Calcium Level 7.9 mg/dL (8.5-10.1) Total Bilirubin 0.5 mg/dL (0.2-1.0) Aspartate Amino Transf (AST/SGOT) 19 U/L (15-37) Alanine Aminotransferase (ALT/SGPT) 15 U/L (14-59) Alkaline Phosphatase 75 U/L (46-116) Creatine Kinase 127 U/L (26-192) Total Protein 5.1 g/dL (6.4-8.2) Albumin 1.9 g/dL (3.4-5.0) Albumin/Globulin Ratio 0.6 (1.0-1.7) Glucose (Fingerstick) 125 mg/dL (70-99) Micro Micro GRAM STAIN Final Final GRAM POSITIVE COCCI:MANY SQUAMOUS EPI CELL:RARE PMN (WBCs):RARE ANAEROBIC-AEROBIC CULTURE Preliminary Preliminary MANY GRAM POSITIVE COCCI on 09/29/19 at 1355 FINAL ID= [STREPTOCOCCUS MITIS/ORALIS] RARE [STAPHYLOCOCCUS AUREUS] on 10/01/19 at 1453 AZITHROMYCIN: S <=2 CEFOXITIN SCREEN: NEG <=4 CEFTAROLINE: S <=0.5 CIPROFLOXACIN: S <=1 CLINDAMYCIN: S 0.5 DAPTOMYCIN: S <=0.5 ERYTHROMYCIN: S <=0.25 GENTAMICIN: S <=4 LEVOFLOXACIN: S <=1 LINEZOLID: S 2 OXACILLIN: S <=0.25 PENICILLIN: JEN 0.5 RIFAMPIN: S <=1 TETRACYCLINE: S <=4 TRIMETH/SULFA: S <=0.5/9.5 VANCOMYCIN: S 1 STAPHYLOCOCCUS AUREUS STREPTOCOCCUS MITIS/ORALIS URINE CULTURE Final Final 20,000 CFU/ML Normal genitourinary man, not indicative of infection on 09/30/19 at 0946 Objective: Assessment: Left fourth toe gangrene. s/p angiogram 09/29: chronic total occlusion, left superficial femoral artery, attempted revascularization unsuccessful Left fourth toe and diabetic foot infection: Strep mitis/oralis and MSSA Fever. Leukocytosis. Diabetes mellitus poorly controlled Peripheral vascular disease PCN allergy w/ hives and sulfa w/ throat swelling History of cerebrovascular accident. Hypertension. Nausea and vomiting,improving Plan: Plan of Care Dapto and meropenem, 09/27 Monitor for abx toxicities f/u cultures Monior WBC/temp Awaiting vascular surgery tomorrow, Local wound care as directed Discussed with nursing staff ADELINA ROJAS MD Oct 04, 2019 08:19
--- NOTE | 2019-10-04 08:37 | PDOC ---
Provider Note Provider Note Vascular S: Patient without complaints. Discussed pending surgery. O: Awake and alert HR 85 SBP 170-200, afebrile Non-labored respirations, on room air. Left foot with dry gangrene fourth toe, maceration with ulceration webspace of third and fourth and fourth and fifth toes. Mild erythema. No purulent drainage, but is malodorous. Limited motor function left foot. Labs reviewed. A/P: 53-year-old female with left fourth toe gangrene, peripheral vascular disease. The patient has limited motor function in her left leg due to CVA. Angio and vein mapping reviewed by Dr. Hernandez, plan for left leg bypass with toe amputations Friday10/05/2019, no available OR time for today. Anemia-preop type and screen Chroinic severe hypertension-patient on multiple medications, management per IM. Continue abx per ID Hold today's lovenox dose, discussed with RN. Discussed plan of care with the patient and she is agreeable to proceed. Justicifation of Admission Dx: Justifications for Admission: Justification of Admission Dx: Yes Sepsis: Failure of Out Pt Tx Cellulitis: Cellulitis ETHAN LAZAR MEDICAL SECRETARY RECEPTIONIST Oct 04, 2019 08:37
[2019-10-04] MEDS: IV NORMAL SALINE 1000ML BAG 1,000 ML IV SCH ×3 (09:52→20:30)
[2019-10-04 11:00] VITALS: BP 184/87
--- NOTE | 2019-10-04 11:09 | NUR ---
SS following for discharge planning. SS reviewed pt chart and discussed with pt RN. Pt is from home and is currently on room air. Pt toe amputation postponed until 10/05/2019. Pt on IV Daptomycin and Meropenem. SS will continue to follow for discharge planning.
[2019-10-04] MEDS: DAPTOmycin (GENERIC) IVPB 490 MG in IV NORMAL SALINE 50ML 50 ML IV SCH (11:13)
--- NOTE | 2019-10-04 11:20 | PDOC ---
Renal-Progress Notes Subjective Notes Notes NO NEW COMPLAINTS History of Present Illness Hx of present illness STABLE Vitals Vitals Vital Signs Date Time Temp Pulse Resp B/P (MAP) Pulse Ox O2 Delivery O2 Flow Rate FiO2 10/04/19 11:00 98.6 84 18 184/87 (119) 93 Room Air 98.6 10/03/19 08:00 2.0 Weight Weight [ ] I.O. Intake and Output Intake and Output 10/04/19 06:59 Intake Total 1430 ml Output Total 350 ml Balance 1080 ml Intake Oral 200 ml IV Total 1200 ml Blood Product IV Normal Saline Flush 30 ml Output Urine Total 350 ml # Voids 3 Labs Labs Laboratory Tests Test 10/03/19 17:28 10/03/19 21:22 10/04/19 04:11 10/04/19 08:12 Glucose (Fingerstick) 161 mg/dL (70-99) 156 mg/dL (70-99) 125 mg/dL (70-99) White Blood Count 12.6 x10^3/uL (4.0-11.0) Red Blood Count 3.08 x10^6/uL (3.50-5.40) Hemoglobin 8.7 g/dL (12.0-15.5) Hematocrit 25.4 % (36.0-47.0) Mean Corpuscular Volume 83 fL (79-100) Mean Corpuscular Hemoglobin 28 pg (25-35) Mean Corpuscular Hemoglobin Concent 34 g/dL (31-37) Red Cell Distribution Width 14.6 % (11.5-14.5) Platelet Count 411 x10^3/uL (140-400) Neutrophils (%) (Auto) 79 % (31-73) Lymphocytes (%) (Auto) 11 % (24-48) Monocytes (%) (Auto) 9 % (0-9) Eosinophils (%) (Auto) 1 % (0-3) Basophils (%) (Auto) 0 % (0-3) Neutrophils # (Auto) 9.9 x10^3/uL (1.8-7.7) Lymphocytes # (Auto) 1.4 x10^3/uL (1.0-4.8) Monocytes # (Auto) 1.1 x10^3/uL (0.0-1.1) Eosinophils # (Auto) 0.1 x10^3/uL (0.0-0.7) Basophils # (Auto) 0.0 x10^3/uL (0.0-0.2) Sodium Level 143 mmol/L (136-145) Potassium Level 3.9 mmol/L (3.5-5.1) Chloride Level 108 mmol/L (98-107) Carbon Dioxide Level 22 mmol/L (21-32) Anion Gap 13 (6-14) Blood Urea Nitrogen 15 mg/dL (7-20) Creatinine 1.3 mg/dL (0.6-1.0) Estimated GFR (Cockcroft-Gault) 51.6 BUN/Creatinine Ratio 12 (6-20) Glucose Level 117 mg/dL (70-99) Calcium Level 7.9 mg/dL (8.5-10.1) Total Bilirubin 0.5 mg/dL (0.2-1.0) Aspartate Amino Transf (AST/SGOT) 19 U/L (15-37) Alanine Aminotransferase (ALT/SGPT) 15 U/L (14-59) Alkaline Phosphatase 75 U/L (46-116) Creatine Kinase 127 U/L (26-192) Total Protein 5.1 g/dL (6.4-8.2) Albumin 1.9 g/dL (3.4-5.0) Albumin/Globulin Ratio 0.6 (1.0-1.7) Micro Micro Microbiology 09/27/19 Urine Culture - Final, Complete 09/27/19 Gram Stain - Final, Complete 09/27/19 Aerobic and Anaerobic Culture - Final, Complete 09/27/19 Antimicrobic Susceptibility - Final, Complete Review of Systems Constitutional: yes: alert Ears/Nose/Throat: Yes: no symptom reported Eyes: Yes: no symptom reported Pulmonary: Yes no symptom reported Cardiovascular: Yes no symptom reported Gastrointestional: Yes: constipation Genitourinary: Yes: no symptom reported Musculoskeletal: Yes: muscle stiffness Skin: Yes no symptom reported Psychiatric/Neurological: Yes: no symptom reported Endocrine: Yes: no symptom reported Physical Exam General Appearance: no apparent distress Skin: warm Heart: S1S2 Abdomen: soft, bowel sounds present Genitourinary: bladder flat Extremities: pulses present, atrophy Neurology: alert, oriented Assessment Assessment IMP ZURDO-RESOLVED CKD STAGE 2-CR OF 1.3 AND STABLE HTN HX PAD HX TOE GANGRENE FOOT INFECTION - LEUCOCYTOSIS PLAN REVASCULARIZATION AND AMP PENDING ID AND VASCULAR EVAL AND TX RENAL FXN IS STABLE WILL FOLLOW NEEDED DARREN DRAKE MD Oct 04, 2019 11:20
[2019-10-04] MEDS: ENOXAPARIN 40 MG/0.4 ML SYRINGE. SQ SCH (12:00)
--- NOTE | 2019-10-04 12:19 | NUR ---
BHARGAV HELD FOR PENDING SURGERY TOMORROW.
[2019-10-04 15:00] VITALS: BP 183/84
--- NOTE | 2019-10-04 15:34 | PDOC ---
PROGRESS NOTES Chief Complaint Chief Complaint Diabetic toe with gangrene (is going to need an amputation) PVD confirmed on angiography yesterday she is going for bypass today Diabetes Hypertension Anxiety Depression Soft tissue swelling overlying the dorsum of the midfoot without underlying osseous abnormality or radiopaque foreign body identified.ON PLAIN X-RAY hypertension, HX stroke, diabetes, hyperlipidemia, history of diabetic ketoacidosis. ZURDO fever Normocytic anemia sepsis glucose control needed PVD Occlusion of the left superficial femoral artery with reconstitution at the lev el of the left popliteal artery, where there appears to be hemodynamically significant stenosis. Monophasic flow in the left subclavian artery suggests greater than 50 percent proximal left subclavian artery stenosis. No evidence of subclavian steal. History of Present Illness History of Present Illness Ms Polo is a 53-year-old female with PMHx DM2, HTN, CVA with left sided residual weakness who p/w left fourth toe gangrene, peripheral vascular disease. Angio and vein mapping reviewed by Dr. Hernanedz, plan for left leg bypass with toe amputations Friday10/05/2019 Seen and examined. Pain well controlled. BP controlled. No CP or SOB. 10/01/2019 Patient seen and examined Chart reviewed Discussed with RN Patient is going for lower extremity bypass and toe amputation later today 09/30/2019 Patient seen and examined Chart reviewed Discussed with RN Vitals Vitals Vital Signs Date Time Temp Pulse Resp B/P (MAP) Pulse Ox O2 Delivery O2 Flow Rate FiO2 10/04/19 15:00 98.9 84 18 183/84 (117) 94 Room Air 98.9 10/03/19 08:00 2.0 Physical Exam Physical Exam GENERAL: Propped up in bed, alert in NAD HEENT: Oral cavity pink, no thrush/lesions seen NECK: Supple LUNGS: Clear. HEART: S1, S2 regular. ABDOMEN: Obese, soft, nontender EXTREMITIES: Right lower extremity is unremarkable. Left lower extremity has gangrene of the left fourth toe; maceration and drainage from the web between the 3rd and the 4th and 4th and the 5th toes. + malodor NEUROLOGIC: Alert, oriented. No focal neurologic deficit. PIV ok General: Alert, Oriented X3, Cooperative, No acute distress Lungs: Clear Abdomen: Normal bowel sounds, Soft, No tenderness Labs LABS Laboratory Tests Test 10/03/19 17:28 10/03/19 21:22 10/04/19 04:11 10/04/19 08:12 Glucose (Fingerstick) 161 mg/dL (70-99) 156 mg/dL (70-99) 125 mg/dL (70-99) White Blood Count 12.6 x10^3/uL (4.0-11.0) Red Blood Count 3.08 x10^6/uL (3.50-5.40) Hemoglobin 8.7 g/dL (12.0-15.5) Hematocrit 25.4 % (36.0-47.0) Mean Corpuscular Volume 83 fL (79-100) Mean Corpuscular Hemoglobin 28 pg (25-35) Mean Corpuscular Hemoglobin Concent 34 g/dL (31-37) Red Cell Distribution Width 14.6 % (11.5-14.5) Platelet Count 411 x10^3/uL (140-400) Neutrophils (%) (Auto) 79 % (31-73) Lymphocytes (%) (Auto) 11 % (24-48) Monocytes (%) (Auto) 9 % (0-9) Eosinophils (%) (Auto) 1 % (0-3) Basophils (%) (Auto) 0 % (0-3) Neutrophils # (Auto) 9.9 x10^3/uL (1.8-7.7) Lymphocytes # (Auto) 1.4 x10^3/uL (1.0-4.8) Monocytes # (Auto) 1.1 x10^3/uL (0.0-1.1) Eosinophils # (Auto) 0.1 x10^3/uL (0.0-0.7) Basophils # (Auto) 0.0 x10^3/uL (0.0-0.2) Sodium Level 143 mmol/L (136-145) Potassium Level 3.9 mmol/L (3.5-5.1) Chloride Level 108 mmol/L (98-107) Carbon Dioxide Level 22 mmol/L (21-32) Anion Gap 13 (6-14) Blood Urea Nitrogen 15 mg/dL (7-20) Creatinine 1.3 mg/dL (0.6-1.0) Estimated GFR (Cockcroft-Gault) 51.6 BUN/Creatinine Ratio 12 (6-20) Glucose Level 117 mg/dL (70-99) Calcium Level 7.9 mg/dL (8.5-10.1) Total Bilirubin 0.5 mg/dL (0.2-1.0) Aspartate Amino Transf (AST/SGOT) 19 U/L (15-37) Alanine Aminotransferase (ALT/SGPT) 15 U/L (14-59) Alkaline Phosphatase 75 U/L (46-116) Creatine Kinase 127 U/L (26-192) Total Protein 5.1 g/dL (6.4-8.2) Albumin 1.9 g/dL (3.4-5.0) Albumin/Globulin Ratio 0.6 (1.0-1.7) Test 10/04/19 12:02 Glucose (Fingerstick) 139 mg/dL (70-99) Assessment and Plan Assessmemt and Plan Problems Medical Problems: (1) Diabetic foot infection Status: Acute Comment Review of Relevant I have reviewed the following items hortencia (where applicable) has been applied. Labs Laboratory Tests Test 10/02/19 17:01 10/02/19 20:55 10/03/19 03:55 10/03/19 08:27 Glucose (Fingerstick) 121 mg/dL (70-99) 132 mg/dL (70-99) 121 mg/dL (70-99) White Blood Count 12.5 x10^3/uL (4.0-11.0) Red Blood Count 2.68 x10^6/uL (3.50-5.40) Hemoglobin 7.3 g/dL (12.0-15.5) Hematocrit 21.8 % (36.0-47.0) Mean Corpuscular Volume 81 fL (79-100) Mean Corpuscular Hemoglobin 27 pg (25-35) Mean Corpuscular Hemoglobin Concent 34 g/dL (31-37) Red Cell Distribution Width 14.2 % (11.5-14.5) Platelet Count 409 x10^3/uL (140-400) Neutrophils (%) (Auto) 81 % (31-73) Lymphocytes (%) (Auto) 10 % (24-48) Monocytes (%) (Auto) 8 % (0-9) Eosinophils (%) (Auto) 1 % (0-3) Basophils (%) (Auto) 0 % (0-3) Neutrophils # (Auto) 10.2 x10^3/uL (1.8-7.7) Lymphocytes # (Auto) 1.3 x10^3/uL (1.0-4.8) Monocytes # (Auto) 1.0 x10^3/uL (0.0-1.1) Eosinophils # (Auto) 0.1 x10^3/uL (0.0-0.7) Basophils # (Auto) 0.0 x10^3/uL (0.0-0.2) Sodium Level 143 mmol/L (136-145) Potassium Level 3.6 mmol/L (3.5-5.1) Chloride Level 109 mmol/L (98-107) Carbon Dioxide Level 23 mmol/L (21-32) Anion Gap 11 (6-14) Blood Urea Nitrogen 13 mg/dL (7-20) Creatinine 1.3 mg/dL (0.6-1.0) Estimated GFR (Cockcroft-Gault) 51.6 BUN/Creatinine Ratio 10 (6-20) Glucose Level 104 mg/dL (70-99) Calcium Level 8.2 mg/dL (8.5-10.1) Total Bilirubin 0.3 mg/dL (0.2-1.0) Aspartate Amino Transf (AST/SGOT) 19 U/L (15-37) Alanine Aminotransferase (ALT/SGPT) 9 U/L (14-59) Alkaline Phosphatase 72 U/L (46-116) Total Protein 5.8 g/dL (6.4-8.2) Albumin 1.8 g/dL (3.4-5.0) Albumin/Globulin Ratio 0.5 (1.0-1.7) Test 10/03/19 11:19 10/03/19 17:28 10/03/19 21:22 10/04/19 04:11 Glucose (Fingerstick) 176 mg/dL (70-99) 161 mg/dL (70-99) 156 mg/dL (70-99) White Blood Count 12.6 x10^3/uL (4.0-11.0) Red Blood Count 3.08 x10^6/uL (3.50-5.40) Hemoglobin 8.7 g/dL (12.0-15.5) Hematocrit 25.4 % (36.0-47.0) Mean Corpuscular Volume 83 fL (79-100) Mean Corpuscular Hemoglobin 28 pg (25-35) Mean Corpuscular Hemoglobin Concent 34 g/dL (31-37) Red Cell Distribution Width 14.6 % (11.5-14.5) Platelet Count 411 x10^3/uL (140-400) Neutrophils (%) (Auto) 79 % (31-73) Lymphocytes (%) (Auto) 11 % (24-48) Monocytes (%) (Auto) 9 % (0-9) Eosinophils (%) (Auto) 1 % (0-3) Basophils (%) (Auto) 0 % (0-3) Neutrophils # (Auto) 9.9 x10^3/uL (1.8-7.7) Lymphocytes # (Auto) 1.4 x10^3/uL (1.0-4.8) Monocytes # (Auto) 1.1 x10^3/uL (0.0-1.1) Eosinophils # (Auto) 0.1 x10^3/uL (0.0-0.7) Basophils # (Auto) 0.0 x10^3/uL (0.0-0.2) Sodium Level 143 mmol/L (136-145) Potassium Level 3.9 mmol/L (3.5-5.1) Chloride Level 108 mmol/L (98-107) Carbon Dioxide Level 22 mmol/L (21-32) Anion Gap 13 (6-14) Blood Urea Nitrogen 15 mg/dL (7-20) Creatinine 1.3 mg/dL (0.6-1.0) Estimated GFR (Cockcroft-Gault) 51.6 BUN/Creatinine Ratio 12 (6-20) Glucose Level 117 mg/dL (70-99) Calcium Level 7.9 mg/dL (8.5-10.1) Total Bilirubin 0.5 mg/dL (0.2-1.0) Aspartate Amino Transf (AST/SGOT) 19 U/L (15-37) Alanine Aminotransferase (ALT/SGPT) 15 U/L (14-59) Alkaline Phosphatase 75 U/L (46-116) Creatine Kinase 127 U/L (26-192) Total Protein 5.1 g/dL (6.4-8.2) Albumin 1.9 g/dL (3.4-5.0) Albumin/Globulin Ratio 0.6 (1.0-1.7) Test 10/04/19 08:12 10/04/19 12:02 Glucose (Fingerstick) 125 mg/dL (70-99) 139 mg/dL (70-99) Laboratory Tests Test 10/03/19 17:28 10/03/19 21:22 10/04/19 04:11 10/04/19 08:12 Glucose (Fingerstick) 161 mg/dL (70-99) 156 mg/dL (70-99) 125 mg/dL (70-99) White Blood Count 12.6 x10^3/uL (4.0-11.0) Red Blood Count 3.08 x10^6/uL (3.50-5.40) Hemoglobin 8.7 g/dL (12.0-15.5) Hematocrit 25.4 % (36.0-47.0) Mean Corpuscular Volume 83 fL (79-100) Mean Corpuscular Hemoglobin 28 pg (25-35) Mean Corpuscular Hemoglobin Concent 34 g/dL (31-37) Red Cell Distribution Width 14.6 % (11.5-14.5) Platelet Count 411 x10^3/uL (140-400) Neutrophils (%) (Auto) 79 % (31-73) Lymphocytes (%) (Auto) 11 % (24-48) Monocytes (%) (Auto) 9 % (0-9) Eosinophils (%) (Auto) 1 % (0-3) Basophils (%) (Auto) 0 % (0-3) Neutrophils # (Auto) 9.9 x10^3/uL (1.8-7.7) Lymphocytes # (Auto) 1.4 x10^3/uL (1.0-4.8) Monocytes # (Auto) 1.1 x10^3/uL (0.0-1.1) Eosinophils # (Auto) 0.1 x10^3/uL (0.0-0.7) Basophils # (Auto) 0.0 x10^3/uL (0.0-0.2) Sodium Level 143 mmol/L (136-145) Potassium Level 3.9 mmol/L (3.5-5.1) Chloride Level 108 mmol/L (98-107) Carbon Dioxide Level 22 mmol/L (21-32) Anion Gap 13 (6-14) Blood Urea Nitrogen 15 mg/dL (7-20) Creatinine 1.3 mg/dL (0.6-1.0) Estimated GFR (Cockcroft-Gault) 51.6 BUN/Creatinine Ratio 12 (6-20) Glucose Level 117 mg/dL (70-99) Calcium Level 7.9 mg/dL (8.5-10.1) Total Bilirubin 0.5 mg/dL (0.2-1.0) Aspartate Amino Transf (AST/SGOT) 19 U/L (15-37) Alanine Aminotransferase (ALT/SGPT) 15 U/L (14-59) Alkaline Phosphatase 75 U/L (46-116) Creatine Kinase 127 U/L (26-192) Total Protein 5.1 g/dL (6.4-8.2) Albumin 1.9 g/dL (3.4-5.0) Albumin/Globulin Ratio 0.6 (1.0-1.7) Test 10/04/19 12:02 Glucose (Fingerstick) 139 mg/dL (70-99) Microbiology 09/27/19 Urine Culture - Final, Complete 09/27/19 Gram Stain - Final, Complete 09/27/19 Aerobic and Anaerobic Culture - Final, Complete 09/27/19 Antimicrobic Susceptibility - Final, Complete Medications Current Medications Sodium Chloride 1,000 ml @ 1,000 mls/hr 1X ONCE IV Last administered on 09/27/19at 19:25; Start 09/27/19 at 18:30; Stop 09/27/19 at 19:29; Status DC Acetaminophen (Tylenol) 1,000 mg 1X ONCE PO Last administered on 09/27/19at 19:25; Start 09/27/19 at 18:30; Stop 09/27/19 at 18:37; Status DC Clonidine HCl (Catapres) 0.1 mg 1X ONCE PO Last administered on 09/27/19at 19:26; Start 09/27/19 at 18:45; Stop 09/27/19 at 18:46; Status DC Vancomycin HCl 250 ml @ 250 mls/hr 1X ONCE IV Last administered on 09/27/19at 20:56; Start 09/27/19 at 20:30; Stop 09/27/19 at 21:29; Status DC Ondansetron HCl (Zofran) 4 mg PRN Q8HRS PRN IV NAUSEA/VOMITING; Start 09/27/19 at 20:45; Stop 09/28/19 at 13:59; Status DC Fentanyl Citrate (Fentanyl 2ml Vial) 50 mcg PRN Q1HR PRN IV PAIN; Start 09/27/19 at 20:45; Stop 09/28/19 at 20:44; Status DC Acetaminophen (Tylenol) 650 mg PRN Q4HRS PRN PO FEVER > 100.3'F; Start 09/27/19 at 20:45; Stop 09/28/19 at 13:58; Status DC Lisinopril (Prinivil) 40 mg DAILY PO Last administered on 10/04/19at 08:16; Start 09/28/19 at 00:30 Insulin Human Isoph/Insulin Regular (HumuLIN 70/30) 4 units DAILYWSUP SQ ; Start 09/28/19 at 17:00 Insulin Human Isoph/Insulin Regular (HumuLIN 70/30) 8 units DAILYWBKFT SQ ; Start 09/28/19 at 08:00 Daptomycin 490 mg/ Sodium Chloride 50 ml @ 100 mls/hr Q24H IV Last administered on 10/04/19at 11:13; Start 09/28/19 at 11:00 Meropenem 500 mg/ Sodium Chloride 50 ml @ 100 mls/hr Q8HRS IV Last administered on 10/04/19at 14:14; Start 09/28/19 at 11:00 Sodium Chloride (Normal Saline Flush) 3 ml QSHIFT PRN IV AFTER MEDS AND BLOOD DRAWS; Start 09/28/19 at 11:00 Sodium Chloride 1,000 ml @ 100 mls/hr Q10H IV Last administered on 10/04/19at 09:52; Start 09/28/19 at 10:58 Ondansetron HCl (Zofran) 4 mg PRN Q4HRS PRN IV NAUSEA/VOMITING Last administered on 10/03/19at 08:08; Start 09/28/19 at 11:00 Acetaminophen (Tylenol) 650 mg PRN Q4HRS PRN PO TEMP OVER 100.4F OR MILD PAIN Last administered on 10/01/19at 23:49; Start 09/28/19 at 11:00 Al Hydroxide/Mg Hydroxide (Mylanta Plus Xs) 30 ml PRN DAILY PRN PO HEARTBURN / GAS; Start 09/28/19 at 11:00 Clonidine HCl (Catapres) 0.1 mg PRN Q6HRS PRN PO SBP>160 OR DBP>90 Last administered on 09/30/19at 22:09; Start 09/28/19 at 11:00; Stop 10/02/19 at 13:59; Status DC Sodium Monofluorophosphate (Fleet Adult) 133 ml PRN DAILY PRN DE CONSTIPATION; Start 09/28/19 at 11:00 Docusate Sodium (Colace) 100 mg PRN BID PRN PO HARD STOOLS; Start 09/28/19 at 11:00 Albuterol Sulfate (Ventolin Neb Soln) 2.5 mg PRN Q4HRS PRN NEB SHORTNESS OF BREATH; Start 09/28/19 at 11:00 Guaifenesin (Robitussin) 200 mg PRN Q4HRS PRN PO COUGH; Start 09/28/19 at 11:00 Lorazepam (Ativan) 0.5 mg PRN Q4HRS PRN PO ANXIETY / AGITATION Last adminis tered on 10/02/19at 21:04; Start 09/28/19 at 11:00 Hydromorphone HCl (Dilaudid) 0.5 mg PRN Q2HRS PRN IV SEVERE PAIN 7-10; Start at 11:00 Enoxaparin Sodium (Lovenox 40mg Syringe) 40 mg Q24H SQ Last administered on 10/03/19at 14:36; Start 09/28/19 at 12:00 Sodium Chloride 500 ml @ 500 mls/hr 1X ONCE IV Last administered on 09/28/19at 13:11; Start 09/28/19 at 12:45; Stop 09/28/19 at 13:44; Status DC Hydralazine HCl (Apresoline Inj) 10 mg 1X ONCE IVP Last administered on 09/28/19at 14:17; Start 09/28/19 at 14:15; Stop 09/28/19 at 14:16; Status DC Hydralazine HCl (Apresoline Inj) 10 mg PRN Q4HRS PRN IVP HYPERTENSION, 2nd choice Last administered on 10/03/19at 12:31; Start 09/28/19 at 16:15 Metoprolol Tartrate (Lopressor Vial) 5 mg PRN Q6HRS PRN IVP HYPERTENSION, 1st choice Last administered on 10/02/19at 08:19; Start 09/28/19 at 16:15; Stop 10/02/19 at 13:59; Status DC Lactobacillus Rhamnosus (Culturelle) 1 cap BID PO Last administered on 10/04/19at 08:15; Start 09/29/19 at 21:00 Atorvastatin Calcium (Lipitor) 40 mg QHS PO Last administered on 10/03/19at 21:34; Start 09/29/19 at 21:00 Potassium Chloride (Klor-Con) 40 meq 1X ONCE PO ; Start 09/30/19 at 12:30; Stop 09/30/19 at 12:31; Status Cancel Lidocaine HCl (Buffered Lidocaine 1%) 3 ml STK-MED ONCE .ROUTE ; Start 09/30/19 at 13:49; Stop 09/30/19 at 13:49; Status DC Iodixanol (Visipaque 320) 100 ml STK-MED ONCE .ROUTE ; Start 09/30/19 at 13:49; Stop 09/30/19 at 13:49; Status DC Heparin Sodium/ Sodium Chloride 1,000 ml @ As Directed STK-MED ONCE .ROUTE ; Start 09/30/19 at 13:49; Stop 09/30/19 at 13:49; Status DC Heparin Sodium/ Sodium Chloride 500 ml @ As Directed STK-MED ONCE .ROUTE ; Start 09/30/19 at 13:54; Stop 09/30/19 at 13:55; Status DC Midazolam HCl (Versed) 5 mg STK-MED ONCE .ROUTE ; Start 09/30/19 at 14:10; Stop 09/30/19 at 14:10; Status DC Fentanyl Citrate (Fentanyl 2ml Vial) 100 mcg STK-MED ONCE .ROUTE ; Start 09/30/19 at 14:10; Stop 09/30/19 at 14:10; Status DC Heparin Sodium (Porcine) (Heparin Sodium) 10,000 unit STK-MED ONCE .ROUTE ; Start 09/30/19 at 14:31; Stop 09/30/19 at 14:31; Status DC Ondansetron HCl (Zofran) 4 mg PRN Q6HRS PRN IV NAUSEA/VOMITING; Start 10/01/19 at 07:00; Stop 10/02/19 at 06:59; Status DC Morphine Sulfate (Morphine Sulfate) 1 mg PRN Q10MIN PRN IV SEVERE PAIN 7-10; Start 10/01/19 at 07:00; Stop 10/02/19 at 06:59; Status DC Ringer's Solution 1,000 ml @ 30 mls/hr Q24H IV Last administered on 10/01/19at 10:28; Start 10/01/19 at 07:00; Stop 10/01/19 at 18:59; Status DC Lidocaine HCl (Xylocaine-Mpf 1% 2ml Vial) 2 ml PRN 1X PRN ID PRIOR TO IV START; Start 10/01/19 at 07:00; Stop 10/02/19 at 06:59; Status DC Hydromorphone HCl (Dilaudid) 0.5 mg PRN Q10MIN PRN IV SEV PAIN, Second choice; Start 10/01/19 at 07:00; Stop 10/02/19 at 06:59; Status DC Prochlorperazine Edisylate (Compazine) 5 mg PACU PRN PRN IV NAUSEA, MRX1; Start 10/01/19 at 07:00; Stop 10/02/19 at 06:59; Status DC Heparin Sodium/ Sodium Chloride (HEPARIN for ARTERIAL LINE FLUSH) 1,000 unit 1X ONCE IART Last administered on 09/30/19at 15:31; Start 09/30/19 at 14:45; Stop 09/30/19 at 14:46; Status DC Heparin Sodium/ Sodium Chloride (HEPARIN for ARTERIAL LINE FLUSH) 2,000 unit 1X ONCE IART Last administered on 09/30/19at 15:31; Start 09/30/19 at 14:45; Stop 09/30/19 at 14:46; Status DC Lidocaine HCl (Buffered Lidocaine 1%) 3 ml 1X ONCE IJ Last administered on 09/30/19at 15:32; Start 09/30/19 at 14:45; Stop 09/30/19 at 14:46; Status DC Midazolam HCl (Versed) 5 mg 1X ONCE IV Last administered on 09/30/19at 15:32; Start 09/30/19 at 14:45; Stop 09/30/19 at 14:46; Status DC Fentanyl Citrate (Fentanyl 2ml Vial) 100 mcg 1X ONCE IV Last administered on 09/30/19at 15:33; Start 09/30/19 at 14:45; Stop 09/30/19 at 14:46; Status DC Iodixanol (Visipaque 320) 100 ml 1X ONCE IART Last administered on 09/30/19at 15:31; Start 09/30/19 at 14:45; Stop 09/30/19 at 14:46; Status DC Heparin Sodium (Porcine) (Heparin Sodium) 5,000 unit 1X ONCE IV Last administered on 09/30/19at 15:34; Start 09/30/19 at 14:45; Stop 09/30/19 at 14:46; Status DC Potassium Chloride (Klor-Con) 40 meq 1X ONCE PO Last administered on 09/30/19at 22:05; Start 09/30/19 at 22:00; Stop 09/30/19 at 22:01; Status DC Heparin Sodium (Porcine) 5000 unit/Sodium Chloride 505 ml @ 505 mls/hr 1X ONCE IRR ; Start 10/01/19 at 11:00; Stop 10/01/19 at 11:59; Status DC Cefazolin Sodium 1 gm/Sodium Chloride 500 ml @ 500 mls/hr 1X ONCE IRR ; Start 10/01/19 at 11:00; Stop 10/01/19 at 11:59; Status DC Propofol (Diprivan) 200 mg STK-MED ONCE IV ; Start 10/01/19 at 11:07; Stop 10/01/19 at 11:07; Status DC Dexamethasone Sodium Phosphate (Decadron) 4 mg STK-MED ONCE .ROUTE ; Start 10/01/19 at 11:07; Stop 10/01/19 at 11:07; Status DC Lidocaine HCl (Lidocaine Pf 2% Vial) 5 ml STK-MED ONCE .ROUTE ; Start 10/01/19 at 11:07; Stop 10/01/19 at 11:07; Status DC Ondansetron HCl (Zofran) 4 mg STK-MED ONCE .ROUTE ; Start 10/01/19 at 11:07; Stop 10/01/19 at 11:07; Status DC Rocuronium [place] (Zemuron) 50 mg STK-MED ONCE .ROUTE ; Start 10/01/19 at 11:07; Stop 10/01/19 at 11:07; Status DC Fentanyl Citrate (Fentanyl 2ml Vial) 100 mcg STK-MED ONCE .ROUTE ; Start 10/01/19 at 11:07; Stop 10/01/19 at 11:07; Status DC Acetaminophen (Tylenol Supp) 650 mg 1X ONCE DE Last administered on 10/01/19at 11:58; Start 10/01/19 at 12:00; Stop 10/01/19 at 12:01; Status DC Iohexol (Omnipaque 300 Mg/ml) 50 ml STK-MED ONCE .ROUTE ; Start 10/01/19 at 12:07; Stop 10/01/19 at 12:07; Status DC Cellulose (Surgicel Fibrillar 1x2) 1 each STK-MED ONCE .ROUTE ; Start 10/01/19 at 12:07; Stop 10/01/19 at 12:08; Status DC Protamine Sulfate (Protamine) 50 mg STK-MED ONCE IV ; Start 10/01/19 at 12:07; Stop 10/01/19 at 12:08; Status DC Ringer's Solution 1,060 ml @ 1,060 mls/hr 1X ONCE IV Last administered on 10/01/19at 11:30; Start 10/01/19 at 11:30; Stop 10/01/19 at 12:56; Status DC Ondansetron HCl (Zofran) 4 mg STK-MED ONCE .ROUTE ; Start 10/01/19 at 13:59; Stop 10/01/19 at 14:00; Status DC Lidocaine HCl (Lidocaine Pf 2% Vial) 5 ml STK-MED ONCE .ROUTE ; Start 10/01/19 at 13:59; Stop 10/01/19 at 14:00; Status DC Dexamethasone Sodium Phosphate (Decadron) 4 mg STK-MED ONCE .ROUTE ; Start 10/01/19 at 13:59; Stop 10/01/19 at 14:00; Status DC Propofol (Diprivan) 200 mg STK-MED ONCE IV ; Start 10/01/19 at 13:59; Stop 10/01/19 at 14:00; Status DC Clonidine HCl (Catapres Tts-1) 1 patch Sa TD Last administered on 10/02/19at 14:23; Start 10/02/19 at 14:00 Carvedilol (Coreg) 6.25 mg BIDWMEALS PO Last administered on 10/03/19at 08:08; Start 10/02/19 at 17:00; Stop 10/03/19 at 14:18; Status DC Metoclopramide HCl (Reglan Vial) 10 mg QIDACHS IVP Last administered on 10/04/19at 11:12; Start 10/02/19 at 16:30 Carvedilol (Coreg) 12.5 mg BIDWMEALS PO Last administered on 10/04/19at 08:16; Start 10/03/19 at 17:00 Amlodipine Besylate (Norvasc) 5 mg DAILY PO Last administered on 10/04/19at 08:15; Start 10/03/19 at 14:15 Bacitracin 07401 unit/Sodium Chloride 500 ml @ 500 mls/hr 1X ONCE IRR ; Start 10/05/19 at 06:00; Stop 10/05/19 at 06:59 Heparin Sodium (Porcine) 5000 unit/Sodium Chloride 505 ml @ 505 mls/hr 1X ONCE IRR ; Start 10/05/19 at 06:00; Stop 10/05/19 at 06:59 Ondansetron HCl (Zofran) 4 mg PRN Q6HRS PRN IV NAUSEA/VOMITING; Start 10/05/19 at 07:00; Stop 10/06/19 at 06:59 Fentanyl Citrate (Fentanyl 2ml Vial) 25 mcg PRN Q5MIN PRN IV MILD PAIN 1-3; Start 10/05/19 at 07:00; Stop 10/06/19 at 06:59 Fentanyl Citrate (Fentanyl 2ml Vial) 50 mcg PRN Q5MIN PRN IV MODERATE TO SEVERE PAIN; Start 10/05/19 at 07:00; Stop 10/06/19 at 06:59 Morphine Sulfate (Morphine Sulfate) 1 mg PRN Q10MIN PRN IV SEVERE PAIN 7-10; Start 10/05/19 at 07:00; Stop 10/06/19 at 06:59 Ringer's Solution 1,000 ml @ 30 mls/hr Q24H IV ; Start 10/05/19 at 07:00; Stop 10/05/19 at 18:59 Lidocaine HCl (Xylocaine-Mpf 1% 2ml Vial) 2 ml PRN 1X PRN ID PRIOR TO IV START; Start 10/05/19 at 07:00; Stop 10/06/19 at 06:59 Hydromorphone HCl (Dilaudid) 0.5 mg PRN Q10MIN PRN IV SEV PAIN, Second choice; Start 10/05/19 at 07:00; Stop 10/06/19 at 06:59 Prochlorperazine Edisylate (Compazine) 5 mg PACU PRN PRN IV NAUSEA, MRX1; Start 10/05/19 at 07:00; Stop 10/06/19 at 06:59 Active Scripts Active Reported Zyvox (Linezolid) 600 Mg Tablet 600 Mg PO BID 7 Days Cefdinir 300 Mg Capsule 1 Cap PO BID 7 Days Lisinopril 40 Mg Tablet 40 Mg PO DAILY Relion Novolin 70-30 Vial (Hum Insulin Nph/Reg Insulin Hm) 100 Unit/1 Ml Vial 4 Unit SQ DAILYWSUP Relion Novolin 70-30 Vial (Hum Insulin Nph/Reg Insulin Hm) 100 Unit/1 Ml Vial 8 Unit SUBCUT DAILYWBKFT Vitals/I & O Vital Sign - Last 24 Hours 10/03/19 10/03/19 10/03/19 10/03/19 15:40 15:55 16:57 16:58 Temp 99.0 99.2 98.7 99.0 99.2 98.7 Pulse 95 94 90 90 Resp 18 16 18 B/P (MAP) 176/84 179/84 169/82 169/82 10/03/19 10/03/19 10/03/19 10/03/19 17:55 18:33 19:19 19:49 Temp 98.4 98.3 98.3 98.4 98.3 98.3 Pulse 89 87 84 Resp 16 18 18 B/P (MAP) 171/82 157/74 172/81 (111) Pulse Ox 93 O2 Delivery Room Air Room Air 10/03/19 10/04/19 10/04/19 10/04/19 22:30 02:30 07:00 08:00 Temp 98.6 98.5 99.3 98.6 98.5 99.3 Pulse 86 83 83 Resp 18 18 18 B/P (MAP) 162/92 (115) 189/87 (121) 209/99 (135) Pulse Ox 94 91 95 O2 Delivery Room Air Room Air Room Air Room Air 10/04/19 10/04/19 10/04/1920 08:15 08:16 08:16 11:00 Temp 98.6 98.6 Pulse 85 85 85 84 Resp 18 B/P (MAP) 214/105 214/105 214/105 184/87 (119) Pulse Ox 93 O2 Delivery Room Air 10/04/19 15:00 Temp 98.9 98.9 Pulse 84 Resp 18 B/P (MAP) 183/84 (117) Pulse Ox 94 O2 Delivery Room Air Intake and Output 10/03/19 10/03/19 10/04/19 15:00 23:00 07:00 Intake Total 30 ml 1400 ml Output Total 350 ml Balance 30 ml 1050 ml HARIS OSULLIVAN MD Oct 04, 2019 15:34
[2019-10-04 16:20] LABS: BASO # 0.1 x10^3/uL (0.0-0.2); BASO % 1 % (0-3); EOS # 0.1 x10^3/uL (0.0-0.7); EOS % 1 % (0-3); HEMATOCRIT 25.9 % (36.0-47.0); LYMPH % 8 % (24-48); MEAN CORPUSCULAR HEMOGLOBIN 29 pg (25-35); MEAN CORPUSCULAR HGB CONC 35 g/dL (31-37); MEAN CORPUSCULAR VOLUME 82 fL (79-100); MONO # 1.4 x10^3/uL (0.0-1.1); MONO % 11 % (0-9); NEUT # 10.7 x10^3/uL (1.8-7.7); NEUT % 80 % (31-73); PLATELET COUNT 425 x10^3/uL (140-400); RED BLOOD COUNT 3.14 x10^6/uL (3.50-5.40); WHITE BLOOD COUNT 13.3 x10^3/uL (4.0-11.0)
[2019-10-04 16:26] LABS: CALCIUM 7.8 mg/dL (8.5-10.1); CREATININE 1.2 mg/dL (0.6-1.0); GFR 56.6; POTASSIUM 3.7 mmol/L (3.5-5.1)
[2019-10-04 19:13] VITALS: BP 207/93
[2019-10-04] MEDS: ATORVASTATIN CALCIUM 40 MG TABLET. PO SCH (20:30)
[2019-10-04] MEDS: hydrALAZINE 20 MG/ML VIAL. IVP PRN (22:55)
[2019-10-04 23:17] VITALS: BP 210/92
[2019-10-05] VITALS (9 sets, daily range): BP systolic 159–222; BP diastolic 73–98
[2019-10-05] MEDS: MEROPENEM 500 MG in IV NORMAL SALINE 50ML 50 ML IV SCH ×3 (05:19→22:04)
[2019-10-05] MEDS ORDERED: HEPARIN SODIUM 5,000 UNIT in IV NORMAL SALINE 500ML BAG 500 ML IRR ONE (06:00)
[2019-10-05] MEDS ORDERED: PROPOFOL 10 MG/ML (20ML) VIAL. IV ONE (06:52)
[2019-10-05] MEDS ORDERED: LIDOCAINE 2% PF 5 ML VIAL. ONE (06:52)
[2019-10-05] MEDS ORDERED: fentaNYL PF VIAL 100 MCG/2 ML VIAL ONE ×2 (06:53→11:15)
[2019-10-05] MEDS ORDERED: ROCURONIUM 50 MG/5 ML VIAL. ONE (06:53)
[2019-10-05] MEDS ORDERED: SUCCINYLCHOLINE 200 MG/10 ML VIAL. ONE (06:53)
[2019-10-05] MEDS: ALBUTEROL SULFATE 2.5 MG/3 ML NEBU. NEB PRN ×3 (06:55→11:57)
[2019-10-05] MEDS ORDERED: GELATIN SPONGE SIZE 100. ONE (06:58)
[2019-10-05] MEDS ORDERED: IOHEXOL 300 MG/ML 50 ML VIAL. ONE (06:58)
[2019-10-05] MEDS ORDERED: SURGICEL FIBRILLAR 1X2 EACH. ONE (06:58)
[2019-10-05] MEDS ORDERED: THROMBIN TOPICAL 20,000 UNIT SPRAY.SYRN KIT TP ONE (06:59)
[2019-10-05] MEDS ORDERED: fentaNYL PF VIAL 100 MCG/2 ML VIAL IV PRN (07:00)
[2019-10-05] MEDS ORDERED: ONDANSETRON PF 4 MG/2 ML VIAL. IV PRN (07:00)
[2019-10-05] MEDS ORDERED: MORPHINE SULFATE 2 MG/ML VIAL. IV PRN ×2 (07:00→10:45)
[2019-10-05] MEDS ORDERED: LIDOCAINE 1% PF 2 ML VIAL. ID PRN (07:00)
[2019-10-05] MEDS ORDERED: HYDROmorphone 2 MG/ML VIAL IV PRN (07:00)
[2019-10-05] MEDS ORDERED: PROCHLORPERAZINE 10 MG/2 ML VIAL. IV PRN ×2 (07:00→10:45)
[2019-10-05] MEDS ORDERED: IV RINGERS,LACTATED 1000ML 1,000 ML IV SCH (07:00)
[2019-10-05] MEDS ORDERED: INSULIN LISPRO 100 UNIT/ML 3ML VIAL for OP,RR ONLY. SQ PRN (07:30)
[2019-10-05] MEDS ORDERED: ONDANSETRON PF 4 MG/2 ML VIAL. ONE (07:37)
[2019-10-05] MEDS ORDERED: DEXAMETHASONE SOD PHOS 20 MG/5 ML VIAL. ONE (07:37)
[2019-10-05] MEDS: INSULIN NPH/REG INSULIN 70/30 300 UNITS/3 ML INSULN.PEN. SQ SCH ×2 (08:00→17:00)
[2019-10-05] MEDS ORDERED: HEPARIN for IV BOLUS 10,000 UNIT/10 ML VIAL. ONE (08:08)
[2019-10-05] MEDS ORDERED: DESFLURANE 61 TO 120 MINUTES IH ONE (08:08)
--- NOTE | 2019-10-05 08:12 | PDOC ---
Infectious Disease Note Subjective: Subjective Patient underwent surgery this am Seen in recovery room postop pain is under control Has loose bowel movement no f/n/v/shortness of breath or abdominal pain Vital Signs: Vital Signs Vital Signs Date Time Temp Pulse Resp B/P (MAP) Pulse Ox O2 Delivery O2 Flow Rate FiO2 10/05/19 07:01 98.1 86 15 214/99 97 Room Air 98.1 Physical Exam: PHYSICAL EXAM GENERAL: Propped up in bed, alert in NAD HEENT: Oral cavity pink, no thrush/lesions seen NECK: Supple LUNGS: Clear. HEART: S1, S2 regular. ABDOMEN: Obese, soft, nontender EXTREMITIES: Right lower extremity is unremarkable. Left lower extremity dressing intact postoperative NEUROLOGIC: Alert, oriented. No focal neurologic deficit. PIV ok Medications: Inpatient Meds: Current Medications Medications (Trade) Dose Ordered Sig/Leanne Start Time Stop Time Status Last Admin Dose Admin Acetaminophen (Tylenol Supp) 650 mg 1X ONCE 10/01/19 12:00 10/01/19 12:01 DC 10/01/19 11:58 650 MG Acetaminophen (Tylenol) 650 mg PRN Q4HRS PRN 09/28/19 11:00 10/01/19 23:49 650 MG Al Hydroxide/Mg Hydroxide (Mylanta Plus Xs) 30 ml PRN DAILY PRN 09/28/19 11:00 Albuterol Sulfate (Ventolin Neb Soln) 2.5 mg PRN Q4HRS PRN 09/28/19 11:00 10/05/19 06:56 2.5 MG Amlodipine Besylate (Norvasc) 5 mg DAILY 10/03/19 14:15 10/04/19 08:15 5 MG Atorvastatin Calcium (Lipitor) 40 mg QHS 09/29/19 21:00 10/04/19 20:30 40 MG Bacitracin 13358 unit/Sodium Chloride 500 ml @ 500 mls/hr 1X ONCE 10/05/19 06:00 10/05/19 06:59 DC Carvedilol (Coreg) 12.5 mg BIDWMEALS 10/03/19 17:00 10/04/19 16:27 12.5 MG Cefazolin Sodium 1 gm/Sodium Chloride 500 ml @ 500 mls/hr 1X ONCE 10/01/19 11:00 10/01/19 11:59 DC Cellulose (Surgicel Fibrillar 1x2) 1 each STK-MED ONCE 10/05/19 06:58 10/05/19 06:59 DC Clonidine HCl (Catapres Tts-1) 1 patch Sa 10/02/19 14:00 10/02/19 14:23 1 PATCH Clonidine HCl (Catapres) 0.1 mg PRN Q6HRS PRN 09/28/19 11:00 10/02/19 13:59 DC 09/30/19 22:09 0.1 MG Daptomycin 490 mg/ Sodium Chloride 50 ml @ 100 mls/hr Q24H 09/28/19 11:00 10/04/19 11:13 100 MLS/HR Desflurane (Suprane) 60 ml STK-MED ONCE 10/05/19 08:08 10/05/19 08:08 DC Dexamethasone Sodium Phosphate (Decadron) 20 mg STK-MED ONCE 10/05/19 07:37 10/05/19 07:37 DC Docusate Sodium (Colace) 100 mg PRN BID PRN 09/28/19 11:00 Enoxaparin Sodium (Lovenox 40mg Syringe) 40 mg Q24H 09/28/19 12:00 10/03/19 14:36 40 MG Fentanyl Citrate (Fentanyl 2ml Vial) 100 mcg STK-MED ONCE 10/05/19 06:53 10/05/19 06:53 DC Gelatin (Gelfoam Size 100) 1 each STK-MED ONCE 10/05/19 06:58 10/05/19 06:58 DC Guaifenesin (Robitussin) 200 mg PRN Q4HRS PRN 09/28/19 11:00 Heparin Sodium (Porcine) (Heparin Sodium) 10,000 unit STK-MED ONCE 10/05/19 08:08 10/05/19 08:08 DC Heparin Sodium (Porcine) 5000 unit/Sodium Chloride 505 ml @ 505 mls/hr 1X ONCE 10/05/19 06:00 10/05/19 06:59 DC Heparin Sodium/ Sodium Chloride (HEPARIN for ARTERIAL LINE FLUSH) 2,000 unit 1X ONCE 09/30/19 14:45 09/30/19 14:46 DC 09/30/19 15:31 2,000 UNIT Hydralazine HCl (Apresoline Inj) 10 mg PRN Q4HRS PRN 09/28/19 16:15 6/8/20 22:55 10 MG Hydromorphone HCl (Dilaudid) 0.5 mg PRN Q10MIN PRN 10/05/19 07:00 10/06/19 06:59 Insulin Human Isoph/Insulin Regular (HumuLIN 70/30) 8 units [id number] 09/28/19 08:00 Insulin Human Lispro (HumaLOG VIAL for OP,RR ONLY) 0-10 units PRN Q1HR PRN 10/05/19 07:30 10/06/19 07:29 Iodixanol (Visipaque 320) 100 ml 1X ONCE 09/30/19 14:45 09/30/19 14:46 DC 09/30/19 15:31 78 ML Iohexol (Omnipaque 300 Mg/ml) 50 ml STK-MED ONCE 10/05/19 06:58 10/05/19 06:58 DC Lactobacillus Rhamnosus (Culturelle) 1 cap BID 09/29/19 21:00 10/04/19 20:30 1 CAP Lidocaine HCl (Buffered Lidocaine 1%) 3 ml 1X ONCE 09/30/19 14:45 09/30/19 14:46 DC 09/30/19 15:32 5 ML Lidocaine HCl (Lidocaine Pf 2% Vial) 5 ml STK-MED ONCE 10/05/19 06:52 10/05/19 06:53 DC Lidocaine HCl (Xylocaine-Mpf 1% 2ml Vial) 2 ml PRN 1X PRN 10/05/19 07:00 10/06/19 06:59 Lisinopril (Prinivil) 40 mg DAILY 09/28/19 00:30 10/04/19 08:16 40 MG Lorazepam (Ativan) 0.5 mg PRN Q4HRS PRN 09/28/19 11:00 10/02/19 21:04 0.5 MG Meropenem 500 mg/ Sodium Chloride 50 ml @ 100 mls/hr Q8HRS 09/28/19 11:00 10/05/19 05:19 100 MLS/HR Metoclopramide HCl (Reglan Vial) 10 mg QIDACHS 10/02/19 16:30 10/04/19 20:30 10 MG Metoprolol Tartrate (Lopressor Vial) 5 mg PRN Q6HRS PRN 09/28/19 16:15 10/02/19 13:59 DC 10/02/19 08:19 5 MG Midazolam HCl (Versed) 5 mg 1X ONCE 09/30/19 14:45 09/30/19 14:46 DC 09/30/19 15:32 1.5 MG Morphine Sulfate (Morphine Sulfate) 1 mg PRN Q10MIN PRN 10/05/19 07:00 10/06/19 06:59 Ondansetron HCl (Zofran) 4 mg STK-MED ONCE 10/05/19 07:37 10/05/19 07:37 DC Potassium Chloride (Klor-Con) 40 meq 1X ONCE 09/30/19 22:00 09/30/19 22:01 DC 09/30/19 22:05 40 MEQ Prochlorperazine Edisylate (Compazine) 5 mg PACU PRN PRN 10/05/19 07:00 10/06/19 06:59 Propofol (Diprivan) 200 mg STK-MED ONCE 10/05/19 06:52 10/05/19 06:53 DC Protamine Sulfate (Protamine) 50 mg STK-MED ONCE 10/01/19 12:07 10/01/19 12:08 DC Ringer's Solution 1,000 ml @ 30 mls/hr Q24H 10/05/19 07:00 10/05/19 18:59 Rocuronium Cla[place]orne (Zemuron) 50 mg STK-MED ONCE 10/05/19 06:53 10/05/19 06:53 DC Sodium Monofluorophosphate (Fleet Adult) 133 ml PRN DAILY PRN 09/28/19 11:00 Sodium Chloride 500 ml @ 500 mls/hr 1X ONCE 09/28/19 12:45 09/28/19 13:44 DC 09/28/19 13:11 500 MLS/HR Sodium Chloride (Normal Saline Flush) 3 ml QSHIFT PRN 09/28/19 11:00 Succinylcholine Chloride (Anectine) 200 mg STK-MED ONCE 10/05/19 06:53 10/05/19 06:53 DC Thrombin 20,000 unit STK-MED ONCE 10/05/19 06:59 10/05/19 06:59 DC Vancomycin HCl 250 ml @ 250 mls/hr 1X ONCE 09/27/19 20:30 09/27/19 21:29 DC 09/27/19 20:56 250 MLS/HR Labs: Lab Laboratory Tests Test 10/04/19 12:02 10/04/19 16:10 10/04/19 16:56 10/04/19 20:29 Glucose (Fingerstick) 139 mg/dL (70-99) 136 mg/dL (70-99) 177 mg/dL (70-99) White Blood Count 13.3 x10^3/uL (4.0-11.0) Red Blood Count 3.14 x10^6/uL (3.50-5.40) Hemoglobin 9.0 g/dL (12.0-15.5) Hematocrit 25.9 % (36.0-47.0) Mean Corpuscular Volume 82 fL (79-100) Mean Corpuscular Hemoglobin 29 pg (25-35) Mean Corpuscular Hemoglobin Concent 35 g/dL (31-37) Red Cell Distribution Width 15.0 % (11.5-14.5) Platelet Count 425 x10^3/uL (140-400) Neutrophils (%) (Auto) 80 % (31-73) Lymphocytes (%) (Auto) 8 % (24-48) Monocytes (%) (Auto) 11 % (0-9) Eosinophils (%) (Auto) 1 % (0-3) Basophils (%) (Auto) 1 % (0-3) Neutrophils # (Auto) 10.7 x10^3/uL (1.8-7.7) Lymphocytes # (Auto) 1.0 x10^3/uL (1.0-4.8) Monocytes # (Auto) 1.4 x10^3/uL (0.0-1.1) Eosinophils # (Auto) 0.1 x10^3/uL (0.0-0.7) Basophils # (Auto) 0.1 x10^3/uL (0.0-0.2) Sodium Level 140 mmol/L (136-145) Potassium Level 3.7 mmol/L (3.5-5.1) Chloride Level 108 mmol/L (98-107) Carbon Dioxide Level 23 mmol/L (21-32) Anion Gap 9 (6-14) Blood Urea Nitrogen 15 mg/dL (7-20) Creatinine 1.2 mg/dL (0.6-1.0) Estimated GFR (Cockcroft-Gault) 56.6 Glucose Level 144 mg/dL (70-99) Calcium Level 7.8 mg/dL (8.5-10.1) Test 10/05/19 06:50 Glucose (Fingerstick) 123 mg/dL (70-99) Micro Micro GRAM STAIN Final Final GRAM POSITIVE COCCI:MANY SQUAMOUS EPI CELL:RARE PMN (WBCs):RARE ANAEROBIC-AEROBIC CULTURE Preliminary Preliminary MANY GRAM POSITIVE COCCI on 09/29/19 at 1355 FINAL ID= [STREPTOCOCCUS MITIS/ORALIS] RARE [STAPHYLOCOCCUS AUREUS] on 10/01/19 at 1453 AZITHROMYCIN: S <=2 CEFOXITIN SCREEN: NEG <=4 CEFTAROLINE: S <=0.5 CIPROFLOXACIN: S <=1 CLINDAMYCIN: S 0.5 DAPTOMYCIN: S <=0.5 ERYTHROMYCIN: S <=0.25 GENTAMICIN: S <=4 LEVOFLOXACIN: S <=1 LINEZOLID: S 2 OXACILLIN: S <=0.25 PENICILLIN: JEN 0.5 RIFAMPIN: S <=1 TETRACYCLINE: S <=4 TRIMETH/SULFA: S <=0.5/9.5 VANCOMYCIN: S 1 STAPHYLOCOCCUS AUREUS STREPTOCOCCUS MITIS/ORALIS URINE CULTURE Final Final 20,000 CFU/ML Normal genitourinary man, not indicative of infection on 09/30/19 at 0946 Objective: Assessment: Left fourth toe gangrene. s/p angiogram 09/29: chronic total occlusion, left superficial femoral artery, attempted revascularization unsuccessful Left fourth toe and diabetic foot infection: Strep mitis/oralis and MSSA s/p surgery 10/04, closed amputation Fever. Leukocytosis. Diabetes mellitus poorly controlled Peripheral vascular disease,'s/p post angioplasty with Newbern-Hussein PCN allergy w/ hives and sulfa w/ throat swelling History of cerebrovascular accident. Hypertension. Nausea and vomiting,improving Plan: Plan of Care Dapto and meropenem, 09/27 Monitor for abx toxicities f/u cultures Monior WBC/temp Local wound care as directed Discussed with nursing staff ADELINA ROJAS MD Oct 05, 2019 08:12
[2019-10-05] MEDS ORDERED: ceFAZolin SODIUM IV Push 1 GM VIAL. IVP ONE (08:15)
[2019-10-05] MEDS ORDERED: NEOSTIGMINE METHYLSULFATE 5 MG/5 ML SYRINGE. ONE (08:22)
[2019-10-05] MEDS ORDERED: GLYCOPYRROLATE 1 MG/5 ML VIAL. ONE (08:22)
[2019-10-05] MEDS: BACITRACIN 50,000 UNIT in IV NORMAL SALINE 500ML BAG 500 ML IRR ONE ×2 (08:23→08:24)
[2019-10-05] MEDS: LACTOBACILLUS RHAMNOSUS GG 1 CAPSULE. PO SCH ×2 (09:00→21:54)
[2019-10-05] MEDS ORDERED: IV NORMAL SALINE 1000ML BAG 1,000 ML IV SCH (10:37)
[2019-10-05] MEDS ORDERED: NALOXONE 0.4 MG/ML VIAL. IV PRN (10:45)
[2019-10-05] MEDS ORDERED: oxyCODONE/APAP 5/325 1 TAB TABLET PO PRN ×2 (10:45)
[2019-10-05] MEDS ORDERED: ONDANSETRON PF 4 MG/2 ML VIAL. IVP PRN (10:45)
[2019-10-05] MEDS ORDERED: LABETALOL 20 MG/4 ML DISP.SYRIN. IVP PRN (10:45)
[2019-10-05] MEDS ORDERED: 0.9 % SODIUM CHLORIDE 10 ML DISP.SYRIN. IV PRN (10:45)
--- NOTE | 2019-10-05 10:57 | PDOC ---
BRIEF OPERATIVE NOTE Date: Oct 05, 2019 Pre-Op Diagnosis PVD, left 4th toe gangrene with maceration and ulcerations involving 3rd and 5th toes Post-Op Diagnosis same Procedure Performed Left femoral to popliteal bypass with 7mm propaten gortex graft. Left closed 3,4,5th toe amputation. Prevena vac placement proximal incision Surgeon Dr. [facility] [employer] Professor Ethan Lazar,MEGAN Anesthesia Type: General Blood Loss 50cc Specimens Obtained left 3,4,5th toes Findings Palpable AT pulse post procedure Gangrene 4th toe, full thickness skin ulceration 3rd and 5th toe Complications none Operative Note see dictated note ETHAN LAZAR GERIATRIC ASSISTANT Oct 05, 2019 10:57
[2019-10-05] MEDS: fentaNYL PF VIAL 100 MCG/2 ML VIAL IV PRN ×2 (11:18→11:35)
--- NOTE | 2019-10-05 11:26 | PDOC ---
Renal-Progress Notes Subjective Notes Notes NONE History of Present Illness Hx of present illness STABLE Vitals Vitals Vital Signs Date Time Temp Pulse Resp B/P (MAP) Pulse Ox O2 Delivery O2 Flow Rate FiO2 10/05/19 10:48 97.4 81 18 109/100 97 Simple Mask 8 97.4 Weight Weight [ ] I.O. Intake and Output Intake and Output 10/05/19 07:00 Intake Total 2850 ml Output Total 500 ml Balance 2350 ml Intake Oral 300 ml IV Total 1250 ml Other 1300 ml Output Urine Total 500 ml # Voids 2 Labs Labs Laboratory Tests Test 10/04/19 12:02 10/04/19 16:10 10/04/19 16:56 10/04/19 20:29 Glucose (Fingerstick) 139 mg/dL (70-99) 136 mg/dL (70-99) 177 mg/dL (70-99) White Blood Count 13.3 x10^3/uL (4.0-11.0) Red Blood Count 3.14 x10^6/uL (3.50-5.40) Hemoglobin 9.0 g/dL (12.0-15.5) Hematocrit 25.9 % (36.0-47.0) Mean Corpuscular Volume 82 fL (79-100) Mean Corpuscular Hemoglobin 29 pg (25-35) Mean Corpuscular Hemoglobin Concent 35 g/dL (31-37) Red Cell Distribution Width 15.0 % (11.5-14.5) Platelet Count 425 x10^3/uL (140-400) Neutrophils (%) (Auto) 80 % (31-73) Lymphocytes (%) (Auto) 8 % (24-48) Monocytes (%) (Auto) 11 % (0-9) Eosinophils (%) (Auto) 1 % (0-3) Basophils (%) (Auto) 1 % (0-3) Neutrophils # (Auto) 10.7 x10^3/uL (1.8-7.7) Lymphocytes # (Auto) 1.0 x10^3/uL (1.0-4.8) Monocytes # (Auto) 1.4 x10^3/uL (0.0-1.1) Eosinophils # (Auto) 0.1 x10^3/uL (0.0-0.7) Basophils # (Auto) 0.1 x10^3/uL (0.0-0.2) Sodium Level 140 mmol/L (136-145) Potassium Level 3.7 mmol/L (3.5-5.1) Chloride Level 108 mmol/L (98-107) Carbon Dioxide Level 23 mmol/L (21-32) Anion Gap 9 (6-14) Blood Urea Nitrogen 15 mg/dL (7-20) Creatinine 1.2 mg/dL (0.6-1.0) Estimated GFR (Cockcroft-Gault) 56.6 Glucose Level 144 mg/dL (70-99) Calcium Level 7.8 mg/dL (8.5-10.1) Test 10/05/19 06:50 10/05/19 10:51 Glucose (Fingerstick) 123 mg/dL (70-99) 167 mg/dL (70-99) Micro Micro Microbiology 09/27/19 Urine Culture - Final, Complete 09/27/19 Gram Stain - Final, Complete 09/27/19 Aerobic and Anaerobic Culture - Final, Complete 09/27/19 Antimicrobic Susceptibility - Final, Complete Review of Systems Constitutional: yes: alert Ears/Nose/Throat: Yes: no symptom reported Eyes: Yes: no symptom reported Pulmonary: Yes no symptom reported Cardiovascular: Yes no symptom reported Gastrointestional: Yes: constipation Genitourinary: Yes: no symptom reported Musculoskeletal: Yes: muscle stiffness Skin: Yes no symptom reported Psychiatric/Neurological: Yes: no symptom reported Endocrine: Yes: no symptom reported Physical Exam General Appearance: no apparent distress Skin: warm Heart: S1S2 Abdomen: soft, bowel sounds present Genitourinary: bladder flat Extremities: pulses present, atrophy Neurology: alert, oriented Assessment Assessment IMP ZURDO-RESOLVED CKD STAGE 2-CR OF 1.2 AND STABLE HTN HX PAD HX TOE GANGRENE FOOT INFECTION - LEUCOCYTOSIS PLAN WILL SIGN OFF PLEASE CALL IF NEEDED DARREN DRAKE MD Oct 05, 2019 11:26
--- NOTE | 2019-10-05 11:27 | PDOC ---
PROGRESS NOTES Chief Complaint Chief Complaint Diabetic toe with gangrene (s/p amputation left 3,4,5 toes, closed 10/04) PVD confirmed on angiography (s/p left femoral to popliteal bypass 10/04) Diabetes Hypertension Anxiety Depression Soft tissue swelling overlying the dorsum of the midfoot without underlying osseous abnormality or radiopaque foreign body identified.ON PLAIN X-RAY hypertension, HX stroke, diabetes, hyperlipidemia, history of diabetic ketoacidosis. ZURDO fever Normocytic anemia sepsis glucose control needed PVD Occlusion of the left superficial femoral artery with reconstitution at the level of the left popliteal artery, where there appears to be hemodynamically significant stenosis. Monophasic flow in the left subclavian artery suggests greater than 50 percent proximal left subclavian artery stenosis. No evidence of subclavian steal. History of Present Illness History of Present Illness Ms Polo is a 53-year-old female with PMHx DM2, HTN, CVA with left sided residual weakness who p/w left fourth toe gangrene, peripheral vascular disease. Angio and vein mapping reviewed by Dr. Hernandez, plan for left leg bypass with toe amputations Friday10/05/201910/03: Seen and examined. Pain well controlled. BP controlled. No CP or SOB. To OR today for Left femoral to popliteal bypass with 7mm propaten gortex graft, Left closed 3,4,5th toe amputation, and Prevena vac placement proximal incision. Drowsy post-op 10/01/2019 Patient seen and examined Chart reviewed Discussed with RN Patient is going for lower extremity bypass and toe amputation later today 09/30/2019 Patient seen and examined Chart reviewed Discussed with RN Vitals Vitals Vital Signs Date Time Temp Pulse Resp B/P (MAP) Pulse Ox O2 Delivery O2 Flow Rate FiO2 10/05/19 10:48 97.4 81 18 109/100 97 Simple Mask 8 97.4 Physical Exam Physical Exam GENERAL: Propped up in bed, alert in NAD HEENT: Oral cavity pink, no thrush/lesions seen NECK: Supple LUNGS: Clear. HEART: S1, S2 regular. ABDOMEN: Obese, soft, nontender EXTREMITIES: Right lower extremity is unremarkable. Left lower extremity has gangrene of the left fourth toe; maceration and drainage from the web between the 3rd and the 4th and 4th and the 5th toes. + malodor NEUROLOGIC: Alert, oriented. No focal neurologic deficit. PIV ok General: Alert, Oriented X3, Cooperative, No acute distress Lungs: Clear Abdomen: Normal bowel sounds, Soft, No tenderness Extremities: Other (prevena vac on left leg, wound wrapped) Labs LABS Laboratory Tests Test 10/04/19 12:02 10/04/19 16:10 10/04/19 16:56 10/04/19 20:29 Glucose (Fingerstick) 139 mg/dL (70-99) 136 mg/dL (70-99) 177 mg/dL (70-99) White Blood Count 13.3 x10^3/uL (4.0-11.0) Red Blood Count 3.14 x10^6/uL (3.50-5.40) Hemoglobin 9.0 g/dL (12.0-15.5) Hematocrit 25.9 % (36.0-47.0) Mean Corpuscular Volume 82 fL (79-100) Mean Corpuscular Hemoglobin 29 pg (25-35) Mean Corpuscular Hemoglobin Concent 35 g/dL (31-37) Red Cell Distribution Width 15.0 % (11.5-14.5) Platelet Count 425 x10^3/uL (140-400) Neutrophils (%) (Auto) 80 % (31-73) Lymphocytes (%) (Auto) 8 % (24-48) Monocytes (%) (Auto) 11 % (0-9) Eosinophils (%) (Auto) 1 % (0-3) Basophils (%) (Auto) 1 % (0-3) Neutrophils # (Auto) 10.7 x10^3/uL (1.8-7.7) Lymphocytes # (Auto) 1.0 x10^3/uL (1.0-4.8) Monocytes # (Auto) 1.4 x10^3/uL (0.0-1.1) Eosinophils # (Auto) 0.1 x10^3/uL (0.0-0.7) Basophils # (Auto) 0.1 x10^3/uL (0.0-0.2) Sodium Level 140 mmol/L (136-145) Potassium Level 3.7 mmol/L (3.5-5.1) Chloride Level 108 mmol/L (98-107) Carbon Dioxide Level 23 mmol/L (21-32) Anion Gap 9 (6-14) Blood Urea Nitrogen 15 mg/dL (7-20) Creatinine 1.2 mg/dL (0.6-1.0) Estimated GFR (Cockcroft-Gault) 56.6 Glucose Level 144 mg/dL (70-99) Calcium Level 7.8 mg/dL (8.5-10.1) Test 10/05/19 06:50 10/05/19 10:51 Glucose (Fingerstick) 123 mg/dL (70-99) 167 mg/dL (70-99) Assessment and Plan Assessmemt and Plan Problems Medical Problems: (1) Diabetic foot infection Status: Acute Comment Review of Relevant I have reviewed the following items hortencia (where applicable) has been applied. Labs Laboratory Tests Test 10/03/19 17:28 10/03/19 21:22 10/04/19 04:11 10/04/19 08:12 Glucose (Fingerstick) 161 mg/dL (70-99) 156 mg/dL (70-99) 125 mg/dL (70-99) White Blood Count 12.6 x10^3/uL (4.0-11.0) Red Blood Count 3.08 x10^6/uL (3.50-5.40) Hemoglobin 8.7 g/dL (12.0-15.5) Hematocrit 25.4 % (36.0-47.0) Mean Corpuscular Volume 83 fL (79-100) Mean Corpuscular Hemoglobin 28 pg (25-35) Mean Corpuscular Hemoglobin Concent 34 g/dL (31-37) Red Cell Distribution Width 14.6 % (11.5-14.5) Platelet Count 411 x10^3/uL (140-400) Neutrophils (%) (Auto) 79 % (31-73) Lymphocytes (%) (Auto) 11 % (24-48) Monocytes (%) (Auto) 9 % (0-9) Eosinophils (%) (Auto) 1 % (0-3) Basophils (%) (Auto) 0 % (0-3) Neutrophils # (Auto) 9.9 x10^3/uL (1.8-7.7) Lymphocytes # (Auto) 1.4 x10^3/uL (1.0-4.8) Monocytes # (Auto) 1.1 x10^3/uL (0.0-1.1) Eosinophils # (Auto) 0.1 x10^3/uL (0.0-0.7) Basophils # (Auto) 0.0 x10^3/uL (0.0-0.2) Sodium Level 143 mmol/L (136-145) Potassium Level 3.9 mmol/L (3.5-5.1) Chloride Level 108 mmol/L (98-107) Carbon Dioxide Level 22 mmol/L (21-32) Anion Gap 13 (6-14) Blood Urea Nitrogen 15 mg/dL (7-20) Creatinine 1.3 mg/dL (0.6-1.0) Estimated GFR (Cockcroft-Gault) 51.6 BUN/Creatinine Ratio 12 (6-20) Glucose Level 117 mg/dL (70-99) Calcium Level 7.9 mg/dL (8.5-10.1) Total Bilirubin 0.5 mg/dL (0.2-1.0) Aspartate Amino Transf (AST/SGOT) 19 U/L (15-37) Alanine Aminotransferase (ALT/SGPT) 15 U/L (14-59) Alkaline Phosphatase 75 U/L (46-116) Creatine Kinase 127 U/L (26-192) Total Protein 5.1 g/dL (6.4-8.2) Albumin 1.9 g/dL (3.4-5.0) Albumin/Globulin Ratio 0.6 (1.0-1.7) Test 10/04/19 12:02 10/04/19 16:10 10/04/19 16:56 10/04/19 20:29 Glucose (Fingerstick) 139 mg/dL (70-99) 136 mg/dL (70-99) 177 mg/dL (70-99) White Blood Count 13.3 x10^3/uL (4.0-11.0) Red Blood Count 3.14 x10^6/uL (3.50-5.40) Hemoglobin 9.0 g/dL (12.0-15.5) Hematocrit 25.9 % (36.0-47.0) Mean Corpuscular Volume 82 fL (79-100) Mean Corpuscular Hemoglobin 29 pg (25-35) Mean Corpuscular Hemoglobin Concent 35 g/dL (31-37) Red Cell Distribution Width 15.0 % (11.5-14.5) Platelet Count 425 x10^3/uL (140-400) Neutrophils (%) (Auto) 80 % (31-73) Lymphocytes (%) (Auto) 8 % (24-48) Monocytes (%) (Auto) 11 % (0-9) Eosinophils (%) (Auto) 1 % (0-3) Basophils (%) (Auto) 1 % (0-3) Neutrophils # (Auto) 10.7 x10^3/uL (1.8-7.7) Lymphocytes # (Auto) 1.0 x10^3/uL (1.0-4.8) Monocytes # (Auto) 1.4 x10^3/uL (0.0-1.1) Eosinophils # (Auto) 0.1 x10^3/uL (0.0-0.7) Basophils # (Auto) 0.1 x10^3/uL (0.0-0.2) Sodium Level 140 mmol/L (136-145) Potassium Level 3.7 mmol/L (3.5-5.1) Chloride Level 108 mmol/L (98-107) Carbon Dioxide Level 23 mmol/L (21-32) Anion Gap 9 (6-14) Blood Urea Nitrogen 15 mg/dL (7-20) Creatinine 1.2 mg/dL (0.6-1.0) Estimated GFR (Cockcroft-Gault) 56.6 Glucose Level 144 mg/dL (70-99) Calcium Level 7.8 mg/dL (8.5-10.1) Test 10/05/19 06:50 10/05/19 10:51 Glucose (Fingerstick) 123 mg/dL (70-99) 167 mg/dL (70-99) Laboratory Tests Test 10/04/19 12:02 10/04/19 16:10 10/04/19 16:56 10/04/19 20:29 Glucose (Fingerstick) 139 mg/dL (70-99) 136 mg/dL (70-99) 177 mg/dL (70-99) White Blood Count 13.3 x10^3/uL (4.0-11.0) Red Blood Count 3.14 x10^6/uL (3.50-5.40) Hemoglobin 9.0 g/dL (12.0-15.5) Hematocrit 25.9 % (36.0-47.0) Mean Corpuscular Volume 82 fL (79-100) Mean Corpuscular Hemoglobin 29 pg (25-35) Mean Corpuscular Hemoglobin Concent 35 g/dL (31-37) Red Cell Distribution Width 15.0 % (11.5-14.5) Platelet Count 425 x10^3/uL (140-400) Neutrophils (%) (Auto) 80 % (31-73) Lymphocytes (%) (Auto) 8 % (24-48) Monocytes (%) (Auto) 11 % (0-9) Eosinophils (%) (Auto) 1 % (0-3) Basophils (%) (Auto) 1 % (0-3) Neutrophils # (Auto) 10.7 x10^3/uL (1.8-7.7) Lymphocytes # (Auto) 1.0 x10^3/uL (1.0-4.8) Monocytes # (Auto) 1.4 x10^3/uL (0.0-1.1) Eosinophils # (Auto) 0.1 x10^3/uL (0.0-0.7) Basophils # (Auto) 0.1 x10^3/uL (0.0-0.2) Sodium Level 140 mmol/L (136-145) Potassium Level 3.7 mmol/L (3.5-5.1) Chloride Level 108 mmol/L (98-107) Carbon Dioxide Level 23 mmol/L (21-32) Anion Gap 9 (6-14) Blood Urea Nitrogen 15 mg/dL (7-20) Creatinine 1.2 mg/dL (0.6-1.0) Estimated GFR (Cockcroft-Gault) 56.6 Glucose Level 144 mg/dL (70-99) Calcium Level 7.8 mg/dL (8.5-10.1) Test 10/05/19 06:50 10/05/19 10:51 Glucose (Fingerstick) 123 mg/dL (70-99) 167 mg/dL (70-99) Microbiology 09/27/19 Urine Culture - Final, Complete 09/27/19 Gram Stain - Final, Complete 09/27/19 Aerobic and Anaerobic Culture - Final, Complete 09/27/19 Antimicrobic Susceptibility - Final, Complete Medications Current Medications Sodium Chloride 1,000 ml @ 1,000 mls/hr 1X ONCE IV Last administered on 09/27/19at 19:25; Start 09/27/19 at 18:30; Stop 09/27/19 at 19:29; Status DC Acetaminophen (Tylenol) 1,000 mg 1X ONCE PO Last administered on 09/27/19at 19:25; Start 09/27/19 at 18:30; Stop 09/27/19 at 18:37; Status DC Clonidine HCl (Catapres) 0.1 mg 1X ONCE PO Last administered on 09/27/19at 19:26; Start 09/27/19 at 18:45; Stop 09/27/19 at 18:46; Status DC Vancomycin HCl 250 ml @ 250 mls/hr 1X ONCE IV Last administered on 09/27/19at 20:56; Start 09/27/19 at 20:30; Stop 09/27/19 at 21:29; Status DC Ondansetron HCl (Zofran) 4 mg PRN Q8HRS PRN IV NAUSEA/VOMITING; Start 09/27/19 at 20:45; Stop 09/28/19 at 13:59; Status DC Fentanyl Citrate (Fentanyl 2ml Vial) 50 mcg PRN Q1HR PRN IV PAIN; Start 09/27/19 at 20:45; Stop 09/28/19 at 20:44; Status DC Acetaminophen (Tylenol) 650 mg PRN Q4HRS PRN PO FEVER > 100.3'F; Start 09/27/19 at 20:45; Stop 09/28/19 at 13:58; Status DC Lisinopril (Prinivil) 40 mg DAILY PO Last administered on 10/04/19at 08:16; Start 09/28/19 at 00:30 Insulin Human Isoph/Insulin Regular (HumuLIN 70/30) 4 units DAILYWSUP SQ ; S tart 09/28/19 at 17:00 Insulin Human Isoph/Insulin Regular (HumuLIN 70/30) 8 units DAILYWBKFT SQ ; Start 09/28/19 at 08:00 Daptomycin 490 mg/ Sodium Chloride 50 ml @ 100 mls/hr Q24H IV Last administered on 10/04/19at 11:13; Start 09/28/19 at 11:00 Meropenem 500 mg/ Sodium Chloride 50 ml @ 100 mls/hr Q8HRS IV Last administered on 10/05/19at 05:19; Start 09/28/19 at 11:00 Sodium Chloride (Normal Saline Flush) 3 ml QSHIFT PRN IV AFTER MEDS AND BLOOD DRAWS; Start 09/28/19 at 11:00 Sodium Chloride 1,000 ml @ 100 mls/hr Q10H IV Last administered on 10/04/19at 20:30; Start 09/28/19 at 10:58 Ondansetron HCl (Zofran) 4 mg PRN Q4HRS PRN IV NAUSEA/VOMITING Last administered on 10/03/19at 08:08; Start 09/28/19 at 11:00 Acetaminophen (Tylenol) 650 mg PRN Q4HRS PRN PO TEMP OVER 100.4F OR MILD PAIN Last administered on 10/01/19at 23:49; Start 09/28/19 at 11:00 Al Hydroxide/Mg Hydroxide (Mylanta Plus Xs) 30 ml PRN DAILY PRN PO HEARTBURN / GAS; Start 09/28/19 at 11:00 Clonidine HCl (Catapres) 0.1 mg PRN Q6HRS PRN PO SBP>160 OR DBP>90 Last administered on 09/30/19at 22:09; Start 09/28/19 at 11:00; Stop 10/02/19 at 13:59; Status DC Sodium Monofluorophosphate (Fleet Adult) 133 ml PRN DAILY PRN WI CONSTIPATION; Start 09/28/19 at 11:00 Docusate Sodium (Colace) 100 mg PRN BID PRN PO HARD STOOLS; Start 09/28/19 at 11:00 Albuterol Sulfate (Ventolin Neb Soln) 2.5 mg PRN Q4HRS PRN NEB SHORTNESS OF BREATH Last administered on 10/05/19at 06:56; Start 09/28/19 at 11:00 Guaifenesin (Robitussin) 200 mg PRN Q4HRS PRN PO COUGH; Start 09/28/19 at 11:00 Lorazepam (Ativan) 0.5 mg PRN Q4HRS PRN PO ANXIETY / AGITATION Last administered on 10/02/19at 21:04; Start 09/28/19 at 11:00 Hydromorphone HCl (Dilaudid) 0.5 mg PRN Q2HRS PRN IV SEVERE PAIN 7-10; Start 09/28/19 at 11:00 Enoxaparin Sodium (Lovenox 40mg Syringe) 40 mg Q24H SQ Last administered on 10/03/19at 14:36; Start 09/28/19 at 12:00 Sodium Chloride 500 ml @ 500 mls/hr 1X ONCE IV Last administered on 09/28/19at 13:11; Start 09/28/19 at 12:45; Stop 09/28/19 at 13:44; Status DC Hydralazine HCl (Apresoline Inj) 10 mg 1X ONCE IVP Last administered on 09/28/19at 14:17; Start 09/28/19 at 14:15; Stop 09/28/19 at 14:16; Status DC Hydralazine HCl (Apresoline Inj) 10 mg PRN Q4HRS PRN IVP HYPERTENSION, 2nd choice Last administered on 10/04/19at 22:55; Start 09/28/19 at 16:15 Metoprolol Tartrate (Lopressor Vial) 5 mg PRN Q6HRS PRN IVP HYPERTENSION, 1st choice Last administered on 10/02/19at 08:19; Start 09/28/19 at 16:15; Stop 10/02/19 at 13:59; Status DC Lactobacillus Rhamnosus (Culturelle) 1 cap BID PO Last administered on 10/04/19at 20:30; Start 09/29/19 at 21:00 Atorvastatin Calcium (Lipitor) 40 mg QHS PO Last administered on 10/04/19at 20:30; Start 09/29/19 at 21:00 Potassium Chloride (Klor-Con) 40 meq 1X ONCE PO ; Start 09/30/19 at 12:30; Stop 09/30/19 at 12:31; Status Cancel Lidocaine HCl (Buffered Lidocaine 1%) 3 ml STK-MED ONCE .ROUTE ; Start 09/30/19 at 13:49; Stop 09/30/19 at 13:49; Status DC Iodixanol (Visipaque 320) 100 ml STK-MED ONCE .ROUTE ; Start 09/30/19 at 13:49; Stop 09/30/19 at 13:49; Status DC Heparin Sodium/ Sodium Chloride 1,000 ml @ As Directed STK-MED ONCE .ROUTE ; Start 09/30/19 at 13:49; Stop 09/30/19 at 13:49; Status DC Heparin Sodium/ Sodium Chloride 500 ml @ As Directed STK-MED ONCE .ROUTE ; Start 09/30/19 at 13:54; Stop 09/30/19 at 13:55; Status DC Midazolam HCl (Versed) 5 mg STK-MED ONCE .ROUTE ; Start 09/30/19 at 14:10; Stop 09/30/19 at 14:10; Status DC Fentanyl Citrate (Fentanyl 2ml Vial) 100 mcg STK-MED ONCE .ROUTE ; Start 09/30/19 at 14:10; Stop 09/30/19 at 14:10; Status DC Heparin Sodium (Porcine) (Heparin Sodium) 10,000 unit STK-MED ONCE .ROUTE ; Start 09/30/19 at 14:31; Stop 09/30/19 at 14:31; Status DC Ondansetron HCl (Zofran) 4 mg PRN Q6HRS PRN IV NAUSEA/VOMITING; Start 10/01/19 at 07:00; Stop 10/02/19 at 06:59; Status DC Morphine Sulfate (Morphine Sulfate) 1 mg PRN Q10MIN PRN IV SEVERE PAIN 7-10; Start 10/01/19 at 07:00; Stop 10/02/19 at 06:59; Status DC Ringer's Solution 1,000 ml @ 30 mls/hr Q24H IV Last administered on 10/01/19at 10:28; Start 10/01/19 at 07:00; Stop 10/01/19 at 18:59; Status DC Lidocaine HCl (Xylocaine-Mpf 1% 2ml Vial) 2 ml PRN 1X PRN ID PRIOR TO IV START; Start 10/01/19 at 07:00; Stop 10/02/19 at 06:59; Status DC Hydromorphone HCl (Dilaudid) 0.5 mg PRN Q10MIN PRN IV SEV PAIN, Second choice; Start 10/01/19 at 07:00; Stop 10/02/19 at 06:59; Status DC Prochlorperazine Edisylate (Compazine) 5 mg PACU PRN PRN IV NAUSEA, MRX1; Start 10/01/19 at 07:00; Stop 10/02/19 at 06:59; Status DC Heparin Sodium/ Sodium Chloride (HEPARIN for ARTERIAL LINE FLUSH) 1,000 unit 1X ONCE IART Last administered on 09/30/19at 15:31; Start 09/30/19 at 14:45; Stop 09/30/19 at 14:46; Status DC Heparin Sodium/ Sodium Chloride (HEPARIN for ARTERIAL LINE FLUSH) 2,000 unit 1X ONCE IART Last administered on 09/30/19at 15:31; Start 09/30/19 at 14:45; Stop 09/30/19 at 14:46; Status DC Lidocaine HCl (Buffered Lidocaine 1%) 3 ml 1X ONCE IJ Last administered on 09/30/19at 15:32; Start 09/30/19 at 14:45; Stop 09/30/19 at 14:46; Status DC Midazolam HCl (Versed) 5 mg 1X ONCE IV Last administered on 09/30/19at 15:32; Start 09/30/19 at 14:45; Stop 09/30/19 at 14:46; Status DC Fentanyl Citrate (Fentanyl 2ml Vial) 100 mcg 1X ONCE IV Last administered on 09/30/19at 15:33; Start 09/30/19 at 14:45; Stop 09/30/19 at 14:46; Status DC Iodixanol (Visipaque 320) 100 ml 1X ONCE IART Last administered on 09/30/19at 15:31; Start 09/30/19 at 14:45; Stop 09/30/19 at 14:46; Status DC Heparin Sodium (Porcine) (Heparin Sodium) 5,000 unit 1X ONCE IV Last administered on 09/30/19at 15:34; Start 09/30/19 at 14:45; Stop 09/30/19 at 14:46; Status DC Potassium Chloride (Klor-Con) 40 meq 1X ONCE PO Last administered on 09/30/19at 22:05; Start 09/30/19 at 22:00; Stop 09/30/19 at 22:01; Status DC Heparin Sodium (Porcine) 5000 unit/Sodium Chloride 505 ml @ 505 mls/hr 1X ONCE IRR ; Start 10/01/19 at 11:00; Stop 10/01/19 at 11:59; Status DC Cefazolin Sodium 1 gm/Sodium Chloride 500 ml @ 500 mls/hr 1X ONCE IRR ; Start 10/01/19 at 11:00; Stop 10/01/19 at 11:59; Status DC Propofol (Diprivan) 200 mg STK-MED ONCE IV ; Start 10/01/19 at 11:07; Stop 10/01/19 at 11:07; Status DC Dexamethasone Sodium Phosphate (Decadron) 4 mg STK-MED ONCE .ROUTE ; Start 10/01/19 at 11:07; Stop 10/01/19 at 11:07; Status DC Lidocaine HCl (Lidocaine Pf 2% Vial) 5 ml STK-MED ONCE .ROUTE ; Start 10/01/19 at 11:07; Stop 10/01/19 at 11:07; Status DC Ondansetron HCl (Zofran) 4 mg STK-MED ONCE .ROUTE ; Start 10/01/19 at 11:07; Stop 10/01/19 at 11:07; Status DC Rocuronium Heartwell (Zemuron) 50 mg STK-MED ONCE .ROUTE ; Start 10/01/19 at 11:07; Stop 10/01/19 at 11:07; Status DC Fentanyl Citrate (Fentanyl 2ml Vial) 100 mcg STK-MED ONCE .ROUTE ; Start 10/01/19 at 11:07; Stop 10/01/19 at 11:07; Status DC Acetaminophen (Tylenol Supp) 650 mg 1X ONCE WI Last administered on 10/01/19at 11:58; Start 10/01/19 at 12:00; Stop 10/01/19 at 12:01; Status DC Iohexol (Omnipaque 300 Mg/ml) 50 ml STK-MED ONCE .ROUTE ; Start 10/01/19 at 12:07; Stop 10/01/19 at 12:07; Status DC Cellulose (Surgicel Fibrillar 1x2) 1 each STK-MED ONCE .ROUTE ; Start 10/01/19 at 12:07; Stop 10/01/19 at 12:08; Status DC Protamine Sulfate (Protamine) 50 mg STK-MED ONCE IV ; Start 10/01/19 at 12:07; Stop 10/01/19 at 12:08; Status DC Ringer's Solution 1,060 ml @ 1,060 mls/hr 1X ONCE IV Last administered on 10/01/19at 11:30; Start 10/01/19 at 11:30; Stop 10/01/19 at 12:56; Status DC Ondansetron HCl (Zofran) 4 mg STK-MED ONCE .ROUTE ; Start 10/01/19 at 13:59; Stop 10/01/19 at 14:00; Status DC Lidocaine HCl (Lidocaine Pf 2% Vial) 5 ml STK-MED ONCE .ROUTE ; Start 10/01/19 at 13:59; Stop 10/01/19 at 14:00; Status DC Dexamethasone Sodium Phosphate (Decadron) 4 mg STK-MED ONCE .ROUTE ; Start 10/01/19 at 13:59; Stop 10/01/19 at 14:00; Status DC Propofol (Diprivan) 200 mg STK-MED ONCE IV ; Start 10/01/19 at 13:59; Stop 10/01/19 at 14:00; Status DC Clonidine HCl (Catapres Tts-1) 1 patch Sa TD Last administered on 10/02/19at 14:23; Start 10/02/19 at 14:00 Carvedilol (Coreg) 6.25 mg BIDWMEALS PO Last administered on 10/03/19at 08:08; Start 10/02/19 at 17:00; Stop 10/03/19 at 14:18; Status DC Metoclopramide HCl (Reglan Vial) 10 mg QIDACHS IVP Last administered on 10/04/19at 20:30; Start 10/02/19 at 16:30 Carvedilol (Coreg) 12.5 mg BIDWMEALS PO Last administered on 10/04/19at 16:27; Start 10/03/19 at 17:00 Amlodipine Besylate (Norvasc) 5 mg DAILY PO Last administered on 10/04/19at 08:15; Start 10/03/19 at 14:15 Bacitracin 05566 unit/Sodium Chloride 500 ml @ 500 mls/hr 1X ONCE IRR Last administered on 10/05/19at 08:24; Start 10/05/19 at 06:00; Stop 10/05/19 at 06:59; Status DC Heparin Sodium (Porcine) 5000 unit/Sodium Chloride 505 ml @ 505 mls/hr 1X ONCE IRR ; Start 10/05/19 at 06:00; Stop 10/05/19 at 06:59; Status DC Ondansetron HCl (Zofran) 4 mg PRN Q6HRS PRN IV NAUSEA/VOMITING; Start 10/05/19 at 07:00; Stop 10/06/19 at 06:59 Fentanyl Citrate (Fentanyl 2ml Vial) 25 mcg PRN Q5MIN PRN IV MILD PAIN 1-3; Start 10/05/19 at 07:00; Stop 10/06/19 at 06:59 Fentanyl Citrate (Fentanyl 2ml Vial) 50 mcg PRN Q5MIN PRN IV MODERATE TO SEVERE PAIN; Start 10/05/19 at 07:00; Stop 10/06/19 at 06:59 Morphine Sulfate (Morphine Sulfate) 1 mg PRN Q10MIN PRN IV SEVERE PAIN 7-10; Start 10/05/19 at 07:00; Stop 10/06/19 at 06:59 Ringer's Solution 1,000 ml @ 30 mls/hr Q24H IV ; Start 10/05/19 at 07:00; Stop 10/05/19 at 18:59 Lidocaine HCl (Xylocaine-Mpf 1% 2ml Vial) 2 ml PRN 1X PRN ID PRIOR TO IV START; Start 10/05/19 at 07:00; Stop 10/06/19 at 06:59 Hydromorphone HCl (Dilaudid) 0.5 mg PRN Q10MIN PRN IV SEV PAIN, Second choice; Start 10/05/19 at 07:00; Stop 10/06/19 at 06:59 Prochlorperazine Edisylate (Compazine) 5 mg PACU PRN PRN IV NAUSEA, MRX1; Start 10/05/19 at 07:00; Stop 10/06/19 at 06:59 Lidocaine HCl (Lidocaine Pf 2% Vial) 5 ml STK-MED ONCE .ROUTE ; Start 10/05/19 at 06:52; Stop 10/05/19 at 06:53; Status DC Propofol (Diprivan) 200 mg STK-MED ONCE IV ; Start 10/05/19 at 06:52; Stop 10/05/19 at 06:53; Status DC Succinylcholine Chloride (Anectine) 200 mg STK-MED ONCE .ROUTE ; Start 10/05/19 at 06:53; Stop 10/05/19 at 06:53; Status DC Rocuronium Heartwell (Zemuron) 50 mg STK-MED ONCE .ROUTE ; Start 10/05/19 at 06:53; Stop 10/05/19 at 06:53; Status DC Fentanyl Citrate (Fentanyl 2ml Vial) 100 mcg STK-MED ONCE .ROUTE ; Start 10/05/19 at 06:53; Stop 10/05/19 at 06:53; Status DC Gelatin (Gelfoam Size 100) 1 each STK-MED ONCE .ROUTE ; Start 10/05/19 at 06:58; Stop 10/05/19 at 06:58; Status DC Iohexol (Omnipaque 300 Mg/ml) 50 ml STK-MED ONCE .ROUTE ; Start 10/05/19 at 06:58; Stop 10/05/19 at 06:58; Status DC Cellulose (Surgicel Fibrillar 1x2) 1 each STK-MED ONCE .ROUTE Last administered on 10/05/19at 08:23; Start 10/05/19 at 06:58; Stop 10/05/19 at 06:59; Status DC Thrombin 20,000 unit STK-MED ONCE TP ; Start 10/05/19 at 06:59; Stop 10/05/19 at 06:59; Status DC Insulin Human Lispro (HumaLOG VIAL for OP,RR ONLY) 0-10 units PRN Q1HR PRN SQ PER PROTOCOL; Start 10/05/19 at 07:30; Stop 10/06/19 at 07:29 Dexamethasone Sodium Phosphate (Decadron) 20 mg STK-MED ONCE .ROUTE ; Start 10/05/19 at 07:37; Stop 10/05/19 at 07:37; Status DC Ondansetron HCl (Zofran) 4 mg STK-MED ONCE .ROUTE ; Start 10/05/19 at 07:37; Stop 10/05/19 at 07:37; Status DC Heparin Sodium (Porcine) (Heparin Sodium) 10,000 unit STK-MED ONCE .ROUTE ; Start 10/05/19 at 08:08; Stop 10/05/19 at 08:08; Status DC Desflurane (Suprane) 60 ml STK-MED ONCE IH ; Start 10/05/19 at 08:08; Stop 10/05/19 at 08:08; Status DC Cefazolin Sodium (Ancef) 1 gm STK-MED ONCE IVP ; Start 10/05/19 at 08:15; Stop 10/05/19 at 08:15; Status DC Neostigmine Heartwell (Neostigmine Methylsulfate) 5 mg STK-MED ONCE .ROUTE ; Start 10/05/19 at 08:22; Stop 10/05/19 at 08:23; Status DC Glycopyrrolate (Robinul) 1 mg STK-MED ONCE .ROUTE ; Start 10/05/19 at 08:22; Stop 10/05/19 at 08:23; Status DC Multivitamins (Thera M Plus) 1 tab DAILY PO ; Start 10/06/19 at 09:00 Sodium Chloride (Normal Saline Flush) 3 ml QSHIFT PRN IV AFTER MEDS AND BLOOD DRAWS; Start 10/05/19 at 10:45 Sodium Chloride 1,000 ml @ 100 mls/hr Q10H IV ; Start 10/05/19 at 10:37 Oxycodone/ Acetaminophen (Percocet 5/325) 1 tab PRN Q4HRS PRN PO MILD PAIN, 1ST CHOICE; Start 10/05/19 at 10:45 Oxycodone/ Acetaminophen (Percocet 5/325) 2 tab PRN Q4HRS PRN PO MODERATE PAIN, SEVERE PAIN; Start 10/05/19 at 10:45 Morphine Sulfate (Morphine Sulfate) 2 mg PRN Q1HR PRN IV PAIN; Start 10/05/19 at 10:45 Naloxone HCl (Narcan) 0.4 mg PRN Q2MIN PRN IV SEE INSTRUCTIONS; Start 10/05/19 at 10:45 Sodium Chloride 1,000 ml @ 25 mls/hr Q24H IV ; Start 10/05/19 at 10:37 Senna/Docusate Sodium (Senna Plus) 1 tab BID PO ; Start 10/05/19 at 21:00 Docusate Sodium (Colace) 100 mg BID PO ; Start 10/05/19 at 21:00 Ondansetron HCl (Zofran) 4 mg PRN Q6HRS PRN IVP NAUESA, 1ST CHOICE; Start 10/05/19 at 10:45 Prochlorperazine Edisylate (Compazine) 5 mg PRN Q6HRS PRN IV N/V, 3rd Choice, MR X1; Start 10/05/19 at 10:45 Labetalol HCl (Normodyne Iv Push) 10 mg PRN Q2HR PRN IVP HYPERTENSION; Start 10/05/19 at 10:45 Fentanyl Citrate (Fentanyl 2ml Vial) 100 mcg STK-MED ONCE .ROUTE ; Start 10/05/19 at 11:15; Stop 10/05/19 at 11:16; Status DC Active Scripts Active Reported Zyvox (Linezolid) 600 Mg Tablet 600 Mg PO BID 7 Days Cefdinir 300 Mg Capsule 1 Cap PO BID 7 Days Lisinopril 40 Mg Tablet 40 Mg PO DAILY Relion Novolin 70-30 Vial (Hum Insulin Nph/Reg Insulin Hm) 100 Unit/1 Ml Vial 4 Unit SQ [id number] Relion Novolin 70-30 Vial (Hum Insulin Nph/Reg Insulin Hm) 100 Unit/1 Ml Vial 8 Unit SUBCUT [id number] Vitals/I & O Vital Sign - Last 24 Hours 10/04/19 10/04/19 10/04/19 10/04/19 15:00 16:27 19:13 19:39 Temp 98.9 98.9 98.9 98.9 Pulse 84 84 93 Resp 20 B/P (MAP) 183/84 (117) 183/84 207/93 (131) Pulse Ox 94 93 O2 Delivery Room Air Room Air Room Air 10/04/19 10/04/19 10/05/19 10/05/19 22:55 23:17 03:25 06:45 Temp 100.1 99.1 100.1 99.1 Pulse 93 97 92 Resp 18 19 B/P (MAP) 210/92 210/92 (131) 186/87 (120) Pulse Ox 90 91 O2 Delivery Room Air Room Air Room Air 10/05/19 10/05/19 07:01 10:48 Temp 98.1 97.4 98.1 97.4 Pulse 86 81 Resp 18 B/P (MAP) 214/99 109/100 Pulse Ox 97 97 O2 Delivery Room Air Simple Mask O2 Flow Rate 8 Intake and Output 10/04/19 10/04/19 10/05/19 15:00 23:00 07:00 Intake Total 300 ml 1300 ml 1250 ml Output Total 300 ml 200 ml Balance 300 ml 1000 ml 1050 ml HARIS OSULLIVAN MD Oct 05, 2019 11:27
[2019-10-05] MEDS: METOCLOPRAMIDE HCL 10 MG/2 ML VIAL. IVP SCH ×4 (11:30→21:59)
[2019-10-05] MEDS ORDERED: hydrALAZINE 20 MG/ML VIAL. ONE (11:41)
--- NOTE | 2019-10-05 11:41 | OP ---
DATE OF SURGERY: 10/05/2019 VASCULAR SURGERY OPERATIVE NOTE ATTENDING SURGEON: Sandeep Rascon DO PEARLER: Candice Interiano NP PREOPERATIVE DIAGNOSIS: Atherosclerosis with gangrene of the left lower extremity. POSTOPERATIVE DIAGNOSES: Atherosclerosis with gangrene of the left lower extremity. PROCEDURES: 1. Left femoral to above knee popliteal artery bypass using 7 mm Propaten PTFE graft. 2. 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 3. Ray amputation of the fourth toe on the left, including the metatarsal head. 4. 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 ANESTHESIA: General. SPECIMENS: Third, fourth, and fifth toes including the metatarsal heads. ESTIMATED BLOOD LOSS: 20 mL. COMPLICATIONS: None. PREOPERATIVE INDICATIONS: The patient is a very pleasant 53-year-old female who has had a right hemispheric stroke leaving her with left hemiparesis. 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 An attempt at percutaneous revascularization was performed, which was unsuccessful. The patient was consented for bypass and toe amputation. She understood all risks, benefits, and alternatives of the procedure prior to proceeding. OPERATIVE PROCEDURE: The patient was brought to the operative suite and placed in supine position. After establishing appropriate invasive monitoring lines per anesthesia, the patient was induced under general endotracheal anesthesia. Next, the patient was prepped and draped in sterile fashion. Following this, a timeout procedure was performed. It was confirmed that the patient did receive appropriate perioperative antibiotics and the correct operative site was marked and draped. Following this, an upper thigh incision just below the inguinal fold was made and carried through skin and subcutaneous tissue. Dissection was carefully carried down to the superficial femoral artery where this was circumferentially dissected and controlled proximally and distally. The vessel was soft and had an excellent pulse in this location. Following this, an antibiotic soaked sponge was placed and the tension on our retractors was removed. Next, an above knee popliteal incision was made, carried through skin and subcutaneous tissue. Dissection was carried down to the above knee popliteal artery where this was circumferentially dissected and controlled with vessel loops. The vessel was also soft and amenable to sewing in this location. Following this, a Evette tunneler was used to tunnel between the two locations and then the surgical team all of donned new surgical gloves at this point. Following this, a 7 mm Propaten graft was brought to the field and this was tunneled from the groin incision to the above-knee incision. The patient was administered heparin per weight-based protocol. An appropriate circulation time was allowed. Following this, the superficial femoral artery was controlled proximally and distally and then 11 blade scalpel was used to create an arteriotomy. Next, the vessel was transected completely. Following this, our graft was appropriately trimmed and then an end-to-end anastomosis was sewn in place using HS-7 suture in a running fashion. Following this, all redundancy of the graft was removed and we reestablished flow to the proximal superficial femoral artery with an excellent pulse throughout our graft into the below-knee segment. Next, our above knee popliteal artery was controlled proximally and distally and then 11 blade scalpel was used to create an arteriotomy. Following this, the above knee popliteal artery was transected completely. The lumen was inspected and this was a generous lumen and was healthy to sew an end-to-end anastomosis. Following this, our graft was appropriately trimmed adjusting for appropriate redundancy and straightening the patient's leg and then an end-to-end anastomosis was sewn to the above knee popliteal artery using HS-7 Prolene suture in a running fashion. Prior to completing anastomosis, we did backbleed and flushed the vessels appropriately and then the anastomosis was completed and flow was restored. The patient had immediate return of a pulse in the above knee popliteal artery. We did require 1 repair suture along our suture line with excellent hemostasis. Following this, both wounds were copiously irrigated with antibiotic-impregnated solution and then Fibrillar was used for raw surface bleeding. After we were satisfied with the hemostasis and our lap, sponge, needle and instrument count was found to be correct, a multilayer closure using 2-0, 3-0 Vicryl followed by 4-0 Monocryl for the skin was performed. Next, Dermabond was applied to the above-knee incision and then Mastisol and Steri-Strips were applied to the groin incision. Following this, a negative pressure Prevena VAC was placed on the groin incision and placed to negative suction. Next, after the glue had dried in the above-knee incision, a sterile dressing was placed. Following this, our foot drape was removed and the foot was prepped and draped in sterile fashion on the left. Next, a ray amputation incision was made at the base of the third toe and carried over to the fifth toe where all three toes were disarticulated from the metatarsal head. Following this, the soft tissue was dissected circumferentially around the metatarsals using a curved Anderson scissors. Next, a bone cutter was used to divide the metatarsal bones in the mid shaft through the third, fourth, and fifth metatarsals. Next, all tendinous material was sharply excised and removed. Following this, the wound was copiously irrigated with antibiotic-impregnated solution and then we ensured appropriate hemostasis. After lap, sponge, needle and instrument count was found to be correct then the skin was closed using a running 3-0 nylon suture followed by sterile dressings. The patient tolerated the procedure well and was extubated and taken to the postanesthesia care unit in stable condition. SANDEEP RASCON DO DR: Jocelin JOB#: [id number] / [id number]
[2019-10-05] MEDS: hydrALAZINE 20 MG/ML VIAL. IVP PRN (11:45)
--- NOTE | 2019-10-05 11:52 | NUR ---
SS following up with discharge planning. SS reviewed pt chart and discussed with pt RN. Pt currently in surgery for toe amputation. Pt currently on room air. Pt on IV Daptomycin and Meropenem. SS will continue to follow for discharge planning.
[2019-10-05] MEDS: ENOXAPARIN 40 MG/0.4 ML SYRINGE. SQ SCH (12:00)
[2019-10-05] MEDS ORDERED: hydrALAZINE 20 MG/ML VIAL. IVP ONE (12:15)
[2019-10-05] MEDS: CARVEDILOL 12.5 MG TABLET. PO SCH ×2 (13:42→17:09)
[2019-10-05] MEDS: LISINOPRIL 20 MG TABLET PO SCH (13:44)
[2019-10-05] MEDS: amLODIPine BESYLATE 5 MG TABLET PO SCH (13:44)
[2019-10-05] MEDS: DAPTOmycin (GENERIC) IVPB 490 MG in IV NORMAL SALINE 50ML 50 ML IV SCH (13:47)
[2019-10-05] MEDS: IV NORMAL SALINE 1000ML BAG 1,000 ML IV SCH ×2 (13:48→22:13)
[2019-10-05 15:08] LABS: FECAL OB PT NEGATIVE (NEG)
[2019-10-05] MEDS: SENNOSIDES/DOCUSATE 8.6/50MG TABLET. PO SCH (21:00)
[2019-10-05] MEDS: DOCUSATE SODIUM 100 MG CAPSULE. PO SCH (21:00)
[2019-10-05] MEDS: ATORVASTATIN CALCIUM 40 MG TABLET. PO SCH (21:54)
[2019-10-06] VITALS (7 sets, daily range): BP systolic 150–174; BP diastolic 70–81
[2019-10-06] MEDS: hydrALAZINE 20 MG/ML VIAL. IVP PRN ×2 (03:52→21:06)
[2019-10-06 05:06] LABS: BASO % 0 % (0-3); EOS % 0 % (0-3); HEMATOCRIT 24.3 % (36.0-47.0); HEMOGLOBIN 8.1 g/dL (12.0-15.5); LYMPH # 1.2 x10^3/uL (1.0-4.8); LYMPH % 8 % (24-48); MEAN CORPUSCULAR HEMOGLOBIN 28 pg (25-35); MEAN CORPUSCULAR HGB CONC 34 g/dL (31-37); MEAN CORPUSCULAR VOLUME 83 fL (79-100); MONO # 1.4 x10^3/uL (0.0-1.1); MONO % 9 % (0-9); NEUT # 12.5 x10^3/uL (1.8-7.7); NEUT % 83 % (31-73); PLATELET COUNT 411 x10^3/uL (140-400); RED BLOOD COUNT 2.94 x10^6/uL (3.50-5.40); RED CELL DISTRIBUTION WIDTH 15.1 % (11.5-14.5)
[2019-10-06 05:28] LABS: CALCIUM 8.2 mg/dL (8.5-10.1); CREATININE 1.2 mg/dL (0.6-1.0); GFR 56.6; MAGNESIUM 1.7 mg/dL (1.8-2.4); PHOSPHORUS 4.2 mg/dL (2.6-4.7); POTASSIUM 3.8 mmol/L (3.5-5.1)
[2019-10-06] MEDS: MEROPENEM 500 MG in IV NORMAL SALINE 50ML 50 ML IV SCH ×3 (06:04→22:27)
[2019-10-06] MEDS: INSULIN NPH/REG INSULIN 70/30 300 UNITS/3 ML INSULN.PEN. SQ SCH ×2 (08:00→17:00)
[2019-10-06] MEDS ORDERED: MAGNESIUM SULFATE 1GM 100 ML IV ONE (08:15)
[2019-10-06] MEDS ORDERED: POTASSIUM CHLORIDE 20 MEQ TABLET.ER. PO ONE (08:15)
--- NOTE | 2019-10-06 08:15 | PDOC ---
PROGRESS NOTES Chief Complaint Chief Complaint Diabetic toe with gangrene (s/p amputation left 3,4,5 toes, closed 10/04) PVD confirmed on angiography (s/p left femoral to popliteal bypass 10/04) Diabetes Hypertension Anxiety Depression Soft tissue swelling overlying the dorsum of the midfoot without underlying osseous abnormality or radiopaque foreign body identified.ON PLAIN X-RAY hypertension, HX stroke, diabetes, hyperlipidemia, history of diabetic ketoacidosis. ZURDO fever Normocytic anemia sepsis glucose control needed PVD Occlusion of the left superficial femoral artery with reconstitution at the level of the left popliteal artery, where there appears to be hemodynamically significant stenosis. Monophasic flow in the left subclavian artery suggests greater than 50 percent proximal left subclavian artery stenosis. No evidence of subclavian steal. History of Present Illness History of Present Illness Ms Polo is a 53-year-old female with PMHx DM2, HTN, CVA with left sided residual weakness who p/w left fourth toe gangrene, peripheral vascular disease. Angio and vein mapping reviewed by Dr. Hernandez, plan for left leg bypass with toe amputations Friday10/05/201910/03: Seen and examined. Pain well controlled. BP controlled. No CP or SOB. 10/04: To OR today for Left femoral to popliteal bypass with 7mm propaten gortex graft, Left closed 3,4,5th toe amputation, and Prevena vac placement proximal incision. Drowsy post-op No CP or SOB. Feeling well, pain controlled. Still pretty drowsy. Hb 8.1 post op. Tolerating therapy and antibiotics. She wishes for LTACH in [facility]. Afebrile. 10/01/2019 Patient seen and examined Chart reviewed Discussed with RN Patient is going for lower extremity bypass and toe amputation later today 09/30/2019 Patient seen and examined Chart reviewed Discussed with RN Vitals Vitals Vital Signs Date Time Temp Pulse Resp B/P (MAP) Pulse Ox O2 Delivery O2 Flow Rate FiO2 10/06/19 06:38 98.3 80 18 163/75 (104) 98 Room Air 98.3 10/05/19 20:00 2.0 Physical Exam Physical Exam GENERAL: Propped up in bed, alert in NAD HEENT: Oral cavity pink, no thrush/lesions seen NECK: Supple LUNGS: Clear. HEART: S1, S2 regular. ABDOMEN: Obese, soft, nontender EXTREMITIES: Right lower extremity is unremarkable. Left lower extremity has gangrene of the left fourth toe; maceration and drainage from the web between the 3rd and the 4th and 4th and the 5th toes. + malodor NEUROLOGIC: Alert, oriented. No focal neurologic deficit. PIV ok General: Alert, Oriented X3, Cooperative, No acute distress Lungs: Clear Abdomen: Normal bowel sounds, Soft, No tenderness Extremities: Other (prevena vac on left leg, wound wrapped) Labs LABS Laboratory Tests Test 10/05/19 10:51 10/05/19 12:30 10/05/19 16:32 10/05/19 20:46 Glucose (Fingerstick) 167 mg/dL (70-99) 178 mg/dL (70-99) 187 mg/dL (70-99) Stool Occult Blood Negative (NEG) Clostridium difficile Toxin (PCR) Negative (NEGATIVE) Test 10/06/19 04:08 10/06/19 06:59 White Blood Count 15.0 x10^3/uL (4.0-11.0) Red Blood Count 2.94 x10^6/uL (3.50-5.40) Hemoglobin 8.1 g/dL (12.0-15.5) Hematocrit 24.3 % (36.0-47.0) Mean Corpuscular Volume 83 fL (79-100) Mean Corpuscular Hemoglobin 28 pg (25-35) Mean Corpuscular Hemoglobin Concent 34 g/dL (31-37) Red Cell Distribution Width 15.1 % (11.5-14.5) Platelet Count 411 x10^3/uL (140-400) Neutrophils (%) (Auto) 83 % (31-73) Lymphocytes (%) (Auto) 8 % (24-48) Monocytes (%) (Auto) 9 % (0-9) Eosinophils (%) (Auto) 0 % (0-3) Basophils (%) (Auto) 0 % (0-3) Neutrophils # (Auto) 12.5 x10^3/uL (1.8-7.7) Lymphocytes # (Auto) 1.2 x10^3/uL (1.0-4.8) Monocytes # (Auto) 1.4 x10^3/uL (0.0-1.1) Eosinophils # (Auto) 0.0 x10^3/uL (0.0-0.7) Basophils # (Auto) 0.0 x10^3/uL (0.0-0.2) Sodium Level 142 mmol/L (136-145) Potassium Level 3.8 mmol/L (3.5-5.1) Chloride Level 108 mmol/L (98-107) Carbon Dioxide Level 21 mmol/L (21-32) Anion Gap 13 (6-14) Blood Urea Nitrogen 21 mg/dL (7-20) Creatinine 1.2 mg/dL (0.6-1.0) Estimated GFR (Cockcroft-Gault) 56.6 Glucose Level 127 mg/dL (70-99) Calcium Level 8.2 mg/dL (8.5-10.1) Phosphorus Level 4.2 mg/dL (2.6-4.7) Magnesium Level 1.7 mg/dL (1.8-2.4) Glucose (Fingerstick) 187 mg/dL (70-99) Assessment and Plan Assessmemt and Plan Problems Medical Problems: (1) Diabetic foot infection Status: Acute Comment Review of Relevant I have reviewed the following items hortencia (where applicable) has been applied. Labs Laboratory Tests Test 10/04/19 12:02 10/04/19 16:10 10/04/19 16:56 10/04/19 20:29 Glucose (Fingerstick) 139 mg/dL (70-99) 136 mg/dL (70-99) 177 mg/dL (70-99) White Blood Count 13.3 x10^3/uL (4.0-11.0) Red Blood Count 3.14 x10^6/uL (3.50-5.40) Hemoglobin 9.0 g/dL (12.0-15.5) Hematocrit 25.9 % (36.0-47.0) Mean Corpuscular Volume 82 fL (79-100) Mean Corpuscular Hemoglobin 29 pg (25-35) Mean Corpuscular Hemoglobin Concent 35 g/dL (31-37) Red Cell Distribution Width 15.0 % (11.5-14.5) Platelet Count 425 x10^3/uL (140-400) Neutrophils (%) (Auto) 80 % (31-73) Lymphocytes (%) (Auto) 8 % (24-48) Monocytes (%) (Auto) 11 % (0-9) Eosinophils (%) (Auto) 1 % (0-3) Basophils (%) (Auto) 1 % (0-3) Neutrophils # (Auto) 10.7 x10^3/uL (1.8-7.7) Lymphocytes # (Auto) 1.0 x10^3/uL (1.0-4.8) Monocytes # (Auto) 1.4 x10^3/uL (0.0-1.1) Eosinophils # (Auto) 0.1 x10^3/uL (0.0-0.7) Basophils # (Auto) 0.1 x10^3/uL (0.0-0.2) Sodium Level 140 mmol/L (136-145) Potassium Level 3.7 mmol/L (3.5-5.1) Chloride Level 108 mmol/L (98-107) Carbon Dioxide Level 23 mmol/L (21-32) Anion Gap 9 (6-14) Blood Urea Nitrogen 15 mg/dL (7-20) Creatinine 1.2 mg/dL (0.6-1.0) Estimated GFR (Cockcroft-Gault) 56.6 Glucose Level 144 mg/dL (70-99) Calcium Level 7.8 mg/dL (8.5-10.1) Test 10/05/19 06:50 10/05/19 10:51 10/05/19 12:30 10/05/19 16:32 Glucose (Fingerstick) 123 mg/dL (70-99) 167 mg/dL (70-99) 178 mg/dL (70-99) Stool Occult Blood Negative (NEG) Clostridium difficile Toxin (PCR) Negative (NEGATIVE) Test 10/05/19 20:46 10/06/19 04:08 10/06/19 06:59 Glucose (Fingerstick) 187 mg/dL (70-99) 187 mg/dL (70-99) White Blood Count 15.0 x10^3/uL (4.0-11.0) Red Blood Count 2.94 x10^6/uL (3.50-5.40) Hemoglobin 8.1 g/dL (12.0-15.5) Hematocrit 24.3 % (36.0-47.0) Mean Corpuscular Volume 83 fL (79-100) Mean Corpuscular Hemoglobin 28 pg (25-35) Mean Corpuscular Hemoglobin Concent 34 g/dL (31-37) Red Cell Distribution Width 15.1 % (11.5-14.5) Platelet Count 411 x10^3/uL (140-400) Neutrophils (%) (Auto) 83 % (31-73) Lymphocytes (%) (Auto) 8 % (24-48) Monocytes (%) (Auto) 9 % (0-9) Eosinophils (%) (Auto) 0 % (0-3) Basophils (%) (Auto) 0 % (0-3) Neutrophils # (Auto) 12.5 x10^3/uL (1.8-7.7) Lymphocytes # (Auto) 1.2 x10^3/uL (1.0-4.8) Monocytes # (Auto) 1.4 x10^3/uL (0.0-1.1) Eosinophils # (Auto) 0.0 x10^3/uL (0.0-0.7) Basophils # (Auto) 0.0 x10^3/uL (0.0-0.2) Sodium Level 142 mmol/L (136-145) Potassium Level 3.8 mmol/L (3.5-5.1) Chloride Level 108 mmol/L (98-107) Carbon Dioxide Level 21 mmol/L (21-32) Anion Gap 13 (6-14) Blood Urea Nitrogen 21 mg/dL (7-20) Creatinine 1.2 mg/dL (0.6-1.0) Estimated GFR (Cockcroft-Gault) 56.6 Glucose Level 127 mg/dL (70-99) Calcium Level 8.2 mg/dL (8.5-10.1) Phosphorus Level 4.2 mg/dL (2.6-4.7) Magnesium Level 1.7 mg/dL (1.8-2.4) Laboratory Tests Test 10/05/19 10:51 10/05/19 12:30 10/05/19 16:32 10/05/19 20:46 Glucose (Fingerstick) 167 mg/dL (70-99) 178 mg/dL (70-99) 187 mg/dL (70-99) Stool Occult Blood Negative (NEG) Clostridium difficile Toxin (PCR) Negative (NEGATIVE) Test 10/06/19 04:08 10/06/19 06:59 White Blood Count 15.0 x10^3/uL (4.0-11.0) Red Blood Count 2.94 x10^6/uL (3.50-5.40) Hemoglobin 8.1 g/dL (12.0-15.5) Hematocrit 24.3 % (36.0-47.0) Mean Corpuscular Volume 83 fL (79-100) Mean Corpuscular Hemoglobin 28 pg (25-35) Mean Corpuscular Hemoglobin Concent 34 g/dL (31-37) Red Cell Distribution Width 15.1 % (11.5-14.5) Platelet Count 411 x10^3/uL (140-400) Neutrophils (%) (Auto) 83 % (31-73) Lymphocytes (%) (Auto) 8 % (24-48) Monocytes (%) (Auto) 9 % (0-9) Eosinophils (%) (Auto) 0 % (0-3) Basophils (%) (Auto) 0 % (0-3) Neutrophils # (Auto) 12.5 x10^3/uL (1.8-7.7) Lymphocytes # (Auto) 1.2 x10^3/uL (1.0-4.8) Monocytes # (Auto) 1.4 x10^3/uL (0.0-1.1) Eosinophils # (Auto) 0.0 x10^3/uL (0.0-0.7) Basophils # (Auto) 0.0 x10^3/uL (0.0-0.2) Sodium Level 142 mmol/L (136-145) Potassium Level 3.8 mmol/L (3.5-5.1) Chloride Level 108 mmol/L (98-107) Carbon Dioxide Level 21 mmol/L (21-32) Anion Gap 13 (6-14) Blood Urea Nitrogen 21 mg/dL (7-20) Creatinine 1.2 mg/dL (0.6-1.0) Estimated GFR (Cockcroft-Gault) 56.6 Glucose Level 127 mg/dL (70-99) Calcium Level 8.2 mg/dL (8.5-10.1) Phosphorus Level 4.2 mg/dL (2.6-4.7) Magnesium Level 1.7 mg/dL (1.8-2.4) Glucose (Fingerstick) 187 mg/dL (70-99) Microbiology 09/27/19 Urine Culture - Final, Complete 09/27/19 Gram Stain - Final, Complete 09/27/19 Aerobic and Anaerobic Culture - Final, Complete 09/27/19 Antimicrobic Susceptibility - Final, Complete Medications Current Medications Sodium Chloride 1,000 ml @ 1,000 mls/hr 1X ONCE IV Last administered on 09/27/19at 19:25; Start 09/27/19 at 18:30; Stop 09/27/19 at 19:29; Status DC Acetaminophen (Tylenol) 1,000 mg 1X ONCE PO Last administered on 09/27/19at 19:25; Start 09/27/19 at 18:30; Stop 09/27/19 at 18:37; Status DC Clonidine HCl (Catapres) 0.1 mg 1X ONCE PO Last administered on 09/27/19at 19:26; Start 09/27/19 at 18:45; Stop 09/27/19 at 18:46; Status DC Vancomycin HCl 250 ml @ 250 mls/hr 1X ONCE IV Last administered on 09/27/19at 20:56; Start 09/27/19 at 20:30; Stop 09/27/19 at 21:29; Status DC Ondansetron HCl (Zofran) 4 mg PRN Q8HRS PRN IV NAUSEA/VOMITING; Start 09/27/19 at 20:45; Stop 09/28/19 at 13:59; Status DC Fentanyl Citrate (Fentanyl 2ml Vial) 50 mcg PRN Q1HR PRN IV PAIN; Start 09/27/19 at 20:45; Stop 09/28/19 at 20:44; Status DC Acetaminophen (Tylenol) 650 mg PRN Q4HRS PRN PO FEVER > 100.3'F; Start 09/27/19 at 20:45; Stop 09/28/19 at 13:58; Status DC Lisinopril (Prinivil) 40 mg DAILY PO Last administered on 10/05/19at 13:44; Start 09/28/19 at 00:30 Insulin Human Isoph/Insulin Regular (HumuLIN 70/30) 4 units DAILYWSUP SQ ; Start 09/28/19 at 17:00 Insulin Human Isoph/Insulin Regular (HumuLIN 70/30) 8 units DAILYWBKFT SQ ; Start 09/28/19 at 08:00 Daptomycin 490 mg/ Sodium Chloride 50 ml @ 100 mls/hr Q24H IV Last administered on 10/05/19at 13:47; Start 09/28/19 at 11:00 Meropenem 500 mg/ Sodium Chloride 50 ml @ 100 mls/hr Q8HRS IV Last administered on 10/06/19at 06:04; Start 09/28/19 at 11:00 Sodium Chloride (Normal Saline Flush) 3 ml QSHIFT PRN IV AFTER MEDS AND BLOOD DRAWS; Start 09/28/19 at 11:00 Sodium Chloride 1,000 ml @ 100 mls/hr Q10H IV Last administered on 10/04/19at 20:30; Start 09/28/19 at 10:58; Stop 10/05/19 at 14:45; Status DC Ondansetron HCl (Zofran) 4 mg PRN Q4HRS PRN IV NAUSEA/VOMITING Last administered on 10/03/19at 08:08; Start 09/28/19 at 11:00; Stop 10/05/19 at 12:14; Status DC Acetaminophen (Tylenol) 650 mg PRN Q4HRS PRN PO TEMP OVER 100.4F OR MILD PAIN Last administered on 10/01/19at 23:49; Start 09/28/19 at 11:00 Al Hydroxide/Mg Hydroxide (Mylanta Plus Xs) 30 ml PRN DAILY PRN PO HEARTBURN / GAS; Start 09/28/19 at 11:00 Clonidine HCl (Catapres) 0.1 mg PRN Q6HRS PRN PO SBP>160 OR DBP>90 Last administered on 09/30/19at 22:09; Start 09/28/19 at 11:00; Stop 10/02/19 at 13:59; Status DC Sodium Monofluorophosphate (Fleet Adult) 133 ml PRN DAILY PRN SC CONSTIPATION; Start 09/28/19 at 11:00 Docusate Sodium (Colace) 100 mg PRN BID PRN PO HARD STOOLS; Start 09/28/19 at 11:00 Albuterol Sulfate (Ventolin Neb Soln) 2.5 mg PRN Q4HRS PRN NEB SHORTNESS OF BREATH Last administered on 10/05/19at 11:57; Start 09/28/19 at 11:00 Guaifenesin (Robitussin) 200 mg PRN Q4HRS PRN PO COUGH; Start 09/28/19 at 11:00 Lorazepam (Ativan) 0.5 mg PRN Q4HRS PRN PO ANXIETY / AGITATION Last administered on 10/02/19 21:04; Start 09/28/19 at 11:00 Hydromorphone HCl (Dilaudid) 0.5 mg PRN Q2HRS PRN IV SEVERE PAIN 7-10; Start 09/28/19 at 11:00 Enoxaparin Sodium (Lovenox 40mg Syringe) 40 mg Q24H SQ Last administered on 10/03/19 14:36; Start 09/28/19 at 12:00 Sodium Chloride 500 ml @ 500 mls/hr 1X ONCE IV Last administered on 09/28/19 13:11; Start 09/28/19 at 12:45; Stop 09/28/19 at 13:44; Status DC Hydralazine HCl (Apresoline Inj) 10 mg 1X ONCE IVP Last administered on 09/28/19 14:17; Start 09/28/19 at 14:15; Stop 09/28/19 at 14:16; Status DC Hydralazine HCl (Apresoline Inj) 10 mg PRN Q4HRS PRN IVP HYPERTENSION, 2nd choice Last administered on 10/06/19at 03:52; Start 09/28/19 at 16:15 Metoprolol Tartrate (Lopressor Vial) 5 mg PRN Q6HRS PRN IVP HYPERTENSION, 1st choice Last administered on 10/02/19at 08:19; Start 09/28/19 at 16:15; Stop 10/02/19 at 13:59; Status DC Lactobacillus Rhamnosus (Culturelle) 1 cap BID PO Last administered on 10/05/19 21:54; Start 09/29/19 at 21:00 Atorvastatin Calcium (Lipitor) 40 mg QHS PO Last administered on 10/05/19 21:54; Start 09/29/19 at 21:00 Potassium Chloride (Klor-Con) 40 meq 1X ONCE PO ; Start 09/30/19 at 12:30; Stop 09/30/19 at 12:31; Status Cancel Lidocaine HCl (Buffered Lidocaine 1%) 3 ml STK-MED ONCE .ROUTE ; Start 09/30/19 at 13:49; Stop 09/30/19 at 13:49; Status DC Iodixanol (Visipaque 320) 100 ml STK-MED ONCE .ROUTE ; Start 09/30/19 at 13:49; Stop 09/30/19 at 13:49; Status DC Heparin Sodium/ Sodium Chloride 1,000 ml @ As Directed STK-MED ONCE .ROUTE ; Start 09/30/19 at 13:49; Stop 09/30/19 at 13:49; Status DC Heparin Sodium/ Sodium Chloride 500 ml @ As Directed STK-MED ONCE .ROUTE ; Start 09/30/19 at 13:54; Stop 09/30/19 at 13:55; Status DC Midazolam HCl (Versed) 5 mg STK-MED ONCE .ROUTE ; Start 09/30/19 at 14:10; Stop 09/30/19 at 14:10; Status DC Fentanyl Citrate (Fentanyl 2ml Vial) 100 mcg STK-MED ONCE .ROUTE ; Start 09/30/19 at 14:10; Stop 09/30/19 at 14:10; Status DC Heparin Sodium (Porcine) (Heparin Sodium) 10,000 unit STK-MED ONCE .ROUTE ; Start 09/30/19 at 14:31; Stop 09/30/19 at 14:31; Status DC Ondansetron HCl (Zofran) 4 mg PRN Q6HRS PRN IV NAUSEA/VOMITING; Start 10/01/19 at 07:00; Stop 10/02/19 at 06:59; Status DC Morphine Sulfate (Morphine Sulfate) 1 mg PRN Q10MIN PRN IV SEVERE PAIN 7-10; Start 10/01/19 at 07:00; Stop 10/02/19 at 06:59; Status DC Ringer's Solution 1,000 ml @ 30 mls/hr Q24H IV Last administered on 10/01/19at 10:28; Start 10/01/19 at 07:00; Stop 10/01/19 at 18:59; Status DC Lidocaine HCl (Xylocaine-Mpf 1% 2ml Vial) 2 ml PRN 1X PRN ID PRIOR TO IV START; Start 10/01/19 at 07:00; Stop 10/02/19 at 06:59; Status DC Hydromorphone HCl (Dilaudid) 0.5 mg PRN Q10MIN PRN IV SEV PAIN, Second choice; Start 10/01/19 at 07:00; Stop 10/02/19 at 06:59; Status DC Prochlorperazine Edisylate (Compazine) 5 mg PACU PRN PRN IV NAUSEA, MRX1; Start 10/01/19 at 07:00; Stop 10/02/19 at 06:59; Status DC Heparin Sodium/ Sodium Chloride (HEPARIN for ARTERIAL LINE FLUSH) 1,000 unit 1X ONCE IART Last administered on 09/30/19at 15:31; Start 09/30/19 at 14:45; Stop 09/30/19 at 14:46; Status DC Heparin Sodium/ Sodium Chloride (HEPARIN for ARTERIAL LINE FLUSH) 2,000 unit 1X ONCE IART Last administered on 09/30/19at 15:31; Start 09/30/19 at 14:45; Stop 09/30/19 at 14:46; Status DC Lidocaine HCl (Buffered Lidocaine 1%) 3 ml 1X ONCE IJ Last administered on 09/30/19at 15:32; Start 09/30/19 at 14:45; Stop 09/30/19 at 14:46; Status DC Midazolam HCl (Versed) 5 mg 1X ONCE IV Last administered on 09/30/19at 15:32; Start 09/30/19 at 14:45; Stop 09/30/19 at 14:46; Status DC Fentanyl Citrate (Fentanyl 2ml Vial) 100 mcg 1X ONCE IV Last administered on 09/30/19at 15:33; Start 09/30/19 at 14:45; Stop 09/30/19 at 14:46; Status DC Iodixanol (Visipaque 320) 100 ml 1X ONCE IART Last administered on 09/30/19at 15:31; Start 09/30/19 at 14:45; Stop 09/30/19 at 14:46; Status DC Heparin Sodium (Porcine) (Heparin Sodium) 5,000 unit 1X ONCE IV Last administered on 09/30/19at 15:34; Start 09/30/19 at 14:45; Stop 09/30/19 at 14:46; Status DC Potassium Chloride (Klor-Con) 40 meq 1X ONCE PO Last administered on 09/30/19at 22:05; Start 09/30/19 at 22:00; Stop 09/30/19 at 22:01; Status DC Heparin Sodium (Porcine) 5000 unit/Sodium Chloride 505 ml @ 505 mls/hr 1X ONCE IRR ; Start 10/01/19 at 11:00; Stop 10/01/19 at 11:59; Status DC Cefazolin Sodium 1 gm/Sodium Chloride 500 ml @ 500 mls/hr 1X ONCE IRR ; Start 10/01/19 at 11:00; Stop 10/01/19 at 11:59; Status DC Propofol (Diprivan) 200 mg STK-MED ONCE IV ; Start 10/01/19 at 11:07; Stop 10/01/19 at 11:07; Status DC Dexamethasone Sodium Phosphate (Decadron) 4 mg STK-MED ONCE .ROUTE ; Start 10/01/19 at 11:07; Stop 10/01/19 at 11:07; Status DC Lidocaine HCl (Lidocaine Pf 2% Vial) 5 ml STK-MED ONCE .ROUTE ; Start 10/01/19 at 11:07; Stop 10/01/19 at 11:07; Status DC Ondansetron HCl (Zofran) 4 mg STK-MED ONCE .ROUTE ; Start 10/01/19 at 11:07; Stop 10/01/19 at 11:07; Status DC Rocuronium [place] (Zemuron) 50 mg STK-MED ONCE .ROUTE ; Start 10/01/19 at 11:07; Stop 10/01/19 at 11:07; Status DC Fentanyl Citrate (Fentanyl 2ml Vial) 100 mcg STK-MED ONCE .ROUTE ; Start 10/01/19 at 11:07; Stop 10/01/19 at 11:07; Status DC Acetaminophen (Tylenol Supp) 650 mg 1X ONCE SC Last administered on 10/01/19at 11:58; Start 10/01/19 at 12:00; Stop 10/01/19 at 12:01; Status DC Iohexol (Omnipaque 300 Mg/ml) 50 ml STK-MED ONCE .ROUTE ; Start 10/01/19 at 12:07; Stop 10/01/19 at 12:07; Status DC Cellulose (Surgicel Fibrillar 1x2) 1 each STK-MED ONCE .ROUTE ; Start 10/01/19 at 12:07; Stop 10/01/19 at 12:08; Status DC Protamine Sulfate (Protamine) 50 mg STK-MED ONCE IV ; Start 10/01/19 at 12:07; Stop 10/01/19 at 12:08; Status DC Ringer's Solution 1,060 ml @ 1,060 mls/hr 1X ONCE IV Last administered on 10/01/19at 11:30; Start 10/01/19 at 11:30; Stop 10/01/19 at 12:56; Status DC Ondansetron HCl (Zofran) 4 mg STK-MED ONCE .ROUTE ; Start 10/01/19 at 13:59; Stop 10/01/19 at 14:00; Status DC Lidocaine HCl (Lidocaine Pf 2% Vial) 5 ml STK-MED ONCE .ROUTE ; Start 10/01/19 at 13:59; Stop 10/01/19 at 14:00; Status DC Dexamethasone Sodium Phosphate (Decadron) 4 mg STK-MED ONCE .ROUTE ; Start 10/01/19 at 13:59; Stop 10/01/19 at 14:00; Status DC Propofol (Diprivan) 200 mg STK-MED ONCE IV ; Start 10/01/19 at 13:59; Stop 10/01/19 at 14:00; Status DC Clonidine HCl (Catapres Tts-1) 1 patch Sa TD Last administered on 10/02/19at 14:23; Start 10/02/19 at 14:00 Carvedilol (Coreg) 6.25 mg BIDWMEALS PO Last administered on 10/03/19at 08:08; Start 10/02/19 at 17:00; Stop 10/03/19 at 14:18; Status DC Metoclopramide HCl (Reglan Vial) 10 mg QIDACHS IVP Last administered on at 21:59; Start 10/02/19 at 16:30 Carvedilol (Coreg) 12.5 mg BIDWMEALS PO Last administered on 10/05/19at 17:09; Start 10/03/19 at 17:00 Amlodipine Besylate (Norvasc) 5 mg DAILY PO Last administered on 10/05/19at 13:44; Start 10/03/19 at 14:15 Bacitracin 79214 unit/Sodium Chloride 500 ml @ 500 mls/hr 1X ONCE IRR Last administered on 10/05/19at 08:24; Start 10/05/19 at 06:00; Stop 10/05/19 at 06:59; Status DC Heparin Sodium (Porcine) 5000 unit/Sodium Chloride 505 ml @ 505 mls/hr 1X ONCE IRR ; Start 10/05/19 at 06:00; Stop 10/05/19 at 06:59; Status DC Ondansetron HCl (Zofran) 4 mg PRN Q6HRS PRN IV NAUSEA/VOMITING; Start 10/05/19 at 07:00; Stop 10/06/19 at 06:59; Status DC Fentanyl Citrate (Fentanyl 2ml Vial) 25 mcg PRN Q5MIN PRN IV MILD PAIN 1-3; Start 10/05/19 at 07:00; Stop 10/06/19 at 06:59; Status DC Fentanyl Citrate (Fentanyl 2ml Vial) 50 mcg PRN Q5MIN PRN IV MODERATE TO SEVERE PAIN Last administered on 10/05/19at 11:18; Start 10/05/19 at 07:00; Stop 10/06/19 at 06:59; Status DC Morphine Sulfate (Morphine Sulfate) 1 mg PRN Q10MIN PRN IV SEVERE PAIN 7-10; Start 10/05/19 at 07:00; Stop 10/06/19 at 06:59; Status DC Ringer's Solution 1,000 ml @ 30 mls/hr Q24H IV ; Start 10/05/19 at 07:00; Stop 10/05/19 at 13:52; Status DC Lidocaine HCl (Xylocaine-Mpf 1% 2ml Vial) 2 ml PRN 1X PRN ID PRIOR TO IV START; Start 10/05/19 at 07:00; Stop 10/06/19 at 06:59; Status DC Hydromorphone HCl (Dilaudid) 0.5 mg PRN Q10MIN PRN IV SEV PAIN, Second choice; Start 10/05/19 at 07:00; Stop 10/06/19 at 06:59; Status DC Prochlorperazine Edisylate (Compazine) 5 mg PACU PRN PRN IV NAUSEA, MRX1; Start 10/05/19 at 07:00; Stop 10/06/19 at 06:59; Status DC Lidocaine HCl (Lidocaine Pf 2% Vial) 5 ml STK-MED ONCE .ROUTE ; Start 10/05/19 at 06:52; Stop 10/05/19 at 06:53; Status DC Propofol (Diprivan) 200 mg STK-MED ONCE IV ; Start 10/05/19 at 06:52; Stop 10/05/19 at 06:53; Status DC Succinylcholine Chloride (Anectine) 200 mg STK-MED ONCE .ROUTE ; Start 10/05/19 at 06:53; Stop 10/05/19 at 06:53; Status DC Rocuronium [place] (Zemuron) 50 mg STK-MED ONCE .ROUTE ; Start 10/05/19 at 06:53; Stop 10/05/19 at 06:53; Status DC Fentanyl Citrate (Fentanyl 2ml Vial) 100 mcg STK-MED ONCE .ROUTE ; Start 10/05/19 at 06:53; Stop 10/05/19 at 06:53; Status DC Gelatin (Gelfoam Size 100) 1 each STK-MED ONCE .ROUTE ; Start 10/05/19 at 06:58; Stop 10/05/19 at 06:58; Status DC Iohexol (Omnipaque 300 Mg/ml) 50 ml STK-MED ONCE .ROUTE ; Start 10/05/19 at 06:58; Stop 10/05/19 at 06:58; Status DC Cellulose (Surgicel Fibrillar 1x2) 1 each STK-MED ONCE .ROUTE Last administered on 10/05/19at 08:23; Start 10/05/19 at 06:58; Stop 10/05/19 at 06:59; Status DC Thrombin 20,000 unit STK-MED ONCE TP ; Start 10/05/19 at 06:59; Stop 10/05/19 at 06:59; Status DC Insulin Human Lispro (HumaLOG VIAL for OP,RR ONLY) 0-10 units PRN Q1HR PRN SQ PER PROTOCOL; Start 10/05/19 at 07:30; Stop 10/06/19 at 07:29; Status DC Dexamethasone Sodium Phosphate (Decadron) 20 mg STK-MED ONCE .ROUTE ; Start 10/05/19 at 07:37; Stop 10/05/19 at 07:37; Status DC Ondansetron HCl (Zofran) 4 mg STK-MED ONCE .ROUTE ; Start 10/05/19 at 07:37; Stop 10/05/19 at 07:37; Status DC Heparin Sodium (Porcine) (Heparin Sodium) 10,000 unit STK-MED ONCE .ROUTE ; St art 10/05/19 at 08:08; Stop 10/05/19 at 08:08; Status DC Desflurane (Suprane) 60 ml STK-MED ONCE IH ; Start 10/05/19 at 08:08; Stop 10/05/19 at 08:08; Status DC Cefazolin Sodium (Ancef) 1 gm STK-MED ONCE IVP ; Start 10/05/19 at 08:15; Stop 10/05/19 at 08:15; Status DC Neostigmine [place] (Neostigmine Methylsulfate) 5 mg STK-MED ONCE .ROUTE ; Start 10/05/19 at 08:22; Stop 10/05/19 at 08:23; Status DC Glycopyrrolate (Robinul) 1 mg STK-MED ONCE .ROUTE ; Start 10/05/19 at 08:22; Stop 10/05/19 at 08:23; Status DC Multivitamins (Thera M Plus) 1 tab DAILY PO ; Start 10/06/19 at 09:00 Sodium Chloride (Normal Saline Flush) 3 ml QSHIFT PRN IV AFTER MEDS AND BLOOD DRAWS; Start 10/05/19 at 10:45 Sodium Chloride 1,000 ml @ 100 mls/hr Q10H IV Last administered on 10/05/19at 22:13; Start 10/05/19 at 10:37 Oxycodone/ Acetaminophen (Percocet 5/325) 1 tab PRN Q4HRS PRN PO MILD PAIN, 1ST CHOICE; Start 10/05/19 at 10:45 Oxycodone/ Acetaminophen (Percocet 5/325) 2 tab PRN Q4HRS PRN PO MODERATE PAIN, SEVERE PAIN; Start 10/05/19 at 10:45 Morphine Sulfate (Morphine Sulfate) 2 mg PRN Q1HR PRN IV PAIN Last administered on 10/05/19at 13:22; Start 10/05/19 at 10:45 Naloxone HCl (Narcan) 0.4 mg PRN Q2MIN PRN IV SEE INSTRUCTIONS; Start 10/05/19 at 10:45 Sodium Chloride 1,000 ml @ 25 mls/hr Q24H IV ; Start 10/05/19 at 10:37; Stop 10/05/19 at 13:52; Status DC Senna/Docusate Sodium (Senna Plus) 1 tab BID PO ; Start 10/05/19 at 21:00 Docusate Sodium (Colace) 100 mg BID PO ; Start 10/05/19 at 21:00 Ondansetron HCl (Zofran) 4 mg PRN Q6HRS PRN IVP NAUESA, 1ST CHOICE; Start 10/05/19 at 10:45 Prochlorperazine Edisylate (Compazine) 5 mg PRN Q6HRS PRN IV N/V, 3rd Choice, MR X1; Start 10/05/19 at 10:45 Labetalol HCl (Normodyne Iv Push) 10 mg PRN Q2HR PRN IVP HYPERTENSION; Start 10/05/19 at 10:45 Fentanyl Citrate (Fentanyl 2ml Vial) 100 mcg STK-MED ONCE .ROUTE ; Start 10/05/19 at 11:15; Stop 10/05/19 at 11:16; Status DC Hydralazine HCl (Apresoline Inj) 20 mg STK-MED ONCE .ROUTE ; Start 10/05/19 at 11:41; Stop 10/05/19 at 11:41; Status DC Hydralazine HCl (Apresoline Inj) 10 mg 1X ONCE IVP Last administered on 10/05/19at 12:18; Start 10/05/19 at 12:15; Stop 10/05/19 at 12:16; Status DC Active Scripts Active Reported Zyvox (Linezolid) 600 Mg Tablet 600 Mg PO BID 7 Days Cefdinir 300 Mg Capsule 1 Cap PO BID 7 Days Lisinopril 40 Mg Tablet 40 Mg PO DAILY Relion Novolin 70-30 Vial (Hum Insulin Nph/Reg Insulin Hm) 100 Unit/1 Ml Vial 4 Unit SQ [id number] Relion Novolin 70-30 Vial (Hum Insulin Nph/Reg Insulin Hm) 100 Unit/1 Ml Vial 8 Unit SUBCUT [id number] Vitals/I & O Vital Sign - Last 24 Hours 10/05/19 10/05/19 10/05/19 10/05/19 10:48 11:00 11:03 11:18 Temp 97.4 97.4 Pulse 81 80 Resp 18 21 22 B/P (MAP) 109/100 200/96 Pulse Ox 97 97 98 O2 Delivery Simple Mask Mask Simple Mask Room Air O2 Flow Rate 8 8 8 8.0 10/05/19 10/05/19 10/05/19 10/05/19 11:33 11:35 11:45 11:46 Temp 97.4 97.4 97.4 97.4 Pulse 74 72 68 Resp 19 20 19 B/P (MAP) 202/95 202/95 206/92 Pulse Ox 99 100 100 O2 Delivery Room Air Room Air Room Air 10/05/19 10/05/19 10/05/19 10/05/19 12:01 12:05 12:16 12:18 Temp 97.4 97.4 97.4 97.4 Pulse 76 74 77 Resp 20 20 20 B/P (MAP) 185/87 202/83 202/83 Pulse Ox 100 98 100 O2 Delivery Room Air Room Air Room Air O2 Flow Rate 2.0 10/05/19 10/05/19 10/05/19 10/05/19 12:30 12:45 13:00 13:15 Temp 97.4 97.4 97.5 97.5 97.4 97.4 97.5 97.5 Pulse 78 74 74 76 Resp 20 20 22 B/P (MAP) 174/74 178/74 172/74 172/69 Pulse Ox 95 97 98 99 O2 Delivery Room Air Room Air Room Air Room Air 10/05/19 10/05/19 10/05/19 10/05/19 13:22 13:42 13:44 13:44 Pulse 76 76 76 Resp 20 B/P (MAP) 172/69 172/69 172/69 Pulse Ox 98 O2 Delivery Room Air 10/05/19 10/05/19 10/05/19 10/05/19 14:00 14:00 14:15 14:30 Pulse 75 77 75 Resp 20 B/P (MAP) 168/79 (108) 196/81 (119) 186/90 (122) Pulse Ox 98 O2 Delivery Room Air O2 Flow Rate 8.0 10/05/19 10/05/19 10/05/19 10/05/19 14:45 15:15 15:45 17:09 Pulse 75 86 92 78 B/P (MAP) 182/91 (121) 190/87 (121) 222/98 (139) 158/74 10/05/19 10/05/19 10/05/1920 19:34 20:00 22:43 02:46 Temp 97.9 98.3 98.2 97.9 98.3 98.2 Pulse 77 77 78 Resp 18 18 18 B/P (MAP) 166/75 (105) 159/73 (101) 173/80 (111) Pulse Ox 98 96 98 O2 Delivery Room Air Nasal Cannula Room Air Room Air O2 Flow Rate 2.0 10/06/19 10/06/19 10/06/19 03:52 04:39 06:38 Temp 98.3 98.3 Pulse 78 82 80 Resp 18 B/P (MAP) 173/80 150/70 (96) 163/75 (104) Pulse Ox 98 O2 Delivery Room Air Intake and Output 10/05/19 10/05/19 10/06/19 15:00 23:00 07:00 Intake Total 1550 ml 1000 ml 540 ml Output Total 215 ml Balance 1335 ml 1000 ml 540 ml HARIS OSULLIVAN MD Oct 06, 2019 08:15
[2019-10-06] MEDS: LACTOBACILLUS RHAMNOSUS GG 1 CAPSULE. PO SCH ×2 (08:37→21:05)
[2019-10-06] MEDS: METOCLOPRAMIDE HCL 10 MG/2 ML VIAL. IVP SCH ×4 (08:37→21:05)
[2019-10-06] MEDS: CARVEDILOL 12.5 MG TABLET. PO SCH ×2 (08:37→17:16)
[2019-10-06] MEDS: LISINOPRIL 20 MG TABLET PO SCH (08:38)
[2019-10-06] MEDS: amLODIPine BESYLATE 5 MG TABLET PO SCH (08:38)
[2019-10-06] MEDS: DOCUSATE SODIUM 100 MG CAPSULE. PO SCH ×2 (08:39→21:00)
[2019-10-06] MEDS: SENNOSIDES/DOCUSATE 8.6/50MG TABLET. PO SCH ×2 (08:39→21:05)
[2019-10-06] MEDS: MULTIVITAMIN with MINERAL TABLET. PO SCH (08:39)
--- NOTE | 2019-10-06 08:39 | PDOC ---
PROGRESS NOTES Subjective Subjective I am doing all right. I do not have any pain. 53-year-old diabetic female with a history of left-sided stroke who is postop day 1 from a left femoropopliteal bypass with [place] and a left third, fourth and fifth toe amputation. She has a Kay VAC in place in her left groin. She denies chest pain and shortness of breath. She denies fever and chill. She specifically denies left foot pain and left leg pain. Objective Objective Vital Signs Date Time Temp Pulse Resp B/P (MAP) Pulse Ox O2 Delivery O2 Flow Rate FiO2 10/06/19 06:38 98.3 80 18 163/75 (104) 98 Room Air 98.3 10/05/19 20:00 2.0 Intake and Output 10/06/19 07:00 Intake Total 3090 ml Output Total 215 ml Balance 2875 ml Intake Oral 540 ml IV Total 2550 ml Output Urine Total 165 ml Estimated Blood Loss 50 ml Physical Exam Physical Exam Her white count today is 15. Her hemoglobin is 8.1. Platelet count is 411 and her creatinine is 1.2. Heart: Regular rate Extremities: No tenderness/swelling General: Alert, Cooperative, No acute distress HEENT: Atraumatic Lungs: Normal air movement MUSCULOSKELETAL: Other (She has some contracture in her left hand and arm. She is unable to move her left leg. Her Kay VAC is in place and without drainage. She has Doppler pulses at her medial knee and at her dorsalis pedis artery.) Neuro: Normal speech Psych/Mental Status: Mental status NL, Mood NL Skin: No rashes, Other (Her surgical dressing is in place on her left foot. There is no obvious drainage in this area.) Assessment Assessment Problems Medical Problems: (1) Diabetic foot infection Status: Acute Postop day 1, left femoropopliteal above-knee with [place] and a left third, fourth and fifth toe closed amputation.. She is doing well without pain in her left groin, left medial thigh or left foot. All dressings are intact. Her left medial leg incision is without redness, edema or drainage. Plan: Plan Plan of Care May be up as tolerated with a surgical shoe. Continue Lovenox as previously ordered. Continue Kay dressing to left groin incision. Diabetic care per medicine.Chronic severe hypertension-patient on multiple medications, management per IM. Antibiotics per ID. event services manager for discharge planning. Physical therapy and Occupational Therapy to help with mobility and transfers. We will follow-up tomorrow to remove left medial thigh and foot dressing. Comment Review of Relevant I have reviewed the following items hortencia (where applicable) has been applied. Labs Laboratory Tests Test 10/04/19 12:02 10/04/19 16:10 10/04/19 16:56 10/04/19 20:29 Glucose (Fingerstick) 139 mg/dL (70-99) 136 mg/dL (70-99) 177 mg/dL (70-99) White Blood Count 13.3 x10^3/uL (4.0-11.0) Red Blood Count 3.14 x10^6/uL (3.50-5.40) Hemoglobin 9.0 g/dL (12.0-15.5) Hematocrit 25.9 % (36.0-47.0) Mean Corpuscular Volume 82 fL (79-100) Mean Corpuscular Hemoglobin 29 pg (25-35) Mean Corpuscular Hemoglobin Concent 35 g/dL (31-37) Red Cell Distribution Width 15.0 % (11.5-14.5) Platelet Count 425 x10^3/uL (140-400) Neutrophils (%) (Auto) 80 % (31-73) Lymphocytes (%) (Auto) 8 % (24-48) Monocytes (%) (Auto) 11 % (0-9) Eosinophils (%) (Auto) 1 % (0-3) Basophils (%) (Auto) 1 % (0-3) Neutrophils # (Auto) 10.7 x10^3/uL (1.8-7.7) Lymphocytes # (Auto) 1.0 x10^3/uL (1.0-4.8) Monocytes # (Auto) 1.4 x10^3/uL (0.0-1.1) Eosinophils # (Auto) 0.1 x10^3/uL (0.0-0.7) Basophils # (Auto) 0.1 x10^3/uL (0.0-0.2) Sodium Level 140 mmol/L (136-145) Potassium Level 3.7 mmol/L (3.5-5.1) Chloride Level 108 mmol/L (98-107) Carbon Dioxide Level 23 mmol/L (21-32) Anion Gap 9 (6-14) Blood Urea Nitrogen 15 mg/dL (7-20) Creatinine 1.2 mg/dL (0.6-1.0) Estimated GFR (Cockcroft-Gault) 56.6 Glucose Level 144 mg/dL (70-99) Calcium Level 7.8 mg/dL (8.5-10.1) Test 10/05/19 06:50 10/05/19 10:51 10/05/19 12:30 10/05/19 16:32 Glucose (Fingerstick) 123 mg/dL (70-99) 167 mg/dL (70-99) 178 mg/dL (70-99) Stool Occult Blood Negative (NEG) Clostridium difficile Toxin (PCR) Negative (NEGATIVE) Test 10/05/19 20:46 10/06/19 04:08 10/06/19 06:59 Glucose (Fingerstick) 187 mg/dL (70-99) 187 mg/dL (70-99) White Blood Count 15.0 x10^3/uL (4.0-11.0) Red Blood Count 2.94 x10^6/uL (3.50-5.40) Hemoglobin 8.1 g/dL (12.0-15.5) Hematocrit 24.3 % (36.0-47.0) Mean Corpuscular Volume 83 fL (79-100) Mean Corpuscular Hemoglobin 28 pg (25-35) Mean Corpuscular Hemoglobin Concent 34 g/dL (31-37) Red Cell Distribution Width 15.1 % (11.5-14.5) Platelet Count 411 x10^3/uL (140-400) Neutrophils (%) (Auto) 83 % (31-73) Lymphocytes (%) (Auto) 8 % (24-48) Monocytes (%) (Auto) 9 % (0-9) Eosinophils (%) (Auto) 0 % (0-3) Basophils (%) (Auto) 0 % (0-3) Neutrophils # (Auto) 12.5 x10^3/uL (1.8-7.7) Lymphocytes # (Auto) 1.2 x10^3/uL (1.0-4.8) Monocytes # (Auto) 1.4 x10^3/uL (0.0-1.1) Eosinophils # (Auto) 0.0 x10^3/uL (0.0-0.7) Basophils # (Auto) 0.0 x10^3/uL (0.0-0.2) Sodium Level 142 mmol/L (136-145) Potassium Level 3.8 mmol/L (3.5-5.1) Chloride Level 108 mmol/L (98-107) Carbon Dioxide Level 21 mmol/L (21-32) Anion Gap 13 (6-14) Blood Urea Nitrogen 21 mg/dL (7-20) Creatinine 1.2 mg/dL (0.6-1.0) Estimated GFR (Cockcroft-Gault) 56.6 Glucose Level 127 mg/dL (70-99) Calcium Level 8.2 mg/dL (8.5-10.1) Phosphorus Level 4.2 mg/dL (2.6-4.7) Magnesium Level 1.7 mg/dL (1.8-2.4) Laboratory Tests Test 10/05/19 10:51 10/05/19 12:30 10/05/19 16:32 10/05/19 20:46 Glucose (Fingerstick) 167 mg/dL (70-99) 178 mg/dL (70-99) 187 mg/dL (70-99) Stool Occult Blood Negative (NEG) Clostridium difficile Toxin (PCR) Negative (NEGATIVE) Test 10/06/19 04:08 10/06/19 06:59 White Blood Count 15.0 x10^3/uL (4.0-11.0) Red Blood Count 2.94 x10^6/uL (3.50-5.40) Hemoglobin 8.1 g/dL (12.0-15.5) Hematocrit 24.3 % (36.0-47.0) Mean Corpuscular Volume 83 fL (79-100) Mean Corpuscular Hemoglobin 28 pg (25-35) Mean Corpuscular Hemoglobin Concent 34 g/dL (31-37) Red Cell Distribution Width 15.1 % (11.5-14.5) Platelet Count 411 x10^3/uL (140-400) Neutrophils (%) (Auto) 83 % (31-73) Lymphocytes (%) (Auto) 8 % (24-48) Monocytes (%) (Auto) 9 % (0-9) Eosinophils (%) (Auto) 0 % (0-3) Basophils (%) (Auto) 0 % (0-3) Neutrophils # (Auto) 12.5 x10^3/uL (1.8-7.7) Lymphocytes # (Auto) 1.2 x10^3/uL (1.0-4.8) Monocytes # (Auto) 1.4 x10^3/uL (0.0-1.1) Eosinophils # (Auto) 0.0 x10^3/uL (0.0-0.7) Basophils # (Auto) 0.0 x10^3/uL (0.0-0.2) Sodium Level 142 mmol/L (136-145) Potassium Level 3.8 mmol/L (3.5-5.1) Chloride Level 108 mmol/L (98-107) Carbon Dioxide Level 21 mmol/L (21-32) Anion Gap 13 (6-14) Blood Urea Nitrogen 21 mg/dL (7-20) Creatinine 1.2 mg/dL (0.6-1.0) Estimated GFR (Cockcroft-Gault) 56.6 Glucose Level 127 mg/dL (70-99) Calcium Level 8.2 mg/dL (8.5-10.1) Phosphorus Level 4.2 mg/dL (2.6-4.7) Magnesium Level 1.7 mg/dL (1.8-2.4) Glucose (Fingerstick) 187 mg/dL (70-99) Microbiology 09/27/19 Urine Culture - Final, Complete 09/27/19 Gram Stain - Final, Complete 09/27/19 Aerobic and Anaerobic Culture - Final, Complete 09/27/19 Antimicrobic Susceptibility - Final, Complete Medications Current Medications Sodium Chloride 1,000 ml @ 1,000 mls/hr 1X ONCE IV Last administered on 09/27/19at 19:25; Start 09/27/19 at 18:30; Stop 09/27/19 at 19:29; Status DC Acetaminophen (Tylenol) 1,000 mg 1X ONCE PO Last administered on 09/27/19at 19:25; Start 09/27/19 at 18:30; Stop 09/27/19 at 18:37; Status DC Clonidine HCl (Catapres) 0.1 mg 1X ONCE PO Last administered on 09/27/19at 19:26; Start 09/27/19 at 18:45; Stop 09/27/19 at 18:46; Status DC Vancomycin HCl 250 ml @ 250 mls/hr 1X ONCE IV Last administered on 09/27/19at 20:56; Start 09/27/19 at 20:30; Stop 09/27/19 at 21:29; Status DC Ondansetron HCl (Zofran) 4 mg PRN Q8HRS PRN IV NAUSEA/VOMITING; Start 09/27/19 at 20:45; Stop 09/28/19 at 13:59; Status DC Fentanyl Citrate (Fentanyl 2ml Vial) 50 mcg PRN Q1HR PRN IV PAIN; Start 09/27/19 at 20:45; Stop 09/28/19 at 20:44; Status DC Acetaminophen (Tylenol) 650 mg PRN Q4HRS PRN PO FEVER > 100.3'F; Start 09/27/19 at 20:45; Stop 09/28/19 at 13:58; Status DC Lisinopril (Prinivil) 40 mg DAILY PO Last administered on 10/05/19at 13:44; Start 09/28/19 at 00:30 Insulin Human Isoph/Insulin Regular (HumuLIN 70/30) 4 units DAILYWSUP SQ ; Start 09/28/19 at 17:00 Insulin Human Isoph/Insulin Regular (HumuLIN 70/30) 8 units [id number] SQ ; Start 09/28/19 at 08:00 Daptomycin 490 mg/ Sodium Chloride 50 ml @ 100 mls/hr Q24H IV Last adminis tered on 10/05/19at 13:47; Start 09/28/19 at 11:00 Meropenem 500 mg/ Sodium Chloride 50 ml @ 100 mls/hr Q8HRS IV Last administere d on 10/06/19at 06:04; Start 09/28/19 at 11:00 Sodium Chloride (Normal Saline Flush) 3 ml QSHIFT PRN IV AFTER MEDS AND BLOOD DRAWS; Start 09/28/19 at 11:00 Sodium Chloride 1,000 ml @ 100 mls/hr Q10H IV Last administered on 10/04/19at 20:30; Start 09/28/19 at 10:58; Stop 10/05/19 at 14:45; Status DC Ondansetron HCl (Zofran) 4 mg PRN Q4HRS PRN IV NAUSEA/VOMITING Last administered on 10/03/19at 08:08; Start 09/28/19 at 11:00; Stop 10/05/19 at 12:14; Status DC Acetaminophen (Tylenol) 650 mg PRN Q4HRS PRN PO TEMP OVER 100.4F OR MILD PAIN Last administered on 10/01/19at 23:49; Start 09/28/19 at 11:00 Al Hydroxide/Mg Hydroxide (Mylanta Plus Xs) 30 ml PRN DAILY PRN PO HEARTBURN / GAS; Start 09/28/19 at 11:00 Clonidine HCl (Catapres) 0.1 mg PRN Q6HRS PRN PO SBP>160 OR DBP>90 Last administered on 09/30/19at 22:09; Start 09/28/19 at 11:00; Stop 10/02/19 at 13:59; Status DC Sodium Monofluorophosphate (Fleet Adult) 133 ml PRN DAILY PRN AR CONSTIPATION; Start 09/28/19 at 11:00 Docusate Sodium (Colace) 100 mg PRN BID PRN PO HARD STOOLS; Start 09/28/19 at 11:00 Albuterol Sulfate (Ventolin Neb Soln) 2.5 mg PRN Q4HRS PRN NEB SHORTNESS OF BREATH Last administered on 10/05/19at 11:57; Start 09/28/19 at 11:00 Guaifenesin (Robitussin) 200 mg PRN Q4HRS PRN PO COUGH; Start 09/28/19 at 11:00 Lorazepam (Ativan) 0.5 mg PRN Q4HRS PRN PO ANXIETY / AGITATION Last administered on 10/02/19at 21:04; Start 09/28/19 at 11:00 Hydromorphone HCl (Dilaudid) 0.5 mg PRN Q2HRS PRN IV SEVERE PAIN 7-10; Start 09/28/19 at 11:00 Enoxaparin Sodium (Lovenox 40mg Syringe) 40 mg Q24H SQ Last administered on 10/03/19at 14:36; Start 09/28/19 at 12:00 Sodium Chloride 500 ml @ 500 mls/hr 1X ONCE IV Last administered on 09/28/19at 13:11; Start 09/28/19 at 12:45; Stop 09/28/19 at 13:44; Status DC Hydralazine HCl (Apresoline Inj) 10 mg 1X ONCE IVP Last administered on 09/28/19at 14:17; Start 09/28/19 at 14:15; Stop 09/28/19 at 14:16; Status DC Hydralazine HCl (Apresoline Inj) 10 mg PRN Q4HRS PRN IVP HYPERTENSION, 2nd choice Last administered on 10/06/19at 03:52; Start 09/28/19 at 16:15 Metoprolol Tartrate (Lopressor Vial) 5 mg PRN Q6HRS PRN IVP HYPERTENSION, 1st choice Last administered on 10/02/19at 08:19; Start 09/28/19 at 16:15; Stop 10/02/19 at 13:59; Status DC Lactobacillus Rhamnosus (Culturelle) 1 cap BID PO Last administered on 10/05/19at 21:54; Start 09/29/19 at 21:00 Atorvastatin Calcium (Lipitor) 40 mg QHS PO Last administered on 10/05/19at 21:54; Start 09/29/19 at 21:00 Potassium Chloride (Klor-Con) 40 meq 1X ONCE PO ; Start 09/30/19 at 12:30; Stop 09/30/19 at 12:31; Status Cancel Lidocaine HCl (Buffered Lidocaine 1%) 3 ml STK-MED ONCE .ROUTE ; Start 09/30/19 at 13:49; Stop 09/30/19 at 13:49; Status DC Iodixanol (Visipaque 320) 100 ml STK-MED ONCE .ROUTE ; Start 09/30/19 at 13:49; Stop 09/30/19 at 13:49; Status DC Heparin Sodium/ Sodium Chloride 1,000 ml @ As Directed STK-MED ONCE .ROUTE ; Start 09/30/19 at 13:49; Stop 09/30/19 at 13:49; Status DC Heparin Sodium/ Sodium Chloride 500 ml @ As Directed STK-MED ONCE .ROUTE ; Start 09/30/19 at 13:54; Stop 09/30/19 at 13:55; Status DC Midazolam HCl (Versed) 5 mg STK-MED ONCE .ROUTE ; Start 09/30/19 at 14:10; Stop 09/30/19 at 14:10; Status DC Fentanyl Citrate (Fentanyl 2ml Vial) 100 mcg STK-MED ONCE .ROUTE ; Start 09/30/19 at 14:10; Stop 09/30/19 at 14:10; Status DC Heparin Sodium (Porcine) (Heparin Sodium) 10,000 unit STK-MED ONCE .ROUTE ; Start 09/30/19 at 14:31; Stop 09/30/19 at 14:31; Status DC Ondansetron HCl (Zofran) 4 mg PRN Q6HRS PRN IV NAUSEA/VOMITING; Start 10/01/19 at 07:00; Stop 10/02/19 at 06:59; Status DC Morphine Sulfate (Morphine Sulfate) 1 mg PRN Q10MIN PRN IV SEVERE PAIN 7-10; Start 10/01/19 at 07:00; Stop 10/02/19 at 06:59; Status DC Ringer's Solution 1,000 ml @ 30 mls/hr Q24H IV Last administered on 10/01/19at 10:28; Start 10/01/19 at 07:00; Stop 10/01/19 at 18:59; Status DC Lidocaine HCl (Xylocaine-Mpf 1% 2ml Vial) 2 ml PRN 1X PRN ID PRIOR TO IV START; Start 10/01/19 at 07:00; Stop 10/02/19 at 06:59; Status DC Hydromorphone HCl (Dilaudid) 0.5 mg PRN Q10MIN PRN IV SEV PAIN, Second choice; Start 10/01/19 at 07:00; Stop 10/02/19 at 06:59; Status DC Prochlorperazine Edisylate (Compazine) 5 mg PACU PRN PRN IV NAUSEA, MRX1; Start 10/01/19 at 07:00; Stop 10/02/19 at 06:59; Status DC Heparin Sodium/ Sodium Chloride (HEPARIN for ARTERIAL LINE FLUSH) 1,000 unit 1X ONCE IART Last administered on 09/30/19at 15:31; Start 09/30/19 at 14:45; Stop 09/30/19 at 14:46; Status DC Heparin Sodium/ Sodium Chloride (HEPARIN for ARTERIAL LINE FLUSH) 2,000 unit 1X ONCE IART Last administered on 09/30/19at 15:31; Start 09/30/19 at 14:45; Stop 09/30/19 at 14:46; Status DC Lidocaine HCl (Buffered Lidocaine 1%) 3 ml 1X ONCE IJ Last administered on 09/30/19at 15:32; Start 09/30/19 at 14:45; Stop 09/30/19 at 14:46; Status DC Midazolam HCl (Versed) 5 mg 1X ONCE IV Last administered on 09/30/19at 15:32; Start 09/30/19 at 14:45; Stop 09/30/19 at 14:46; Status DC Fentanyl Citrate (Fentanyl 2ml Vial) 100 mcg 1X ONCE IV Last administered on 09/30/19at 15:33; Start 09/30/19 at 14:45; Stop 09/30/19 at 14:46; Status DC Iodixanol (Visipaque 320) 100 ml 1X ONCE IART Last administered on 09/30/19at 15:31; Start 09/30/19 at 14:45; Stop 09/30/19 at 14:46; Status DC Heparin Sodium (Porcine) (Heparin Sodium) 5,000 unit 1X ONCE IV Last administered on 09/30/19at 15:34; Start 09/30/19 at 14:45; Stop 09/30/19 at 14:46; Status DC Potassium Chloride (Klor-Con) 40 meq 1X ONCE PO Last administered on 09/30/19at 22:05; Start 09/30/19 at 22:00; Stop 09/30/19 at 22:01; Status DC Heparin Sodium (Porcine) 5000 unit/Sodium Chloride 505 ml @ 505 mls/hr 1X ONCE IRR ; Start 10/01/19 at 11:00; Stop 10/01/19 at 11:59; Status DC Cefazolin Sodium 1 gm/Sodium Chloride 500 ml @ 500 mls/hr 1X ONCE IRR ; Start 10/01/19 at 11:00; Stop 10/01/19 at 11:59; Status DC Propofol (Diprivan) 200 mg STK-MED ONCE IV ; Start 10/01/19 at 11:07; Stop 10/01/19 at 11:07; Status DC Dexamethasone Sodium Phosphate (Decadron) 4 mg STK-MED ONCE .ROUTE ; Start 10/01/19 at 11:07; Stop 10/01/19 at 11:07; Status DC Lidocaine HCl (Lidocaine Pf 2% Vial) 5 ml STK-MED ONCE .ROUTE ; Start 10/01/19 at 11:07; Stop 10/01/19 at 11:07; Status DC Ondansetron HCl (Zofran) 4 mg STK-MED ONCE .ROUTE ; Start 10/01/19 at 11:07; Stop 10/01/19 at 11:07; Status DC Rocuronium Muse (Zemuron) 50 mg STK-MED ONCE .ROUTE ; Start 10/01/19 at 11:07; Stop 10/01/19 at 11:07; Status DC Fentanyl Citrate (Fentanyl 2ml Vial) 100 mcg STK-MED ONCE .ROUTE ; Start 10/01/19 at 11:07; Stop 10/01/19 at 11:07; Status DC Acetaminophen (Tylenol Supp) 650 mg 1X ONCE AR Last administered on 10/01/19at 11:58; Start 10/01/19 at 12:00; Stop 10/01/19 at 12:01; Status DC Iohexol (Omnipaque 300 Mg/ml) 50 ml STK-MED ONCE .ROUTE ; Start 10/01/19 at 12:07; Stop 10/01/19 at 12:07; Status DC Cellulose (Surgicel Fibrillar 1x2) 1 each STK-MED ONCE .ROUTE ; Start 10/01/19 at 12:07; Stop 10/01/19 at 12:08; Status DC Protamine Sulfate (Protamine) 50 mg STK-MED ONCE IV ; Start 10/01/19 at 12:07; Stop 10/01/19 at 12:08; Status DC Ringer's Solution 1,060 ml @ 1,060 mls/hr 1X ONCE IV Last administered on 10/01/19at 11:30; Start 10/01/19 at 11:30; Stop 10/01/19 at 12:56; Status DC Ondansetron HCl (Zofran) 4 mg STK-MED ONCE .ROUTE ; Start 10/01/19 at 13:59; Stop 10/01/19 at 14:00; Status DC Lidocaine HCl (Lidocaine Pf 2% Vial) 5 ml STK-MED ONCE .ROUTE ; Start 10/01/19 at 13:59; Stop 10/01/19 at 14:00; Status DC Dexamethasone Sodium Phosphate (Decadron) 4 mg STK-MED ONCE .ROUTE ; Start 10/01/19 at 13:59; Stop 10/01/19 at 14:00; Status DC Propofol (Diprivan) 200 mg STK-MED ONCE IV ; Start 10/01/19 at 13:59; Stop 10/01/19 at 14:00; Status DC Clonidine HCl (Catapres Tts-1) 1 patch Sa TD Last administered on 10/02/19at 14:23; Start 10/02/19 at 14:00 Carvedilol (Coreg) 6.25 mg BIDWMEALS PO Last administered on 10/03/19at 08:08; Start 10/02/19 at 17:00; Stop 10/03/19 at 14:18; Status DC Metoclopramide HCl (Reglan Vial) 10 mg QIDACHS IVP Last administered on 10/05/19at 21:59; Start 10/02/19 at 16:30 Carvedilol (Coreg) 12.5 mg BIDWMEALS PO Last administered on 10/05/19at 17:09; Start 10/03/19 at 17:00 Amlodipine Besylate (Norvasc) 5 mg DAILY PO Last administered on 10/05/19at 13:44; Start 10/03/19 at 14:15 Bacitracin 41460 unit/Sodium Chloride 500 ml @ 500 mls/hr 1X ONCE IRR Last administered on 10/05/19at 08:24; Start 10/05/19 at 06:00; Stop 10/05/19 at 06:59; Status DC Heparin Sodium (Porcine) 5000 unit/Sodium Chloride 505 ml @ 505 mls/hr 1X ONCE IRR ; Start 10/05/19 at 06:00; Stop 10/05/19 at 06:59; Status DC Ondansetron HCl (Zofran) 4 mg PRN Q6HRS PRN IV NAUSEA/VOMITING; Start 10/05/19 at 07:00; Stop 10/06/19 at 06:59; Status DC Fentanyl Citrate (Fentanyl 2ml Vial) 25 mcg PRN Q5MIN PRN IV MILD PAIN 1-3; Start 10/05/19 at 07:00; Stop 10/06/19 at 06:59; Status DC Fentanyl Citrate (Fentanyl 2ml Vial) 50 mcg PRN Q5MIN PRN IV MODERATE TO SEVERE PAIN Last administered on 10/05/19at 11:18; Start 10/05/19 at 07:00; Stop 10/06/19 at 06:59; Status DC Morphine Sulfate (Morphine Sulfate) 1 mg PRN Q10MIN PRN IV SEVERE PAIN 7-10; Start 10/05/19 at 07:00; Stop 10/06/19 at 06:59; Status DC Ringer's Solution 1,000 ml @ 30 mls/hr Q24H IV ; Start 10/05/19 at 07:00; Stop 10/05/19 at 13:52; Status DC Lidocaine HCl (Xylocaine-Mpf 1% 2ml Vial) 2 ml PRN 1X PRN ID PRIOR TO IV START; Start 10/05/19 at 07:00; Stop 10/06/19 at 06:59; Status DC Hydromorphone HCl (Dilaudid) 0.5 mg PRN Q10MIN PRN IV SEV PAIN, Second choice; Start 10/05/19 at 07:00; Stop 10/06/19 at 06:59; Status DC Prochlorperazine Edisylate (Compazine) 5 mg PACU PRN PRN IV NAUSEA, MRX1; Start 10/05/19 at 07:00; Stop 10/06/19 at 06:59; Status DC Lidocaine HCl (Lidocaine Pf 2% Vial) 5 ml STK-MED ONCE .ROUTE ; Start 10/05/19 at 06:52; Stop 10/05/19 at 06:53; Status DC Propofol (Diprivan) 200 mg STK-MED ONCE IV ; Start 10/05/19 at 06:52; Stop 10/05/19 at 06:53; Status DC Succinylcholine Chloride (Anectine) 200 mg STK-MED ONCE .ROUTE ; Start 10/05/19 at 06:53; Stop 10/05/19 at 06:53; Status DC Rocuronium Muse (Zemuron) 50 mg STK-MED ONCE .ROUTE ; Start 10/05/19 at 06:53; Stop 10/05/19 at 06:53; Status DC Fentanyl Citrate (Fentanyl 2ml Vial) 100 mcg STK-MED ONCE .ROUTE ; Start 10/05/19 at 06:53; Stop 10/05/19 at 06:53; Status DC Gelatin (Gelfoam Size 100) 1 each STK-MED ONCE .ROUTE ; Start 10/05/19 at 06:58; Stop 10/05/19 at 06:58; Status DC Iohexol (Omnipaque 300 Mg/ml) 50 ml STK-MED ONCE .ROUTE ; Start 10/05/19 at 06:58; Stop 10/05/19 at 06:58; Status DC Cellulose (Surgicel Fibrillar 1x2) 1 each STK-MED ONCE .ROUTE Last administered on 10/05/19at 08:23; Start 10/05/19 at 06:58; Stop 10/05/19 at 06:59; Status DC Thrombin 20,000 unit STK-MED ONCE TP ; Start 10/05/19 at 06:59; Stop 10/05/19 at 0 6:59; Status DC Insulin Human Lispro (HumaLOG VIAL for OP,RR ONLY) 0-10 units PRN Q1HR PRN SQ PER PROTOCOL; Start 10/05/19 at 07:30; Stop 10/06/19 at 07:29; Status DC Dexamethasone Sodium Phosphate (Decadron) 20 mg STK-MED ONCE .ROUTE ; Start 10/05/19 at 07:37; Stop 10/05/19 at 07:37; Status DC Ondansetron HCl (Zofran) 4 mg STK-MED ONCE .ROUTE ; Start 10/05/19 at 07:37; Stop 10/05/19 at 07:37; Status DC Heparin Sodium (Porcine) (Heparin Sodium) 10,000 unit STK-MED ONCE .ROUTE ; Start 10/05/19 at 08:08; Stop 10/05/19 at 08:08; Status DC Desflurane (Suprane) 60 ml STK-MED ONCE IH ; Start 10/05/19 at 08:08; Stop 10/05/19 at 08:08; Status DC Cefazolin Sodium (Ancef) 1 gm STK-MED ONCE IVP ; Start 10/05/19 at 08:15; Stop 10/05/19 at 08:15; Status DC Neostigmine Muse (Neostigmine Methylsulfate) 5 mg STK-MED ONCE .ROUTE ; Start 10/05/19 at 08:22; Stop 10/05/19 at 08:23; Status DC Glycopyrrolate (Robinul) 1 mg STK-MED ONCE .ROUTE ; Start 10/05/19 at 08:22; Stop 10/05/19 at 08:23; Status DC Multivitamins (Thera M Plus) 1 tab DAILY PO ; Start 10/06/19 at 09:00 Sodium Chloride (Normal Saline Flush) 3 ml QSHIFT PRN IV AFTER MEDS AND BLOOD DRAWS; Start 10/05/19 at 10:45 Sodium Chloride 1,000 ml @ 100 mls/hr Q10H IV Last administered on 10/05/19at 22:13; Start 10/05/19 at 10:37 Oxycodone/ Acetaminophen (Percocet 5/325) 1 tab PRN Q4HRS PRN PO MILD PAIN, 1ST CHOICE; Start 10/05/19 at 10:45 Oxycodone/ Acetaminophen (Percocet 5/325) 2 tab PRN Q4HRS PRN PO MODERATE PAIN, SEVERE PAIN; Start 10/05/19 at 10:45 Morphine Sulfate (Morphine Sulfate) 2 mg PRN Q1HR PRN IV PAIN Last administered on 10/05/19at 13:22; Start 10/05/19 at 10:45 Naloxone HCl (Narcan) 0.4 mg PRN Q2MIN PRN IV SEE INSTRUCTIONS; Start 10/05/19 at 10:45 Sodium Chloride 1,000 ml @ 25 mls/hr Q24H IV ; Start 10/05/19 at 10:37; Stop 10/05/19 at 13:52; Status DC Senna/Docusate Sodium (Senna Plus) 1 tab BID PO ; Start 10/05/19 at 21:00 Docusate Sodium (Colace) 100 mg BID PO ; Start 10/05/19 at 21:00 Ondansetron HCl (Zofran) 4 mg PRN Q6HRS PRN IVP NAUESA, 1ST CHOICE; Start 10/05/19 at 10:45 Prochlorperazine Edisylate (Compazine) 5 mg PRN Q6HRS PRN IV N/V, 3rd Choice, MR X1; Start 10/05/19 at 10:45 Labetalol HCl (Normodyne Iv Push) 10 mg PRN Q2HR PRN IVP HYPERTENSION; Start 10/05/19 at 10:45 Fentanyl Citrate (Fentanyl 2ml Vial) 100 mcg STK-MED ONCE .ROUTE ; Start 10/05/19 at 11:15; Stop 10/05/19 at 11:16; Status DC Hydralazine HCl (Apresoline Inj) 20 mg STK-MED ONCE .ROUTE ; Start 10/05/19 at 11:41; Stop 10/05/19 at 11:41; Status DC Hydralazine HCl (Apresoline Inj) 10 mg 1X ONCE IVP Last administered on 10/05/19at 12:18; Start 10/05/19 at 12:15; Stop 10/05/19 at 12:16; Status DC Magnesium Sulfate/ Dextrose 100 ml @ 100 mls/hr 1X ONCE IV ; Start 10/06/19 at 08:15; Stop 10/06/19 at 09:14 Potassium Chloride (Klor-Con) 20 meq 1X ONCE PO ; Start 10/06/19 at 08:15; Stop 10/06/19 at 08:22; Status DC Active Scripts Active Reported Zyvox (Linezolid) 600 Mg Tablet 600 Mg PO BID 7 Days Cefdinir 300 Mg Capsule 1 Cap PO BID 7 Days Lisinopril 40 Mg Tablet 40 Mg PO DAILY Relion Novolin 70-30 Vial (Hum Insulin Nph/Reg Insulin Hm) 100 Unit/1 Ml Vial 4 Unit SQ [id number] Relion Novolin 70-30 Vial (Hum Insulin Nph/Reg Insulin Hm) 100 Unit/1 Ml Vial 8 Unit SUBCUT [id number] Vitals/I & O Vital Sign - Last 24 Hours 10/05/19 10/05/19 10/05/19 10/05/19 10:48 11:00 11:03 11:18 Temp 97.4 97.4 Pulse 81 80 Resp 18 21 22 B/P (MAP) 109/100 200/96 Pulse Ox 97 97 98 O2 Delivery Simple Mask Mask Simple Mask Room Air O2 Flow Rate 8 8 8 8.0 10/05/19 10/05/19 10/05/19 10/05/19 11:33 11:35 11:45 11:46 Temp 97.4 97.4 97.4 97.4 Pulse 74 72 68 Resp 19 20 19 B/P (MAP) 202/95 202/95 206/92 Pulse Ox 99 100 100 O2 Delivery Room Air Room Air Room Air 10/05/19 10/05/19 10/05/19 10/05/19 12:01 12:05 12:16 12:18 Temp 97.4 97.4 97.4 97.4 Pulse 76 74 77 Resp 20 20 20 B/P (MAP) 185/87 202/83 202/83 Pulse Ox 100 98 100 O2 Delivery Room Air Room Air Room Air O2 Flow Rate 2.0 10/05/19 10/05/19 10/05/19 10/05/19 12:30 12:45 13:00 13:15 Temp 97.4 97.4 97.5 97.5 97.4 97.4 97.5 97.5 Pulse 78 74 74 76 Resp 20 19 20 22 B/P (MAP) 174/74 178/74 172/74 172/69 Pulse Ox 95 97 98 99 O2 Delivery Room Air Room Air Room Air Room Air 10/05/19 10/05/19 10/05/19 10/05/19 13:22 13:42 13:44 13:44 Pulse 76 76 76 Resp 20 B/P (MAP) 172/69 172/69 172/69 Pulse Ox 98 O2 Delivery Room Air 10/05/19 10/05/19 10/05/19 10/05/19 14:00 14:00 14:15 14:30 Pulse 75 77 75 Resp 20 B/P (MAP) 168/79 (108) 196/81 (119) 186/90 (122) Pulse Ox 98 O2 Delivery Room Air O2 Flow Rate 8.0 10/05/19 10/05/19 10/05/19 10/05/19 14:45 15:15 15:45 17:09 Pulse 75 86 92 78 B/P (MAP) 182/91 (121) 190/87 (121) 222/98 (139) 158/74 10/05/19 10/05/19 10/05/19 10/06/19 19:34 20:00 22:43 02:46 Temp 97.9 98.3 98.2 97.9 98.3 98.2 Pulse 77 77 78 Resp 18 18 18 B/P (MAP) 166/75 (105) 159/73 (101) 173/80 (111) Pulse Ox 98 96 98 O2 Delivery Room Air Nasal Cannula Room Air Room Air O2 Flow Rate 2.0 10/06/19 10/06/19 10/06/19 03:52 04:39 06:38 Temp 98.3 98.3 Pulse 78 82 80 Resp 18 B/P (MAP) 173/80 150/70 (96) 163/75 (104) Pulse Ox 98 O2 Delivery Room Air Intake and Output 10/05/19 10/05/19 10/06/19 15:00 23:00 07:00 Intake Total 1550 ml 1000 ml 540 ml Output Total 215 ml Balance 1335 ml 1000 ml 540 ml Justicifation of Admission Dx: Justifications for Admission: Justification of Admission Dx: Yes Sepsis: Failure of Out Pt Tx Cellulitis: Cellulitis RONDA MONTAÑO [employer] SOFTWARE ENGINE[employer] C Oct 06, 2019 08:39
--- NOTE | 2019-10-06 09:00 | PDOC ---
Infectious Disease Note Subjective: Subjective Patient underwent surgery yesterday postop pain is under control no f/n/v/d Feels tired Vital Signs: Vital Signs Vital Signs Date Time Temp Pulse Resp B/P (MAP) Pulse Ox O2 Delivery O2 Flow Rate FiO2 10/06/19 08:38 80 163/75 10/06/19 06:38 98.3 18 98 Room Air 98.3 10/05/19 20:00 2.0 Physical Exam: PHYSICAL EXAM GENERAL: Propped up in bed, alert in NAD HEENT: Oral cavity pink, no thrush/lesions seen NECK: Supple LUNGS: Clear. HEART: S1, S2 regular. ABDOMEN: Obese, soft, nontender EXTREMITIES: Right lower extremity is unremarkable. Left lower extremity dressing with wound VAC in place NEUROLOGIC: Alert, oriented. No focal neurologic deficit. PIV ok Medications: Inpatient Meds: Current Medications Medications (Trade) Dose Ordered Sig/Leanne Start Time Stop Time Status Last Admin Dose Admin Acetaminophen (Tylenol Supp) 650 mg 1X ONCE 10/01/19 12:00 10/01/19 12:01 DC 10/01/19 11:58 650 MG Acetaminophen (Tylenol) 650 mg PRN Q4HRS PRN 09/28/19 11:00 10/01/19 23:49 650 MG Al Hydroxide/Mg Hydroxide (Mylanta Plus Xs) 30 ml PRN DAILY PRN 09/28/19 11:00 Albuterol Sulfate (Ventolin Neb Soln) 2.5 mg PRN Q4HRS PRN 09/28/19 11:00 10/05/19 11:57 2.5 MG Amlodipine Besylate (Norvasc) 5 mg DAILY 10/03/19 14:15 10/06/19 08:38 5 MG Atorvastatin Calcium (Lipitor) 40 mg QHS 09/29/19 21:00 10/05/19 21:54 40 MG Bacitracin 25007 unit/Sodium Chloride 500 ml @ 500 mls/hr 1X ONCE 10/05/19 06:00 10/05/19 06:59 DC 10/05/19 08:24 Carvedilol (Coreg) 12.5 mg BIDWMEALS 10/03/19 17:00 10/06/19 08:37 12.5 MG Cefazolin Sodium (Ancef) 1 gm STK-MED ONCE 10/05/19 08:15 10/05/19 08:15 DC Cefazolin Sodium 1 gm/Sodium Chloride 500 ml @ 500 mls/hr 1X ONCE 10/01/19 11:00 10/01/19 11:59 DC Cellulose (Surgicel Fibrillar 1x2) 1 each STK-MED ONCE 10/05/19 06:58 10/05/19 06:59 DC 10/05/19 08:23 1 EACH Clonidine HCl (Catapres Tts-1) 1 patch Sa 10/02/19 14:00 10/02/19 14:23 1 PATCH Clonidine HCl (Catapres) 0.1 mg PRN Q6HRS PRN 09/28/19 11:00 10/02/19 13:59 DC 09/30/19 22:09 0.1 MG Daptomycin 490 mg/ Sodium Chloride 50 ml @ 100 mls/hr Q24H 09/28/19 11:00 10/05/19 13:47 100 MLS/HR Desflurane (Suprane) 60 ml STK-MED ONCE 10/05/19 08:08 10/05/19 08:08 DC Dexamethasone Sodium Phosphate (Decadron) 20 mg STK-MED ONCE 10/05/19 07:37 10/05/19 07:37 DC Docusate Sodium (Colace) 100 mg BID 10/05/19 21:00 Enoxaparin Sodium (Lovenox 40mg Syringe) 40 mg Q24H 09/28/19 12:00 10/03/19 14:36 40 MG Fentanyl Citrate (Fentanyl 2ml Vial) 100 mcg STK-MED ONCE 10/05/19 11:15 10/05/19 11:16 DC Gelatin (Gelfoam Size 100) 1 each STK-MED ONCE 10/05/19 06:58 10/05/19 06:58 DC Glycopyrrolate (Robinul) 1 mg STK-MED ONCE 10/05/19 08:22 10/05/19 08:23 DC Guaifenesin (Robitussin) 200 mg PRN Q4HRS PRN 09/28/19 11:00 Heparin Sodium (Porcine) (Heparin Sodium) 10,000 unit STK-MED ONCE 10/05/19 08:08 10/05/19 08:08 DC Heparin Sodium (Porcine) 5000 unit/Sodium Chloride 505 ml @ 505 mls/hr 1X ONCE 10/05/19 06:00 10/05/19 06:59 DC Heparin Sodium/ Sodium Chloride (HEPARIN for ARTERIAL LINE FLUSH) 2,000 unit 1X ONCE 09/30/19 14:45 09/30/19 14:46 DC 09/30/19 15:31 2,000 UNIT Hydralazine HCl (Apresoline Inj) 10 mg 1X ONCE 10/05/19 12:15 10/05/19 12:16 DC 10/05/19 12:18 10 MG Hydromorphone HCl (Dilaudid) 0.5 mg PRN Q10MIN PRN 10/05/19 07:00 10/06/19 06:59 DC Insulin Human Isoph/Insulin Regular (HumuLIN 70/30) 8 units DAILYWBKFT 09/28/19 08:00 Insulin Human Lispro (HumaLOG VIAL for OP,RR ONLY) 0-10 units PRN Q1HR PRN 10/05/19 07:30 10/06/19 07:29 DC Iodixanol (Visipaque 320) 100 ml 1X ONCE 09/30/19 14:45 09/30/19 14:46 DC 09/30/19 15:31 78 ML Iohexol (Omnipaque 300 Mg/ml) 50 ml STK-MED ONCE 10/05/19 06:58 10/05/19 06:58 DC Labetalol HCl (Normodyne Iv Push) 10 mg PRN Q2HR PRN 10/05/19 10:45 Lactobacillus Rhamnosus (Culturelle) 1 cap BID 09/29/19 21:00 10/06/19 08:37 1 CAP Lidocaine HCl (Buffered Lidocaine 1%) 3 ml 1X ONCE 09/30/19 14:45 09/30/19 14:46 DC 09/30/19 15:32 5 ML Lidocaine HCl (Lidocaine Pf 2% Vial) 5 ml STK-MED ONCE 10/05/19 06:52 10/05/19 06:53 DC Lidocaine HCl (Xylocaine-Mpf 1% 2ml Vial) 2 ml PRN 1X PRN 10/05/19 07:00 10/06/19 06:59 DC Lisinopril (Prinivil) 40 mg DAILY 09/28/19 00:30 10/06/19 08:38 40 MG Lorazepam (Ativan) 0.5 mg PRN Q4HRS PRN 09/28/19 11:00 10/02/19 21:04 0.5 MG Magnesium Sulfate/ Dextrose 100 ml @ 100 mls/hr 1X ONCE 10/06/19 08:15 10/06/19 09:14 Meropenem 500 mg/ Sodium Chloride 50 ml @ 100 mls/hr Q8HRS 09/28/19 11:00 10/06/19 06:04 100 MLS/HR Metoclopramide HCl (Reglan Vial) 10 mg QIDACHS 10/02/19 16:30 10/06/19 08:37 10 MG Metoprolol Tartrate (Lopressor Vial) 5 mg PRN Q6HRS PRN 09/28/19 16:15 10/02/19 13:59 DC 10/02/19 08:19 5 MG Midazolam HCl (Versed) 5 mg 1X ONCE 09/30/19 14:45 09/30/19 14:46 DC 09/30/19 15:32 1.5 MG Morphine Sulfate (Morphine Sulfate) 2 mg PRN Q1HR PRN 10/05/19 10:45 10/05/19 13:22 2 MG Multivitamins (Thera M Plus) 1 tab DAILY 10/06/19 09:00 10/06/19 08:39 1 TAB Naloxone HCl (Narcan) 0.4 mg PRN Q2MIN PRN 10/05/19 10:45 Neostigmine Echo (Neostigmine Methylsulfate) 5 mg STK-MED ONCE 10/05/19 08:22 10/05/19 08:23 DC Ondansetron HCl (Zofran) 4 mg PRN Q6HRS PRN 10/05/19 10:45 Oxycodone/ Acetaminophen (Percocet 5/325) 2 tab PRN Q4HRS PRN 10/05/19 10:45 Potassium Chloride (Klor-Con) 20 meq 1X ONCE 10/06/19 08:15 10/06/19 08:22 DC 10/06/19 08:36 20 MEQ Prochlorperazine Edisylate (Compazine) 5 mg PRN Q6HRS PRN 10/05/19 10:45 Propofol (Diprivan) 200 mg STK-MED ONCE 10/05/19 06:52 10/05/19 06:53 DC Protamine Sulfate (Protamine) 50 mg STK-MED ONCE 10/01/19 12:07 10/01/19 12:08 DC Ringer's Solution 1,000 ml @ 30 mls/hr Q24H 10/05/19 07:00 10/05/19 13:52 DC Rocuronium Echo (Zemuron) 50 mg STK-MED ONCE 10/05/19 06:53 10/05/19 06:53 DC Senna/Docusate Sodium (Senna Plus) 1 tab BID 10/05/19 21:00 Sodium Monofluorophosphate (Fleet Adult) 133 ml PRN DAILY PRN 09/28/19 11:00 Sodium Chloride 1,000 ml @ 25 mls/hr Q24H 10/05/19 10:37 10/05/19 13:52 DC Sodium Chloride (Normal Saline Flush) 3 ml QSHIFT PRN 10/05/19 10:45 Succinylcholine Chloride (Anectine) 200 mg STK-MED ONCE 10/05/19 06:53 10/05/19 06:53 DC Thrombin 20,000 unit STK-MED ONCE 10/05/19 06:59 10/05/19 06:59 DC Vancomycin HCl 250 ml @ 250 mls/hr 1X ONCE 09/27/19 20:30 09/27/19 21:29 DC 09/27/19 20:56 250 MLS/HR Labs: Lab Laboratory Tests Test 10/05/19 10:51 10/05/19 12:30 10/05/19 16:32 10/05/19 20:46 Glucose (Fingerstick) 167 mg/dL (70-99) 178 mg/dL (70-99) 187 mg/dL (70-99) Stool Occult Blood Negative (NEG) Clostridium difficile Toxin (PCR) Negative (NEGATIVE) Test 10/06/19 04:08 10/06/19 06:59 White Blood Count 15.0 x10^3/uL (4.0-11.0) Red Blood Count 2.94 x10^6/uL (3.50-5.40) Hemoglobin 8.1 g/dL (12.0-15.5) Hematocrit 24.3 % (36.0-47.0) Mean Corpuscular Volume 83 fL (79-100) Mean Corpuscular Hemoglobin 28 pg (25-35) Mean Corpuscular Hemoglobin Concent 34 g/dL (31-37) Red Cell Distribution Width 15.1 % (11.5-14.5) Platelet Count 411 x10^3/uL (140-400) Neutrophils (%) (Auto) 83 % (31-73) Lymphocytes (%) (Auto) 8 % (24-48) Monocytes (%) (Auto) 9 % (0-9) Eosinophils (%) (Auto) 0 % (0-3) Basophils (%) (Auto) 0 % (0-3) Neutrophils # (Auto) 12.5 x10^3/uL (1.8-7.7) Lymphocytes # (Auto) 1.2 x10^3/uL (1.0-4.8) Monocytes # (Auto) 1.4 x10^3/uL (0.0-1.1) Eosinophils # (Auto) 0.0 x10^3/uL (0.0-0.7) Basophils # (Auto) 0.0 x10^3/uL (0.0-0.2) Sodium Level 142 mmol/L (136-145) Potassium Level 3.8 mmol/L (3.5-5.1) Chloride Level 108 mmol/L (98-107) Carbon Dioxide Level 21 mmol/L (21-32) Anion Gap 13 (6-14) Blood Urea Nitrogen 21 mg/dL (7-20) Creatinine 1.2 mg/dL (0.6-1.0) Estimated GFR (Cockcroft-Gault) 56.6 Glucose Level 127 mg/dL (70-99) Calcium Level 8.2 mg/dL (8.5-10.1) Phosphorus Level 4.2 mg/dL (2.6-4.7) Magnesium Level 1.7 mg/dL (1.8-2.4) Glucose (Fingerstick) 187 mg/dL (70-99) Micro Micro GRAM STAIN Final Final GRAM POSITIVE COCCI:MANY SQUAMOUS EPI CELL:RARE PMN (WBCs):RARE ANAEROBIC-AEROBIC CULTURE Preliminary Preliminary MANY GRAM POSITIVE COCCI on 09/29/19 at 1355 FINAL ID= [STREPTOCOCCUS MITIS/ORALIS] RARE [STAPHYLOCOCCUS AUREUS] on 10/01/19 at 1453 AZITHROMYCIN: S <=2 CEFOXITIN SCREEN: NEG <=4 CEFTAROLINE: S <=0.5 CIPROFLOXACIN: S <=1 CLINDAMYCIN: S 0.5 DAPTOMYCIN: S <=0.5 ERYTHROMYCIN: S <=0.25 GENTAMICIN: S <=4 LEVOFLOXACIN: S <=1 LINEZOLID: S 2 OXACILLIN: S <=0.25 PENICILLIN: JEN 0.5 RIFAMPIN: S <=1 TETRACYCLINE: S <=4 TRIMETH/SULFA: S <=0.5/9.5 VANCOMYCIN: S 1 STAPHYLOCOCCUS AUREUS STREPTOCOCCUS MITIS/ORALIS URINE CULTURE Final Final 20,000 CFU/ML Normal genitourinary man, not indicative of infection on 09/30/19 at 0946 Objective: Assessment: Leucocytosis ? increasing trend Left fourth toe gangrene. s/p angiogram 09/29: chronic total occlusion, left superficial femoral artery, attempted revascularization unsuccessful Left fourth toe and diabetic foot infection: Strep mitis/oralis and MSSA s/p surgery 10/04 Fever.resolved Diabetes mellitus poorly controlled Peripheral vascular disease PCN allergy w/ hives and sulfa w/ throat swelling History of cerebrovascular accident. Hypertension. Nausea and vomiting,improving Plan: Plan of Care Leucocytosis likely reactive continue Dapto and meropenem, 09/27 Monitor for abx toxicities f/u cultures Monior WBC/temp Local wound care as directed If patient has diarrhea check for C. difficile Discussed with nursing staff ADELINA ROJAS MD Oct 06, 2019 09:00
[2019-10-06] MEDS: IV NORMAL SALINE 1000ML BAG 1,000 ML IV SCH (09:53)
--- NOTE | 2019-10-06 10:11 | NUR ---
SS following up with discharge planning. SS reviewed pt chart and discussed with pt RN. Pt is currently on room air and on IV Daptomycin and Meropenem. Pt had toe amputation, 10/05/2019. LTACH recommended. SS met with pt to discuss discharge planning and LTACH. Pt agreeable to LTACH and requested to stay in [place], [place] area. Pt agreeable to [facility] referral. SS phoned and faxed referral to [facility], ; fax [phone]. SS will await acceptance decision and will proceed accordingly. Pt's RN notified.
[2019-10-06] MEDS: DAPTOmycin (GENERIC) IVPB 490 MG in IV NORMAL SALINE 50ML 50 ML IV SCH (11:05)
[2019-10-06] MEDS: ENOXAPARIN 40 MG/0.4 ML SYRINGE. SQ SCH (12:21)
--- NOTE | 2019-10-06 12:45 | NUR ---
SS following up with discharge planning. Pt accepted at [facility], ; fax [phone]. SS will continue to follow for discharge planning.
[2019-10-06] MEDS: ATORVASTATIN CALCIUM 40 MG TABLET. PO SCH (21:05)
[2019-10-07 03:53] VITALS: BP 174/84
[2019-10-07 04:43] LABS: BASO % 0 % (0-3); EOS # 0.1 x10^3/uL (0.0-0.7); EOS % 0 % (0-3); HEMATOCRIT 25.2 % (36.0-47.0); HEMOGLOBIN 8.4 g/dL (12.0-15.5); LYMPH # 1.2 x10^3/uL (1.0-4.8); LYMPH % 9 % (24-48); MEAN CORPUSCULAR HEMOGLOBIN 28 pg (25-35); MEAN CORPUSCULAR HGB CONC 33 g/dL (31-37); MEAN CORPUSCULAR VOLUME 83 fL (79-100); MONO # 1.3 x10^3/uL (0.0-1.1); MONO % 9 % (0-9); NEUT # 11.2 x10^3/uL (1.8-7.7); NEUT % 81 % (31-73); PLATELET COUNT 433 x10^3/uL (140-400); RED BLOOD COUNT 3.03 x10^6/uL (3.50-5.40); RED CELL DISTRIBUTION WIDTH 15.4 % (11.5-14.5); WHITE BLOOD COUNT 13.8 x10^3/uL (4.0-11.0)
[2019-10-07 05:34] LABS: ALBUMIN 1.6 g/dL (3.4-5.0); ALBUMIN/GLOBULIN RATIO 0.4 (1.0-1.7); CALCIUM 8.4 mg/dL (8.5-10.1); CREATININE 1.2 mg/dL (0.6-1.0); GFR 56.6; POTASSIUM 3.9 mmol/L (3.5-5.1); TOTAL BILIRUBIN 0.3 mg/dL (0.2-1.0); TOTAL PROTEIN 5.8 g/dL (6.4-8.2)
[2019-10-07] MEDS: MEROPENEM 500 MG in IV NORMAL SALINE 50ML 50 ML IV SCH (05:57)
[2019-10-07 07:00] VITALS: BP 196/91
[2019-10-07] MEDS: INSULIN NPH/REG INSULIN 70/30 300 UNITS/3 ML INSULN.PEN. SQ SCH ×2 (08:00→17:00)
--- NOTE | 2019-10-07 08:05 | PDOC ---
Infectious Disease Note Subjective: Subjective pt without compliants except for some nausea no f//v/d/abdo Vital Signs: Vital Signs Vital Signs Date Time Temp Pulse Resp B/P (MAP) Pulse Ox O2 Delivery O2 Flow Rate FiO2 10/07/19 07:00 100.0 83 20 196/91 (126) 96 Room Air 100.0 10/06/19 08:00 2.0 Physical Exam: PHYSICAL EXAM GENERAL: Propped up in bed, alert in NAD HEENT: Oral cavity pink, no thrush/lesions seen NECK: Supple LUNGS: Clear. HEART: S1, S2 regular. ABDOMEN: Obese, soft, nontender EXTREMITIES: Right lower extremity is unremarkable. Left lower extremity dressing with wound VAC in place Lt groin, thigh and foot dressings are intact. Her left medial leg incision is without redness, edema or drainage. NEUROLOGIC: Alert, oriented. No focal neurologic deficit. PIV ok Medications: Inpatient Meds: Current Medications Medications (Trade) Dose Ordered Sig/Leanne Start Time Stop Time Status Last Admin Dose Admin Acetaminophen (Tylenol Supp) 650 mg 1X ONCE 10/01/19 12:00 10/01/19 12:01 DC 10/01/19 11:58 650 MG Acetaminophen (Tylenol) 650 mg PRN Q4HRS PRN 09/28/19 11:00 10/01/19 23:49 650 MG Al Hydroxide/Mg Hydroxide (Mylanta Plus Xs) 30 ml PRN DAILY PRN 09/28/19 11:00 Albuterol Sulfate (Ventolin Neb Soln) 2.5 mg PRN Q4HRS PRN 09/28/19 11:00 10/05/19 11:57 2.5 MG Amlodipine Besylate (Norvasc) 5 mg DAILY 10/03/19 14:15 10/06/19 08:38 5 MG Atorvastatin Calcium (Lipitor) 40 mg QHS 09/29/19 21:00 10/06/19 21:05 40 MG Bacitracin 94911 unit/Sodium Chloride 500 ml @ 500 mls/hr 1X ONCE 10/05/19 06:00 10/05/19 06:59 DC 10/05/19 08:24 Carvedilol (Coreg) 12.5 mg BIDWMEALS 10/03/19 17:00 10/06/19 17:16 12.5 MG Cefazolin Sodium (Ancef) 1 gm STK-MED ONCE 10/05/19 08:15 10/05/19 08:15 DC Cefazolin Sodium 1 gm/Sodium Chloride 500 ml @ 500 mls/hr 1X ONCE 10/01/19 11:00 10/01/19 11:59 DC Cellulose (Surgicel Fibrillar 1x2) 1 each STK-MED ONCE 10/05/19 06:58 10/05/19 06:59 DC 10/05/19 08:23 1 EACH Clonidine HCl (Catapres Tts-1) 1 patch Sa 10/02/19 14:00 10/02/19 14:23 1 PATCH Clonidine HCl (Catapres) 0.1 mg PRN Q6HRS PRN 09/28/19 11:00 10/02/19 13:59 DC 09/30/19 22:09 0.1 MG Daptomycin 490 mg/ Sodium Chloride 50 ml @ 100 mls/hr Q24H 09/28/19 11:00 10/06/19 12:27 DC 10/06/19 11:05 100 MLS/HR Desflurane (Suprane) 60 ml STK-MED ONCE 10/05/19 08:08 10/05/19 08:08 DC Dexamethasone Sodium Phosphate (Decadron) 20 mg STK-MED ONCE 10/05/19 07:37 10/05/19 07:37 DC Docusate Sodium (Colace) 100 mg BID 10/05/19 21:00 Enoxaparin Sodium (Lovenox 40mg Syringe) 40 mg Q24H 09/28/19 12:00 10/06/19 12:21 40 MG Fentanyl Citrate (Fentanyl 2ml Vial) 100 mcg STK-MED ONCE 10/05/19 11:15 10/05/19 11:16 DC Gelatin (Gelfoam Size 100) 1 each STK-MED ONCE 10/05/19 06:58 10/05/19 06:58 DC Glycopyrrolate (Robinul) 1 mg STK-MED ONCE 10/05/19 08:22 10/05/19 08:23 DC Guaifenesin (Robitussin) 200 mg PRN Q4HRS PRN 09/28/19 11:00 Heparin Sodium (Porcine) (Heparin Sodium) 10,000 unit STK-MED ONCE 10/05/19 08:08 10/05/19 08:08 DC Heparin Sodium (Porcine) 5000 unit/Sodium Chloride 505 ml @ 505 mls/hr 1X ONCE 10/05/19 06:00 10/05/19 06:59 DC Heparin Sodium/ Sodium Chloride (HEPARIN for ARTERIAL LINE FLUSH) 2,000 unit 1X ONCE 09/30/19 14:45 09/30/19 14:46 DC 09/30/19 15:31 2,000 UNIT Hydralazine HCl (Apresoline Inj) 10 mg 1X ONCE 10/05/19 12:15 10/05/19 12:16 DC 10/05/19 12:18 10 MG Hydromorphone HCl (Dilaudid) 0.5 mg PRN Q10MIN PRN 10/05/19 07:00 10/06/19 06:59 DC Insulin Human Isoph/Insulin Regular (HumuLIN 70/30) 8 units DAILYWBKFT 09/28/19 08:00 Insulin Human Lispro (HumaLOG VIAL for OP,RR ONLY) 0-10 units PRN Q1HR PRN 10/05/19 07:30 10/06/19 07:29 DC Iodixanol (Visipaque 320) 100 ml 1X ONCE 09/30/19 14:45 09/30/19 14:46 DC 09/30/19 15:31 78 ML Iohexol (Omnipaque 300 Mg/ml) 50 ml STK-MED ONCE 10/05/19 06:58 10/05/19 06:58 DC Labetalol HCl (Normodyne Iv Push) 10 mg PRN Q2HR PRN 10/05/19 10:45 Lactobacillus Rhamnosus (Culturelle) 1 cap BID 09/29/19 21:00 10/06/19 21:05 1 CAP Lidocaine HCl (Buffered Lidocaine 1%) 3 ml 1X ONCE 09/30/19 14:45 09/30/19 14:46 DC 09/30/19 15:32 5 ML Lidocaine HCl (Lidocaine Pf 2% Vial) 5 ml STK-MED ONCE 10/05/19 06:52 10/05/19 06:53 DC Lidocaine HCl (Xylocaine-Mpf 1% 2ml Vial) 2 ml PRN 1X PRN 10/05/19 07:00 10/06/19 06:59 DC Lisinopril (Prinivil) 40 mg DAILY 09/28/19 00:30 10/06/19 08:38 40 MG Lorazepam (Ativan) 0.5 mg PRN Q4HRS PRN 09/28/19 11:00 10/02/19 21:04 0.5 MG Magnesium Sulfate/ Dextrose 100 ml @ 100 mls/hr 1X ONCE 10/06/19 08:15 10/06/19 09:14 DC 10/06/19 09:53 100 MLS/HR Meropenem 500 mg/ Sodium Chloride 50 ml @ 100 mls/hr Q8HRS 09/28/19 11:00 10/07/19 05:57 100 MLS/HR Metoclopramide HCl (Reglan Vial) 10 mg QIDACHS 10/02/19 16:30 10/06/19 21:05 10 MG Metoprolol Tartrate (Lopressor Vial) 5 mg PRN Q6HRS PRN 09/28/19 16:15 10/02/19 13:59 DC 10/02/19 08:19 5 MG Midazolam HCl (Versed) 5 mg 1X ONCE 09/30/19 14:45 09/30/19 14:46 DC 09/30/19 15:32 1.5 MG Morphine Sulfate (Morphine Sulfate) 2 mg PRN Q1HR PRN 10/05/19 10:45 10/05/19 13:22 2 MG Multivitamins (Thera M Plus) 1 tab DAILY 10/06/19 09:00 10/06/19 08:39 1 TAB Naloxone HCl (Narcan) 0.4 mg PRN Q2MIN PRN 10/05/19 10:45 Neostigmine [place] (Neostigmine Methylsulfate) 5 mg STK-MED ONCE 10/05/19 08:22 10/05/19 08:23 DC Ondansetron HCl (Zofran) 4 mg PRN Q6HRS PRN 10/05/19 10:45 Oxycodone/ Acetaminophen (Percocet 5/325) 2 tab PRN Q4HRS PRN 10/05/19 10:45 Potassium Chloride (Klor-Con) 20 meq 1X ONCE 10/06/19 08:15 10/06/19 08:22 DC 10/06/19 08:36 20 MEQ Prochlorperazine Edisylate (Compazine) 5 mg PRN Q6HRS PRN 10/05/19 10:45 Propofol (Diprivan) 200 mg STK-MED ONCE 10/05/19 06:52 10/05/19 06:53 DC Protamine Sulfate (Protamine) 50 mg STK-MED ONCE 10/01/19 12:07 10/01/19 12:08 DC Ringer's Solution 1,000 ml @ 30 mls/hr Q24H 10/05/19 07:00 10/05/19 13:52 DC Rocuronium [place] (Zemuron) 50 mg STK-MED ONCE 10/05/19 06:53 10/05/19 06:53 DC Senna/Docusate Sodium (Senna Plus) 1 tab BID 10/05/19 21:00 10/06/19 21:05 1 TAB Sodium Monofluorophosphate (Fleet Adult) 133 ml PRN DAILY PRN 09/28/19 11:00 Sodium Chloride 1,000 ml @ 25 mls/hr Q24H 10/05/19 10:37 10/05/19 13:52 DC Sodium Chloride (Normal Saline Flush) 3 ml QSHIFT PRN 10/05/19 10:45 Succinylcholine Chloride (Anectine) 200 mg STK-MED ONCE 10/05/19 06:53 10/05/19 06:53 DC Thrombin 20,000 unit STK-MED ONCE 10/05/19 06:59 10/05/19 06:59 DC Vancomycin HCl 250 ml @ 250 mls/hr 1X ONCE 09/27/19 20:30 09/27/19 21:29 DC 09/27/19 20:56 250 MLS/HR Labs: Lab Laboratory Tests Test 10/06/19 11:18 10/06/19 16:33 10/06/19 21:03 10/07/19 03:40 Glucose (Fingerstick) 157 mg/dL (70-99) 181 mg/dL (70-99) 200 mg/dL (70-99) White Blood Count 13.8 x10^3/uL (4.0-11.0) Red Blood Count 3.03 x10^6/uL (3.50-5.40) Hemoglobin 8.4 g/dL (12.0-15.5) Hematocrit 25.2 % (36.0-47.0) Mean Corpuscular Volume 83 fL (79-100) Mean Corpuscular Hemoglobin 28 pg (25-35) Mean Corpuscular Hemoglobin Concent 33 g/dL (31-37) Red Cell Distribution Width 15.4 % (11.5-14.5) Platelet Count 433 x10^3/uL (140-400) Neutrophils (%) (Auto) 81 % (31-73) Lymphocytes (%) (Auto) 9 % (24-48) Monocytes (%) (Auto) 9 % (0-9) Eosinophils (%) (Auto) 0 % (0-3) Basophils (%) (Auto) 0 % (0-3) Neutrophils # (Auto) 11.2 x10^3/uL (1.8-7.7) Lymphocytes # (Auto) 1.2 x10^3/uL (1.0-4.8) Monocytes # (Auto) 1.3 x10^3/uL (0.0-1.1) Eosinophils # (Auto) 0.1 x10^3/uL (0.0-0.7) Basophils # (Auto) 0.0 x10^3/uL (0.0-0.2) Sodium Level 141 mmol/L (136-145) Potassium Level 3.9 mmol/L (3.5-5.1) Chloride Level 108 mmol/L (98-107) Carbon Dioxide Level 23 mmol/L (21-32) Anion Gap 10 (6-14) Blood Urea Nitrogen 23 mg/dL (7-20) Creatinine 1.2 mg/dL (0.6-1.0) Estimated GFR (Cockcroft-Gault) 56.6 BUN/Creatinine Ratio 19 (6-20) Glucose Level 164 mg/dL (70-99) Calcium Level 8.4 mg/dL (8.5-10.1) Total Bilirubin 0.3 mg/dL (0.2-1.0) Aspartate Amino Transf (AST/SGOT) 18 U/L (15-37) Alanine Aminotransferase (ALT/SGPT) 15 U/L (14-59) Alkaline Phosphatase 88 U/L (46-116) Total Protein 5.8 g/dL (6.4-8.2) Albumin 1.6 g/dL (3.4-5.0) Albumin/Globulin Ratio 0.4 (1.0-1.7) Test 10/07/19 07:27 Glucose (Fingerstick) 147 mg/dL (70-99) Micro Micro GRAM STAIN Final Final GRAM POSITIVE COCCI:MANY SQUAMOUS EPI CELL:RARE PMN (WBCs):RARE ANAEROBIC-AEROBIC CULTURE Preliminary Preliminary MANY GRAM POSITIVE COCCI on 09/29/19 at 1355 FINAL ID= [STREPTOCOCCUS MITIS/ORALIS] RARE [STAPHYLOCOCCUS AUREUS] on 10/01/19 at 1453 AZITHROMYCIN: S <=2 CEFOXITIN SCREEN: NEG <=4 CEFTAROLINE: S <=0.5 CIPROFLOXACIN: S <=1 CLINDAMYCIN: S 0.5 DAPTOMYCIN: S <=0.5 ERYTHROMYCIN: S <=0.25 GENTAMICIN: S <=4 LEVOFLOXACIN: S <=1 LINEZOLID: S 2 OXACILLIN: S <=0.25 PENICILLIN: JEN 0.5 RIFAMPIN: S <=1 TETRACYCLINE: S <=4 TRIMETH/SULFA: S <=0.5/9.5 VANCOMYCIN: S 1 STAPHYLOCOCCUS AUREUS STREPTOCOCCUS MITIS/ORALIS URINE CULTURE Final Final 20,000 CFU/ML Normal genitourinary man, not indicative of infection on 09/30/19 at 0946 Objective: Assessment: Leucocytosis ? improving likely reactive from surgery Left fourth toe gangrene. s/p angiogram 09/29: chronic total occlusion, left superficial femoral artery, attempted revascularization unsuccessful Left fourth toe and diabetic foot infection: Strep mitis/oralis and MSSA s/p surgery 10/04 CLOSED AMPUTATION Ray amputation of the third toe on the left, including the metatarsal head. Ray amputation of the fourth toe on the left, including the metatarsal head. 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 Wound is stable per team Fever.resolved Diabetes mellitus poorly controlled Peripheral vascular disease 10/04 s/p Left femoral to above knee popliteal artery bypass with PTFE graft. PCN allergy w/ hives and sulfa w/ throat swelling ; per pharmacy has tolerated cephalosporins in the past History of cerebrovascular accident. Hypertension. Nausea and vomiting,improving Diarrhea Plan: Plan of Care Leucocytosis likely reactive DC meropenem C. difficile negative on October 04 Start Keflex 10/06 Monitor for abx toxicities f/u cultures Monior WBC/temp Local wound care as directed Discussed with nursing staff ADELINA ROJAS MD Oct 07, 2019 08:05
[2019-10-07] MEDS: MULTIVITAMIN with MINERAL TABLET. PO SCH (08:32)
--- NOTE | 2019-10-07 08:32 | PDOC ---
PROGRESS NOTES Chief Complaint Chief Complaint A/P: Diabetic toe with gangrene (s/p amputation left 3,4,5 toes, closed 10/04) PVD confirmed on angiography (s/p left femoral to popliteal bypass 10/04) Diabetes Hypertension Anxiety Depression Soft tissue swelling overlying the dorsum of the midfoot without underlying osseous abnormality or radiopaque foreign body identified.ON PLAIN X-RAY hypertension, HX stroke, diabetes, hyperlipidemia, history of diabetic ketoacidosis. ZURDO fever Normocytic anemia sepsis glucose control needed PVD Occlusion of the left superficial femoral artery with reconstitution at the level of the left popliteal artery, where there appears to be hemodynamically significant stenosis. Monophasic flow in the left subclavian artery suggests greater than 50 percent proximal left subclavian artery stenosis. No evidence of subclavian steal. Leukocytosis likely reactive, C. difficile negative on October 04 History of Present Illness History of Present Illness Ms Polo is a 53-year-old female with PMHx DM2, HTN, CVA with left sided residual weakness who p/w left fourth toe gangrene, peripheral vascular disease. Angio and vein mapping reviewed by Dr. Hernandez, plan for left leg bypass with toe amputations Friday10/05/201910/03: Seen and examined. Pain well controlled. BP controlled. No CP or SOB. 10/04: To OR today for Left femoral to popliteal bypass with 7mm propaten gortex graft, Left closed 3,4,5th toe amputation, and Prevena vac placement proximal incision. Drowsy post-op 10/05: No CP or SOB. Feeling well, pain controlled. Still pretty drowsy. Hb 8.1 post op. Tolerating therapy and antibiotics. She wishes for LTACH in [facility]. Afebrile. Feeling warm today and some nausea. Transitioned to PO antibiotics, keflex by ID. Plan: DC meropenem Start Keflex 10/06 Monitor for abx toxicities f/u cultures Monior WBC/temp Local wound care as directed Transfer to LTACH Vitals Vitals Vital Signs Date Time Temp Pulse Resp B/P (MAP) Pulse Ox O2 Delivery O2 Flow Rate FiO2 10/07/19 07:00 100.0 83 20 196/91 (126) 96 Room Air 100.0 10/06/19 08:00 2.0 Physical Exam Physical Exam GENERAL: Propped up in bed, alert in NAD HEENT: Oral cavity pink, no thrush/lesions seen NECK: Supple LUNGS: Clear. HEART: S1, S2 regular. ABDOMEN: Obese, soft, nontender EXTREMITIES: Right lower extremity is unremarkable. Left lower extremity dressing with wound VAC in place Lt groin, thigh and foot dressings are intact. Her left medial leg incision is without redness, edema or drainage. NEUROLOGIC: Alert, oriented. No focal neurologic deficit. PIV ok General: Alert, Cooperative, No acute distress Heart: Regular rate Lungs: Clear Abdomen: Normal bowel sounds, Soft, No tenderness Extremities: No tenderness/swelling Skin: No rashes, Other (Her surgical dressing is in place on her left foot. There is no obvious drainage in this area.) Labs LABS Laboratory Tests Test 10/06/19 11:18 10/06/19 16:33 10/06/19 21:03 10/07/19 03:40 Glucose (Fingerstick) 157 mg/dL (70-99) 181 mg/dL (70-99) 200 mg/dL (70-99) White Blood Count 13.8 x10^3/uL (4.0-11.0) Red Blood Count 3.03 x10^6/uL (3.50-5.40) Hemoglobin 8.4 g/dL (12.0-15.5) Hematocrit 25.2 % (36.0-47.0) Mean Corpuscular Volume 83 fL (79-100) Mean Corpuscular Hemoglobin 28 pg (25-35) Mean Corpuscular Hemoglobin Concent 33 g/dL (31-37) Red Cell Distribution Width 15.4 % (11.5-14.5) Platelet Count 433 x10^3/uL (140-400) Neutrophils (%) (Auto) 81 % (31-73) Lymphocytes (%) (Auto) 9 % (24-48) Monocytes (%) (Auto) 9 % (0-9) Eosinophils (%) (Auto) 0 % (0-3) Basophils (%) (Auto) 0 % (0-3) Neutrophils # (Auto) 11.2 x10^3/uL (1.8-7.7) Lymphocytes # (Auto) 1.2 x10^3/uL (1.0-4.8) Monocytes # (Auto) 1.3 x10^3/uL (0.0-1.1) Eosinophils # (Auto) 0.1 x10^3/uL (0.0-0.7) Basophils # (Auto) 0.0 x10^3/uL (0.0-0.2) Sodium Level 141 mmol/L (136-145) Potassium Level 3.9 mmol/L (3.5-5.1) Chloride Level 108 mmol/L (98-107) Carbon Dioxide Level 23 mmol/L (21-32) Anion Gap 10 (6-14) Blood Urea Nitrogen 23 mg/dL (7-20) Creatinine 1.2 mg/dL (0.6-1.0) Estimated GFR (Cockcroft-Gault) 56.6 BUN/Creatinine Ratio 19 (-20) Glucose Level 164 mg/dL (70-99) Calcium Level 8.4 mg/dL (8.5-10.1) Total Bilirubin 0.3 mg/dL (0.2-1.0) Aspartate Amino Transf (AST/SGOT) 18 U/L (15-37) Alanine Aminotransferase (ALT/SGPT) 15 U/L (14-59) Alkaline Phosphatase 88 U/L (46-116) Total Protein 5.8 g/dL (6.4-8.2) Albumin 1.6 g/dL (3.4-5.0) Albumin/Globulin Ratio 0.4 (1.0-1.7) Test 10/07/19 07:27 Glucose (Fingerstick) 147 mg/dL (70-99) Assessment and Plan Assessmemt and Plan Problems Medical Problems: (1) Diabetic foot infection Status: Acute Comment Review of Relevant I have reviewed the following items hortencia (where applicable) has been applied. Labs Laboratory Tests Test 10/05/19 10:51 10/05/19 12:30 10/05/19 16:32 10/05/19 20:46 Glucose (Fingerstick) 167 mg/dL (70-99) 178 mg/dL (70-99) 187 mg/dL (70-99) Stool Occult Blood Negative (NEG) Clostridium difficile Toxin (PCR) Negative (NEGATIVE) Test 10/06/19 04:08 10/06/19 06:59 10/06/19 11:18 10/06/19 16:33 White Blood Count 15.0 x10^3/uL (4.0-11.0) Red Blood Count 2.94 x10^6/uL (3.50-5.40) Hemoglobin 8.1 g/dL (12.0-15.5) Hematocrit 24.3 % (36.0-47.0) Mean Corpuscular Volume 83 fL (79-100) Mean Corpuscular Hemoglobin 28 pg (25-35) Mean Corpuscular Hemoglobin Concent 34 g/dL (31-37) Red Cell Distribution Width 15.1 % (11.5-14.5) Platelet Count 411 x10^3/uL (140-400) Neutrophils (%) (Auto) 83 % (31-73) Lymphocytes (%) (Auto) 8 % (24-48) Monocytes (%) (Auto) 9 % (0-9) Eosinophils (%) (Auto) 0 % (0-3) Basophils (%) (Auto) 0 % (0-3) Neutrophils # (Auto) 12.5 x10^3/uL (1.8-7.7) Lymphocytes # (Auto) 1.2 x10^3/uL (1.0-4.8) Monocytes # (Auto) 1.4 x10^3/uL (0.0-1.1) Eosinophils # (Auto) 0.0 x10^3/uL (0.0-0.7) Basophils # (Auto) 0.0 x10^3/uL (0.0-0.2) Sodium Level 142 mmol/L (136-145) Potassium Level 3.8 mmol/L (3.5-5.1) Chloride Level 108 mmol/L (98-107) Carbon Dioxide Level 21 mmol/L (21-32) Anion Gap 13 (6-14) Blood Urea Nitrogen 21 mg/dL (7-20) Creatinine 1.2 mg/dL (0.6-1.0) Estimated GFR (Cockcroft-Gault) 56.6 Glucose Level 127 mg/dL (70-99) Calcium Level 8.2 mg/dL (8.5-10.1) Phosphorus Level 4.2 mg/dL (2.6-4.7) Magnesium Level 1.7 mg/dL (1.8-2.4) Glucose (Fingerstick) 187 mg/dL (70-99) 157 mg/dL (70-99) 181 mg/dL (70-99) Test 10/06/19 21:03 10/07/19 03:40 10/07/19 07:27 Glucose (Fingerstick) 200 mg/dL (70-99) 147 mg/dL (70-99) White Blood Count 13.8 x10^3/uL (4.0-11.0) Red Blood Count 3.03 x10^6/uL (3.50-5.40) Hemoglobin 8.4 g/dL (12.0-15.5) Hematocrit 25.2 % (36.0-47.0) Mean Corpuscular Volume 83 fL (79-100) Mean Corpuscular Hemoglobin 28 pg (25-35) Mean Corpuscular Hemoglobin Concent 33 g/dL (31-37) Red Cell Distribution Width 15.4 % (11.5-14.5) Platelet Count 433 x10^3/uL (140-400) Neutrophils (%) (Auto) 81 % (31-73) Lymphocytes (%) (Auto) 9 % (24-48) Monocytes (%) (Auto) 9 % (0-9) Eosinophils (%) (Auto) 0 % (0-3) Basophils (%) (Auto) 0 % (0-3) Neutrophils # (Auto) 11.2 x10^3/uL (1.8-7.7) Lymphocytes # (Auto) 1.2 x10^3/uL (1.0-4.8) Monocytes # (Auto) 1.3 x10^3/uL (0.0-1.1) Eosinophils # (Auto) 0.1 x10^3/uL (0.0-0.7) Basophils # (Auto) 0.0 x10^3/uL (0.0-0.2) Sodium Level 141 mmol/L (136-145) Potassium Level 3.9 mmol/L (3.5-5.1) Chloride Level 108 mmol/L (98-107) Carbon Dioxide Level 23 mmol/L (21-32) Anion Gap 10 (6-14) Blood Urea Nitrogen 23 mg/dL (7-20) Creatinine 1.2 mg/dL (0.6-1.0) Estimated GFR (Cockcroft-Gault) 56.6 BUN/Creatinine Ratio 19 (6-20) Glucose Level 164 mg/dL (70-99) Calcium Level 8.4 mg/dL (8.5-10.1) Total Bilirubin 0.3 mg/dL (0.2-1.0) Aspartate Amino Transf (AST/SGOT) 18 U/L (15-37) Alanine Aminotransferase (ALT/SGPT) 15 U/L (14-59) Alkaline Phosphatase 88 U/L (46-116) Total Protein 5.8 g/dL (6.4-8.2) Albumin 1.6 g/dL (3.4-5.0) Albumin/Globulin Ratio 0.4 (1.0-1.7) Laboratory Tests Test 10/06/19 11:18 10/06/19 16:33 10/06/19 21:03 10/07/19 03:40 Glucose (Fingerstick) 157 mg/dL (70-99) 181 mg/dL (70-99) 200 mg/dL (70-99) White Blood Count 13.8 x10^3/uL (4.0-11.0) Red Blood Count 3.03 x10^6/uL (3.50-5.40) Hemoglobin 8.4 g/dL (12.0-15.5) Hematocrit 25.2 % (36.0-47.0) Mean Corpuscular Volume 83 fL (79-100) Mean Corpuscular Hemoglobin 28 pg (25-35) Mean Corpuscular Hemoglobin Concent 33 g/dL (31-37) Red Cell Distribution Width 15.4 % (11.5-14.5) Platelet Count 433 x10^3/uL (140-400) Neutrophils (%) (Auto) 81 % (31-73) Lymphocytes (%) (Auto) 9 % (24-48) Monocytes (%) (Auto) 9 % (0-9) Eosinophils (%) (Auto) 0 % (0-3) Basophils (%) (Auto) 0 % (0-3) Neutrophils # (Auto) 11.2 x10^3/uL (1.8-7.7) Lymphocytes # (Auto) 1.2 x10^3/uL (1.0-4.8) Monocytes # (Auto) 1.3 x10^3/uL (0.0-1.1) Eosinophils # (Auto) 0.1 x10^3/uL (0.0-0.7) Basophils # (Auto) 0.0 x10^3/uL (0.0-0.2) Sodium Level 141 mmol/L (136-145) Potassium Level 3.9 mmol/L (3.5-5.1) Chloride Level 108 mmol/L (98-107) Carbon Dioxide Level 23 mmol/L (21-32) Anion Gap 10 (6-14) Blood Urea Nitrogen 23 mg/dL (7-20) Creatinine 1.2 mg/dL (0.6-1.0) Estimated GFR (Cockcroft-Gault) 56.6 BUN/Creatinine Ratio 19 (6-20) Glucose Level 164 mg/dL (70-99) Calcium Level 8.4 mg/dL (8.5-10.1) Total Bilirubin 0.3 mg/dL (0.2-1.0) Aspartate Amino Transf (AST/SGOT) 18 U/L (15-37) Alanine Aminotransferase (ALT/SGPT) 15 U/L (14-59) Alkaline Phosphatase 88 U/L (46-116) Total Protein 5.8 g/dL (6.4-8.2) Albumin 1.6 g/dL (3.4-5.0) Albumin/Globulin Ratio 0.4 (1.0-1.7) Test 10/07/19 07:27 Glucose (Fingerstick) 147 mg/dL (70-99) Microbiology 09/27/19 Urine Culture - Final, Complete 09/27/19 Gram Stain - Final, Complete 09/27/19 Aerobic and Anaerobic Culture - Final, Complete 09/27/19 Antimicrobic Susceptibility - Final, Complete Medications Current Medications Sodium Chloride 1,000 ml @ 1,000 mls/hr 1X ONCE IV Last administered on 09/26at 19:25; Start 09/27/19 at 18:30; Stop 09/27/19 at 19:29; Status DC Acetaminophen (Tylenol) 1,000 mg 1X ONCE PO Last administered on 09/27/19at 19:25; Start 09/27/19 at 18:30; Stop 09/27/19 at 18:37; Status DC Clonidine HCl (Catapres) 0.1 mg 1X ONCE PO Last administered on 09/27/19at 19:26; Start 09/27/19 at 18:45; Stop 09/27/19 at 18:46; Status DC Vancomycin HCl 250 ml @ 250 mls/hr 1X ONCE IV Last administered on 09/27/19at 20:56; Start 09/27/19 at 20:30; Stop 09/27/19 at 21:29; Status DC Ondansetron HCl (Zofran) 4 mg PRN Q8HRS PRN IV NAUSEA/VOMITING; Start 09/27/19 at 20:45; Stop 09/28/19 at 13:59; Status DC Fentanyl Citrate (Fentanyl 2ml Vial) 50 mcg PRN Q1HR PRN IV PAIN; Start 09/27/19 at 20:45; Stop 09/28/19 at 20:44; Status DC Acetaminophen (Tylenol) 650 mg PRN Q4HRS PRN PO FEVER > 100.3'F; Start 09/27/19 at 20:45; Stop 09/28/19 at 13:58; Status DC Lisinopril (Prinivil) 40 mg DAILY PO Last administered on 10/06/19at 08:38; Start 09/28/19 at 00:30 Insulin Human Isoph/Insulin Regular (HumuLIN 70/30) 4 units DAILYWSUP SQ ; Start 09/28/19 at 17:00 Insulin Human Isoph/Insulin Regular (HumuLIN 70/30) 8 units DAILYWBKFT SQ ; Start 09/28/19 at 08:00 Daptomycin 490 mg/ Sodium Chloride 50 ml @ 100 mls/hr Q24H IV Last administered on 10/06/19at 11:05; Start 09/28/19 at 11:00; Stop 10/06/19 at 12:27; Status DC Meropenem 500 mg/ Sodium Chloride 50 ml @ 100 mls/hr Q8HRS IV Last administered on 10/07/19at 05:57; Start 09/28/19 at 11:00 Sodium Chloride (Normal Saline Flush) 3 ml QSHIFT PRN IV AFTER MEDS AND BLOOD DRAWS; Start 09/28/19 at 11:00; Stop 10/06/19 at 12:49; Status DC Sodium Chloride 1,000 ml @ 100 mls/hr Q10H IV Last administered on 10/04/19at 20:30; Start 09/28/19 at 10:58; Stop 10/05/19 at 14:45; Status DC Ondansetron HCl (Zofran) 4 mg PRN Q4HRS PRN IV NAUSEA/VOMITING Last administered on 10/03/19at 08:08; Start 09/28/19 at 11:00; Stop 10/05/19 at 12:14; Status DC Acetaminophen (Tylenol) 650 mg PRN Q4HRS PRN PO TEMP OVER 100.4F OR MILD PAIN Last administered on 10/01/19at 23:49; Start 09/28/19 at 11:00 Al Hydroxide/Mg Hydroxide (Mylanta Plus Xs) 30 ml PRN DAILY PRN PO HEARTBURN / GAS; Start 09/28/19 at 11:00 Clonidine HCl (Catapres) 0.1 mg PRN Q6HRS PRN PO SBP>160 OR DBP>90 Last administered on 09/30/19at 22:09; Start 09/28/19 at 11:00; Stop 10/02/19 at 13:59; Status DC Sodium Monofluorophosphate (Fleet Adult) 133 ml PRN DAILY PRN AR CONSTIPATION; Start 09/28/19 at 11:00 Docusate Sodium (Colace) 100 mg PRN BID PRN PO HARD STOOLS; Start 09/28/19 at 11:00 Albuterol Sulfate (Ventolin Neb Soln) 2.5 mg PRN Q4HRS PRN NEB SHORTNESS OF BREATH Last administered on 10/05/19at 11:57; Start 09/28/19 at 11:00 Guaifenesin (Robitussin) 200 mg PRN Q4HRS PRN PO COUGH; Start 09/28/19 at 11:00 Lorazepam (Ativan) 0.5 mg PRN Q4HRS PRN PO ANXIETY / AGITATION Last administered on 10/02/19at 21:04; Start 09/28/19 at 11:00 Hydromorphone HCl (Dilaudid) 0.5 mg PRN Q2HRS PRN IV SEVERE PAIN 7-10; Start 09/28/19 at 11:00 Enoxaparin Sodium (Lovenox 40mg Syringe) 40 mg Q24H SQ Last administered on 10/06/19at 12:21; Start 09/28/19 at 12:00 Sodium Chloride 500 ml @ 500 mls/hr 1X ONCE IV Last administered on 09/28/19at 13:11; Start 09/28/19 at 12:45; Stop 09/28/19 at 13:44; Status DC Hydralazine HCl (Apresoline Inj) 10 mg 1X ONCE IVP Last administered on 09/28/19at 14:17; Start 09/28/19 at 14:15; Stop 09/28/19 at 14:16; Status DC Hydralazine HCl (Apresoline Inj) 10 mg PRN Q4HRS PRN IVP HYPERTENSION, 2nd choice Last administered on 10/06/19at 21:06; Start 09/28/19 at 16:15 Metoprolol Tartrate (Lopressor Vial) 5 mg PRN Q6HRS PRN IVP HYPERTENSION, 1st choice Last administered on 10/02/19at 08:19; Start 09/28/19 at 16:15; Stop 10/02/19 at 13:59; Status DC Lactobacillus Rhamnosus (Culturelle) 1 cap BID PO Last administered on 10/06/19at 21:05; Start 09/29/19 at 21:00 Atorvastatin Calcium (Lipitor) 40 mg QHS PO Last administered on 10/06/19at 21:05; Start 09/29/19 at 21:00 Potassium Chloride (Klor-Con) 40 meq 1X ONCE PO ; Start 09/30/19 at 12:30; Stop 09/30/19 at 12:31; Status Cancel Lidocaine HCl (Buffered Lidocaine 1%) 3 ml STK-MED ONCE .ROUTE ; Start 09/30/19 at 13:49; Stop 09/30/19 at 13:49; Status DC Iodixanol (Visipaque 320) 100 ml STK-MED ONCE .ROUTE ; Start 09/30/19 at 13:49; Stop 09/30/19 at 13:49; Status DC Heparin Sodium/ Sodium Chloride 1,000 ml @ As Directed STK-MED ONCE .ROUTE ; Start 09/30/19 at 13:49; Stop 09/30/19 at 13:49; Status DC Heparin Sodium/ Sodium Chloride 500 ml @ As Directed STK-MED ONCE .ROUTE ; Start 09/30/19 at 13:54; Stop 09/30/19 at 13:55; Status DC Midazolam HCl (Versed) 5 mg STK-MED ONCE .ROUTE ; Start 09/30/19 at 14:10; Stop 09/30/19 at 14:10; Status DC Fentanyl Citrate (Fentanyl 2ml Vial) 100 mcg STK-MED ONCE .ROUTE ; Start 09/30/19 at 14:10; Stop 09/30/19 at 14:10; Status DC Heparin Sodium (Porcine) (Heparin Sodium) 10,000 unit STK-MED ONCE .ROUTE ; Start 09/30/19 at 14:31; Stop 09/30/19 at 14:31; Status DC Ondansetron HCl (Zofran) 4 mg PRN Q6HRS PRN IV NAUSEA/VOMITING; Start 10/01/19 at 07:00; Stop 10/02/19 at 06:59; Status DC Morphine Sulfate (Morphine Sulfate) 1 mg PRN Q10MIN PRN IV SEVERE PAIN 7-10; Start 10/01/19 at 07:00; Stop 10/02/19 at 06:59; Status DC Ringer's Solution 1,000 ml @ 30 mls/hr Q24H IV Last administered on 10/01/19at 10:28; Start 10/01/19 at 07:00; Stop 10/01/19 at 18:59; Status DC Lidocaine HCl (Xylocaine-Mpf 1% 2ml Vial) 2 ml PRN 1X PRN ID PRIOR TO IV START; Start 10/01/19 at 07:00; Stop 10/02/19 at 06:59; Status DC Hydromorphone HCl (Dilaudid) 0.5 mg PRN Q10MIN PRN IV SEV PAIN, Second choice; Start 10/01/19 at 07:00; Stop 10/02/19 at 06:59; Status DC Prochlorperazine Edisylate (Compazine) 5 mg PACU PRN PRN IV NAUSEA, MRX1; Start 10/01/19 at 07:00; Stop 10/02/19 at 06:59; Status DC Heparin Sodium/ Sodium Chloride (HEPARIN for ARTERIAL LINE FLUSH) 1,000 unit 1X ONCE IART Last administered on 09/30/19at 15:31; Start 09/30/19 at 14:45; Stop 09/30/19 at 14:46; Status DC Heparin Sodium/ Sodium Chloride (HEPARIN for ARTERIAL LINE FLUSH) 2,000 unit 1X ONCE IART Last administered on 09/30/19at 15:31; Start 09/30/19 at 14:45; Stop 09/30/19 at 14:46; Status DC Lidocaine HCl (Buffered Lidocaine 1%) 3 ml 1X ONCE IJ Last administered on 09/30/19at 15:32; Start 09/30/19 at 14:45; Stop 09/30/19 at 14:46; Status DC Midazolam HCl (Versed) 5 mg 1X ONCE IV Last administered on 09/30/19at 15:32; Start 09/30/19 at 14:45; Stop 09/30/19 at 14:46; Status DC Fentanyl Citrate (Fentanyl 2ml Vial) 100 mcg 1X ONCE IV Last administered on 09/30/19at 15:33; Start 09/30/19 at 14:45; Stop 09/30/19 at 14:46; Status DC Iodixanol (Visipaque 320) 100 ml 1X ONCE IART Last administered on 09/30/19at 15:31; Start 09/30/19 at 14:45; Stop 09/30/19 at 14:46; Status DC Heparin Sodium (Porcine) (Heparin Sodium) 5,000 unit 1X ONCE IV Last administered on 09/30/19at 15:34; Start 09/30/19 at 14:45; Stop 09/30/19 at 14:46; Status DC Potassium Chloride (Klor-Con) 40 meq 1X ONCE PO Last administered on 09/30/19at 22:05; Start 09/30/19 at 22:00; Stop 09/30/19 at 22:01; Status DC Heparin Sodium (Porcine) 5000 unit/Sodium Chloride 505 ml @ 505 mls/hr 1X ONCE IRR ; Start 10/01/19 at 11:00; Stop 10/01/19 at 11:59; Status DC Cefazolin Sodium 1 gm/Sodium Chloride 500 ml @ 500 mls/hr 1X ONCE IRR ; Start 10/01/19 at 11:00; Stop 10/01/19 at 11:59; Status DC Propofol (Diprivan) 200 mg STK-MED ONCE IV ; Start 10/01/19 at 11:07; Stop 10/01/19 at 11:07; Status DC Dexamethasone Sodium Phosphate (Decadron) 4 mg STK-MED ONCE .ROUTE ; Start 10/01/19 at 11:07; Stop 10/01/19 at 11:07; Status DC Lidocaine HCl (Lidocaine Pf 2% Vial) 5 ml STK-MED ONCE .ROUTE ; Start 10/01/19 at 11:07; Stop 10/01/19 at 11:07; Status DC Ondansetron HCl (Zofran) 4 mg STK-MED ONCE .ROUTE ; Start 10/01/19 at 11:07; Stop 10/01/19 at 11:07; Status DC Rocuronium [place] (Zemuron) 50 mg STK-MED ONCE .ROUTE ; Start 10/01/19 at 11:07; Stop 10/01/19 at 11:07; Status DC Fentanyl Citrate (Fentanyl 2ml Vial) 100 mcg STK-MED ONCE .ROUTE ; Start 10/01/19 at 11:07; Stop 10/01/19 at 11:07; Status DC Acetaminophen (Tylenol Supp) 650 mg 1X ONCE AR Last administered on 10/01/19at 11:58; Start 10/01/19 at 12:00; Stop 10/01/19 at 12:01; Status DC Iohexol (Omnipaque 300 Mg/ml) 50 ml STK-MED ONCE .ROUTE ; Start 10/01/19 at 12:07; Stop 10/01/19 at 12:07; Status DC Cellulose (Surgicel Fibrillar 1x2) 1 each STK-MED ONCE .ROUTE ; Start 10/01/19 at 12:07; Stop 10/01/19 at 12:08; Status DC Protamine Sulfate (Protamine) 50 mg STK-MED ONCE IV ; Start 10/01/19 at 12:07; Stop 10/01/19 at 12:08; Status DC Ringer's Solution 1,060 ml @ 1,060 mls/hr 1X ONCE IV Last administered on 10/01/19at 11:30; Start 10/01/19 at 11:30; Stop 10/01/19 at 12:56; Status DC Ondansetron HCl (Zofran) 4 mg STK-MED ONCE .ROUTE ; Start 10/01/19 at 13:59; Stop 10/01/19 at 14:00; Status DC Lidocaine HCl (Lidocaine Pf 2% Vial) 5 ml STK-MED ONCE .ROUTE ; Start 10/01/19 at 13:59; Stop 10/01/19 at 14:00; Status DC Dexamethasone Sodium Phosphate (Decadron) 4 mg STK-MED ONCE .ROUTE ; Start 10/01/19 at 13:59; Stop 10/01/19 at 14:00; Status DC Propofol (Diprivan) 200 mg STK-MED ONCE IV ; Start 10/01/19 at 13:59; Stop 10/01/19 at 14:00; Status DC Clonidine HCl (Catapres Tts-1) 1 patch Sa TD Last administered on 10/02/19at 14:23; Start 10/02/19 at 14:00 Carvedilol (Coreg) 6.25 mg BIDWMEALS PO Last administered on 10/03/19at 08:08; Start 10/02/19 at 17:00; Stop 10/03/19 at 14:18; Status DC Metoclopramide HCl (Reglan Vial) 10 mg QIDACHS IVP Last administered on 10/06/19at 21:05; Start 10/02/19 at 16:30 Carvedilol (Coreg) 12.5 mg BIDWMEALS PO Last administered on 10/06/19at 17:16; Start 10/03/19 at 17:00 Amlodipine Besylate (Norvasc) 5 mg DAILY PO Last administered on 10/06/19at 08:38; Start 10/03/19 at 14:15 Bacitracin 57330 unit/Sodium Chloride 500 ml @ 500 mls/hr 1X ONCE IRR Last administered on 10/05/19at 08:24; Start 10/05/19 at 06:00; Stop 10/05/19 at 06:59; Status DC Heparin Sodium (Porcine) 5000 unit/Sodium Chloride 505 ml @ 505 mls/hr 1X ONCE IRR ; Start 10/05/19 at 06:00; Stop 10/05/19 at 06:59; Status DC Ondansetron HCl (Zofran) 4 mg PRN Q6HRS PRN IV NAUSEA/VOMITING; Start 10/05/19 at 07:00; Stop 10/06/19 at 06:59; Status DC Fentanyl Citrate (Fentanyl 2ml Vial) 25 mcg PRN Q5MIN PRN IV MILD PAIN 1-3; Start 10/05/19 at 07:00; Stop 10/06/19 at 06:59; Status DC Fentanyl Citrate (Fentanyl 2ml Vial) 50 mcg PRN Q5MIN PRN IV MODERATE TO SEVERE PAIN Last administered on 10/05/19at 11:18; Start 10/05/19 at 07:00; Stop 10/06/19 at 06:59; Status DC Morphine Sulfate (Morphine Sulfate) 1 mg PRN Q10MIN PRN IV SEVERE PAIN 7-10; Start 10/05/19 at 07:00; Stop 10/06/19 at 06:59; Status DC Ringer's Solution 1,000 ml @ 30 mls/hr Q24H IV ; Start 10/05/19 at 07:00; Stop 10/05/19 at 13:52; Status DC Lidocaine HCl (Xylocaine-Mpf 1% 2ml Vial) 2 ml PRN 1X PRN ID PRIOR TO IV START; Start 10/05/19 at 07:00; Stop 10/06/19 at 06:59; Status DC Hydromorphone HCl (Dilaudid) 0.5 mg PRN Q10MIN PRN IV SEV PAIN, Second choice; Start 10/05/19 at 07:00; Stop 10/06/19 at 06:59; Status DC Prochlorperazine Edisylate (Compazine) 5 mg PACU PRN PRN IV NAUSEA, MRX1; Start 10/05/19 at 07:00; Stop 10/06/19 at 06:59; Status DC Lidocaine HCl (Lidocaine Pf 2% Vial) 5 ml STK-MED ONCE .ROUTE ; Start 10/05/19 at 06:52; Stop 10/05/19 at 06:53; Status DC Propofol (Diprivan) 200 mg STK-MED ONCE IV ; Start 10/05/19 at 06:52; Stop 10/05/19 at 06:53; Status DC Succinylcholine Chloride (Anectine) 200 mg STK-MED ONCE .ROUTE ; Start 10/05/19 at 06:53; Stop 10/05/19 at 06:53; Status DC Rocuronium [place] (Zemuron) 50 mg STK-MED ONCE .ROUTE ; Start 10/05/19 at 06:53; Stop 10/05/19 at 06:53; Status DC Fentanyl Citrate (Fentanyl 2ml Vial) 100 mcg STK-MED ONCE .ROUTE ; Start 10/05/19 at 06:53; Stop 10/05/19 at 06:53; Status DC Gelatin (Gelfoam Size 100) 1 each STK-MED ONCE .ROUTE ; Start 10/05/19 at 06:58; Stop 10/05/19 at 06:58; Status DC Iohexol (Omnipaque 300 Mg/ml) 50 ml STK-MED ONCE .ROUTE ; Start 10/05/19 at 06:58; Stop 10/05/19 at 06:58; Status DC Cellulose (Surgicel Fibrillar 1x2) 1 each STK-MED ONCE .ROUTE Last administered on 10/05/19at 08:23; Start 10/05/19 at 06:58; Stop 10/05/19 at 06:59; Status DC Thrombin 20,000 unit STK-MED ONCE TP ; Start 10/05/19 at 06:59; Stop 10/05/19 at 06:59; Status DC Insulin Human Lispro (HumaLOG VIAL for OP,RR ONLY) 0-10 units PRN Q1HR PRN SQ PER PROTOCOL; Start 10/05/19 at 07:30; Stop 10/06/19 at 07:29; Status DC Dexamethasone Sodium Phosphate (Decadron) 20 mg STK-MED ONCE .ROUTE ; Start 10/05/19 at 07:37; Stop 10/05/19 at 07:37; Status DC Ondansetron HCl (Zofran) 4 mg STK-MED ONCE .ROUTE ; Start 10/05/19 at 07:37; Stop 10/05/19 at 07:37; Status DC Heparin Sodium (Porcine) (Heparin Sodium) 10,000 unit STK-MED ONCE .ROUTE ; Start 10/05/19 at 08:08; Stop 10/05/19 at 08:08; Status DC Desflurane (Suprane) 60 ml STK-MED ONCE IH ; Start 10/05/19 at 08:08; Stop 10/05/19 at 08:08; Status DC Cefazolin Sodium (Ancef) 1 gm STK-MED ONCE IVP ; Start 10/05/19 at 08:15; Stop 10/05/19 at 08:15; Status DC Neostigmine [place] (Neostigmine Methylsulfate) 5 mg STK-MED ONCE .ROUTE ; Start 10/05/19 at 08:22; Stop 10/05/19 at 08:23; Status DC Glycopyrrolate (Robinul) 1 mg STK-MED ONCE .ROUTE ; Start 10/05/19 at 08:22; Stop 10/05/19 at 08:23; Status DC Multivitamins (Thera M Plus) 1 tab DAILY PO Last administered on 10/06/19at 08:39; Start 10/06/19 at 09:00 Sodium Chloride (Normal Saline Flush) 3 ml QSHIFT PRN IV AFTER MEDS AND BLOOD DRAWS; Start 10/05/19 at 10:45 Sodium Chloride 1,000 ml @ 100 mls/hr Q10H IV Last administered on 10/06/19at 09:53; Start 10/05/19 at 10:37; Stop 10/06/19 at 11:23; Status DC Oxycodone/ Acetaminophen (Percocet 5/325) 1 tab PRN Q4HRS PRN PO MILD PAIN, 1ST CHOICE; Start 10/05/19 at 10:45 Oxycodone/ Acetaminophen (Percocet 5/325) 2 tab PRN Q4HRS PRN PO MODERATE PAIN, SEVERE PAIN; Start 10/05/19 at 10:45 Morphine Sulfate (Morphine Sulfate) 2 mg PRN Q1HR PRN IV MODERATE PAIN Last administered on 10/05/19at 13:22; Start 10/05/19 at 10:45 Naloxone HCl (Narcan) 0.4 mg PRN Q2MIN PRN IV SEE INSTRUCTIONS; Start 10/05/19 at 10:45 Sodium Chloride 1,000 ml @ 25 mls/hr Q24H IV ; Start 10/05/19 at 10:37; Stop 10/05/19 at 13:52; Status DC Senna/Docusate Sodium (Senna Plus) 1 tab BID PO Last administered on 10/06/19at 21:05; Start 10/05/19 at 21:00 Docusate Sodium (Colace) 100 mg BID PO ; Start 10/05/19 at 21:00 Ondansetron HCl (Zofran) 4 mg PRN Q6HRS PRN IVP NAUESA, 1ST CHOICE; Start 10/05/19 at 10:45 Prochlorperazine Edisylate (Compazine) 5 mg PRN Q6HRS PRN IV N/V, 2nd Choice, MR X1; Start 10/05/19 at 10:45 Labetalol HCl (Normodyne Iv Push) 10 mg PRN Q2HR PRN IVP HYPERTENSION; Start 10/05/19 at 10:45 Fentanyl Citrate (Fentanyl 2ml Vial) 100 mcg STK-MED ONCE .ROUTE ; Start 10/05/19 at 11:15; Stop 10/05/19 at 11:16; Status DC Hydralazine HCl (Apresoline Inj) 20 mg STK-MED ONCE .ROUTE ; Start 10/05/19 at 11:41; Stop 10/05/19 at 11:41; Status DC Hydralazine HCl (Apresoline Inj) 10 mg 1X ONCE IVP Last administered on 10/05/19at 12:18; Start 10/05/19 at 12:15; Stop 10/05/19 at 12:16; Status DC Magnesium Sulfate/ Dextrose 100 ml @ 100 mls/hr 1X ONCE IV Last administered on 10/06/19at 09:53; Start 10/06/19 at 08:15; Stop 10/06/19 at 09:14; Status DC Potassium Chloride (Klor-Con) 20 meq 1X ONCE PO Last administered on 10/06/19at 08:36; Start 10/06/19 at 08:15; Stop 10/06/19 at 08:22; Status DC Active Scripts Active Reported Zyvox (Linezolid) 600 Mg Tablet 600 Mg PO BID 7 Days Cefdinir 300 Mg Capsule 1 Cap PO BID 7 Days Lisinopril 40 Mg Tablet 40 Mg PO DAILY Relion Novolin 70-30 Vial (Hum Insulin Nph/Reg Insulin Hm) 100 Unit/1 Ml Vial 4 Unit SQ [id number] Relion Novolin 70-30 Vial (Hum Insulin Nph/Reg Insulin Hm) 100 Unit/1 Ml Vial 8 Unit SUBCUT [id number] Vitals/I & O Vital Sign - Last 24 Hours 10/06/19 10/06/19 10/06/19 10/06/19 08:37 08:38 08:38 10:24 Temp 98.7 98.7 Pulse 80 80 80 82 Resp 18 B/P (MAP) 163/75 163/75 163/75 174/81 (112) Pulse Ox 98 O2 Delivery Room Air 10/06/19 10/06/19 10/06/19 10/06/19 14:11 17:16 19:21 20:00 Temp 98.1 97.7 98.1 97.7 Pulse 73 73 79 Resp 18 18 B/P (MAP) 154/72 (99) 154/72 170/80 (110) Pulse Ox 99 97 O2 Delivery Room Air Room Air Room Air 10/06/19 10/06/19 10/07/19 10/07/19 21:06 23:20 03:53 07:00 Temp 98.0 99.1 100.0 98.0 99.1 100.0 Pulse 79 84 86 83 Resp 14 14 20 B/P (MAP) 170/80 157/77 (103) 174/84 (114) 196/91 (126) Pulse Ox 97 96 96 O2 Delivery Room Air Room Air Room Air Intake and Output 10/06/19 10/06/19 10/07/19 15:00 23:00 07:00 Intake Total 470 ml 0 ml Output Total 500 ml 150 ml Balance -30 ml -150 ml HARIS OSULLIVAN MD Oct 07, 2019 08:32
[2019-10-07] MEDS: LISINOPRIL 20 MG TABLET PO SCH (08:33)
[2019-10-07] MEDS: amLODIPine BESYLATE 5 MG TABLET PO SCH (08:33)
[2019-10-07] MEDS: METOCLOPRAMIDE HCL 10 MG/2 ML VIAL. IVP SCH ×4 (08:33→20:59)
[2019-10-07] MEDS: CARVEDILOL 12.5 MG TABLET. PO SCH ×2 (08:33→16:40)
[2019-10-07] MEDS: LACTOBACILLUS RHAMNOSUS GG 1 CAPSULE. PO SCH ×2 (08:33→20:59)
[2019-10-07] MEDS: SENNOSIDES/DOCUSATE 8.6/50MG TABLET. PO SCH ×2 (08:34→20:59)
[2019-10-07] MEDS: DOCUSATE SODIUM 100 MG CAPSULE. PO SCH ×2 (08:34→20:59)
--- NOTE | 2019-10-07 09:44 | PDOC ---
PROGRESS NOTES Subjective Subjective Patient seen and examined in room. Denies foot or leg pain. Complains of shoulder pain, "I think I slept wrong". Minimal PO intake. Objective Objective Vital Signs Date Time Temp Pulse Resp B/P (MAP) Pulse Ox O2 Delivery O2 Flow Rate FiO2 10/07/19 08:33 83 196/91 10/07/19 07:00 100.0 20 96 Room Air 100.0 10/06/19 08:00 2.0 Intake and Output 10/07/19 07:00 Intake Total 470 ml Output Total 650 ml Balance -180 ml Intake Oral 420 ml IV Total 50 ml Output Urine Total 650 ml Physical Exam Physical Exam Awake and alert Left leg Prevena vac in place converted to battery pack, surrounding skin intact, medial thigh incision dry and intact, amputation site dry and intact. Moderate to severe swelling left lower extremity. Biphasic Doppler AT. 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 POD #2 1. Left femoral to above knee popliteal artery bypass using 7 mm Propaten PTFE graft. 2. 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 3. Ray amputation of the fourth toe on the left, including the metatarsal head. 4. 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 Progressing as expected, she has been accepted at [facility] with possible D/C today or tomorrow. Continue Prevena Vac for 7 days. Dry gauze to amputation site, off-loading shoe to use for transfers. Abx per ID. Patient would benefit from daily Aspirin and continued statin therapy Follow up in 2-3 weeks. Comment Review of Relevant I have reviewed the following items hortencia (where applicable) has been applied. Labs Laboratory Tests Test 10/05/19 10:51 10/05/19 12:30 10/05/19 16:32 10/05/19 20:46 Glucose (Fingerstick) 167 mg/dL (70-99) 178 mg/dL (70-99) 187 mg/dL (70-99) Stool Occult Blood Negative (NEG) Clostridium difficile Toxin (PCR) Negative (NEGATIVE) Test 10/06/19 04:08 10/06/19 06:59 10/06/19 11:18 6/10/20 16:33 White Blood Count 15.0 x10^3/uL (4.0-11.0) Red Blood Count 2.94 x10^6/uL (3.50-5.40) Hemoglobin 8.1 g/dL (12.0-15.5) Hematocrit 24.3 % (36.0-47.0) Mean Corpuscular Volume 83 fL (79-100) Mean Corpuscular Hemoglobin 28 pg (25-35) Mean Corpuscular Hemoglobin Concent 34 g/dL (31-37) Red Cell Distribution Width 15.1 % (11.5-14.5) Platelet Count 411 x10^3/uL (140-400) Neutrophils (%) (Auto) 83 % (31-73) Lymphocytes (%) (Auto) 8 % (24-48) Monocytes (%) (Auto) 9 % (0-9) Eosinophils (%) (Auto) 0 % (0-3) Basophils (%) (Auto) 0 % (0-3) Neutrophils # (Auto) 12.5 x10^3/uL (1.8-7.7) Lymphocytes # (Auto) 1.2 x10^3/uL (1.0-4.8) Monocytes # (Auto) 1.4 x10^3/uL (0.0-1.1) Eosinophils # (Auto) 0.0 x10^3/uL (0.0-0.7) Basophils # (Auto) 0.0 x10^3/uL (0.0-0.2) Sodium Level 142 mmol/L (136-145) Potassium Level 3.8 mmol/L (3.5-5.1) Chloride Level 108 mmol/L (98-107) Carbon Dioxide Level 21 mmol/L (21-32) Anion Gap 13 (6-14) Blood Urea Nitrogen 21 mg/dL (7-20) Creatinine 1.2 mg/dL (0.6-1.0) Estimated GFR (Cockcroft-Gault) 56.6 Glucose Level 127 mg/dL (70-99) Calcium Level 8.2 mg/dL (8.5-10.1) Phosphorus Level 4.2 mg/dL (2.6-4.7) Magnesium Level 1.7 mg/dL (1.8-2.4) Glucose (Fingerstick) 187 mg/dL (70-99) 157 mg/dL (70-99) 181 mg/dL (70-99) Test 10/06/19 21:03 10/07/19 03:40 10/07/19 07:27 Glucose (Fingerstick) 200 mg/dL (70-99) 147 mg/dL (70-99) White Blood Count 13.8 x10^3/uL (4.0-11.0) Red Blood Count 3.03 x10^6/uL (3.50-5.40) Hemoglobin 8.4 g/dL (12.0-15.5) Hematocrit 25.2 % (36.0-47.0) Mean Corpuscular Volume 83 fL (79-100) Mean Corpuscular Hemoglobin 28 pg (25-35) Mean Corpuscular Hemoglobin Concent 33 g/dL (31-37) Red Cell Distribution Width 15.4 % (11.5-14.5) Platelet Count 433 x10^3/uL (140-400) Neutrophils (%) (Auto) 81 % (31-73) Lymphocytes (%) (Auto) 9 % (24-48) Monocytes (%) (Auto) 9 % (0-9) Eosinophils (%) (Auto) 0 % (0-3) Basophils (%) (Auto) 0 % (0-3) Neutrophils # (Auto) 11.2 x10^3/uL (1.8-7.7) Lymphocytes # (Auto) 1.2 x10^3/uL (1.0-4.8) Monocytes # (Auto) 1.3 x10^3/uL (0.0-1.1) Eosinophils # (Auto) 0.1 x10^3/uL (0.0-0.7) Basophils # (Auto) 0.0 x10^3/uL (0.0-0.2) Sodium Level 141 mmol/L (136-145) Potassium Level 3.9 mmol/L (3.5-5.1) Chloride Level 108 mmol/L (98-107) Carbon Dioxide Level 23 mmol/L (21-32) Anion Gap 10 (6-14) Blood Urea Nitrogen 23 mg/dL (7-20) Creatinine 1.2 mg/dL (0.6-1.0) Estimated GFR (Cockcroft-Gault) 56.6 BUN/Creatinine Ratio 19 (6-20) Glucose Level 164 mg/dL (70-99) Calcium Level 8.4 mg/dL (8.5-10.1) Total Bilirubin 0.3 mg/dL (0.2-1.0) Aspartate Amino Transf (AST/SGOT) 18 U/L (15-37) Alanine Aminotransferase (ALT/SGPT) 15 U/L (14-59) Alkaline Phosphatase 88 U/L (46-116) Total Protein 5.8 g/dL (6.4-8.2) Albumin 1.6 g/dL (3.4-5.0) Albumin/Globulin Ratio 0.4 (1.0-1.7) Laboratory Tests Test 10/06/19 11:18 10/06/19 16:33 10/06/19 21:03 10/07/19 03:40 Glucose (Fingerstick) 157 mg/dL (70-99) 181 mg/dL (70-99) 200 mg/dL (70-99) White Blood Count 13.8 x10^3/uL (4.0-11.0) Red Blood Count 3.03 x10^6/uL (3.50-5.40) Hemoglobin 8.4 g/dL (12.0-15.5) Hematocrit 25.2 % (36.0-47.0) Mean Corpuscular Volume 83 fL (79-100) Mean Corpuscular Hemoglobin 28 pg (25-35) Mean Corpuscular Hemoglobin Concent 33 g/dL (31-37) Red Cell Distribution Width 15.4 % (11.5-14.5) Platelet Count 433 x10^3/uL (140-400) Neutrophils (%) (Auto) 81 % (31-73) Lymphocytes (%) (Auto) 9 % (24-48) Monocytes (%) (Auto) 9 % (0-9) Eosinophils (%) (Auto) 0 % (0-3) Basophils (%) (Auto) 0 % (0-3) Neutrophils # (Auto) 11.2 x10^3/uL (1.8-7.7) Lymphocytes # (Auto) 1.2 x10^3/uL (1.0-4.8) Monocytes # (Auto) 1.3 x10^3/uL (0.0-1.1) Eosinophils # (Auto) 0.1 x10^3/uL (0.0-0.7) Basophils # (Auto) 0.0 x10^3/uL (0.0-0.2) Sodium Level 141 mmol/L (136-145) Potassium Level 3.9 mmol/L (3.5-5.1) Chloride Level 108 mmol/L (98-107) Carbon Dioxide Level 23 mmol/L (21-32) Anion Gap 10 (6-14) Blood Urea Nitrogen 23 mg/dL (7-20) Creatinine 1.2 mg/dL (0.6-1.0) Estimated GFR (Cockcroft-Gault) 56.6 BUN/Creatinine Ratio 19 (-20) Glucose Level 164 mg/dL (70-99) Calcium Level 8.4 mg/dL (8.5-10.1) Total Bilirubin 0.3 mg/dL (0.2-1.0) Aspartate Amino Transf (AST/SGOT) 18 U/L (15-37) Alanine Aminotransferase (ALT/SGPT) 15 U/L (14-59) Alkaline Phosphatase 88 U/L (46-116) Total Protein 5.8 g/dL (6.4-8.2) Albumin 1.6 g/dL (3.4-5.0) Albumin/Globulin Ratio 0.4 (1.0-1.7) Test 10/07/19 07:27 Glucose (Fingerstick) 147 mg/dL (70-99) Microbiology 09/27/19 Urine Culture - Final, Complete 09/27/19 Gram Stain - Final, Complete 09/27/19 Aerobic and Anaerobic Culture - Final, Complete 09/27/19 Antimicrobic Susceptibility - Final, Complete Medications Current Medications Sodium Chloride 1,000 ml @ 1,000 mls/hr 1X ONCE IV Last administered on 09/27/19at 19:25; Start 09/27/19 at 18:30; Stop 09/27/19 at 19:29; Status DC Acetaminophen (Tylenol) 1,000 mg 1X ONCE PO Last administered on 09/27/19at 19 :25; Start 09/27/19 at 18:30; Stop 09/27/19 at 18:37; Status DC Clonidine HCl (Catapres) 0.1 mg 1X ONCE PO Last administered on 09/27/19at 19:26; Start 09/27/19 at 18:45; Stop 09/27/19 at 18:46; Status DC Vancomycin HCl 250 ml @ 250 mls/hr 1X ONCE IV Last administered on 09/27/19at 20:56; Start 09/27/19 at 20:30; Stop 09/27/19 at 21:29; Status DC Ondansetron HCl (Zofran) 4 mg PRN Q8HRS PRN IV NAUSEA/VOMITING; Start 09/27/19 at 20:45; Stop 09/28/19 at 13:59; Status DC Fentanyl Citrate (Fentanyl 2ml Vial) 50 mcg PRN Q1HR PRN IV PAIN; Start 09/27/19 at 20:45; Stop 09/28/19 at 20:44; Status DC Acetaminophen (Tylenol) 650 mg PRN Q4HRS PRN PO FEVER > 100.3'F; Start 09/27/19 at 20:45; Stop 09/28/19 at 13:58; Status DC Lisinopril (Prinivil) 40 mg DAILY PO Last administered on 10/07/19at 08:33; Start 09/28/19 at 00:30 Insulin Human Isoph/Insulin Regular (HumuLIN 70/30) 4 units DAILYWSUP SQ ; St art 09/28/19 at 17:00 Insulin Human Isoph/Insulin Regular (HumuLIN 70/30) 8 units [id number] SQ ; Start 09/28/19 at 08:00 Daptomycin 490 mg/ Sodium Chloride 50 ml @ 100 mls/hr Q24H IV Last administered on 10/06/19at 11:05; Start 09/28/19 at 11:00; Stop 10/06/19 at 12:27; Status DC Meropenem 500 mg/ Sodium Chloride 50 ml @ 100 mls/hr Q8HRS IV Last administered on 10/07/19at 05:57; Start 09/28/19 at 11:00 Sodium Chloride (Normal Saline Flush) 3 ml QSHIFT PRN IV AFTER MEDS AND BLOOD DRAWS; Start 09/28/19 at 11:00; Stop 10/06/19 at 12:49; Status DC Sodium Chloride 1,000 ml @ 100 mls/hr Q10H IV Last administered on 10/04/19at 20:30; Start 09/28/19 at 10:58; Stop 10/05/19 at 14:45; Status DC Ondansetron HCl (Zofran) 4 mg PRN Q4HRS PRN IV NAUSEA/VOMITING Last admini stered on 10/03/19at 08:08; Start 09/28/19 at 11:00; Stop 10/05/19 at 12:14; Status DC Acetaminophen (Tylenol) 650 mg PRN Q4HRS PRN PO TEMP OVER 100.4F OR MILD PAIN Last administered on 10/01/19at 23:49; Start 09/28/19 at 11:00 Al Hydroxide/Mg Hydroxide (Mylanta Plus Xs) 30 ml PRN DAILY PRN PO HEARTBURN / GAS; Start 09/28/19 at 11:00 Clonidine HCl (Catapres) 0.1 mg PRN Q6HRS PRN PO SBP>160 OR DBP>90 Last administered on 09/30/19at 22:09; Start 09/28/19 at 11:00; Stop 10/02/19 at 13:59; Status DC Sodium Monofluorophosphate (Fleet Adult) 133 ml PRN DAILY PRN NE CONSTIPATION; Start 09/28/19 at 11:00 Docusate Sodium (Colace) 100 mg PRN BID PRN PO HARD STOOLS; Start 09/28/19 at 11:00 Albuterol Sulfate (Ventolin Neb Soln) 2.5 mg PRN Q4HRS PRN NEB SHORTNESS OF BREATH Last administered on 10/05/19at 11:57; Start 09/28/19 at 11:00 Guaifenesin (Robitussin) 200 mg PRN Q4HRS PRN PO COUGH; Start 09/28/19 at 11:00 Lorazepam (Ativan) 0.5 mg PRN Q4HRS PRN PO ANXIETY / AGITATION Last administered on 10/02/19at 21:04; Start 09/28/19 at 11:00 Hydromorphone HCl (Dilaudid) 0.5 mg PRN Q2HRS PRN IV SEVERE PAIN 7-10; Start 09/28/19 at 11:00 Enoxaparin Sodium (Lovenox 40mg Syringe) 40 mg Q24H SQ Last administered on 10/06/19at 12:21; Start 09/28/19 at 12:00 Sodium Chloride 500 ml @ 500 mls/hr 1X ONCE IV Last administered on 09/28/19at 13:11; Start 09/28/19 at 12:45; Stop 09/28/19 at 13:44; Status DC Hydralazine HCl (Apresoline Inj) 10 mg 1X ONCE IVP Last administered on 09/28/19at 14:17; Start 09/28/19 at 14:15; Stop 09/28/19 at 14:16; Status DC Hydralazine HCl (Apresoline Inj) 10 mg PRN Q4HRS PRN IVP HYPERTENSION, 2nd choice Last administered on 10/06/19at 21:06; Start 09/28/19 at 16:15 Metoprolol Tartrate (Lopressor Vial) 5 mg PRN Q6HRS PRN IVP HYPERTENSION, 1st choice Last administered on 10/02/19at 08:19; Start 09/28/19 at 16:15; Stop 10/02/19 at 13:59; Status DC Lactobacillus Rhamnosus (Culturelle) 1 cap BID PO Last administered on 10/07/19at 08:33; Start 09/29/19 at 21:00 Atorvastatin Calcium (Lipitor) 40 mg QHS PO Last administered on 10/06/19at 2 1:05; Start 09/29/19 at 21:00 Potassium Chloride (Klor-Con) 40 meq 1X ONCE PO ; Start 09/30/19 at 12:30; Stop 09/30/19 at 12:31; Status Cancel Lidocaine HCl (Buffered Lidocaine 1%) 3 ml STK-MED ONCE .ROUTE ; Start 09/30/19 at 13:49; Stop 09/30/19 at 13:49; Status DC Iodixanol (Visipaque 320) 100 ml STK-MED ONCE .ROUTE ; Start 09/30/19 at 13:49; Stop 09/30/19 at 13:49; Status DC Heparin Sodium/ Sodium Chloride 1,000 ml @ As Directed STK-MED ONCE .ROUTE ; Start 09/30/19 at 13:49; Stop 09/30/19 at 13:49; Status DC Heparin Sodium/ Sodium Chloride 500 ml @ As Directed STK-MED ONCE .ROUTE ; Start 09/30/19 at 13:54; Stop 09/30/19 at 13:55; Status DC Midazolam HCl (Versed) 5 mg STK-MED ONCE .ROUTE ; Start 09/30/19 at 14:10; Stop 09/30/19 at 14:10; Status DC Fentanyl Citrate (Fentanyl 2ml Vial) 100 mcg STK-MED ONCE .ROUTE ; Start 09/30/19 at 14:10; Stop 09/30/19 at 14:10; Status DC Heparin Sodium (Porcine) (Heparin Sodium) 10,000 unit STK-MED ONCE .ROUTE ; Start 09/30/19 at 14:31; Stop 09/30/19 at 14:31; Status DC Ondansetron HCl (Zofran) 4 mg PRN Q6HRS PRN IV NAUSEA/VOMITING; Start 10/01/19 at 07:00; Stop 10/02/19 at 06:59; Status DC Morphine Sulfate (Morphine Sulfate) 1 mg PRN Q10MIN PRN IV SEVERE PAIN 7-10; Start 10/01/19 at 07:00; Stop 10/02/19 at 06:59; Status DC Ringer's Solution 1,000 ml @ 30 mls/hr Q24H IV Last administered on 10/01/19at 10:28; Start 10/01/19 at 07:00; Stop 10/01/19 at 18:59; Status DC Lidocaine HCl (Xylocaine-Mpf 1% 2ml Vial) 2 ml PRN 1X PRN ID PRIOR TO IV START; Start 10/01/19 at 07:00; Stop 10/02/19 at 06:59; Status DC Hydromorphone HCl (Dilaudid) 0.5 mg PRN Q10MIN PRN IV SEV PAIN, Second choice; Start 10/01/19 at 07:00; Stop 10/02/19 at 06:59; Status DC Prochlorperazine Edisylate (Compazine) 5 mg PACU PRN PRN IV NAUSEA, MRX1; Start 10/01/19 at 07:00; Stop 10/02/19 at 06:59; Status DC Heparin Sodium/ Sodium Chloride (HEPARIN for ARTERIAL LINE FLUSH) 1,000 unit 1X ONCE IART Last administered on 09/30/19at 15:31; Start 09/30/19 at 14:45; Stop 09/30/19 at 14:46; Status DC Heparin Sodium/ Sodium Chloride (HEPARIN for ARTERIAL LINE FLUSH) 2,000 unit 1X ONCE IART Last administered on 09/30/19at 15:31; Start 09/30/19 at 14:45; Stop 09/30/19 at 14:46; Status DC Lidocaine HCl (Buffered Lidocaine 1%) 3 ml 1X ONCE IJ Last administered on 09/30/19at 15:32; Start 09/30/19 at 14:45; Stop 09/30/19 at 14:46; Status DC Midazolam HCl (Versed) 5 mg 1X ONCE IV Last administered on 09/30/19at 15:32; Start 09/30/19 at 14:45; Stop 09/30/19 at 14:46; Status DC Fentanyl Citrate (Fentanyl 2ml Vial) 100 mcg 1X ONCE IV Last administered on 09/30/19at 15:33; Start 09/30/19 at 14:45; Stop 09/30/19 at 14:46; Status DC Iodixanol (Visipaque 320) 100 ml 1X ONCE IART Last administered on 09/30/19at 15:31; Start 09/30/19 at 14:45; Stop 09/30/19 at 14:46; Status DC Heparin Sodium (Porcine) (Heparin Sodium) 5,000 unit 1X ONCE IV Last administered on 09/30/19at 15:34; Start 09/30/19 at 14:45; Stop 09/30/19 at 14:46; Status DC Potassium Chloride (Klor-Con) 40 meq 1X ONCE PO Last administered on 09/30/19at 22:05; Start 09/30/19 at 22:00; Stop 09/30/19 at 22:01; Status DC Heparin Sodium (Porcine) 5000 unit/Sodium Chloride 505 ml @ 505 mls/hr 1X ONCE IRR ; Start 10/01/19 at 11:00; Stop 10/01/19 at 11:59; Status DC Cefazolin Sodium 1 gm/Sodium Chloride 500 ml @ 500 mls/hr 1X ONCE IRR ; Start 10/01/19 at 11:00; Stop 10/01/19 at 11:59; Status DC Propofol (Diprivan) 200 mg STK-MED ONCE IV ; Start 10/01/19 at 11:07; Stop 10/01/19 at 11:07; Status DC Dexamethasone Sodium Phosphate (Decadron) 4 mg STK-MED ONCE .ROUTE ; Start 10/01/19 at 11:07; Stop 10/01/19 at 11:07; Status DC Lidocaine HCl (Lidocaine Pf 2% Vial) 5 ml STK-MED ONCE .ROUTE ; Start 10/01/19 at 11:07; Stop 10/01/19 at 11:07; Status DC Ondansetron HCl (Zofran) 4 mg STK-MED ONCE .ROUTE ; Start 10/01/19 at 11:07; Stop 10/01/19 at 11:07; Status DC Rocuronium [place] (Zemuron) 50 mg STK-MED ONCE .ROUTE ; Start 10/01/19 at 11:07; Stop 10/01/19 at 11:07; Status DC Fentanyl Citrate (Fentanyl 2ml Vial) 100 mcg STK-MED ONCE .ROUTE ; Start 10/01/19 at 11:07; Stop 10/01/19 at 11:07; Status DC Acetaminophen (Tylenol Supp) 650 mg 1X ONCE NE Last administered on 10/01/19at 11:58; Start 10/01/19 at 12:00; Stop 10/01/19 at 12:01; Status DC Iohexol (Omnipaque 300 Mg/ml) 50 ml STK-MED ONCE .ROUTE ; Start 10/01/19 at 12:07; Stop 10/01/19 at 12:07; Status DC Cellulose (Surgicel Fibrillar 1x2) 1 each STK-MED ONCE .ROUTE ; Start 10/01/19 at 12:07; Stop 10/01/19 at 12:08; Status DC Protamine Sulfate (Protamine) 50 mg STK-MED ONCE IV ; Start 10/01/19 at 12:07; Stop 10/01/19 at 12:08; Status DC Ringer's Solution 1,060 ml @ 1,060 mls/hr 1X ONCE IV Last administered on 10/01/19at 11:30; Start 10/01/19 at 11:30; Stop 10/01/19 at 12:56; Status DC Ondansetron HCl (Zofran) 4 mg STK-MED ONCE .ROUTE ; Start 10/01/19 at 13:59; Stop 10/01/19 at 14:00; Status DC Lidocaine HCl (Lidocaine Pf 2% Vial) 5 ml STK-MED ONCE .ROUTE ; Start 10/01/19 at 13:59; Stop 10/01/19 at 14:00; Status DC Dexamethasone Sodium Phosphate (Decadron) 4 mg STK-MED ONCE .ROUTE ; Start 10/01/19 at 13:59; Stop 10/01/19 at 14:00; Status DC Propofol (Diprivan) 200 mg STK-MED ONCE IV ; Start 10/01/19 at 13:59; Stop 10/01/19 at 14:00; Status DC Clonidine HCl (Catapres Tts-1) 1 patch Sa TD Last administered on 10/02/19at 14:23; Start 10/02/19 at 14:00 Carvedilol (Coreg) 6.25 mg BIDWMEALS PO Last administered on 10/03/19at 08:08; Start 10/02/19 at 17:00; Stop 10/03/19 at 14:18; Status DC Metoclopramide HCl (Reglan Vial) 10 mg QIDACHS IVP Last administered on 10/07/19at 08:33; Start 10/02/19 at 16:30 Carvedilol (Coreg) 12.5 mg BIDWMEALS PO Last administered on 10/07/19at 08:33; Start 10/03/19 at 17:00 Amlodipine Besylate (Norvasc) 5 mg DAILY PO Last administered on 10/07/19at 08:33; Start 10/03/19 at 14:15 Bacitracin 51953 unit/Sodium Chloride 500 ml @ 500 mls/hr 1X ONCE IRR Last administered on 10/05/19at 08:24; Start 10/05/19 at 06:00; Stop 10/05/19 at 06:59; Status DC Heparin Sodium (Porcine) 5000 unit/Sodium Chloride 505 ml @ 505 mls/hr 1X ONCE IRR ; Start 10/05/19 at 06:00; Stop 10/05/19 at 06:59; Status DC Ondansetron HCl (Zofran) 4 mg PRN Q6HRS PRN IV NAUSEA/VOMITING; Start 10/05/19 at 07:00; Stop 10/06/19 at 06:59; Status DC Fentanyl Citrate (Fentanyl 2ml Vial) 25 mcg PRN Q5MIN PRN IV MILD PAIN 1-3; Start 10/05/19 at 07:00; Stop 10/06/19 at 06:59; Status DC Fentanyl Citrate (Fentanyl 2ml Vial) 50 mcg PRN Q5MIN PRN IV MODERATE TO SEVERE PAIN Last administered on 10/05/19at 11:18; Start 10/05/19 at 07:00; Stop 10/06/19 at 06:59; Status DC Morphine Sulfate (Morphine Sulfate) 1 mg PRN Q10MIN PRN IV SEVERE PAIN 7-10; Start 10/05/19 at 07:00; Stop 10/06/19 at 06:59; Status DC Ringer's Solution 1,000 ml @ 30 mls/hr Q24H IV ; Start 10/05/19 at 07:00; Stop 10/05/19 at 13:52; Status DC Lidocaine HCl (Xylocaine-Mpf 1% 2ml Vial) 2 ml PRN 1X PRN ID PRIOR TO IV START; Start 10/05/19 at 07:00; Stop 10/06/19 at 06:59; Status DC Hydromorphone HCl (Dilaudid) 0.5 mg PRN Q10MIN PRN IV SEV PAIN, Second choice; Start 10/05/19 at 07:00; Stop 10/06/19 at 06:59; Status DC Prochlorperazine Edisylate (Compazine) 5 mg PACU PRN PRN IV NAUSEA, MRX1; Start 10/05/19 at 07:00; Stop 10/06/19 at 06:59; Status DC Lidocaine HCl (Lidocaine Pf 2% Vial) 5 ml STK-MED ONCE .ROUTE ; Start 10/05/19 at 06:52; Stop 10/05/19 at 06:53; Status DC Propofol (Diprivan) 200 mg STK-MED ONCE IV ; Start 10/05/19 at 06:52; Stop 10/05/19 at 06:53; Status DC Succinylcholine Chloride (Anectine) 200 mg STK-MED ONCE .ROUTE ; Start 10/05/19 at 06:53; Stop 10/05/19 at 06:53; Status DC Rocuronium [place] (Zemuron) 50 mg STK-MED ONCE .ROUTE ; Start 10/05/19 at 06:53; Stop 10/05/19 at 06:53; Status DC Fentanyl Citrate (Fentanyl 2ml Vial) 100 mcg STK-MED ONCE .ROUTE ; Start 10/05/19 at 06:53; Stop 10/05/19 at 06:53; Status DC Gelatin (Gelfoam Size 100) 1 each STK-MED ONCE .ROUTE ; Start 10/05/19 at 06:58; Stop 10/05/19 at 06:58; Status DC Iohexol (Omnipaque 300 Mg/ml) 50 ml STK-MED ONCE .ROUTE ; Start 10/05/19 at 06:58 ; Stop 10/05/19 at 06:58; Status DC Cellulose (Surgicel Fibrillar 1x2) 1 each STK-MED ONCE .ROUTE Last administered on 10/05/19at 08:23; Start 10/05/19 at 06:58; Stop 10/05/19 at 06:59; Status DC Thrombin 20,000 unit STK-MED ONCE TP ; Start 10/05/19 at 06:59; Stop 10/05/19 at 06:59; Status DC Insulin Human Lispro (HumaLOG VIAL for OP,RR ONLY) 0-10 units PRN Q1HR PRN SQ PER PROTOCOL; Start 10/05/19 at 07:30; Stop 10/06/19 at 07:29; Status DC Dexamethasone Sodium Phosphate (Decadron) 20 mg STK-MED ONCE .ROUTE ; Start 10/05/19 at 07:37; Stop 10/05/19 at 07:37; Status DC Ondansetron HCl (Zofran) 4 mg STK-MED ONCE .ROUTE ; Start 10/05/19 at 07:37; Stop 10/05/19 at 07:37; Status DC Heparin Sodium (Porcine) (Heparin Sodium) 10,000 unit STK-MED ONCE .ROUTE ; Start 10/05/19 at 08:08; Stop 10/05/19 at 08:08; Status DC Desflurane (Suprane) 60 ml STK-MED ONCE IH ; Start 10/05/19 at 08:08; Stop 10/05/19 at 08:08; Status DC Cefazolin Sodium (Ancef) 1 gm STK-MED ONCE IVP ; Start 10/05/19 at 08:15; Stop 10/05/19 at 08:15; Status DC Neostigmine [place] (Neostigmine Methylsulfate) 5 mg STK-MED ONCE .ROUTE ; Start 10/05/19 at 08:22; Stop 10/05/19 at 08:23; Status DC Glycopyrrolate (Robinul) 1 mg STK-MED ONCE .ROUTE ; Start 10/05/19 at 08:22; Stop 10/05/19 at 08:23; Status DC Multivitamins (Thera M Plus) 1 tab DAILY PO Last administered on 10/07/19at 08:32; Start 10/06/19 at 09:00 Sodium Chloride (Normal Saline Flush) 3 ml QSHIFT PRN IV AFTER MEDS AND BLOOD DRAWS; Start 10/05/19 at 10:45 Sodium Chloride 1,000 ml @ 100 mls/hr Q10H IV Last administered on 10/06/19at 09:53; Start 10/05/19 at 10:37; Stop 10/06/19 at 11:23; Status DC Oxycodone/ Acetaminophen (Percocet 5/325) 1 tab PRN Q4HRS PRN PO MILD PAIN, 1ST CHOICE; Start 10/05/19 at 10:45 Oxycodone/ Acetaminophen (Percocet 5/325) 2 tab PRN Q4HRS PRN PO MODERATE PAIN, SEVERE PAIN Last administered on 10/07/19at 08:32; Start 10/05/19 at 10:45 Morphine Sulfate (Morphine Sulfate) 2 mg PRN Q1HR PRN IV MODERATE PAIN Last administered on 10/05/19at 13:22; Start 10/05/19 at 10:45 Naloxone HCl (Narcan) 0.4 mg PRN Q2MIN PRN IV SEE INSTRUCTIONS; Start 10/05/19 at 10:45 Sodium Chloride 1,000 ml @ 25 mls/hr Q24H IV ; Start 10/05/19 at 10:37; Stop 10/05/19 at 13:52; Status DC Senna/Docusate Sodium (Senna Plus) 1 tab BID PO Last administered on 10/06/19at 21:05; Start 10/05/19 at 21:00 Docusate Sodium (Colace) 100 mg BID PO ; Start 10/05/19 at 21:00 Ondansetron HCl (Zofran) 4 mg PRN Q6HRS PRN IVP NAUESA, 1ST CHOICE; Start 10/05/19 at 10:45 Prochlorperazine Edisylate (Compazine) 5 mg PRN Q6HRS PRN IV N/V, 2nd Choice, MR X1; Start 10/05/19 at 10:45 Labetalol HCl (Normodyne Iv Push) 10 mg PRN Q2HR PRN IVP HYPERTENSION; Start 10/05/19 at 10:45 Fentanyl Citrate (Fentanyl 2ml Vial) 100 mcg STK-MED ONCE .ROUTE ; Start 10/05/19 at 11:15; Stop 10/05/19 at 11:16; Status DC Hydralazine HCl (Apresoline Inj) 20 mg STK-MED ONCE .ROUTE ; Start 10/05/19 at 11:41; Stop 10/05/19 at 11:41; Status DC Hydralazine HCl (Apresoline Inj) 10 mg 1X ONCE IVP Last administered on 10/05/19at 12:18; Start 10/05/19 at 12:15; Stop 10/05/19 at 12:16; Status DC Magnesium Sulfate/ Dextrose 100 ml @ 100 mls/hr 1X ONCE IV Last administered on 10/06/19at 09:53; Start 10/06/19 at 08:15; Stop 10/06/19 at 09:14; Status DC Potassium Chloride (Klor-Con) 20 meq 1X ONCE PO Last administered on 10/06/19at 08:36; Start 10/06/19 at 08:15; Stop 10/06/19 at 08:22; Status DC Active Scripts Active Reported Zyvox (Linezolid) 600 Mg Tablet 600 Mg PO BID 7 Days Cefdinir 300 Mg Capsule 1 Cap PO BID 7 Days Lisinopril 40 Mg Tablet 40 Mg PO DAILY Relion Novolin 70-30 Vial (Hum Insulin Nph/Reg Insulin Hm) 100 Unit/1 Ml Vial 4 Unit SQ [id number] Relion Novolin 70-30 Vial (Hum Insulin Nph/Reg Insulin Hm) 100 Unit/1 Ml Vial 8 Unit SUBCUT [id number] Vitals/I & O Vital Sign - Last 24 Hours 10/06/19 10/06/19 10/06/19 10/06/19 10:24 14:11 17:16 19:21 Temp 98.7 98.1 97.7 98.7 98.1 97.7 Pulse 82 73 73 79 Resp 18 18 18 B/P (MAP) 174/81 (112) 154/72 (99) 154/72 170/80 (110) Pulse Ox 98 99 97 O2 Delivery Room Air Room Air Room Air 10/06/19 10/06/19 10/06/19 10/07/19 20:00 21:06 23:20 03:53 Temp 98.0 99.1 98.0 99.1 Pulse 79 84 86 Resp 14 14 B/P (MAP) 170/80 157/77 (103) 174/84 (114) Pulse Ox 97 96 O2 Delivery Room Air Room Air Room Air 10/07/19 10/07/19 10/07/19 10/07/19 07:00 08:33 08:33 08:33 Temp 100.0 100.0 Pulse 83 83 83 83 Resp 20 B/P (MAP) 196/91 (126) 196/91 196/91 196/91 Pulse Ox 96 O2 Delivery Room Air Intake and Output 10/06/19 10/06/19 10/07/19 15:00 23:00 07:00 Intake Total 470 ml 0 ml Output Total 500 ml 150 ml Balance -30 ml -150 ml Justicifation of Admission Dx: Justifications for Admission: Justification of Admission Dx: Yes Sepsis: Failure of Out Pt Tx Cellulitis: Cellulitis [employer] Oct 07, 2019 09:44
[2019-10-07] MEDS ORDERED: ASPIRIN 325 MG TABLET PO SCH (10:00)
--- NOTE | 2019-10-07 10:47 | NUR ---
SS following up with discharge planning. SS reviewed pt chart and discussed with pt RN. Pt accepted at [facility], ; fax [phone], for wound care. Pt still agreeable. Pt first on the list at [facility]. Physician notified. SS will continue to follow for discharge planning.
[2019-10-07 11:02] VITALS: BP 164/77
[2019-10-07] MEDS: CEPHALEXIN 250 MG CAPSULE. PO SCH ×3 (11:11→20:58)
[2019-10-07] MEDS: ENOXAPARIN 40 MG/0.4 ML SYRINGE. SQ SCH (11:45)
--- NOTE | 2019-10-07 12:53 | PDOC3 ---
Discharge Summary Visit Information Date of Admission: Sep 27, 2019 Date of Discharge: Oct 08, 2019 Admitting Diagnosis: Diabetic foot infection Final Diagnosis Problems Medical Problems: (1) Diabetic foot infection Status: Acute Brief Hospital Course Allergies Allergies Coded Allergies Type Severity Reaction Last Updated Verified Sulfa (Sulfonamide Antibiotics) Allergy Severe Anaphylaxis 07/24/16 Yes Penicillins Allergy Intermediate 07/24/16 Yes Vital Signs Vital Signs Date Time Temp Pulse Resp B/P (MAP) Pulse Ox O2 Delivery O2 Flow Rate FiO2 10/07/19 11:02 98.0 70 20 164/77 (106) 95 Room Air 98.0 10/06/19 08:00 2.0 Lab Results Laboratory Tests Test 10/05/19 16:32 10/05/19 20:46 10/06/19 04:08 10/06/19 06:59 Glucose (Fingerstick) 178 mg/dL (70-99) 187 mg/dL (70-99) 187 mg/dL (70-99) White Blood Count 15.0 x10^3/uL (4.0-11.0) Red Blood Count 2.94 x10^6/uL (3.50-5.40) Hemoglobin 8.1 g/dL (12.0-15.5) Hematocrit 24.3 % (36.0-47.0) Mean Corpuscular Volume 83 fL (79-100) Mean Corpuscular Hemoglobin 28 pg (25-35) Mean Corpuscular Hemoglobin Concent 34 g/dL (31-37) Red Cell Distribution Width 15.1 % (11.5-14.5) Platelet Count 411 x10^3/uL (140-400) Neutrophils (%) (Auto) 83 % (31-73) Lymphocytes (%) (Auto) 8 % (24-48) Monocytes (%) (Auto) 9 % (0-9) Eosinophils (%) (Auto) 0 % (0-3) Basophils (%) (Auto) 0 % (0-3) Neutrophils # (Auto) 12.5 x10^3/uL (1.8-7.7) Lymphocytes # (Auto) 1.2 x10^3/uL (1.0-4.8) Monocytes # (Auto) 1.4 x10^3/uL (0.0-1.1) Eosinophils # (Auto) 0.0 x10^3/uL (0.0-0.7) Basophils # (Auto) 0.0 x10^3/uL (0.0-0.2) Sodium Level 142 mmol/L (136-145) Potassium Level 3.8 mmol/L (3.5-5.1) Chloride Level 108 mmol/L (98-107) Carbon Dioxide Level 21 mmol/L (21-32) Anion Gap 13 (6-14) Blood Urea Nitrogen 21 mg/dL (7-20) Creatinine 1.2 mg/dL (0.6-1.0) Estimated GFR (Cockcroft-Gault) 56.6 Glucose Level 127 mg/dL (70-99) Calcium Level 8.2 mg/dL (8.5-10.1) Phosphorus Level 4.2 mg/dL (2.6-4.7) Magnesium Level 1.7 mg/dL (1.8-2.4) Test 10/06/19 11:18 10/06/19 16:33 10/06/19 21:03 10/07/19 03:40 Glucose (Fingerstick) 157 mg/dL (70-99) 181 mg/dL (70-99) 200 mg/dL (70-99) White Blood Count 13.8 x10^3/uL (4.0-11.0) Red Blood Count 3.03 x10^6/uL (3.50-5.40) Hemoglobin 8.4 g/dL (12.0-15.5) Hematocrit 25.2 % (36.0-47.0) Mean Corpuscular Volume 83 fL (79-100) Mean Corpuscular Hemoglobin 28 pg (25-35) Mean Corpuscular Hemoglobin Concent 33 g/dL (31-37) Red Cell Distribution Width 15.4 % (11.5-14.5) Platelet Count 433 x10^3/uL (140-400) Neutrophils (%) (Auto) 81 % (31-73) Lymphocytes (%) (Auto) 9 % (24-48) Monocytes (%) (Auto) 9 % (0-9) Eosinophils (%) (Auto) 0 % (0-3) Basophils (%) (Auto) 0 % (0-3) Neutrophils # (Auto) 11.2 x10^3/uL (1.8-7.7) Lymphocytes # (Auto) 1.2 x10^3/uL (1.0-4.8) Monocytes # (Auto) 1.3 x10^3/uL (0.0-1.1) Eosinophils # (Auto) 0.1 x10^3/uL (0.0-0.7) Basophils # (Auto) 0.0 x10^3/uL (0.0-0.2) Sodium Level 141 mmol/L (136-145) Potassium Level 3.9 mmol/L (3.5-5.1) Chloride Level 108 mmol/L (98-107) Carbon Dioxide Level 23 mmol/L (21-32) Anion Gap 10 (6-14) Blood Urea Nitrogen 23 mg/dL (7-20) Creatinine 1.2 mg/dL (0.6-1.0) Estimated GFR (Cockcroft-Gault) 56.6 BUN/Creatinine Ratio 19 (6-20) Glucose Level 164 mg/dL (70-99) Calcium Level 8.4 mg/dL (8.5-10.1) Total Bilirubin 0.3 mg/dL (0.2-1.0) Aspartate Amino Transf (AST/SGOT) 18 U/L (15-37) Alanine Aminotransferase (ALT/SGPT) 15 U/L (14-59) Alkaline Phosphatase 88 U/L (46-116) Total Protein 5.8 g/dL (6.4-8.2) Albumin 1.6 g/dL (3.4-5.0) Albumin/Globulin Ratio 0.4 (1.0-1.7) Test 10/07/19 07:27 10/07/19 11:58 Glucose (Fingerstick) 147 mg/dL (70-99) 175 mg/dL (70-99) Laboratory Tests Test 10/06/19 16:33 10/06/19 21:03 10/07/19 03:40 10/07/19 07:27 Glucose (Fingerstick) 181 mg/dL (70-99) 200 mg/dL (70-99) 147 mg/dL (70-99) White Blood Count 13.8 x10^3/uL (4.0-11.0) Red Blood Count 3.03 x10^6/uL (3.50-5.40) Hemoglobin 8.4 g/dL (12.0-15.5) Hematocrit 25.2 % (36.0-47.0) Mean Corpuscular Volume 83 fL (79-100) Mean Corpuscular Hemoglobin 28 pg (25-35) Mean Corpuscular Hemoglobin Concent 33 g/dL (31-37) Red Cell Distribution Width 15.4 % (11.5-14.5) Platelet Count 433 x10^3/uL (140-400) Neutrophils (%) (Auto) 81 % (31-73) Lymphocytes (%) (Auto) 9 % (24-48) Monocytes (%) (Auto) 9 % (0-9) Eosinophils (%) (Auto) 0 % (0-3) Basophils (%) (Auto) 0 % (0-3) Neutrophils # (Auto) 11.2 x10^3/uL (1.8-7.7) Lymphocytes # (Auto) 1.2 x10^3/uL (1.0-4.8) Monocytes # (Auto) 1.3 x10^3/uL (0.0-1.1) Eosinophils # (Auto) 0.1 x10^3/uL (0.0-0.7) Basophils # (Auto) 0.0 x10^3/uL (0.0-0.2) Sodium Level 141 mmol/L (136-145) Potassium Level 3.9 mmol/L (3.5-5.1) Chloride Level 108 mmol/L (98-107) Carbon Dioxide Level 23 mmol/L (21-32) Anion Gap 10 (6-14) Blood Urea Nitrogen 23 mg/dL (7-20) Creatinine 1.2 mg/dL (0.6-1.0) Estimated GFR (Cockcroft-Gault) 56.6 BUN/Creatinine Ratio 19 (6-20) Glucose Level 164 mg/dL (70-99) Calcium Level 8.4 mg/dL (8.5-10.1) Total Bilirubin 0.3 mg/dL (0.2-1.0) Aspartate Amino Transf (AST/SGOT) 18 U/L (15-37) Alanine Aminotransferase (ALT/SGPT) 15 U/L (14-59) Alkaline Phosphatase 88 U/L (46-116) Total Protein 5.8 g/dL (6.4-8.2) Albumin 1.6 g/dL (3.4-5.0) Albumin/Globulin Ratio 0.4 (1.0-1.7) Test 10/07/19 11:58 Glucose (Fingerstick) 175 mg/dL (70-99) Brief Hospital Course Ms Polo is a 53-year-old female with PMHx DM2, HTN, CVA with left sided residual weakness who p/w left fourth toe gangrene, peripheral vascular disease. Angio and vein mapping reviewed by Dr. Hernandez, plan for left leg bypass with toe amputations Friday10/05/201910/03: Seen and examined. Pain well controlled. BP controlled. No CP or SOB. 10/04: To OR today for Left femoral to popliteal bypass with 7mm propaten gortex graft, Left closed 3,4,5th toe amputation, and Prevena vac placement proximal incision. Drowsy post-op 10/05: No CP or SOB. Feeling well, pain controlled. Still pretty drowsy. Hb 8.1 post op. Tolerating therapy and antibiotics. She wishes for LTACH in [facility]. Afebrile. Feeling warm today and some nausea. Transitioned to PO antibiotics, keflex by ID. No CP. Normoglycemic, afebrile. Problem list: Diabetic toe with gangrene (s/p amputation left 3,4,5 toes, closed 10/04) PVD confirmed on angiography (s/p left femoral to popliteal bypass 10/04) Diabetes Hypertension Anxiety Depression Soft tissue swelling overlying the dorsum of the midfoot without underlying osseous abnormality or radiopaque foreign body identified.ON PLAIN X-RAY hypertension, HX stroke, diabetes, hyperlipidemia, history of diabetic ketoacidosis. ZURDO fever Normocytic anemia sepsis glucose control needed PVD Occlusion of the left superficial femoral artery with reconstitution at the level of the left popliteal artery, where there appears to be hemodynamically significant stenosis. Monophasic flow in the left subclavian artery suggests greater than 50 percent proximal left subclavian artery stenosis. No evidence of subclavian steal. Leukocytosis likely reactive, C. difficile negative on October 04 Plan: DC meropenem Start Keflex 10/06 Monitor for abx toxicities f/u cultures Monior WBC/temp Local wound care as directed Transfer to LTACH Discharge Information Condition at Discharge: Improved Follow Up: Weeks Disposition/Orders: D/C to Another Facility (LTACH) Scheduled Cefdinir (Cefdinir) 300 Mg Capsule, 1 CAP PO BID for infection for 7 Days, #14 (Reported) Entered as Reported by: AIDAN CLIFTON on 04/29/19 1239 Last Action: HELD on 09/28/191106 by MARIA LUISA SANTOS MD Hum Insulin Nph/Reg Insulin Hm (Relion Novolin 70-30 Vial) 100 Unit/1 Ml Vial, 8 UNIT SUBCUT DAILYWBKFT for diabetes, (Reported) Entered as Reported by: TUTU DE LA GARZA on 04/26/191746 Last Action: Converted on 09/28/1917 by LAMAR CANTU Hum Insulin Nph/Reg Insulin Hm (Relion Novolin 70-30 Vial) 100 Unit/1 Ml Vial, 4 UNIT SQ DAILYWSUP for diabetes, (Reported) Entered as Reported by: TUTU DE LA GARZA on 04/26/191746 Last Action: Converted on 09/28/1917 by LAMAR CANTU Linezolid (Zyvox) 600 Mg Tablet, 600 MG PO BID for infection for 7 Days, #14 (Reported) Entered as Reported by: AIDAN CLIFTON on 04/29/19 1241 Last Action: HELD on 09/28/191106 by MARIA LUISA SANTOS MD Lisinopril (Lisinopril) 40 Mg Tablet, 40 MG PO DAILY for hypertension, (Reported) Entered as Reported by: TUTU D ELA GARZA on 04/26/191746 Last Action: Converted on 09/28/1917 by LAMAR CANTU Justicifation of Admission Dx: Justifications for Admission: Justification of Admission Dx: Yes Sepsis: Failure of Out Pt Tx Cellulitis: Cellulitis HARIS OSULLIVAN MD Oct 07, 2019 12:53
--- NOTE | 2019-10-07 13:59 | NUR ---
SS following up with discharge planning. Discharge orders received for [facility], ; fax [phone]. SS phoned and faxed discharge orders to [facility]. Lenka from [facility] reported that she would notify SS with a transport time when bed is available. Pt is first on the list. SS will continue to follow for discharge planning.
[2019-10-07 15:00] VITALS: BP 163/82
--- NOTE | 2019-10-07 16:06 | PATHOLOGY ---
[facility] Accession Number: [id number] . 01 Material submitted: . toe - LEFT THIRD,FOURTH,FIFTH TOES WITH METATARSAL HEADS. Modifiers: third, fourth, fifth . 01 Clinical history: . PVD; gangrene; diabetic foot infection . 02 Diagnosis: Left third, fourth, and fifth toes and detached corresponding metatarsal heads, left foot amputation: - Gangrenous necrosis and ulceration of left fourth toe with acute cellulitis and acute osteomyelitis, and focal subarticular acute osteomyelitis of metatarsal head. (JPM:janiya; 10/07/2019) S 10/07/2019 1500 Local . 02 Electronically signed: . Addison Ward MD, Pathologist NPI- [id number] . 01 Gross description: . The specimen is received in formalin, labeled "Doreen Polo, left third, fourth, fifth toes with metatarsal heads". Received are three amputated digits, two of which are attached to each other, ranging in size from 3.5 x 2.2 x 2.0 to 4.1 x 2.1 x 1.5 cm in greatest dimensions. The bone margins of the presumed third and fourth toes are jagged in appearance, and the bone of the presumed fifth toe is smooth and concave in appearance, consistent with disarticulation. The bone margins are inked black, blue, and yellow, respectively. The epidermal surface of the presumed third toe is light servin to light brown in appearance. The epidermal surface of the presumed fourth toe is gonzalez-brown to brown-black and mummified in appearance. The epidermal surface of the presumed fifth toe is light servin to dusky gonzalez-brown in appearance. The specimen is submitted solar sales representative as follows: . A1 longitudinal cross-section through bone margin of presumed third toe, following decalcification A2 longitudinal cross-section through bone margin of presumed fourth toe, following decalcification A3 longitudinal cross-section through bone margin of presumed fifth toe, following decalcification. . Also received within the specimen container are three additional segments of bone ranging in size from 1.8 x 1.6 x 1.5 to 2.3 x 1.6 x 1.5 cm in greatest dimensions. The smaller segment displays one blunt, transected margin and one smooth, convex, disarticulated margin. The disarticulated margin is inked black. The second segment displays one jagged margin and one smooth, flat and disarticulated margin. The jagged margin is inked blue. The larger segment displays one jagged margin and one smooth, convex disarticulated margin. The jagged margin is inked yellow. Hook Tender sections from each segment are submitted respectively in cassettes A4 through A6, following decalcification. (CAA; 10/05/2019) QA/QA 10/05/2019 1535 Local . 02 Pathologist provided ICD-10: M86.172, I96, L97.529 . 02 CPT . 000521, [id number] Specimen Comment: A courtesy copy of this report has been sent to [phone], [phone] Specimen Comment: [phone] Specimen Comment: Report sent to / DR SANTOS Performed at: 01 [facility] [address], [place] [id number] MD Vu Gambino MD Phone: [phone] Performed at: 02 [facility] [address] [place], [place] [id number] MD Addison Ward MD Phone: [phone]
[2019-10-07 19:18] VITALS: BP 178/86
[2019-10-07] MEDS: ATORVASTATIN CALCIUM 40 MG TABLET. PO SCH (20:59)
[2019-10-07 23:00] VITALS: BP 184/100
[2019-10-07] MEDS: hydrALAZINE 20 MG/ML VIAL. IVP PRN (23:03)
[2019-10-08 00:17] VITALS: BP 171/80
[2019-10-08 04:00] VITALS: BP 170/85
[2019-10-08 07:00] VITALS: BP 207/98
[2019-10-08] MEDS: INSULIN NPH/REG INSULIN 70/30 300 UNITS/3 ML INSULN.PEN. SQ SCH (08:00)
--- NOTE | 2019-10-08 08:25 | PDOC ---
Infectious Disease Note Subjective: Subjective pt without compliants Feels much better today no f//v/d/abdo Vital Signs: Vital Signs Vital Signs Date Time Temp Pulse Resp B/P (MAP) Pulse Ox O2 Delivery O2 Flow Rate FiO2 10/08/19 07:00 98.5 81 20 207/98 (134) 97 Room Air 98.5 Physical Exam: PHYSICAL EXAM GENERAL: Propped up in bed, alert in NAD HEENT: Oral cavity pink, no thrush/lesions seen NECK: Supple LUNGS: Clear. HEART: S1, S2 regular. ABDOMEN: Obese, soft, nontender EXTREMITIES: Right lower extremity is unremarkable. Left lower extremity dressing intact postoperative NEUROLOGIC: Alert, oriented. No focal neurologic deficit. PIV ok Medications: Inpatient Meds: Current Medications Medications (Trade) Dose Ordered Sig/Leanne Start Time Stop Time Status Last Admin Dose Admin Acetaminophen (Tylenol Supp) 650 mg 1X ONCE 10/01/19 12:00 10/01/19 12:01 DC 10/01/19 11:58 Acetaminophen (Tylenol) 650 mg PRN Q4HRS PRN 09/28/19 11:00 10/01/19 23:49 Al Hydroxide/Mg Hydroxide (Mylanta Plus Xs) 30 ml PRN DAILY PRN 09/28/19 11:00 Albuterol Sulfate (Ventolin Neb Soln) 2.5 mg PRN Q4HRS PRN 09/28/19 11:00 10/05/19 11:57 Amlodipine Besylate (Norvasc) 5 mg DAILY 10/03/19 14:15 10/07/19 08:33 Aspirin (Penny Aspirin) 81 mg DAILYWBKFT 10/07/19 10:00 10/07/19 11:11 Atorvastatin Calcium (Lipitor) 40 mg QHS 09/29/19 21:00 10/07/19 20:59 Bacitracin 84776 unit/Sodium Chloride 500 ml @ 500 mls/hr 1X ONCE 10/05/19 06:00 10/05/19 06:59 DC 10/05/19 08:24 Carvedilol (Coreg) 12.5 mg BIDWMEALS 10/03/19 17:00 10/07/19 16:40 Cefazolin Sodium (Ancef) 1 gm STK-MED ONCE 10/05/19 08:15 10/05/19 08:15 DC Cefazolin Sodium 1 gm/Sodium Chloride 500 ml @ 500 mls/hr 1X ONCE 10/01/19 11:00 10/01/19 11:59 DC Cellulose (Surgicel Fibrillar 1x2) 1 each STK-MED ONCE 10/05/19 06:58 10/05/19 06:59 DC 10/05/19 08:23 Cephalexin HCl (Keflex) 500 mg QID 10/07/19 11:00 10/07/19 20:58 Clonidine HCl (Catapres Tts-1) 1 patch Sa 10/02/19 14:00 10/02/19 14:23 Clonidine HCl (Catapres) 0.1 mg PRN Q6HRS PRN 09/28/19 11:00 10/02/19 13:59 DC 09/30/19 22:09 Daptomycin 490 mg/ Sodium Chloride 50 ml @ 100 mls/hr Q24H 09/28/19 11:00 10/06/19 12:27 DC 10/06/19 11:05 Desflurane (Suprane) 60 ml STK-MED ONCE 10/05/19 08:08 10/05/19 08:08 DC Dexamethasone Sodium Phosphate (Decadron) 20 mg STK-MED ONCE 10/05/19 07:37 10/05/19 07:37 DC Docusate Sodium (Colace) 100 mg BID 10/05/19 21:00 Enoxaparin Sodium (Lovenox 40mg Syringe) 40 mg Q24H 09/28/19 12:00 10/07/19 11:45 Fentanyl Citrate (Fentanyl 2ml Vial) 100 mcg STK-MED ONCE 10/05/19 11:15 10/05/19 11:16 DC Gelatin (Gelfoam Size 100) 1 each STK-MED ONCE 10/05/19 06:58 10/05/19 06:58 DC Glycopyrrolate (Robinul) 1 mg STK-MED ONCE 10/05/19 08:22 10/05/19 08:23 DC Guaifenesin (Robitussin) 200 mg PRN Q4HRS PRN 09/28/19 11:00 Heparin Sodium (Porcine) (Heparin Sodium) 10,000 unit STK-MED ONCE 10/05/19 08:08 10/05/19 08:08 DC Heparin Sodium (Porcine) 5000 unit/Sodium Chloride 505 ml @ 505 mls/hr 1X ONCE 10/05/19 06:00 10/05/19 06:59 DC Heparin Sodium/ Sodium Chloride (HEPARIN for ARTERIAL LINE FLUSH) 2,000 unit 1X ONCE 09/30/19 14:45 09/30/19 14:46 DC 09/30/19 15:31 Hydralazine HCl (Apresoline Inj) 10 mg 1X ONCE 10/05/19 12:15 10/05/19 12:16 DC 10/05/19 12:18 Hydromorphone HCl (Dilaudid) 0.5 mg PRN Q10MIN PRN 10/05/19 07:00 10/06/19 06:59 DC Insulin Human Isoph/Insulin Regular (HumuLIN 70/30) 8 units DAILYWBKFT 09/28/19 08:00 Insulin Human Lispro (HumaLOG VIAL for OP,RR ONLY) 0-10 units PRN Q1HR PRN 10/05/19 07:30 10/06/19 07:29 DC Iodixanol (Visipaque 320) 100 ml 1X ONCE 09/30/19 14:45 09/30/19 14:46 DC 09/30/19 15:31 Iohexol (Omnipaque 300 Mg/ml) 50 ml STK-MED ONCE 10/05/19 06:58 10/05/19 06:58 DC Labetalol HCl (Normodyne Iv Push) 10 mg PRN Q2HR PRN 10/05/19 10:45 Lactobacillus Rhamnosus (Culturelle) 1 cap BID 09/29/19 21:00 10/07/19 20:59 Lidocaine HCl (Buffered Lidocaine 1%) 3 ml 1X ONCE 09/30/19 14:45 09/30/19 14:46 DC 09/30/19 15:32 Lidocaine HCl (Lidocaine Pf 2% Vial) 5 ml STK-MED ONCE 10/05/19 06:52 10/05/19 06:53 DC Lidocaine HCl (Xylocaine-Mpf 1% 2ml Vial) 2 ml PRN 1X PRN 10/05/19 07:00 10/06/19 06:59 DC Lisinopril (Prinivil) 40 mg DAILY 09/28/19 00:30 10/07/19 08:33 Lorazepam (Ativan) 0.5 mg PRN Q4HRS PRN 09/28/19 11:00 10/02/19 21:04 Magnesium Sulfate/ Dextrose 100 ml @ 100 mls/hr 1X ONCE 10/06/19 08:15 10/06/19 09:14 DC 10/06/19 09:53 Meropenem 500 mg/ Sodium Chloride 50 ml @ 100 mls/hr Q8HRS 09/28/19 11:00 10/07/19 10:30 DC 10/07/19 05:57 Metoclopramide HCl (Reglan Vial) 10 mg QIDACHS 10/02/19 16:30 10/07/19 20:59 Metoprolol Tartrate (Lopressor Vial) 5 mg PRN Q6HRS PRN 09/28/19 16:15 10/02/19 13:59 DC 10/02/19 08:19 Midazolam HCl (Versed) 5 mg 1X ONCE 09/30/19 14:45 09/30/19 14:46 DC 09/30/19 15:32 Morphine Sulfate (Morphine Sulfate) 2 mg PRN Q1HR PRN 10/05/19 10:45 10/05/19 13:22 Multivitamins (Thera M Plus) 1 tab DAILY 10/06/19 09:00 10/07/19 08:32 Naloxone HCl (Narcan) 0.4 mg PRN Q2MIN PRN 10/05/19 10:45 Neostigmine [place] (Neostigmine Methylsulfate) 5 mg STK-MED ONCE 10/05/19 08:22 10/05/19 08:23 DC Ondansetron HCl (Zofran) 4 mg PRN Q6HRS PRN 10/05/19 10:45 Oxycodone/ Acetaminophen (Percocet 5/325) 2 tab PRN Q4HRS PRN 10/05/19 10:45 10/07/19 08:32 Potassium Chloride (Klor-Con) 20 meq 1X ONCE 10/06/19 08:15 10/06/19 08:22 DC 10/06/19 08:36 Prochlorperazine Edisylate (Compazine) 5 mg PRN Q6HRS PRN 10/05/19 10:45 Propofol (Diprivan) 200 mg STK-MED ONCE 10/05/19 06:52 10/05/19 06:53 DC Protamine Sulfate (Protamine) 50 mg STK-MED ONCE 10/01/19 12:07 10/01/19 12:08 DC Ringer's Solution 1,000 ml @ 30 mls/hr Q24H 10/05/19 07:00 10/05/19 13:52 DC Rocuronium [place] (Zemuron) 50 mg STK-MED ONCE 10/05/19 06:53 10/05/19 06:53 DC Senna/Docusate Sodium (Senna Plus) 1 tab BID 10/05/19 21:00 10/07/19 20:59 Sodium Monofluorophosphate (Fleet Adult) 133 ml PRN DAILY PRN 09/28/19 11:00 Sodium Chloride 1,000 ml @ 25 mls/hr Q24H 10/05/19 10:37 10/05/19 13:52 DC Sodium Chloride (Normal Saline Flush) 3 ml QSHIFT PRN 10/05/19 10:45 Succinylcholine Chloride (Anectine) 200 mg STK-MED ONCE 10/05/19 06:53 10/05/19 06:53 DC Thrombin 20,000 unit STK-MED ONCE 10/05/19 06:59 10/05/19 06:59 DC Vancomycin HCl 250 ml @ 250 mls/hr 1X ONCE 09/27/19 20:30 09/27/19 21:29 DC 09/27/19 20:56 Labs: Lab Laboratory Tests Test 10/07/19 11:58 10/07/19 17:08 10/07/19 20:37 10/08/19 07:34 Glucose (Fingerstick) 175 mg/dL (70-99) 175 mg/dL (70-99) 168 mg/dL (70-99) 113 mg/dL (70-99) Micro Micro GRAM STAIN Final Final GRAM POSITIVE COCCI:MANY SQUAMOUS EPI CELL:RARE PMN (WBCs):RARE ANAEROBIC-AEROBIC CULTURE Preliminary Preliminary MANY GRAM POSITIVE COCCI on 09/29/19 at 1355 FINAL ID= [STREPTOCOCCUS MITIS/ORALIS] RARE [STAPHYLOCOCCUS AUREUS] on 10/01/19 at 1453 AZITHROMYCIN: S <=2 CEFOXITIN SCREEN: NEG <=4 CEFTAROLINE: S <=0.5 CIPROFLOXACIN: S <=1 CLINDAMYCIN: S 0.5 DAPTOMYCIN: S <=0.5 ERYTHROMYCIN: S <=0.25 GENTAMICIN: S <=4 LEVOFLOXACIN: S <=1 LINEZOLID: S 2 OXACILLIN: S <=0.25 PENICILLIN: JEN 0.5 RIFAMPIN: S <=1 TETRACYCLINE: S <=4 TRIMETH/SULFA: S <=0.5/9.5 VANCOMYCIN: S 1 STAPHYLOCOCCUS AUREUS STREPTOCOCCUS MITIS/ORALIS URINE CULTURE Final Final 20,000 CFU/ML Normal genitourinary man, not indicative of infection on 09/30/19 at 0946 Objective: Assessment: Leucocytosis ? improving likely reactive from surgery Left fourth toe gangrene. s/p angiogram 09/29: chronic total occlusion, left superficial femoral artery, attempted revascularization unsuccessful Left fourth toe and diabetic foot infection: Strep mitis/oralis and MSSA s/p surgery 10/04 CLOSED AMPUTATION Ray amputation of the third toe on the left, including the metatarsal head. Ray amputation of the fourth toe on the left, including the metatarsal head. 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 Wound is stable per team Fever.resolved Diabetes mellitus poorly controlled Peripheral vascular disease 10/04 s/p Left femoral to above knee popliteal artery bypass with PTFE graft. PCN allergy w/ hives and sulfa w/ throat swelling ; per pharmacy has tolerated cephalosporins in the past History of cerebrovascular accident. Hypertension. Nausea and vomiting,improving Diarrhea Plan: Plan of Care Leucocytosis likely reactive On Keflex 10/06 for 5 days Monitor for abx toxicities Monitor labs Local wound care as directed [facility] Discussed with nursing staff ADELINA ROJAS MD Oct 08, 2019 08:25
[2019-10-08] MEDS: DOCUSATE SODIUM 100 MG CAPSULE. PO SCH (09:00)
[2019-10-08] MEDS ORDERED: ASPIRIN ENTERIC COATED 81 MG TABLET.DR. PO SCH (09:00)
[2019-10-08] MEDS: SENNOSIDES/DOCUSATE 8.6/50MG TABLET. PO SCH (09:00)
[2019-10-08] MEDS: MULTIVITAMIN with MINERAL TABLET. PO SCH (09:01)
[2019-10-08] MEDS: METOCLOPRAMIDE HCL 10 MG/2 ML VIAL. IVP SCH (09:01)
[2019-10-08] MEDS: amLODIPine BESYLATE 5 MG TABLET PO SCH (09:01)
[2019-10-08] MEDS: CARVEDILOL 12.5 MG TABLET. PO SCH (09:02)
[2019-10-08] MEDS: LISINOPRIL 20 MG TABLET PO SCH (09:02)
[2019-10-08] MEDS: CEPHALEXIN 250 MG CAPSULE. PO SCH ×2 (09:02→15:29)
[2019-10-08] MEDS: LACTOBACILLUS RHAMNOSUS GG 1 CAPSULE. PO SCH (09:02)
[2019-10-08 11:00] VITALS: BP 191/85
--- NOTE | 2019-10-08 12:04 | PDOC ---
Provider Note Provider Note Vascular S; patient without complaints O: VSS, SBP remains elevated Awake and alert, up in chair Prevena vac in place and functioning, medial thigh incision dry and intact, dressing dry and intact to foot. A/P: Atherosclerosis with gangrene of the left lower extremity. POD #3 1. Left femoral to above knee popliteal artery bypass using 7 mm Propaten PTFE graft. 2. 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 3. Ray amputation of the fourth toe on the left, including the metatarsal head. 4. 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 Progressing as expected, she has been accepted at [facility] with possible D/C today Continue Prevena Vac for 6 days. Dry gauze to amputation site, off-loading shoe to use for transfers. Abx per ID. Patient would benefit from daily Aspirin and continued statin therapy Follow up in 2-3 weeks. Justicifation of Admission Dx: Justifications for Admission: Justification of Admission Dx: Yes Sepsis: Failure of Out Pt Tx Cellulitis: Cellulitis ETHAN LAZAR MOTOR VEHICLE TECHNICIAN Oct 08, 2019 12:04
[2019-10-08] MEDS: ENOXAPARIN 40 MG/0.4 ML SYRINGE. SQ SCH (12:31)
--- NOTE | 2019-10-08 12:42 | NUR ---
SS following up with discharge planning. Bed available at [facility]. Pt will discharge today and go to [facility] at 1530 via [email or web address] transportation, . Pt and pt's RN notified.
--- NOTE | 2019-10-08 13:49 | NUR ---
Wound Care Wound care follow up for assessment of post op site. Pictured and measured for discharge and redressed with dry gauze per Candice Interiano APRN orders. NO other wounds noted. pt in recliner with legs elevated at time of visit. WC will sign off at this time. Please reconsult if new wounds develop.
[2019-10-08 15:00] VITALS: BP 159/79
--- NOTE | 2019-10-08 15:56 | PDOC ---
PROGRESS NOTES Chief Complaint Chief Complaint A/P: Diabetic toe with gangrene (s/p amputation left 3,4,5 toes, closed 10/04) PVD confirmed on angiography (s/p left femoral to popliteal bypass 10/04) Diabetes Hypertension Anxiety Depression Soft tissue swelling overlying the dorsum of the midfoot without underlying osseous abnormality or radiopaque foreign body identified.ON PLAIN X-RAY hypertension, HX stroke, diabetes, hyperlipidemia, history of diabetic ketoacidosis. ZURDO fever Normocytic anemia sepsis glucose control needed PVD Occlusion of the left superficial femoral artery with reconstitution at the level of the left popliteal artery, where there appears to be hemodynamically significant stenosis. Monophasic flow in the left subclavian artery suggests greater than 50 percent proximal left subclavian artery stenosis. No evidence of subclavian steal. Leukocytosis likely reactive, C. difficile negative on October 04 History of Present Illness History of Present Illness Ms Polo is a 53-year-old female with PMHx DM2, HTN, CVA with left sided residual weakness who p/w left fourth toe gangrene, peripheral vascular disease. Angio and vein mapping reviewed by Dr. Hernandez, plan for left leg bypass with toe amputations Friday10/05/201910/03: Seen and examined. Pain well controlled. BP controlled. No CP or SOB. 10/04: To OR today for Left femoral to popliteal bypass with 7mm propaten gortex graft, Left closed 3,4,5th toe amputation, and Prevena vac placement proximal incision. Drowsy post-op 10/05: No CP or SOB. Feeling well, pain controlled. Still pretty drowsy. Hb 8.1 post op. Tolerating therapy and antibiotics. She wishes for LTACH in [facility]. Afebrile. 10/06: Feeling warm today and some nausea. Transitioned to PO antibiotics, keflex by ID. Broussard out today. She is in good spirits, afebrile. No CP or SOB. Plan: DC meropenem Start Keflex 10/06 Monitor for abx toxicities f/u cultures Monior WBC/temp Local wound care as directed Transfer to LTACH Vitals Vitals Vital Signs Date Time Temp Pulse Resp B/P (MAP) Pulse Ox O2 Delivery O2 Flow Rate FiO2 10/08/19 15:00 97.5 76 20 159/79 (105) 97 Room Air 97.5 10/08/19 11:14 2.0 Physical Exam Physical Exam GENERAL: Propped up in bed, alert in NAD HEENT: Oral cavity pink, no thrush/lesions seen NECK: Supple LUNGS: Clear. HEART: S1, S2 regular. ABDOMEN: Obese, soft, nontender EXTREMITIES: Right lower extremity is unremarkable. Left lower extremity dressing intact postoperative NEUROLOGIC: Alert, oriented. No focal neurologic deficit. PIV ok General: Alert, Cooperative, No acute distress Heart: Regular rate Lungs: Clear Abdomen: Normal bowel sounds, Soft, No tenderness Extremities: No tenderness/swelling Skin: No rashes, Other (Her surgical dressing is in place on her left foot. There is no obvious drainage in this area.) Labs LABS Laboratory Tests Test 10/07/19 17:08 10/07/19 20:37 10/08/19 07:34 10/08/19 11:32 Glucose (Fingerstick) 175 mg/dL (70-99) 168 mg/dL (70-99) 113 mg/dL (70-99) 173 mg/dL (70-99) Assessment and Plan Assessmemt and Plan Problems Medical Problems: (1) Diabetic foot infection Status: Acute Comment Review of Relevant I have reviewed the following items hortencia (where applicable) has been applied. Labs Laboratory Tests Test 10/06/19 16:33 10/06/19 21:03 10/07/19 03:40 10/07/19 07:27 Glucose (Fingerstick) 181 mg/dL (70-99) 200 mg/dL (70-99) 147 mg/dL (70-99) White Blood Count 13.8 x10^3/uL (4.0-11.0) Red Blood Count 3.03 x10^6/uL (3.50-5.40) Hemoglobin 8.4 g/dL (12.0-15.5) Hematocrit 25.2 % (36.0-47.0) Mean Corpuscular Volume 83 fL (79-100) Mean Corpuscular Hemoglobin 28 pg (25-35) Mean Corpuscular Hemoglobin Concent 33 g/dL (31-37) Red Cell Distribution Width 15.4 % (11.5-14.5) Platelet Count 433 x10^3/uL (140-400) Neutrophils (%) (Auto) 81 % (31-73) Lymphocytes (%) (Auto) 9 % (24-48) Monocytes (%) (Auto) 9 % (0-9) Eosinophils (%) (Auto) 0 % (0-3) Basophils (%) (Auto) 0 % (0-3) Neutrophils # (Auto) 11.2 x10^3/uL (1.8-7.7) Lymphocytes # (Auto) 1.2 x10^3/uL (1.0-4.8) Monocytes # (Auto) 1.3 x10^3/uL (0.0-1.1) Eosinophils # (Auto) 0.1 x10^3/uL (0.0-0.7) Basophils # (Auto) 0.0 x10^3/uL (0.0-0.2) Sodium Level 141 mmol/L (136-145) Potassium Level 3.9 mmol/L (3.5-5.1) Chloride Level 108 mmol/L (98-107) Carbon Dioxide Level 23 mmol/L (21-32) Anion Gap 10 (6-14) Blood Urea Nitrogen 23 mg/dL (7-20) Creatinine 1.2 mg/dL (0.6-1.0) Estimated GFR (Cockcroft-Gault) 56.6 BUN/Creatinine Ratio 19 (6-20) Glucose Level 164 mg/dL (70-99) Calcium Level 8.4 mg/dL (8.5-10.1) Total Bilirubin 0.3 mg/dL (0.2-1.0) Aspartate Amino Transf (AST/SGOT) 18 U/L (15-37) Alanine Aminotransferase (ALT/SGPT) 15 U/L (14-59) Alkaline Phosphatase 88 U/L (46-116) Total Protein 5.8 g/dL (6.4-8.2) Albumin 1.6 g/dL (3.4-5.0) Albumin/Globulin Ratio 0.4 (1.0-1.7) Test 10/07/19 11:58 10/07/19 17:08 10/07/19 20:37 10/08/19 07:34 Glucose (Fingerstick) 175 mg/dL (70-99) 175 mg/dL (70-99) 168 mg/dL (70-99) 113 mg/dL (70-99) Test 10/08/19 11:32 Glucose (Fingerstick) 173 mg/dL (70-99) Laboratory Tests Test 10/07/19 17:08 10/07/19 20:37 10/08/19 07:34 10/08/19 11:32 Glucose (Fingerstick) 175 mg/dL (70-99) 168 mg/dL (70-99) 113 mg/dL (70-99) 173 mg/dL (70-99) Microbiology 09/27/19 Urine Culture - Final, Complete 09/27/19 Gram Stain - Final, Complete 09/27/19 Aerobic and Anaerobic Culture - Final, Complete 09/27/19 Antimicrobic Susceptibility - Final, Complete Medications Current Medications Sodium Chloride 1,000 ml @ 1,000 mls/hr 1X ONCE IV Last administered on 09/27/19at 19:25; Start 09/27/19 at 18:30; Stop 09/27/19 at 19:29; Status DC Acetaminophen (Tylenol) 1,000 mg 1X ONCE PO Last administered on 09/27/19at 19:25; Start 09/27/19 at 18:30; Stop 09/27/19 at 18:37; Status DC Clonidine HCl (Catapres) 0.1 mg 1X ONCE PO Last administered on 09/27/19at 19:26; Start 09/27/19 at 18:45; Stop 09/27/19 at 18:46; Status DC Vancomycin HCl 250 ml @ 250 mls/hr 1X ONCE IV Last administered on 09/27/19at 20:56; Start 09/27/19 at 20:30; Stop 09/27/19 at 21:29; Status DC Ondansetron HCl (Zofran) 4 mg PRN Q8HRS PRN IV NAUSEA/VOMITING; Start 09/27/19 at 20:45; Stop 09/28/19 at 13:59; Status DC Fentanyl Citrate (Fentanyl 2ml Vial) 50 mcg PRN Q1HR PRN IV PAIN; Start 09/27/19 at 20:45; Stop 09/28/19 at 20:44; Status DC Acetaminophen (Tylenol) 650 mg PRN Q4HRS PRN PO FEVER > 100.3'F; Start 09/27/19 at 20:45; Stop 09/28/19 at 13:58; Status DC Lisinopril (Prinivil) 40 mg DAILY PO Last administered on 10/08/19at 09:02; Start 09/28/19 at 00:30 Insulin Human Isoph/Insulin Regular (HumuLIN 70/30) 4 units DAILYWSUP SQ ; Start 09/28/19 at 17:00 Insulin Human Isoph/Insulin Regular (HumuLIN 70/30) 8 units DAILYWBKFT SQ ; Start 09/28/19 at 08:00 Daptomycin 490 mg/ Sodium Chloride 50 ml @ 100 mls/hr Q24H IV Last administered on 10/06/19at 11:05; Start 09/28/19 at 11:00; Stop 10/06/19 at 12:27; Status DC Meropenem 500 mg/ Sodium Chloride 50 ml @ 100 mls/hr Q8HRS IV Last administered on 10/07/19at 05:57; Start 09/28/19 at 11:00; Stop 10/07/19 at 10:30; Status DC Sodium Chloride (Normal Saline Flush) 3 ml QSHIFT PRN IV AFTER MEDS AND BLOOD DRAWS; Start 09/28/19 at 11:00; Stop 10/06/19 at 12:49; Status DC Sodium Chloride 1,000 ml @ 100 mls/hr Q10H IV Last administered on 10/04/19at 20:30; Start 09/28/19 at 10:58; Stop 10/05/19 at 14:45; Status DC Ondansetron HCl (Zofran) 4 mg PRN Q4HRS PRN IV NAUSEA/VOMITING Last administered on 10/03/19at 08:08; Start 09/28/19 at 11:00; Stop 10/05/19 at 12:14; Status DC Acetaminophen (Tylenol) 650 mg PRN Q4HRS PRN PO TEMP OVER 100.4F Last administered on 10/01/19at 23:49; Start 09/28/19 at 11:00 Al Hydroxide/Mg Hydroxide (Mylanta Plus Xs) 30 ml PRN DAILY PRN PO HEARTBURN / GAS; Start 09/28/19 at 11:00 Clonidine HCl (Catapres) 0.1 mg PRN Q6HRS PRN PO SBP>160 OR DBP>90 Last administered on 09/30/19at 22:09; Start 09/28/19 at 11:00; Stop 10/02/19 at 13:59; Status DC Sodium Monofluorophosphate (Fleet Adult) 133 ml PRN DAILY PRN ND CONSTIPATION; Start 09/28/19 at 11:00 Docusate Sodium (Colace) 100 mg PRN BID PRN PO HARD STOOLS; Start 09/28/19 at 11:00 Albuterol Sulfate (Ventolin Neb Soln) 2.5 mg PRN Q4HRS PRN NEB SHORTNESS OF BREATH Last administered on 10/05/19at 11:57; Start 09/28/19 at 11:00 Guaifenesin (Robitussin) 200 mg PRN Q4HRS PRN PO COUGH; Start 09/28/19 at 11:00 Lorazepam (Ativan) 0.5 mg PRN Q4HRS PRN PO ANXIETY / AGITATION Last administered on 10/02/19at 21:04; Start 09/28/19 at 11:00 Hydromorphone HCl (Dilaudid) 0.5 mg PRN Q2HRS PRN IV SEVERE PAIN 7-10; Start 09/28/19 at 11:00 Enoxaparin Sodium (Lovenox 40mg Syringe) 40 mg Q24H SQ Last administered on 09/26 06/17at 12:31; Start 09/28/19 at 12:00 Sodium Chloride 500 ml @ 500 mls/hr 1X ONCE IV Last administered on 09/28/19at 13:11; Start 09/28/19 at 12:45; Stop 09/28/19 at 13:44; Status DC Hydralazine HCl (Apresoline Inj) 10 mg 1X ONCE IVP Last administered on 09/28/19at 14:17; Start 09/28/19 at 14:15; Stop 09/28/19 at 14:16; Status DC Hydralazine HCl (Apresoline Inj) 10 mg PRN Q4HRS PRN IVP HYPERTENSION, 2nd choice Last administered on 10/07/19at 23:03; Start 09/28/19 at 16:15 Metoprolol Tartrate (Lopressor Vial) 5 mg PRN Q6HRS PRN IVP HYPERTENSION, 1st choice Last administered on 10/02/19at 08:19; Start 09/28/19 at 16:15; Stop 10/02/19 at 13:59; Status DC Lactobacillus Rhamnosus (Culturelle) 1 cap BID PO Last administered on 10/08/19at 09:02; Start 09/29/19 at 21:00 Atorvastatin Calcium (Lipitor) 40 mg QHS PO Last administered on 10/07/19at 20:59; Start 09/29/19 at 21:00 Potassium Chloride (Klor-Con) 40 meq 1X ONCE PO ; Start 09/30/19 at 12:30; Stop 09/30/19 at 12:31; Status Cancel Lidocaine HCl (Buffered Lidocaine 1%) 3 ml STK-MED ONCE .ROUTE ; Start 09/30/19 at 13:49; Stop 09/30/19 at 13:49; Status DC Iodixanol (Visipaque 320) 100 ml STK-MED ONCE .ROUTE ; Start 09/30/19 at 13:49; Stop 09/30/19 at 13:49; Status DC Heparin Sodium/ Sodium Chloride 1,000 ml @ As Directed STK-MED ONCE .ROUTE ; Start 09/30/19 at 13:49; Stop 09/30/19 at 13:49; Status DC Heparin Sodium/ Sodium Chloride 500 ml @ As Directed STK-MED ONCE .ROUTE ; Start 09/30/19 at 13:54; Stop 09/30/19 at 13:55; Status DC Midazolam HCl (Versed) 5 mg STK-MED ONCE .ROUTE ; Start 09/30/19 at 14:10; Stop 09/30/19 at 14:10; Status DC Fentanyl Citrate (Fentanyl 2ml Vial) 100 mcg STK-MED ONCE .ROUTE ; Start 09/30/19 at 14:10; Stop 09/30/19 at 14:10; Status DC Heparin Sodium (Porcine) (Heparin Sodium) 10,000 unit STK-MED ONCE .ROUTE ; Start 09/30/19 at 14:31; Stop 09/30/19 at 14:31; Status DC Ondansetron HCl (Zofran) 4 mg PRN Q6HRS PRN IV NAUSEA/VOMITING; Start 10/01/19 at 07:00; Stop 10/02/19 at 06:59; Status DC Morphine Sulfate (Morphine Sulfate) 1 mg PRN Q10MIN PRN IV SEVERE PAIN 7-10; Start 10/01/19 at 07:00; Stop 10/02/19 at 06:59; Status DC Ringer's Solution 1,000 ml @ 30 mls/hr Q24H IV Last administered on 10/01/19at 10:28; Start 10/01/19 at 07:00; Stop 10/01/19 at 18:59; Status DC Lidocaine HCl (Xylocaine-Mpf 1% 2ml Vial) 2 ml PRN 1X PRN ID PRIOR TO IV START; Start 10/01/19 at 07:00; Stop 10/02/19 at 06:59; Status DC Hydromorphone HCl (Dilaudid) 0.5 mg PRN Q10MIN PRN IV SEV PAIN, Second choice; Start 10/01/19 at 07:00; Stop 10/02/19 at 06:59; Status DC Prochlorperazine Edisylate (Compazine) 5 mg PACU PRN PRN IV NAUSEA, MRX1; Start 10/01/19 at 07:00; Stop 10/02/19 at 06:59; Status DC Heparin Sodium/ Sodium Chloride (HEPARIN for ARTERIAL LINE FLUSH) 1,000 unit 1X ONCE IART Last administered on 09/30/19at 15:31; Start 09/30/19 at 14:45; Stop 09/30/19 at 14:46; Status DC Heparin Sodium/ Sodium Chloride (HEPARIN for ARTERIAL LINE FLUSH) 2,000 unit 1X ONCE IART Last administered on 09/30/19at 15:31; Start 09/30/19 at 14:45; Stop 09/30/19 at 14:46; Status DC Lidocaine HCl (Buffered Lidocaine 1%) 3 ml 1X ONCE IJ Last administered on 09/30/19at 15:32; Start 09/30/19 at 14:45; Stop 09/30/19 at 14:46; Status DC Midazolam HCl (Versed) 5 mg 1X ONCE IV Last administered on 09/30/19 15:32; Start 09/30/19 at 14:45; Stop 09/30/19 at 14:46; Status DC Fentanyl Citrate (Fentanyl 2ml Vial) 100 mcg 1X ONCE IV Last administered on 09/30/19at 15:33; Start 09/30/19 at 14:45; Stop 09/30/19 at 14:46; Status DC Iodixanol (Visipaque 320) 100 ml 1X ONCE IART Last administered on 09/30/19at 15:31; Start 09/30/19 at 14:45; Stop 09/30/19 at 14:46; Status DC Heparin Sodium (Porcine) (Heparin Sodium) 5,000 unit 1X ONCE IV Last administered on 09/30/19at 15:34; Start 09/30/19 at 14:45; Stop 09/30/19 at 14:46; Status DC Potassium Chloride (Klor-Con) 40 meq 1X ONCE PO Last administered on 09/30/19at 22:05; Start 09/30/19 at 22:00; Stop 09/30/19 at 22:01; Status DC Heparin Sodium (Porcine) 5000 unit/Sodium Chloride 505 ml @ 505 mls/hr 1X ONCE IRR ; Start 10/01/19 at 11:00; Stop 10/01/19 at 11:59; Status DC Cefazolin Sodium 1 gm/Sodium Chloride 500 ml @ 500 mls/hr 1X ONCE IRR ; Start 10/01/19 at 11:00; Stop 10/01/19 at 11:59; Status DC Propofol (Diprivan) 200 mg STK-MED ONCE IV ; Start 10/01/19 at 11:07; Stop 10/01/19 at 11:07; Status DC Dexamethasone Sodium Phosphate (Decadron) 4 mg STK-MED ONCE .ROUTE ; Start 10/01/19 at 11:07; Stop 10/01/19 at 11:07; Status DC Lidocaine HCl (Lidocaine Pf 2% Vial) 5 ml STK-MED ONCE .ROUTE ; Start 10/01/19 at 11:07; Stop 10/01/19 at 11:07; Status DC Ondansetron HCl (Zofran) 4 mg STK-MED ONCE .ROUTE ; Start 10/01/19 at 11:07; Stop 10/01/19 at 11:07; Status DC Rocuronium [place] (Zemuron) 50 mg STK-MED ONCE .ROUTE ; Start 10/01/19 at 11:07; Stop 10/01/19 at 11:07; Status DC Fentanyl Citrate (Fentanyl 2ml Vial) 100 mcg STK-MED ONCE .ROUTE ; Start 10/01/19 at 11:07; Stop 10/01/19 at 11:07; Status DC Acetaminophen (Tylenol Supp) 650 mg 1X ONCE ND Last administered on 10/01/19at 11:58; Start 10/01/19 at 12:00; Stop 10/01/19 at 12:01; Status DC Iohexol (Omnipaque 300 Mg/ml) 50 ml STK-MED ONCE .ROUTE ; Start 10/01/19 at 12:07; Stop 10/01/19 at 12:07; Status DC Cellulose (Surgicel Fibrillar 1x2) 1 each STK-MED ONCE .ROUTE ; Start 10/01/19 at 12:07; Stop 10/01/19 at 12:08; Status DC Protamine Sulfate (Protamine) 50 mg STK-MED ONCE IV ; Start 10/01/19 at 12:07; S top 10/01/19 at 12:08; Status DC Ringer's Solution 1,060 ml @ 1,060 mls/hr 1X ONCE IV Last administered on 10/01/19at 11:30; Start 10/01/19 at 11:30; Stop 10/01/19 at 12:56; Status DC Ondansetron HCl (Zofran) 4 mg STK-MED ONCE .ROUTE ; Start 10/01/19 at 13:59; Stop 10/01/19 at 14:00; Status DC Lidocaine HCl (Lidocaine Pf 2% Vial) 5 ml STK-MED ONCE .ROUTE ; Start 10/01/19 at 13:59; Stop 10/01/19 at 14:00; Status DC Dexamethasone Sodium Phosphate (Decadron) 4 mg STK-MED ONCE .ROUTE ; Start 10/01/19 at 13:59; Stop 10/01/19 at 14:00; Status DC Propofol (Diprivan) 200 mg STK-MED ONCE IV ; Start 10/01/19 at 13:59; Stop 10/01/19 at 14:00; Status DC Clonidine HCl (Catapres Tts-1) 1 patch Sa TD Last administered on 10/02/19at 14:23; Start 10/02/19 at 14:00 Carvedilol (Coreg) 6.25 mg BIDWMEALS PO Last administered on 10/03/19at 08:08; Start 10/02/19 at 17:00; Stop 10/03/19 at 14:18; Status DC Metoclopramide HCl (Reglan Vial) 10 mg QIDACHS IVP Last administered on 10/08/19at 09:01; Start 10/02/19 at 16:30; Stop 10/08/19 at 11:48; Status DC Carvedilol (Coreg) 12.5 mg BIDWMEALS PO Last administered on 10/08/19at 09:02; Start 10/03/19 at 17:00 Amlodipine Besylate (Norvasc) 5 mg DAILY PO Last administered on 10/08/19at 09:01; Start 10/03/19 at 14:15 Bacitracin 17701 unit/Sodium Chloride 500 ml @ 500 mls/hr 1X ONCE IRR Last administered on 10/05/19at 08:24; Start 10/05/19 at 06:00; Stop 10/05/19 at 06:59; Status DC Heparin Sodium (Porcine) 5000 unit/Sodium Chloride 505 ml @ 505 mls/hr 1X ONCE IRR ; Start 10/05/19 at 06:00; Stop 10/05/19 at 06:59; Status DC Ondansetron HCl (Zofran) 4 mg PRN Q6HRS PRN IV NAUSEA/VOMITING; Start 10/05/19 at 07:00; Stop 10/06/19 at 06:59; Status DC Fentanyl Citrate (Fentanyl 2ml Vial) 25 mcg PRN Q5MIN PRN IV MILD PAIN 1-3; Start 10/05/19 at 07:00; Stop 10/06/19 at 06:59; Status DC Fentanyl Citrate (Fentanyl 2ml Vial) 50 mcg PRN Q5MIN PRN IV MODERATE TO SEVERE PAIN Last administered on 10/05/19at 11:18; Start 10/05/19 at 07:00; Stop 10/06/19 at 06:59; Status DC Morphine Sulfate (Morphine Sulfate) 1 mg PRN Q10MIN PRN IV SEVERE PAIN 7-10; Start 10/05/19 at 07:00; Stop 10/06/19 at 06:59; Status DC Ringer's Solution 1,000 ml @ 30 mls/hr Q24H IV ; Start 10/05/19 at 07:00; Stop 10/05/19 at 13:52; Status DC Lidocaine HCl (Xylocaine-Mpf 1% 2ml Vial) 2 ml PRN 1X PRN ID PRIOR TO IV START; Start 10/05/19 at 07:00; Stop 10/06/19 at 06:59; Status DC Hydromorphone HCl (Dilaudid) 0.5 mg PRN Q10MIN PRN IV SEV PAIN, Second choice; Start 10/05/19 at 07:00; Stop 10/06/19 at 06:59; Status DC Prochlorperazine Edisylate (Compazine) 5 mg PACU PRN PRN IV NAUSEA, MRX1; Start 10/05/19 at 07:00; Stop 10/06/19 at 06:59; Status DC Lidocaine HCl (Lidocaine Pf 2% Vial) 5 ml STK-MED ONCE .ROUTE ; Start 10/05/19 at 06:52; Stop 10/05/19 at 06:53; Status DC Propofol (Diprivan) 200 mg STK-MED ONCE IV ; Start 10/05/19 at 06:52; Stop 10/05/19 at 06:53; Status DC Succinylcholine Chloride (Anectine) 200 mg STK-MED ONCE .ROUTE ; Start 10/05/19 at 06:53; Stop 10/05/19 at 06:53; Status DC Rocuronium [place] (Zemuron) 50 mg STK-MED ONCE .ROUTE ; Start 10/05/19 at 06:53; Stop 10/05/19 at 06:53; Status DC Fentanyl Citrate (Fentanyl 2ml Vial) 100 mcg STK-MED ONCE .ROUTE ; Start 10/05/19 at 06:53; Stop 10/05/19 at 06:53; Status DC Gelatin (Gelfoam Size 100) 1 each STK-MED ONCE .ROUTE ; Start 10/05/19 at 06:58; Stop 10/05/19 at 06:58; Status DC Iohexol (Omnipaque 300 Mg/ml) 50 ml STK-MED ONCE .ROUTE ; Start 10/05/19 at 06:58; Stop 10/05/19 at 06:58; Status DC Cellulose (Surgicel Fibrillar 1x2) 1 each STK-MED ONCE .ROUTE Last administered on 10/05/19at 08:23; Start 10/05/19 at 06:58; Stop 10/05/19 at 06:59; Status DC Thrombin 20,000 unit STK-MED ONCE TP ; Start 10/05/19 at 06:59; Stop 10/05/19 at 06:59; Status DC Insulin Human Lispro (HumaLOG VIAL for OP,RR ONLY) 0-10 units PRN Q1HR PRN SQ PER PROTOCOL; Start 10/05/19 at 07:30; Stop 10/06/19 at 07:29; Status DC Dexamethasone Sodium Phosphate (Decadron) 20 mg STK-MED ONCE .ROUTE ; Start 10/05/19 at 07:37; Stop 10/05/19 at 07:37; Status DC Ondansetron HCl (Zofran) 4 mg STK-MED ONCE .ROUTE ; Start 10/05/19 at 07:37; Stop 10/05/19 at 07:37; Status DC Heparin Sodium (Porcine) (Heparin Sodium) 10,000 unit STK-MED ONCE .ROUTE ; Start 10/05/19 at 08:08; Stop 10/05/19 at 08:08; Status DC Desflurane (Suprane) 60 ml STK-MED ONCE IH ; Start 10/05/19 at 08:08; Stop 10/05/19 at 08:08; Status DC Cefazolin Sodium (Ancef) 1 gm STK-MED ONCE IVP ; Start 10/05/19 at 08:15; Stop 10/05/19 at 08:15; Status DC Neostigmine [place] (Neostigmine Methylsulfate) 5 mg STK-MED ONCE .ROUTE ; Start 10/05/19 at 08:22; Stop 10/05/19 at 08:23; Status DC Glycopyrrolate (Robinul) 1 mg STK-MED ONCE .ROUTE ; Start 10/05/19 at 08:22; Stop 10/05/19 at 08:23; Status DC Multivitamins (Thera M Plus) 1 tab DAILY PO Last administered on 10/08/19at 09:01; Start 10/06/19 at 09:00 Sodium Chloride (Normal Saline Flush) 3 ml QSHIFT PRN IV AFTER MEDS AND BLOOD DRAWS; Start 10/05/19 at 10:45 Sodium Chloride 1,000 ml @ 100 mls/hr Q10H IV Last administered on 10/06/19at 09:53; Start 10/05/19 at 10:37; Stop 10/06/19 at 11:23; Status DC Oxycodone/ Acetaminophen (Percocet 5/325) 1 tab PRN Q4HRS PRN PO MILD PAIN, 1ST CHOICE Last administered on 10/08/19at 10:01; Start 10/05/19 at 10:45 Oxycodone/ Acetaminophen (Percocet 5/325) 2 tab PRN Q4HRS PRN PO MODERATE PAIN, SEVERE PAIN Last administered on 10/07/19at 08:32; Start 10/05/19 at 10:45 Morphine Sulfate (Morphine Sulfate) 2 mg PRN Q1HR PRN IV MODERATE PAIN Last administered on 10/05/19at 13:22; Start 10/05/19 at 10:45 Naloxone HCl (Narcan) 0.4 mg PRN Q2MIN PRN IV SEE INSTRUCTIONS; Start 10/05/19 at 10:45 Sodium Chloride 1,000 ml @ 25 mls/hr Q24H IV ; Start 10/05/19 at 10:37; Stop 10/05/19 at 13:52; Status DC Senna/Docusate Sodium (Senna Plus) 1 tab BID PO Last administered on 10/07/19at 20:59; Start 10/05/19 at 21:00 Docusate Sodium (Colace) 100 mg BID PO ; Start 10/05/19 at 21:00 Ondansetron HCl (Zofran) 4 mg PRN Q6HRS PRN IVP NAUESA, 1ST CHOICE; Start 10/05/19 at 10:45 Prochlorperazine Edisylate (Compazine) 5 mg PRN Q6HRS PRN IV N/V, 2nd Choice, MR X1; Start 10/05/19 at 10:45 Labetalol HCl (Normodyne Iv Push) 10 mg PRN Q2HR PRN IVP HYPERTENSION Last administered on 10/08/19at 12:39; Start 10/05/19 at 10:45 Fentanyl Citrate (Fentanyl 2ml Vial) 100 mcg STK-MED ONCE .ROUTE ; Start 10/05/19 at 11:15; Stop 10/05/19 at 11:16; Status DC Hydralazine HCl (Apresoline Inj) 20 mg STK-MED ONCE .ROUTE ; Start 10/05/19 at 11:41; Stop 10/05/19 at 11:41; Status DC Hydralazine HCl (Apresoline Inj) 10 mg 1X ONCE IVP Last administered on 0at 12:18; Start 10/05/19 at 12:15; Stop 10/05/19 at 12:16; Status DC Magnesium Sulfate/ Dextrose 100 ml @ 100 mls/hr 1X ONCE IV Last administered on 10/06/19at 09:53; Start 10/06/19 at 08:15; Stop 10/06/19 at 09:14; Status DC Potassium Chloride (Klor-Con) 20 meq 1X ONCE PO Last administered on 10/06/19at 08:36; Start 10/06/19 at 08:15; Stop 10/06/19 at 08:22; Status DC Aspirin (Penny Aspirin) 81 mg DAILYWBKFT PO Last administered on 10/07/19at 11:11; Start 10/07/19 at 10:00; Stop 10/08/19 at 09:00; Status DC Cephalexin HCl (Keflex) 500 mg QID PO Last administered on 10/08/19at 15:29; Start 10/07/19 at 11:00 Aspirin (Ecotrin) 81 mg DAILYWBKFT PO Last administered on 10/08/19at 10:01; Start 10/08/19 at 09:00 Metoclopramide HCl (Reglan) 10 mg QIDACHS PO ; Start 10/08/19 at 16:30 Active Scripts Active Reported Zyvox (Linezolid) 600 Mg Tablet 600 Mg PO BID 7 Days Cefdinir 300 Mg Capsule 1 Cap PO BID 7 Days Lisinopril 40 Mg Tablet 40 Mg PO DAILY Relion Novolin 70-30 Vial (Hum Insulin Nph/Reg Insulin Hm) 100 Unit/1 Ml Vial 4 Unit SQ DAILYWSUP Relion Novolin 70-30 Vial (Hum Insulin Nph/Reg Insulin Hm) 100 Unit/1 Ml Vial 8 Unit SUBCUT DAILYWBKFT Vitals/I & O Vital Sign - Last 24 Hours 10/07/19 10/07/19 10/07/19 10/07/19 16:40 19:18 20:00 23:00 Temp 97.4 97.5 97.4 97.5 Pulse 69 69 70 Resp 18 20 B/P (MAP) 163/82 178/86 (116) 184/100 (128) Pulse Ox 96 95 O2 Delivery Room Air Room Air Room Air 10/07/19 10/08/19 10/08/19 10/08/19 23:03 00:17 04:00 07:00 Temp 98.1 98.5 98.1 98.5 Pulse 69 75 81 81 Resp 20 20 B/P (MAP) 184/100 171/80 (110) 170/85 (113) 207/98 (134) Pulse Ox 97 97 O2 Delivery Room Air Room Air 10/08/19 10/08/19 10/08/19 10/08/19 08:00 09:01 09:02 09:02 Pulse 81 81 81 B/P (MAP) 207/98 207/98 207/98 O2 Delivery Room Air 10/08/19 10/08/19 10/08/19 10/08/19 10:01 11:00 11:14 12:39 Temp 98.0 98.0 Pulse 85 85 Resp 20 B/P (MAP) 191/85 (120) 191/85 Pulse Ox 97 97 97 O2 Delivery Room Air Room Air Room Air O2 Flow Rate 2.0 2.0 10/08/19 15:00 Temp 97.5 97.5 Pulse 76 Resp 20 B/P (MAP) 159/79 (105) Pulse Ox 97 O2 Delivery Room Air Intake and Output 10/07/19 10/07/19 10/08/19 15:00 23:00 07:00 Intake Total 200 ml 150 ml 240 ml Output Total 650 ml Balance 200 ml 150 ml -410 ml HARIS OSULLIVAN MD Oct 08, 2019 15:56
--- NOTE | 2019-10-08 16:00 | SNU/HH DC ---
DISCHARGE ORDERS DISCHARGE INFORMATION: DISCHARGE DATE: Oct 08, 2019 FINAL DIAGNOSIS Problems Medical Problems: (1) Diabetic foot infection Status: Acute CONDITION ON DISCHARGE: Stable CODE STATUS: Code Status: Full LTAC: ADMIT TO LTAC: Yes POST DISCHARGE ORDERS: ACTIVITY ORDERS: Activity as tolerated WEIGHT BEARING STATUS: As tolerated DIET AFTER DISCHARGE: ADA WOUND/INCISION CARE: Reinforce dressing PRN FOLLOW-UP: Additional Instructions: Follow up with Dr. Rangel 10/24 10:15 Remove Prevena left groin in 7 days, daily dry gauze to foot TREATMENT/EQUIPMENT ORDERS: ADAPTIVE EQUIPMENT NEEDED: None INFUSION EQUIPMENT NEEDED: IV Line Physical Therapy For: Evalulation/Treatment Occupational Therapy For: Evaluation/Treatment Speech Language Pathology For: Evaluation/Treatment DISCHARGE MEDICATIONS: Home Meds Reported Medications Lisinopril (Lisinopril) 40 Mg Tablet, 40 MG PO DAILY for hypertension 04/26/19 Hum Insulin Nph/Reg Insulin Hm (RELION NOVOLIN 70-30 VIAL) 100 Unit/1 Ml Vial, 4 UNIT SQ DAILYWSUP for diabetes, EACH 04/26/19 Hum Insulin Nph/Reg Insulin Hm (RELION NOVOLIN 70-30 VIAL) 100 Unit/1 Ml Vial, 8 UNIT SUBCUT DAILYWBKFT for diabetes 04/26/19 Discontinued Reported Medications Linezolid (ZYVOX) 600 Mg Tablet, 600 MG PO BID for infection for 7 Days, #14 TAB 04/29/19 Cefdinir (CEFDINIR) 300 Mg Capsule, 1 CAP PO BID for infection for 7 Days, #14 CAP 04/29/19 HARIS OSULLIVAN MD Oct 08, 2019 16:00
--- NOTE | 2019-10-08 16:06 | NUR ---
Discharge Note: YENNY CAMPBELL Discharge instructions and discharge home medications reviewed with Other facility and a copy given. All questions have been answered and understanding verbalized.
[2019-10-08] MEDS ORDERED: METOCLOPRAMIDE 10 MG TABLET. PO SCH (16:30)
== END 2019-10-08 15:45 | DRG 853 ==
LOC: ER 16:54 → 4 NORTH 20:00 → 2 NORTH 09-28 15:04
PROVIDERS: ADMIT Family Medicine; ATTEND Family Medicine
PROC: B41G1ZZ Fluoroscopy of Left Lower Extremity Arteries using Low Osmolar Contrast (ICD-10-PCS; 2019-10-01)
PROC: B41C1ZZ Fluoroscopy of Pelvic Arteries using Low Osmolar Contrast (ICD-10-PCS; 2019-10-01)
PROC: 04JY3ZZ Inspection of Lower Artery, Percutaneous Approach (ICD-10-PCS; 2019-10-01)
PROC: 30233N1 Transfusion of Nonautologous Red Blood Cells into Peripheral Vein, Percutaneous Approach (ICD-10-PCS; 2019-10-02)
PROC: 0Y6N0ZF Detachment at Left Foot, Partial 5th Ray, Open Approach (ICD-10-PCS; 2019-10-05)
PROC: 041L0JM Bypass Left Femoral Artery to Peroneal Artery with Synthetic Substitute, Open Approach (ICD-10-PCS; 2019-10-05)
PROC: 0Y6N0ZC Detachment at Left Foot, Partial 3rd Ray, Open Approach (ICD-10-PCS; principal; 2019-10-05 07:30)
PROC: 0Y6N0ZD Detachment at Left Foot, Partial 4th Ray, Open Approach (ICD-10-PCS; 2019-10-05 07:30)
DX: A41.9 Sepsis, unspecified organism (principal); N17.0 Acute kidney failure with tubular necrosis; E11.52 Type 2 diabetes mellitus with diabetic peripheral angiopathy with gangrene; I69.354 Hemiplegia and hemiparesis following cerebral infarction affecting left non-dominant side; I96 Gangrene, not elsewhere classified; N39.0 Urinary tract infection, site not specified; L02.612 Cutaneous abscess of left foot; L08.9 Local infection of the skin and subcutaneous tissue, unspecified; E11.628 Type 2 diabetes mellitus with other skin complications; M25.519 Pain in unspecified shoulder; R59.9 Enlarged lymph nodes, unspecified; D64.9 Anemia, unspecified; E11.22 Type 2 diabetes mellitus with diabetic chronic kidney disease; E11.40 Type 2 diabetes mellitus with diabetic neuropathy, unspecified; N18.2 Chronic kidney disease, stage 2 (mild); L97.529 Non-pressure chronic ulcer of other part of left foot with unspecified severity; I70.245 Atherosclerosis of native arteries of left leg with ulceration of other part of foot; I12.9 Hypertensive chronic kidney disease with stage 1 through stage 4 chronic kidney disease, or unspecified chronic kidney disease; F41.9 Anxiety disorder, unspecified; F32.9 Major depressive disorder, single episode, unspecified; E78.5 Hyperlipidemia, unspecified; E78.00 Pure hypercholesterolemia, unspecified; Z20.828 Contact with and (suspected) exposure to other viral communicable diseases; L03.032 Cellulitis of left toe; Z88.0 Allergy status to penicillin; Z88.2 Allergy status to sulfonamides; Z82.49 Family history of ischemic heart disease and other diseases of the circulatory system; Z79.899 Other long term (current) drug therapy
CPT/HCPCS: 36247; 36415; 71045; 73630; 75625; 75710; 76770; 76937; 80048; 80053; 81001; 82274; 82550; 82962; 83036; 83540; 83550; 83605; 83735; 84100; 85007; 85014; 85018; 85025; 85048; 85610; 86850; 86900; 86901; 86920; 87071; 87075; 87086; 87493; 88305; 88311; 93880; 93922; 93923; 93970; 93971; 94760; 96361; 96365; 99152; 99153; A4215; A7015; C1713; C1750; C1760; C1768; C1769; C1892; C1894; G0269; J0330; J0360; J0690; J0878; J1100; J1644; J1650; J1815; J2185; J2250; J2270; J2405; J2704; J2710; J2720; J2765; J3010; J3370; J3475; J3490; J7030; J7040; J7120; P9016; Q9967; 97110-GP; 97530-GP; 99285-25; A4461; G0378; J7613; U0003-CS